=== PATIENT | female | born 1930 | race Caucasian/White ===

== ENCOUNTER 2016-08-29 12:16 | Inpatient (IN) | payer MEDICARE ==
[2016-08-29] MEDS ORDERED: SODIUM CHLORIDE 0.9% 1,000 ML IV STA ×2 (13:19)
--- NOTE | 2016-08-29 13:23 | ED ---
Nausea/Vomiting/Diarrhea HPI - General Chief complaint: Nausea/Vomiting/Diarrhea Stated complaint: Weakness Time Seen by Provider: 08/29/16 13:05 Source: patient, family, RN notes reviewed Mode of arrival: wheelchair Limitations: no limitations - History of Present Illness Initial comments: This is a 85-year-old female who is brought in for evaluation due to weakness and nausea vomiting which is going on for at least 3 days with associated diarrhea. She also is had supposedly a history of diarrhea. Past 3 weeks but it got worse over last several days. She's had decreased oral intake generalized weakness she reports no chest pain fevers chills nausea vomiting sweats she does state that her abdomen is getting distended. No prior history of abdominal surgeries reported. No reports of dysuria or hematuria. There is a prior history of constipation with fecal impaction. MD complaint: nausea, vomiting, other - Related Data Home Medications Medication Instructions Recorded Confirmed Aspirin EC [Ecotrin Low Dose] 81 mg PO DAILY 08/29/16 08/29/16 Carbidopa-Levodopa 25-100 mg 1 tab PO TID 08/29/16 08/29/16 [Sinemet 25-100] Fluocinonide 0.05% [Lidex 0.05% 1 applic TOPICAL BID 08/29/16 08/29/16 cream] Furosemide [Lasix] 40 mg PO BID 08/29/16 08/29/16 [place] Carbonate [[place] 300 mg PO DAILY 08/29/16 08/29/16 Carbonate ER] Multivitamins, Thera [Multivitamin] 1 tab PO DAILY 08/29/16 08/29/16 Potassium Chloride [Klor-Con 10] 10 meq PO DAILY 08/29/16 08/29/16 Sennosides [Ex-Lax] 15 mg PO BID PRN 08/29/16 08/29/16 Vit C/E/Zn/Coppr/Lutein/Zeaxan 1 cap PO DAILY 08/29/16 08/29/16 [Preservision Areds 2 Softgel] clonazePAM [KlonoPIN] 0.5 mg PO HS 08/29/16 08/29/16 rOPINIRole HCL [Requip] 1 mg PO TID 08/29/16 08/29/16 Allergies Allergy/AdvReac Type Severity Reaction Status Date / Time No Known Allergies Allergy Verified 08/29/16 13:51 Review of Systems ROS Statement: Those systems with pertinent positive or pertinent negative responses have been documented in the HPI. ROS Other: All systems not noted in ROS Statement are negative. Past Medical History Past Medical History: COPD Additional Past Medical History / Comment(s): lordosis kyphoisis parkensons enlarged heart History of Any Multi-Drug Resistant Organisms: None Reported Past Surgical History: Appendectomy Past Psychological History: Bipolar, Depression Smoking Status: Current every day smoker Past Alcohol Use History: None Reported Past Drug Use History: None Reported General Exam - General Exam Comments Initial Comments: This is a well-developed asthenic appearing female Limitations: no limitations General appearance: alert, lethargic Head exam: Present: atraumatic, normocephalic, normal inspection Eye exam: Present: normal appearance, PERRL, EOMI. Absent: scleral icterus, conjunctival injection, periorbital swelling ENT exam: Present: mucous membranes dry Neck exam: Present: normal inspection. Absent: tenderness, meningismus, lymphadenopathy Respiratory exam: Present: normal lung sounds bilaterally, other (Evidence of some kyphoscoliosis). Absent: respiratory distress, wheezes, rales, rhonchi, stridor Cardiovascular Exam: Present: regular rate, normal rhythm, normal heart sounds. Absent: systolic murmur, diastolic murmur, rubs, gallop, clicks GI/Abdominal exam: Present: soft, distended, other (Increased tympany no tenderness palpation). Absent: bruit, pulsatile mass, hernia Rectal exam: Present: normal rectal tone, other (Small amount of soft brown stool no gross blood) Extremities exam: Present: pedal edema (Pedal edema on the right some evidence of stasis changes) Back exam: Present: other (Kyphoscoliosis). Absent: tenderness, CVA tenderness (R), CVA tenderness (L), paraspinal tenderness, vertebral tenderness Neurological exam: Present: alert, oriented X3, CN II-XII intact Psychiatric exam: Present: normal affect, normal mood Skin exam: Present: warm, dry, intact, normal color. Absent: rash Course Vital Signs 08/29/16 08/29/16 08/29/16 12:55 13:14 14:15 Temperature 97.9 F Pulse Rate 68 63 62 Respiratory 18 18 18 Rate Blood Pressure 106/51 123/57 127/60 O2 Sat by Pulse 91 L 99 98 Oximetry 08/29/16 15:55 Temperature Pulse Rate 542 H Respiratory 18 Rate Blood Pressure 122/59 O2 Sat by Pulse 95 Oximetry Medical Decision Making - Medical Decision Making I did discuss the findings with patient family patient be admitted for IV hydration and further evaluation - Lab Data Result diagrams: 08/29/16 13:35 08/29/16 13:35 Lab Results 08/29/16 08/29/16 08/29/16 Range/Units 13:35 13:35 14:25 WBC 15.1 H (3.8-10.6) k/uL RBC 4.38 (3.80-5.40) m/uL Hgb 13.3 (11.4-16.0) gm/dL Hct 42.4 (34.0-46.0) % MCV 96.9 (80.0-100.0) fL MCH 30.4 (25.0-35.0) pg MCHC 31.3 (31.0-37.0) g/dL RDW 13.2 (11.5-15.5) % Plt Count 228 (150-450) k/uL Neutrophils % 85 % Lymphocytes % 8 % Monocytes % 5 % Eosinophils % 0 % Basophils % 0 % Neutrophils # 12.9 H (1.3-7.7) k/uL Lymphocytes # 1.2 (1.0-4.8) k/uL Monocytes # 0.8 (0-1.0) k/uL Eosinophils # 0.0 (0-0.7) k/uL Basophils # 0.0 (0-0.2) k/uL Sodium 143 (137-145) mmol/L Potassium 4.2 (3.5-5.1) mmol/L Chloride 103 (98-107) mmol/L Carbon Dioxide 25 (22-30) mmol/L Anion Gap 15 mmol/L BUN 42 H (7-17) mg/dL Creatinine 1.33 H (0.52-1.04) mg/dL Est GFR (MDRD) Af Amer 46 (>60 ml/min/1.73 sqM) Est GFR (MDRD) Non-Af 38 (>60 ml/min/1.73 sqM) Glucose 100 H (74-99) mg/dL Calcium 10.7 H (8.4-10.2) mg/dL Magnesium 2.4 H (1.6-2.3) mg/dL Total Bilirubin 1.2 (0.2-1.3) mg/dL AST 18 (14-36) U/L ALT 26 (9-52) U/L Alkaline Phosphatase 81 (38-126) U/L Total Protein 7.0 (6.3-8.2) g/dL Albumin 4.1 (3.5-5.0) g/dL Amylase 103 (30-110) U/L Lipase 43 (23-300) U/L Urine Color Urine Appearance (Clear) Urine pH (5.0-8.0) Ur Specific [place] (1.001-1.035) Urine Protein (Negative) Urine Glucose (UA) (Negative) Urine Ketones (Negative) Urine Blood (Negative) Urine Nitrate (Negative) Urine Bilirubin (Negative) Urine Urobilinogen (<2.0) mg/dL Ur Leukocyte Esterase (Negative) Stool Occult Blood Negative (Negative) [place] mmol/L 08/29/16 08/29/16 Range/Units 15:03 16:10 WBC (3.8-10.6) k/uL RBC (3.80-5.40) m/uL Hgb (11.4-16.0) gm/dL Hct (34.0-46.0) % MCV (80.0-100.0) fL MCH (25.0-35.0) pg MCHC (31.0-37.0) g/dL RDW (11.5-15.5) % Plt Count (150-450) k/uL Neutrophils % % Lymphocytes % % Monocytes % % Eosinophils % % Basophils % % Neutrophils # (1.3-7.7) k/uL Lymphocytes # (1.0-4.8) k/uL Monocytes # (0-1.0) k/uL Eosinophils # (0-0.7) k/uL Basophils # (0-0.2) k/uL Sodium (137-145) mmol/L Potassium (3.5-5.1) mmol/L Chloride (98-107) mmol/L Carbon Dioxide (22-30) mmol/L Anion Gap mmol/L BUN (7-17) mg/dL Creatinine (0.52-1.04) mg/dL Est GFR (MDRD) Af Amer (>60 ml/min/1.73 sqM) Est GFR (MDRD) Non-Af (>60 ml/min/1.73 sqM) Glucose (74-99) mg/dL Calcium (8.4-10.2) mg/dL Magnesium (1.6-2.3) mg/dL Total Bilirubin (0.2-1.3) mg/dL AST (14-36) U/L ALT (9-52) U/L Alkaline Phosphatase (38-126) U/L Total Protein (6.3-8.2) g/dL Albumin (3.5-5.0) g/dL Amylase (30-110) U/L Lipase (23-300) U/L Urine Color Yellow Urine Appearance Clear (Clear) Urine pH 6.0 (5.0-8.0) Ur Specific [place] 1.010 (1.001-1.035) Urine Protein Negative (Negative) Urine Glucose (UA) Negative (Negative) Urine Ketones Negative (Negative) Urine Blood Negative (Negative) Urine Nitrate Negative (Negative) Urine Bilirubin Negative (Negative) Urine Urobilinogen 2.0 (<2.0) mg/dL Ur Leukocyte Esterase Negative (Negative) Stool Occult Blood (Negative) [place] 0.8 mmol/L - Radiology Data Radiology results: report reviewed (X-rays were reviewed initial evidence of increased stool burn with dilatation of the colon), image reviewed Disposition Clinical Impression: Bowel obstruction, Obstipation, Dehydration Disposition: ADMITTED IP TO THIS [facility] Condition: Stable
[2016-08-29 14:02] LABS: Calcium 10.7 mg/dL (8.4-10.2); Magnesium 2.4 mg/dL (1.6-2.3); Potassium 4.2 mmol/L (3.5-5.1); Total Bilirubin 1.2 mg/dL (0.2-1.3)
[2016-08-29 14:03] LABS: Basophils % (A) 0 %; CH 30.3; CHCM 31.4; Eosinophils % (A) 0 %; HCT 42.4 % (34.0-46.0); HDW 2.09; HGB 13.3 gm/dL (11.4-16.0); Luc # (Auto) 0.18; Luc % (Auto) 1; Lymphocytes # (A) 1.2 k/uL (1.0-4.8); Lymphocytes % (A) 8 %; MCH 30.4 pg (25.0-35.0); MCHC 31.3 g/dL (31.0-37.0); MCV 96.9 fL (80.0-100.0); Mean Platelet Volume 7.3; Monocytes # (A) 0.8 k/uL (0-1.0); Monocytes % (A) 5 %; Neutrophils # (A) 12.9 k/uL (1.3-7.7); Neutrophils % (A) 85 %; RBC 4.38 m/uL (3.80-5.40); RDW 13.2 % (11.5-15.5); WBC 15.1 k/uL (3.8-10.6); WBC (Perox) 15.56
--- NOTE | 2016-08-29 14:07 | XR ---
EXAMINATION TYPE: XR chest 2V DATE OF EXAM: 08/29/2016 1:54 PM COMPARISON: None HISTORY: 85-year-old female with pain, weakness, diarrhea, and shortness of breath TECHNIQUE: AP and lateral views FINDINGS: Heart is upper limits of normal in size. Atherosclerotic arch calcifications. Relative upper lung robert encies and hyperinflation with increased AP chest dimension. There is diffuse interstitial opacities throughout. IMPRESSION: COPD. Additional diffuse interstitial lung disease. Correlate for CHF with pulmonary vascular congest ion versus other etiologies such as atypical pneumonias.
--- NOTE | 2016-08-29 14:12 | XR ---
EXAMINATION TYPE: XR KUB DATE OF EXAM: 08/29/2016 1:54 PM COMPARISON: NONE HISTORY: 85-year-old female weakness, diarrhea, shortness of breath, and pain FINDINGS: Supine imaging limited for assessment of free air. There is large stool burden with the cecum distend ed to 9 cm with stool. IMPRESSION: Severe stool burden with the cecum distended up to 9 cm with stool. Note that this degree of distenti on places the patient at risk for cecal perforation. Supine imaging limited for assessment of free ai r.
[2016-08-29 15:35] LABS: Appearance,Urine Clear (Clear); Bilirubin,Urine Negative (Negative); Glucose,Urine (UA) Negative (Negative); Ketones,Urine Negative (Negative); Leukocyte Esterase,Urine Negative (Negative); Nitrite,Urine Negative (Negative); Protein,Urine Negative (Negative); UA Billing (MACRO vs. MICRO) CHEM
[2016-08-29] MEDS ORDERED: NALOXONE 0.4 MG/ML 1 ML VIAL IV PRN (16:46)
--- NOTE | 2016-08-29 17:04 | CT ---
EXAMINATION TYPE: CT abdomen pelvis wo con DATE OF EXAM: 08/29/2016 4:24 PM COMPARISON: NONE HISTORY: 85-year-old female unable to give history. Pain. CT DLP: 357.4 mGycm. Automated exposure control for dose reduction was used. TECHNIQUE: Contiguous axial scanning of the abdomen and pelvis without IV contrast. Coronal and sagit kristel reconstructions performed. FINDINGS: Heart is borderline enlarged without pericardial effusion. There is focal opacity at the left lung ba se poorly characterized given the lack of IV contrast. This blends with the adjacent hemidiaphragm an d subjacent abdominal structures. Nonspecific 2.2 cm cyst right lower lobe and some strandy opacity probably scarring. Noncontrast appearance of the liver, adrenal glands, and spleen show no gross anomaly. Suggestion of subtle hypodense lesions measuring less than 1 cm in the kidneys inadequately characterized. The panc reas appears atrophic. Very limited evaluation of the intra-abdominal structures due to paucity of intra-abdominal fat and m ild diffuse anasarca type changes. The gallbladder is hydropic measuring 4.4 cm wide with layering sludge. Moderate atherosclerotic calcifications throughout the abdominal aorta and iliac arteries. Noncontrast exam and paucity of intra-abdominal fat limiting assessment for intra-abdominal lymphaden opathy. No free air seen. Dilated bowel loop which was thought to represent cecum on radiographs appears to correspond to the m id to distal sigmoid colon which is dilated up to 10 cm. There is large stool along this segment and moderate circumferential wall thickening involving the distal sigmoid and rectum with presacral edema . There is a 4 cm cystic structure within the left adnexa. Bones: Bilateral total hip replacements are present along with degenerative changes throughout the rojas mbar spine. 50% anterior vertebral torsion deformity of L1 is age indeterminate chronic and can be co rrelated clinically. There is mild retropulsion into the ventral spinal canal. IMPRESSION: 1. VERY LARGE AMOUNT OF STOOL WITHIN THE DISTAL SIGMOID AND RECTUM. SUSPECT DISTAL COLONIC OBSTRUCTIO N FROM FECAL IMPACTION. 2. MODERATE CIRCUMFERENTIAL WALL THICKENING OF THE DISTAL SIGMOID AND RECTUM WITH PRESACRAL EDEMA. SE CONDARY COLONIC INFLAMMATION INCLUDING EARLY ISCHEMIC STERCORAL COLITIS ARE NOT EXCLUDED. 3. MILD GALLBLADDER HYDROPS WITH SLUDGE. FINDINGS MAY RELATED TO FASTING STATE. IF RIGHT UPPER QUADRA NT PAIN OR CONCERN FOR EARLY ACUTE CHOLECYSTITIS, FOLLOW-UP ULTRASOUND OR HIDA SCAN. 4. FOCAL LEFT BASILAR OPACITY COULD REPRESENT ATELECTASIS OR PNEUMONIA. 5. ANASARCA TYPE CHANGES, LACK OF IV CONTRAST, AND PAUCITY OF INTRA-ABDOMINAL FAT DECREASES THE SENSI TIVITY OF THE EXAM. 6. A 4 CM CYSTIC STRUCTURE WITHIN THE LEFT ADNEXA LIKELY OF OVARIAN ETIOLOGY. THIS CAN BE FURTHER TAMIKA RACTERIZED ON OUTPATIENT PELVIC ULTRASOUND WHEN PATIENT ABLE. 7. A 50% ANTERIOR VERTEBRAL COMPRESSION DEFORMITY OF L1 IS AGE INDETERMINATE BUT SUSPECTED CHRONIC. CORRELATE FOR ANY PAIN AT THIS LEVEL.
[2016-08-29 17:46] VITALS: BMI 40.0
[2016-08-29 18:07] LABS: Glucose,Whole Blood 79 mg/dL (75-99)
[2016-08-29] MEDS: SODIUM CHLORIDE 0.9% 1,000 ML IV SCH (19:30)
[2016-08-29 20:06] LABS: Glucose,Whole Blood 84 mg/dL (75-99)
[2016-08-29] MEDS: PANTOPRAZOLE 40 MG/10 ML VIAL IV SCH (20:23)
[2016-08-29] MEDS: LEVOFLOXACIN 500MG-D5W PMX 500 MG in DEXTROSE/WATER 1 100ML.BAG IVPB SCH (21:57)
[2016-08-29] MEDS ORDERED: ALPRAZolam 0.25 MG TAB PO PRN (22:34)
[2016-08-29] MEDS ORDERED: HYDROcodone/APAP 5-325MG 1 EACH TAB PO PRN (22:34)
[2016-08-29] MEDS ORDERED: HYDROmorphone 1 MG/ML 1 ML SYRINGE IVP PRN (22:34)
[2016-08-29] MEDS: HEPARIN SODIUM,PORCINE 5,000 UNIT/ML 1 ML VIAL SQ SCH (23:17)
[2016-08-30 02:24] LABS: Glucose,Whole Blood 71 mg/dL (75-99)
[2016-08-30] MEDS: SODIUM CHLORIDE 0.9% 1,000 ML IV SCH (05:33)
[2016-08-30 06:56] LABS: Glucose,Whole Blood 67 mg/dL (75-99)
[2016-08-30] MEDS ORDERED: GLUCAGON 1 MG/ML VIAL ONE (06:59)
[2016-08-30] MEDS ORDERED: DEXTROSE 50%-WATER 50 ML SYRINGE IVP ONE (07:00)
[2016-08-30 07:24] LABS: Glucose,Whole Blood 144 mg/dL (75-99)
[2016-08-30] MEDS: LEVALBUTEROL NEB (CONC) 1.25 MG/0.5 ML AMP INHALATION SCH ×3 (07:33→20:52)
[2016-08-30] MEDS: IPRATROPIUM 0.5 MG/2.5 ML NEBU INHALATION SCH ×3 (07:33→20:52)
[2016-08-30 07:46] LABS: Basophils % (A) 0 %; CH 29.9; CHCM 30.5; Eosinophils # (A) 0.2 k/uL (0-0.7); Eosinophils % (A) 2 %; HCT 36.1 % (34.0-46.0); HDW 2.09; HGB 11.4 gm/dL (11.4-16.0); Hypochromasia Slight; Luc # (Auto) 0.13; Luc % (Auto) 1; Lymphocytes # (A) 1.1 k/uL (1.0-4.8); Lymphocytes % (A) 13 %; MCH 30.9 pg (25.0-35.0); MCHC 31.4 g/dL (31.0-37.0); MCV 98.5 fL (80.0-100.0); Mean Platelet Volume 7.2; Monocytes # (A) 0.4 k/uL (0-1.0); Monocytes % (A) 5 %; Neutrophils # (A) 7.1 k/uL (1.3-7.7); Neutrophils % (A) 79 %; RBC 3.67 m/uL (3.80-5.40); RDW 13.1 % (11.5-15.5); WBC 8.9 k/uL (3.8-10.6); WBC (Perox) 9.43
[2016-08-30 08:30] LABS: Glucose,Whole Blood 125 mg/dL (75-99)
[2016-08-30] MEDS ORDERED: DEXTROSE 5% IN WATER 1,000 ML IV ONE (08:30)
[2016-08-30] MEDS: HEPARIN SODIUM,PORCINE 5,000 UNIT/ML 1 ML VIAL SQ SCH ×2 (08:37→22:10)
[2016-08-30] MEDS: FUROSEMIDE 40 MG TAB PO SCH ×2 (08:37→23:57)
[2016-08-30] MEDS: CARBIDOPA-LEVODOPA 25-100 MG 1 EACH TAB PO SCH ×3 (08:37→22:04)
[2016-08-30] MEDS: LITHIUM CARBONATE 300 MG CAP PO SCH (08:37)
[2016-08-30] MEDS: PANTOPRAZOLE 40 MG/10 ML VIAL IV SCH ×2 (08:38→22:05)
--- NOTE | 2016-08-30 09:15 | P.GSCN ---
History of Present Illness Consult date: 08/30/16 Reason for Consult: Fecal impaction within abnormal CT Requesting physician: Awais Palm History of present illness: The patient is a 85-year-old female who presented to Hospital secondary to generalized weakness including poor oral intake. She has history of fecal impaction including abdominal distention. Most of her history is obtained via medical records as the patient is generally nonverbal. A CT of the abdomen and pelvis was obtained demonstrating large fecal content as well as questionable colonic thickening and gallbladder sludge. Secondary to these normal findings, Gen. surgery is consult today. Patient presented with elevated white count of over 15,000. Separately, she has baseline history of chronic constipation. Since admission, she is feeling better. No reports of abdominal pain. An enema had been administered. Review of Systems CONSTITUTIONAL: No fever or chills. HEENT: No trouble with vision or nosebleeds. LYMPHATIC: No lumps and bumps around the neck. ENDOCRINE: No thyroid disorders. Denies any blood sugar glucose intolerance. RESPIRATORY: Has chronic obstructive pulmonary disease. Personal history of tobacco use. CARDIOVASCULAR: No chest pain, palpitations, or recent heart attacks. GASTROINTESTINAL: No heart burn. Has chronic constipation. Has fecal impaction. GENITOURINARY: No blood in urine or increased urinary frequency. MUSCULOSKELETAL: Has back pain, stiffness, joint arthritis. NEUROLOGIC: No seizure disorders or headaches. PSYCHIATRIC: Has depression. No suidical ideation. History of bipolar disorder. Has depression. HEMATOLOGIC: No abnormal bleeding or bruising. Past Medical History Past Medical History: COPD, Osteoarthritis (OA) Additional Past Medical History / Comment(s): lordosis kyphoisis, parkinson's disease, enlarged heart, curvature of spine History of Any Multi-Drug Resistant Organisms: None Reported Past Surgical History: Appendectomy, Joint Replacement Additional Past Surgical History / Comment(s): bilateral hip sx, Past Psychological History: Bipolar, Depression Smoking Status: Current every day smoker Past Alcohol Use History: None Reported Past Drug Use History: None Reported - Past Family History Mother History Unknown: Yes Additional Family Medical History / Comment(s): brain aneurysm Father History Unknown: Yes Medications and Allergies Home Medications Medication Instructions Recorded Confirmed Type Aspirin EC [Ecotrin Low Dose] 81 mg PO DAILY 08/29/16 08/29/16 History Carbidopa-Levodopa 25-100 mg 1 tab PO TID 08/29/16 08/29/16 History [Sinemet 25-100 mg] Fluocinonide 0.05% [Lidex 0.05% 1 applic TOPICAL BID 08/29/16 08/29/16 History cream] Furosemide [Lasix] 40 mg PO BID 08/29/16 08/29/16 History [place] Carbonate [[place] 300 mg PO DAILY 08/29/16 08/29/16 History Carbonate ER] Multivitamins, Thera [Multivitamin] 1 tab PO DAILY 08/29/16 08/29/16 History Potassium Chloride [Klor-Con 10] 10 meq PO DAILY 08/29/16 08/29/16 History Sennosides [Ex-Lax] 15 mg PO BID PRN 08/29/16 08/29/16 History Vit C/E/Zn/Coppr/Lutein/Zeaxan 1 cap PO DAILY 08/29/16 08/29/16 History [Preservision Areds 2 Softgel] rOPINIRole HCL [Requip] 1 mg PO TID 08/29/16 08/29/16 History Allergies Allergy/AdvReac Type Severity Reaction Status Date / Time No Known Allergies Allergy Verified 08/29/16 17:48 Surgical - Exam Vital Signs Temp Pulse Resp BP Pulse Ox 97.9 F 68 18 106/51 91 L 08/29/16 12:55 08/29/16 12:55 08/29/16 12:55 08/29/16 12:55 08/29/16 12:55 GENERAL: Well developed and in no acute distress. HEENT: No sclera icterus. Extraocular movements grossly intact. Moist buccal mucosa. Head is atraumatic, normocephalic. NECK: Supple without lymphadenopathy. CHEST: Non-labored respirations and equal bilateral excursions. Prolonged expiration. CARDIOVASCULAR: Regular rate and rhythm. Palpable 2+ radial pulses. ABDOMEN: Soft, nontender. Decreased distention. No peritoneal signs. MUSCULOSKELETAL: No clubbing, cyanosis or edema. Has severe kyphosis of the spine. NEUROLOGIC: No focal or lateralizing signs. Cranial nerves II through XII grossly intact. PSYCH: Flat affect. Alert and oriented to person. Results - Labs 09/02/16 06:37 09/02/16 06:37 Abnormal Lab Results - Last 24 Hours (Table) 08/30/16 08/30/16 08/30/16 Range/Units 02:20 06:51 07:17 RBC 3.67 L (3.80-5.40) m/uL Glucose (74-99) mg/dL POC Glucose (mg/dL) 71 L 67 L (75-99) mg/dL 08/30/16 08/30/16 08/30/16 Range/Units 07:17 07:19 08:18 RBC (3.80-5.40) m/uL Glucose 147 H (74-99) mg/dL POC Glucose (mg/dL) 144 H 125 H (75-99) mg/dL Diabetes panel 08/30/16 Range/Units 07:17 Glucose 147 H (74-99) mg/dL Pituitary panel 08/30/16 Range/Units 07:17 Glucose 147 H (74-99) mg/dL Adrenal panel 08/30/16 Range/Units 07:17 Glucose 147 H (74-99) mg/dL - Imaging CT scan - abdomen: report reviewed, image reviewed CT scan - pelvis: report reviewed, image reviewed (Large fecal bolus found along the cecum sigmoid colon. No evidence of pneumoperitoneum) Assessment and Plan (1) Fecal impaction of colon Status: Acute (2) Chronic constipation Status: Chronic (3) Dementia Status: Chronic (4) Abnormal CT of the abdomen Status: Acute (5) Abdominal distention Status: Acute (6) Dehydration Status: Acute (7) Parkinson's disease Status: Acute (8) Chronic obstructive pulmonary disease Status: Acute (9) Fecal impaction Status: Acute (10) Kyphosis Status: Acute (11) Chronic depression Status: Acute (12) Elevated white blood cell count, unspecified Status: Acute (13) Chronic idiopathic constipation Status: Acute (14) Abnormal findings on diagnostic imaging of other parts of digestive tract Status: Acute (15) Abdominal distension (gaseous) Status: Acute Plan: 1. Recommend continuing IV fluid hydration. 2. On exam, no acute or surgical abdomen. 3. Recommend continued enemas. Patient will benefit from bowel regimen. 4. Recommend liquid diet and advanced as tolerated as fecal impaction resolves. 5. DVT prophylaxis. 6. Incentive spirometry. 7. Repeat chemistries. 8. Pulmonary toilet to prevent exacerbation of COPD. Thank you for this kind consultation.
--- NOTE | 2016-08-30 11:38 | HP ---
DATE OF ADMISSION: 08/29/2016 CHIEF COMPLAINT: Weakness and abdominal discomfort. HISTORY OF PRESENT ILLNESS: This 85-year-old woman with past medical history of multiple medical problems including COPD, history of DJD, history of lordosis/kyphosis, bipolar, depression, being followed by Dr. Toribio Post in the outpatient setting, was [facility] to [facility] with complaints of nausea, vomiting and some diarrhea. The patient had abdominal distention. The patient's symptoms have been present for the last 3 weeks. The patient is stuporous, unable to give a coherent history. Most of the history is taken by my discussion with staff as well as review of chart at this time. The CT scan of the abdomen was done in the ER which showed large amount of stool within the distal sigmoid colon and rectum, suspected of distal colonic obstruction and some secondary fecal impaction. There is questionable wall thickening of the distal sigmoid also noted, possibly early ischemic colitis or infectious colitis. Mild gallbladder hydronephrosis with focal left basilar opacity, possibly pneumonia. Anasarca also noted. compression deformity of L4 also noted. No history of obvious trauma. PAST MEDICAL HISTORY: History of COPD, DJD, history of lordosis/kyphosis, bipolar, depression. MEDICATIONS PRIOR TO ADMISSION: 1. Senna 15 mg daily p.r.n. 2. Preservision 1 capsule daily. 3. Aspirin 81 mg daily. 4. Klor-Con 20 mg p.o. daily. 5. Multivitamins. 7. Lasix 40 mg b.i.d. 8. Sinemet 20/100, p.o. t.i.d. 10. Klonopin 0.5 mg at bedtime. 11. Lidex topically b.i.d. ALLERGIES: None. FAMILY HISTORY: History of brain aneurysm in the family. SOCIAL HISTORY: Could not be taken because of change in mental status. History of smoking per chart. On physical exam, the patient is stuporous. Pulse is 58, blood pressure 130/58, respirations 17, temperature 97.8, pulse ox 94% on 2 liters. HEENT: Conjunctivae normal. Oral mucosa moist. NECK: No JVD. No carotid bruits or lymph node enlargement. CARDIOVASCULAR: S1 and S2 muffled. LUNGS: Breath sounds diminished in the bases. Few scattered rhonchi and crackles. ABDOMEN: Soft, distended. Mild diffuse discomfort on palpation. No guarding or rebound. Bowel sounds diminished. EXTREMITIES: No mass palpable. No edema. NERVOUS SYSTEM: Higher functions as mentioned. Full neurology exam cannot be done at this time. SKIN: No ulcer or rash. LABS: WBC 15.1, creatinine is 1.3. ASSESSMENT: 1. Abdominal distention, possibly a large bowel obstruction secondary to colonic obstruction secondary to fecal impaction. 2. Rule out diverticulitis or colitis. 3. Increased WBC. 4. Increased creatinine with , possible prerenal. 5. History of chronic obstructive pulmonary disease. 6. History of degenerative joint disease. 7. Nicotine dependence. 8. History of lordosis and kyphosis. 9. History of Parkinson's. 10. History of degenerative joint disease. 11. History of bipolar depression. 12. FULL CODE. RECOMMENDATIONS AND DISCUSSION: This 85-year-old woman presented with multiple complex medical issues, we will monitor the patient closely, continue the current medication. I recommend empiric antibiotics. Monitor fluids closely. Otherwise, we will continue to follow with surgery for further evaluation. Prognosis guarded because of multiple complex medical issues. See orders for further details. Further recommendations to follow. MTDD
[2016-08-30 11:44] LABS: Glucose,Whole Blood 184 mg/dL (75-99)
[2016-08-30] MEDS: BETAMETHASONE DIPROPIONATE 0.05% CREAM 15 GM TUBE TOPICAL SCH ×2 (11:49→22:05)
[2016-08-30 16:27] LABS: Glucose,Whole Blood 100 mg/dL (75-99)
--- NOTE | 2016-08-30 18:55 | PN ---
DATE OF SERVICE: 08/30/2016 This 85-year-old woman who was admitted with abdominal distention with large bowel obstruction secondary to colonic obstruction is being closely monitored at this time. Her sensorium is slightly improved. Dr. Arteaga has seen the patient from the surgical point of view. No chest pain. No palpitation. No fever. On exam, alert and oriented x3. Pulse is 49, blood pressure 99/40, respiration 17, temperature 97.3, pulse ox 93% on 3 L. HEENT: Conjunctivae normal. NECK: No jugular venous distention. RESPIRATORY SYSTEM: Breath sounds diminished at the bases. A few scattered rhonchi and crackles. ABDOMEN: Soft. Mild diffuse distention. LEGS: No edema. No swelling. NERVOUS SYSTEM: No focal deficit. LABS: Accu-Cheks are noted. Otherwise, CBC within normal limits. ASSESSMENT: 1. Abdominal distention with possible large bowel obstructive secondary to colonic obstruction secondary to fecal impaction. 2. Rule out colitis or diverticulitis or ischemic colitis. 3. Increased white count. 4. Increased creatinine with mild acute renal failure, possibly prerenal. 5. History of chronic obstructive pulmonary disease. 6. History of degenerative joint disease. 7. History of nicotine dependence. 8. Change in mental status, multifactorial. 9. History of lordosis and kyphosis. 10. History of Parkinson's. 11. History of degenerative joint disease. 12. Bipolar depression. 13. FULL CODE. RECOMMENDATIONS AND DISCUSSION: This 85-year-old woman who presented with multiple complex medical issues, we will monitor the patient closely, continue the current medications, continue with symptomatic treatment. Otherwise, I would recommend repeat labs and closely follow, with conservative line of management. The patient has received enemas. Clear liquid diet. Advance as tolerated per Surgery. Further recommendations to follow.
[2016-08-30] MEDS ORDERED: SODIUM CHLORIDE 0.9% 1,000 ML IV SCH (20:15)
[2016-08-30] MEDS ORDERED: SODIUM CHLORIDE 0.9% 1,000 ML IV ONE (20:15)
[2016-08-30 21:21] LABS: Glucose,Whole Blood 107 mg/dL (75-99)
[2016-08-30] MEDS: clonazePAM 0.5 MG TAB PO SCH (22:04)
[2016-08-30] MEDS: MELATONIN 3 MG TABLET PO SCH (22:04)
[2016-08-31] MEDS: LEVOFLOXACIN 500MG-D5W PMX 500 MG in DEXTROSE/WATER 1 100ML.BAG IVPB SCH
[2016-08-31] MEDS ORDERED: SODIUM CHLORIDE 0.9% 500 ML IV ONE (00:10)
[2016-08-31] MEDS ORDERED: SODIUM CHLORIDE 0.9% 1,000 ML IV ONE ×2 (00:27→00:33)
[2016-08-31 03:02] LABS: Glucose,Whole Blood 98 mg/dL (75-99)
[2016-08-31 06:58] LABS: Glucose,Whole Blood 101 mg/dL (75-99)
[2016-08-31] MEDS: FUROSEMIDE 40 MG TAB PO SCH ×2 (09:16→22:15)
[2016-08-31] MEDS: HEPARIN SODIUM,PORCINE 5,000 UNIT/ML 1 ML VIAL SQ SCH ×2 (09:16→22:15)
[2016-08-31] MEDS: CARBIDOPA-LEVODOPA 25-100 MG 1 EACH TAB PO SCH ×3 (09:16→22:15)
[2016-08-31] MEDS: SODIUM CHLORIDE 0.9% 1,000 ML IV SCH ×3 (09:17→22:22)
[2016-08-31] MEDS: PANTOPRAZOLE 40 MG/10 ML VIAL IV SCH ×2 (09:17→22:15)
[2016-08-31 11:02] LABS: Glucose,Whole Blood 86 mg/dL (75-99)
[2016-08-31] MEDS: IPRATROPIUM 0.5 MG/2.5 ML NEBU INHALATION SCH (11:58)
[2016-08-31] MEDS: LEVALBUTEROL NEB (CONC) 1.25 MG/0.5 ML AMP INHALATION SCH (11:58)
[2016-08-31] MEDS ORDERED: IPRATROPIUM-ALBUTEROL 3 ML NEB INHALATION SCH (12:00)
[2016-08-31] MEDS: LITHIUM CARBONATE 300 MG CAP PO SCH (12:50)
[2016-08-31] MEDS: BETAMETHASONE DIPROPIONATE 0.05% CREAM 15 GM TUBE TOPICAL SCH ×2 (12:50→22:15)
[2016-08-31 17:01] LABS: Glucose,Whole Blood 80 mg/dL (75-99)
[2016-08-31 20:41] LABS: Glucose,Whole Blood 140 mg/dL (75-99)
[2016-08-31] MEDS: MELATONIN 3 MG TABLET PO SCH (22:14)
[2016-08-31] MEDS: clonazePAM 0.5 MG TAB PO SCH (22:14)
[2016-08-31] MEDS: LEVOFLOXACIN 250MG-D5W PMX 250 MG in DEXTROSE/WATER 1 50ML.BAG IVPB SCH (22:23)
[2016-08-31] MEDS: ALBUTEROL NEBULIZED 2.5 MG/3 ML INHALATION PRN (23:45)
[2016-09-01 02:13] LABS: Glucose,Whole Blood 76 mg/dL (75-99)
[2016-09-01] MEDS: HEPARIN SODIUM,PORCINE 5,000 UNIT/ML 1 ML VIAL SQ SCH ×2 (07:22→21:35)
[2016-09-01] MEDS: CARBIDOPA-LEVODOPA 25-100 MG 1 EACH TAB PO SCH ×3 (07:22→21:35)
[2016-09-01] MEDS: FUROSEMIDE 40 MG TAB PO SCH ×2 (07:22→21:35)
[2016-09-01] MEDS: PANTOPRAZOLE 40 MG/10 ML VIAL IV SCH ×2 (07:23→21:35)
[2016-09-01] MEDS: BETAMETHASONE DIPROPIONATE 0.05% CREAM 15 GM TUBE TOPICAL SCH ×2 (07:23→21:35)
[2016-09-01] MEDS: LITHIUM CARBONATE 300 MG CAP PO SCH (07:23)
[2016-09-01 07:37] LABS: Glucose,Whole Blood 79 mg/dL (75-99)
--- NOTE | 2016-09-01 07:54 | PN ---
DATE OF SERVICE: 08/31/2016 This 85-year-old woman who was admitted with abdominal distention, possible large bowel obstruction secondary to colonic obstruction is improving significantly. No chest pain or palpitation. No fever. On exam, alert and oriented x3. Pulse is 42, blood pressure 120/45, respiration 15, temperature 97.2, pulse ox 96% on room air. HEENT: Conjunctivae normal. NECK: No jugular venous distention. CARDIOVASCULAR: S1 and S2, muffled. RESPIRATORY: Breath sounds diminished at the bases. A few scattered rhonchi and crackles. ABDOMEN: Soft. Minimal diffuse distention. No guarding. No mass palpable. LEGS: No edema, no swelling. NERVOUS SYSTEM: No focal deficits. Labs are CBC within normal limits. Other labs are noted. ASSESSMENT: 1. Abdominal distention with possible large bowel obstruction secondary to colonic obstruction and fecal impaction possibly. 2. Rule out colitis or diverticulitis or ischemic colitis. 3. Increased WBC. 4. Increased creatinine with mild acute renal failure, possible prerenal. 5. History of chronic obstructive pulmonary disease. 6. History of degenerative joint disease. 7. History of nicotine dependence. 8. Change in mental status multifactorial. 9. History of lordosis and kyphosis. 10. History of Parkinson's. 11. Bipolar depression. 12. FULL CODE. RECOMMENDATIONS AND DISCUSSION: Recommend to continue the current medications. Continue with monitoring and symptomatic treatment. Otherwise, at this time will monitor the patient closely. Continue the current medications. Continue with empiric antibiotics. Closely follow with Surgery. Guarded prognosis because of multiple complex medical issues. Further recommendations to follow. MATILDED
[2016-09-01 11:38] LABS: Glucose,Whole Blood 113 mg/dL (75-99)
[2016-09-01] MEDS: SODIUM CHLORIDE 0.9% 1,000 ML IV SCH (14:24)
[2016-09-01] MEDS: ALBUTEROL NEBULIZED 2.5 MG/3 ML INHALATION PRN ×2 (14:58→21:17)
--- NOTE | 2016-09-01 15:23 | PN ---
DATE OF SERVICE: 09/01/2016 This 85-year-old woman was admitted with acute abdominal distension and large bowel obstruction secondary to colonic obstruction, being closely monitored. Patient improved significantly. Sensorium has definitely improved. No fever. No cough. ECF rehab is recommended. On exam, pulse 52, blood pressure 132/52, respirations 15, temperature 98.4, pulse ox 98% on room air. HEENT: Conjunctivae normal. NECK: No jugular venous distention. CARDIOVASCULAR SYSTEM: S1, S2, muffled. RESPIRATORY: Breath sounds diminished at the bases, a few scattered rhonchi, no crackles. Abdomen is soft, mild diffuse distension especially in the lower part, no guarding, no tenderness. EXTREMITIES: Legs no edema, no swelling. NERVOUS SYSTEM: No focal deficits. LABS: Accu-Cheks noted. Creatinine is 1.37. ASSESSMENT: 1. Abdominal distention with possible large bowel obstruction secondary to colonic obstruction, fecal impaction, possibly colitis and ischemic colitis. 2. Increased WBC. 3. Increased creatinine with mild acute renal failure, possible prerenal. 4. Chronic obstructive pulmonary disease. 5. Degenerative joint disease. 6. History of nicotine dependence. 7. Change in mental status, multifactorial. 8. History of lordosis and kyphosis. 9. History of Parkinson's. 10. Bipolar depression, not otherwise specified. 11. FULL CODE. RECOMMENDATION: Recommend to continue with the current medication and symptomatic treatment. Otherwise advance diet per Surgery. Other than that, monitor PT, OT, repeat labs, possible ECF rehab. closely. Guarded prognosis. Further recommendations to follow.
[2016-09-01 16:01] LABS: Basophils % (A) 0 %; CH 30.1; CHCM 29.6; Eosinophils # (A) 0.2 k/uL (0-0.7); Eosinophils % (A) 3 %; HCT 47.1 % (34.0-46.0); HDW 2.34; HGB 13.6 gm/dL (11.4-16.0); Hypochromasia Marked; Luc # (Auto) 0.18; Luc % (Auto) 2; Lymphocytes # (A) 1.4 k/uL (1.0-4.8); Lymphocytes % (A) 18 %; MCH 29.6 pg (25.0-35.0); MCHC 28.9 g/dL (31.0-37.0); MCV 102.4 fL (80.0-100.0); Macrocytosis Slight; Mean Platelet Volume 7.7; Monocytes # (A) 0.5 k/uL (0-1.0); Monocytes % (A) 6 %; Neutrophils # (A) 5.6 k/uL (1.3-7.7); Neutrophils % (A) 71 %; RDW 13.4 % (11.5-15.5); WBC (Perox) 7.97
[2016-09-01 16:06] LABS: Anion Gap 11 mmol/L; Blood Urea Nitrogen 14 mg/dL (7-17); Calcium 10.1 mg/dL (8.4-10.2); Carbon Dioxide 28 mmol/L (22-30); Chloride 111 mmol/L (98-107); Glucose 117 mg/dL (74-99); Non-African American GFR(MDRD) >60 (>60 ml/min/1.73 sqM); Potassium 3.6 mmol/L (3.5-5.1); Sodium 150 mmol/L (137-145)
[2016-09-01 17:19] LABS: Glucose,Whole Blood 109 mg/dL (75-99)
[2016-09-01 20:47] LABS: Glucose,Whole Blood 132 mg/dL (75-99)
[2016-09-01] MEDS: clonazePAM 0.5 MG TAB PO SCH (21:35)
[2016-09-01] MEDS: LEVOFLOXACIN 250MG-D5W PMX 250 MG in DEXTROSE/WATER 1 50ML.BAG IVPB SCH (21:35)
[2016-09-01] MEDS: MELATONIN 3 MG TABLET PO SCH (21:35)
[2016-09-02] MEDS: SODIUM CHLORIDE 0.9% 1,000 ML IV SCH ×2 (01:53→15:01)
[2016-09-02 02:16] LABS: Glucose,Whole Blood 97 mg/dL (75-99)
[2016-09-02 07:24] LABS: Anion Gap 6 mmol/L; Blood Urea Nitrogen 15 mg/dL (7-17); Carbon Dioxide 33 mmol/L (22-30); Chloride 109 mmol/L (98-107); Glucose 90 mg/dL (74-99); Non-African American GFR(MDRD) >60 (>60 ml/min/1.73 sqM); Potassium 3.6 mmol/L (3.5-5.1); Sodium 148 mmol/L (137-145)
[2016-09-02 07:25] LABS: Basophils % (A) 0 %; CH 30.1; CHCM 30.7; Eosinophils # (A) 0.3 k/uL (0-0.7); Eosinophils % (A) 4 %; HCT 37.9 % (34.0-46.0); HDW 2.27; HGB 11.9 gm/dL (11.4-16.0); Hypochromasia Slight; Luc # (Auto) 0.12; Luc % (Auto) 2; Lymphocytes # (A) 1.6 k/uL (1.0-4.8); Lymphocytes % (A) 24 %; MCHC 31.4 g/dL (31.0-37.0); MCV 98.5 fL (80.0-100.0); Monocytes # (A) 0.4 k/uL (0-1.0); Monocytes % (A) 6 %; Neutrophils # (A) 4.3 k/uL (1.3-7.7); Neutrophils % (A) 65 %; RBC 3.85 m/uL (3.80-5.40); RDW 13.3 % (11.5-15.5); WBC 6.6 k/uL (3.8-10.6); WBC (Perox) 6.43
[2016-09-02 07:28] LABS: Glucose,Whole Blood 81 mg/dL (75-99)
[2016-09-02] MEDS: LITHIUM CARBONATE 300 MG CAP PO SCH (08:29)
[2016-09-02] MEDS: CARBIDOPA-LEVODOPA 25-100 MG 1 EACH TAB PO SCH (08:29)
[2016-09-02] MEDS: PANTOPRAZOLE 40 MG/10 ML VIAL IV SCH (08:29)
[2016-09-02] MEDS: FUROSEMIDE 40 MG TAB PO SCH (08:29)
[2016-09-02] MEDS: HEPARIN SODIUM,PORCINE 5,000 UNIT/ML 1 ML VIAL SQ SCH (08:30)
[2016-09-02] MEDS: BETAMETHASONE DIPROPIONATE 0.05% CREAM 15 GM TUBE TOPICAL SCH ×2 (08:30)
[2016-09-02] MEDS: ALBUTEROL NEBULIZED 2.5 MG/3 ML INHALATION PRN (08:38)
[2016-09-02 11:35] LABS: Glucose,Whole Blood 96 mg/dL (75-99)
[2016-09-02 13:31] VITALS: PULSE 48
[2016-09-02] MEDS ORDERED: POTASSIUM CHLORIDE ER 20 MEQ TAB.ER PO STA (14:07)
--- NOTE | 2016-09-02 15:31 | DS ---
DATE OF ADMISSION: 08/29/2016 DATE OF DISCHARGE: DATE OF SERVICE: 09/02/2016 FINAL DIAGNOSES: 1. Abdominal distention with possible large bowel obstruction secondary to colonic obstruction, fecal impaction, possibly colitis. 2. Colitis, improved. 3. Increased WBC. 4. Increased creatinine with mild acute renal failure, possibly prerenal. 5. History of chronic obstructive pulmonary disease. 6. Degenerative joint disease. 7. History of nicotine dependence. 8. Change in mental status multifactorial. 9. History of lordosis and kyphosis. 10. History of Parkinson's. 11. Bipolar and depression, not otherwise specified. 12. NO CODE, NO CPR, NO VENT. DISCHARGE DISPOSITION: The patient will be discharged in stable condition with guarded prognosis. Discharge cleared by multiple consultants. Total time taken 35 minutes. HISTORY OF PRESENT ILLNESS: This 85-year-old woman with a past medical history of multiple medical problems was admitted with features of abdominal pain, distention as well as colitis. Patient treated symptomatically. Fecal impaction was also suspected. The patient ( ) and other medications. Dr. Arteaga saw the patient. On exam, vitals are stable. CARDIOVASCULAR: S1, S2. ABDOMEN: Soft. Mildly tender. NERVOUS SYSTEM: No focal deficits. DISCHARGE ADVICE: 1. Diet is cardiac. 2. Activity limited until follow-up. 3. Follow with Dr. Hernandez in 2 to 3 days. 4[address] Follow with Dr. Toribio Post in one week after discharge from [facility]. MEDICATIONS: 1. Xanax 0.25 t.i.d. p.r.n. 2. Albuterol 2.5 q.i.d. and p.r.n. 3. Ecotrin 81 mg p.o. daily. 4. Carbidopa levodopa 25/100 one p.o. t.i.d. 5. Colace 100 mg p.o. b.i.d. Hold if the patient has diarrhea. 6. Lidex cream as before. 7. Lasix 40 mg p.o. b.i.d. 8. [place] 5 mg q.6 p.r.n. 9. Levaquin 250 mg p.o. daily for 5 days. 10. [place] carbonate 200 mg p.o. daily. 11. Multivitamin 1 p.o. daily. 12. Klor-Con 10 mEq p.o. daily. 13. CBC and BMP in 2 to 3 days in ECF. 14. Ex-Lax 59 b.i.d. p.r.n. for constipation. 15. Vitamin C and zinc 1 p.o. daily. 16. Klonopin 0.5 mg p.o. q.h.s. 17. Requip 1 mg p.o. t.i.d. The patient will be transferred to [facility].
[2016-09-02 15:45] VITALS: BP 123/57; RESP 18; TEMP 97.6
[2016-09-03] MEDS ORDERED: PANTOPRAZOLE 40 MG TABLET PO SCH (09:00)
[2016-09-03] MEDS ORDERED: LEVOFLOXACIN 250 MG TAB PO SCH (21:00)
== END 2016-09-02 17:46 | DRG 389 ==
LOC: EC 12:16 → 3SUR 16:47
PROVIDERS: ADMIT Hospitalist; ATTEND Hospitalist
DX: K56.60 Unspecified intestinal obstruction (principal); N17.9 Acute kidney failure, unspecified; G20 Parkinson's disease; J44.9 Chronic obstructive pulmonary disease, unspecified; E86.0 Dehydration; F17.200 Nicotine dependence, unspecified, uncomplicated; I51.7 Cardiomegaly; K52.9 Noninfective gastroenteritis and colitis, unspecified; K56.41 Fecal impaction; M19.90 Unspecified osteoarthritis, unspecified site; M40.209 Unspecified kyphosis, site unspecified; R41.82 Altered mental status, unspecified; M40.50 Lordosis, unspecified, site unspecified; F32.9 Major depressive disorder, single episode, unspecified; D72.829 Elevated white blood cell count, unspecified; Z79.82 Long term (current) use of aspirin; Z79.899 Other long term (current) drug therapy
CPT/HCPCS: 36415; 71020; 74000; 74176; 80048; 80053; 80178; 81003; 82150; 82272; 82947; 83605; 83690; 83735; 85025; 94640; 94760; 96360; 96361; 99285

== ENCOUNTER 2016-12-06 17:03 | Inpatient (IN) | payer MEDICARE ==
[2016-12-06] MEDS ORDERED: SODIUM CHLORIDE 0.9% 500 ML IV STA (17:50)
--- NOTE | 2016-12-06 18:12 | ED ---
General Adult HPI - General Source: family Mode of arrival: wheelchair Limitations: no limitations <Jalen Orozco - Last Filed: 12/06/16 21:07> <Kwame Carlisle - Last Filed: 12/06/16 21:12> - General Chief complaint: Abdominal Pain Stated complaint: dehydrated Time Seen by Provider: 12/06/16 17:35 - History of Present Illness Initial comments: 86-year-old female patient presents to emergency department today with complaints of generalized weakness and diarrhea. Patient's family is concerned for dehydration. Patient was taken to [facility] on Monday with complaints of abdominal pain, was found to be constipated given enemas, and discharged home. Patient has been generally weak since, not getting out of bed , and having frequent episodes of diarrhea. Patient has decreased appetite and decreased oral fluid intake. They deny any dark, bloody, or black stools. Patient denies any fever or chills. Patient denies any shortness of breath, chest pain, back pain, dizziness, urinary urgency, frequency, or dysuria. They state the patient does have cycles of constipation with subsequent diarrhea often. (Jalen Orozco) - Related Data Home Medications Medication Instructions Recorded Confirmed Aspirin EC [Ecotrin Low Dose] 81 mg PO DAILY 08/29/16 12/06/16 Carbidopa-Levodopa 25-100 mg 1 tab PO TID 08/29/16 12/06/16 [Sinemet 25-100 mg] Fluocinonide 0.05% [Lidex 0.05% 1 applic TOPICAL BID 08/29/16 12/06/16 cream] Furosemide [Lasix] 40 mg PO DAILY 08/29/16 12/06/16 [place] Carbonate [[place] 300 mg PO DAILY 08/29/16 12/06/16 Carbonate ER] Multivitamins, Thera [Multivitamin 1 tab PO DAILY 08/29/16 12/06/16 (formulary)] Potassium Chloride [Klor-Con 10] 10 meq PO DAILY 08/29/16 12/06/16 Sennosides [Ex-Lax] 15 mg PO BID PRN 08/29/16 12/06/16 Vit C/E/Zn/Coppr/Lutein/Zeaxan 1 cap PO DAILY 08/29/16 12/06/16 [Preservision Areds 2 Softgel] rOPINIRole HCL [Requip] 1 mg PO TID 08/29/16 12/06/16 Albuterol Nebulized [Ventolin 2.5 mg INHALATION RT-Q4H PRN 12/06/16 12/06/16 Nebulized] Albuterol Nebulized [Ventolin 2.5 mg INHALATION RT-QID 12/06/16 12/06/16 Nebulized] HYDROcodone/APAP 5-325MG [[place] 1 tab PO Q6HR PRN 12/06/16 12/06/16 5-325] L.acidoph,Paracasei, B.lactis 1 cap PO DAILY 12/06/16 12/06/16 [Probiotic] Simethicone [Gas-X] 125 mg PO DAILY PRN 12/06/16 12/06/16 Previous Rx's Medication Instructions Recorded Docusate [Colace] 100 mg PO BID #1 capsule 09/02/16 Allergies Allergy/AdvReac Type Severity Reaction Status Date / Time No Known Allergies Allergy Verified 12/06/16 17:43 Review of Systems ROS Other: All systems not noted in ROS Statement are negative. <Jalen Orozco - Last Filed: 12/06/16 21:07> ROS Other: All systems not noted in ROS Statement are negative. <Kwame Carlisle - Last Filed: 12/06/16 21:12> ROS Statement: Those systems with pertinent positive or pertinent negative responses have been documented in the HPI. Past Medical History Past Medical History: COPD, Osteoarthritis (OA) Additional Past Medical History / Comment(s): lordosis kyphoisis parkensons enlarged heart, curvature of spine History of Any Multi-Drug Resistant Organisms: None Reported Past Surgical History: Appendectomy, Joint Replacement Additional Past Surgical History / Comment(s): bilateral hip sx, Past Psychological History: Bipolar, Depression Smoking Status: Current every day smoker Past Alcohol Use History: None Reported Past Drug Use History: None Reported - Past Family History Mother History Unknown: Yes Additional Family Medical History / Comment(s): brain aneurysm Father History Unknown: Yes <Jalen Orozco - Last Filed: 12/06/16 21:07> General Exam Limitations: no limitations General appearance: in no apparent distress, other (Drowsy) Head exam: Present: atraumatic, normocephalic, normal inspection Eye exam: Present: normal appearance, PERRL, EOMI. Absent: scleral icterus, conjunctival injection, periorbital swelling ENT exam: Present: normal exam, normal oropharynx, mucous membranes moist Neck exam: Present: normal inspection. Absent: tenderness, meningismus, lymphadenopathy Respiratory exam: Present: normal lung sounds bilaterally, wheezes (Musical quality, inspiratory and expiratory). Absent: respiratory distress, rales, rhonchi, stridor Cardiovascular Exam: Present: regular rate, normal rhythm, normal heart sounds. Absent: systolic murmur, diastolic murmur, rubs, gallop, clicks GI/Abdominal exam: Present: soft, distended, tenderness, normal bowel sounds. Absent: guarding, rebound, rigid Extremities exam: Present: normal inspection, full ROM, normal capillary refill. Absent: tenderness, pedal edema, joint swelling, calf tenderness Neurological exam: Present: oriented X3, CN II-XII intact. Absent: alert ( Drowsy) Skin exam: Present: warm, dry, intact, normal color. Absent: rash <Jalen Orozco - Last Filed: 12/06/16 21:07> EKG Findings - EKG Comments: EKG Findings:: EKG obtained at 1816 reveals normal sinus rhythm with left anterior fascicular block, nonspecific T-wave abnormality, ventricular rate 61, TX interval 160, QRS duration 98, QT 434, QTC 436. No evidence of ST elevation or depression noted. <Jalen Orozco - Last Filed: 12/06/16 21:07> Procedures <Jalen Orozco - Last Filed: 12/06/16 21:07> <Kwame Carlisle - Last Filed: 12/06/16 21:12> - Procedures Initial comment: Performed digital fecal disimpaction. Moderate amount of soft stool removed from the vault. Patient tolerated procedure with some pain, but no complications. No blood noted. (Jalen Orozco) Medical Decision Making - Lab Data Result diagrams: 12/06/16 18:03 12/06/16 18:03 - Radiology Data Radiology results: report reviewed, image reviewed <Jalen Orozco - Last Filed: 12/06/16 21:07> - Lab Data Result diagrams: 12/06/16 18:03 12/06/16 18:03 <Kwame Carlisle - Last Filed: 12/06/16 21:12> - Medical Decision Making 86-year-old female patient presented to emergency department today for complaints of weakness and diarrhea. Patient was found to be dehydrated with a BUN of 45 and a creatinine of 1.00, lactic acid was 2.7. Patient will be admitted to the hospital for IV fluids and enemas. (Jalen Orozco) Lactic acid is likely due to dehydration as patient does not have a source of infection. Case discussed with Dr. Adams, who will admit for hospital call. Family was concerned been unable to care patient at home. Patient also has some dehydration. Unable to disimpact patient in the emergency department ( Kwame Carlisle) - Lab Data Lab Results 12/06/16 12/06/16 12/06/16 Range/Units 18:03 18:03 18:03 WBC 10.1 (3.8-10.6) k/uL RBC 4.51 (3.80-5.40) m/uL Hgb 13.7 (11.4-16.0) gm/dL Hct 43.8 (34.0-46.0) % MCV 97.2 (80.0-100.0) fL MCH 30.4 (25.0-35.0) pg MCHC 31.3 (31.0-37.0) g/dL RDW 13.7 (11.5-15.5) % Plt Count 268 (150-450) k/uL Neutrophils % (Manual) 62.0 % Band Neutrophils % 18.0 % Lymphocytes % (Manual) 8.0 % Monocytes % (Manual) 12.0 % Neutrophils # (Manual) 8.1 H (1.3-7.7) k/uL Lymphocytes # (Manual) 0.8 L (1.0-4.8) k/uL Monocytes # (Manual) 1.2 H (0-1.0) k/uL Nucleated RBCs 0 (0-0) /100 WBC Manual Slide Review Performed Hypochromasia Moderate Sodium 144 (137-145) mmol/L Potassium 4.7 (3.5-5.1) mmol/L Chloride 111 H (98-107) mmol/L Carbon Dioxide 21 L (22-30) mmol/L Anion Gap 12 mmol/L BUN 45 H (7-17) mg/dL Creatinine 1.00 (0.52-1.04) mg/dL Est GFR (MDRD) Af Amer >60 (>60 ml/min/1.73 sqM) Est GFR (MDRD) Non-Af 53 (>60 ml/min/1.73 sqM) Glucose 140 H (74-99) mg/dL Plasma Lactic Acid [place] 2.7 H* (0.7-2.0) mmol/L Calcium 9.5 (8.4-10.2) mg/dL Total Bilirubin 1.1 (0.2-1.3) mg/dL AST 17 (14-36) U/L ALT 17 (9-52) U/L Alkaline Phosphatase 86 (38-126) U/L Troponin I (0.000-0.034) ng/mL Total Protein 5.9 L (6.3-8.2) g/dL Albumin 3.0 L (3.5-5.0) g/dL Amylase 75 (30-110) U/L Lipase 166 (23-300) U/L Urine Color Urine Appearance (Clear) Urine pH (5.0-8.0) Ur Specific [place] (1.001-1.035) Urine Protein (Negative) Urine Glucose (UA) (Negative) Urine Ketones (Negative) Urine Blood (Negative) Urine Nitrite (Negative) Urine Bilirubin (Negative) Urine Urobilinogen (<2.0) mg/dL Ur Leukocyte Esterase (Negative) [place] 0.9 mmol/L 12/06/16 12/06/16 Range/Units 18:03 20:10 WBC (3.8-10.6) k/uL RBC (3.80-5.40) m/uL Hgb (11.4-16.0) gm/dL Hct (34.0-46.0) % MCV (80.0-100.0) fL MCH (25.0-35.0) pg MCHC (31.0-37.0) g/dL RDW (11.5-15.5) % Plt Count (150-450) k/uL Neutrophils % (Manual) % Band Neutrophils % % Lymphocytes % (Manual) % Monocytes % (Manual) % Neutrophils # (Manual) (1.3-7.7) k/uL Lymphocytes # (Manual) (1.0-4.8) k/uL Monocytes # (Manual) (0-1.0) k/uL Nucleated RBCs (0-0) /100 WBC Manual Slide Review Hypochromasia Sodium (137-145) mmol/L Potassium (3.5-5.1) mmol/L Chloride (98-107) mmol/L Carbon Dioxide (22-30) mmol/L Anion Gap mmol/L BUN (7-17) mg/dL Creatinine (0.52-1.04) mg/dL Est GFR (MDRD) Af Amer (>60 ml/min/1.73 sqM) Est GFR (MDRD) Non-Af (>60 ml/min/1.73 sqM) Glucose (74-99) mg/dL Plasma Lactic Acid [place] (0.7-2.0) mmol/L Calcium (8.4-10.2) mg/dL Total Bilirubin (0.2-1.3) mg/dL AST (14-36) U/L ALT (9-52) U/L Alkaline Phosphatase (38-126) U/L Troponin I <0.012 (0.000-0.034) ng/mL Total Protein (6.3-8.2) g/dL Albumin (3.5-5.0) g/dL Amylase (30-110) U/L Lipase (23-300) U/L Urine Color [place] Urine Appearance Clear (Clear) Urine pH 5.0 (5.0-8.0) Ur Specific [place] 1.016 (1.001-1.035) Urine Protein Trace H (Negative) Urine Glucose (UA) Negative (Negative) Urine Ketones Negative (Negative) Urine Blood Negative (Negative) Urine Nitrite Negative (Negative) Urine Bilirubin Negative (Negative) Urine Urobilinogen 2.0 (<2.0) mg/dL Ur Leukocyte Esterase Negative (Negative) [place] mmol/L - Radiology Data Chest x-ray showed no acute cardiopulmonary process. KUB x-ray was significant for fecal impaction. (Jalen Orozco) Disposition Decision to Admit Reason: Admit from EC Decision Date: 12/06/16 Decision Time: 21:01 <Jalen Orozco - Last Filed: 12/06/16 21:07> <Kwame Carlisle - Last Filed: 12/06/16 21:12> Clinical Impression: Dehydration, Fecal impaction, Diarrhea, Lactic acidosis Disposition: ADMITTED IP TO THIS [facility] Condition: Fair Referrals: Toribio Post MD [Primary Care Provider] - 1-2 days
[2016-12-06] MEDS ORDERED: IPRATROPIUM-ALBUTEROL 3 ML NEB INHALATION STA (18:34)
[2016-12-06 18:40] LABS: HCT 43.8 % (34.0-46.0); HDW 2.29; HGB 13.7 gm/dL (11.4-16.0); Hypochromasia Moderate; Immature Gran Flag Marked; MCH 30.4 pg (25.0-35.0); MCHC 31.3 g/dL (31.0-37.0); MCV 97.2 fL (80.0-100.0); Mean Platelet Volume 7.6; RBC 4.51 m/uL (3.80-5.40); RDW 13.7 % (11.5-15.5); WBC 10.1 k/uL (3.8-10.6); WBC (Perox) 10.22
[2016-12-06 18:45] LABS: ALT 17 U/L (9-52); AST 17 U/L (14-36); Alkaline Phosphatase 86 U/L (38-126); Amylase 75 U/L (30-110); Anion Gap 12 mmol/L; Blood Urea Nitrogen 45 mg/dL (7-17); Calcium 9.5 mg/dL (8.4-10.2); Carbon Dioxide 21 mmol/L (22-30); Chloride 111 mmol/L (98-107); Glucose 140 mg/dL (74-99); Lithium 0.9 mmol/L; Non-African American GFR(MDRD) 53 (>60 ml/min/1.73 sqM); Potassium 4.7 mmol/L (3.5-5.1); Sodium 144 mmol/L (137-145); Total Bilirubin 1.1 mg/dL (0.2-1.3); Total Protein 5.9 g/dL (6.3-8.2)
[2016-12-06] MEDS ORDERED: SODIUM CHLORIDE 0.9% 1,000 ML IV ONE (18:55)
[2016-12-06 19:00] LABS: Add Differential Manual Differential
[2016-12-06 19:02] LABS: Nucleated Red Blood Cells 0 /100 WBC (0-0); Total Cells Counted 100
[2016-12-06 19:03] LABS: Manual Review Performed
--- NOTE | 2016-12-06 19:57 | XR ---
EXAMINATION TYPE: XR chest 2V DATE OF EXAM: 12/06/2016 7:11 PM COMPARISON: August 29, 2016 HISTORY: Weakness TECHNIQUE: Frontal and lateral views of the chest are obtained. FINDINGS: The coarse reticular pattern seen symmetrically throughout the lungs on the prior study is redemonstrated, likely chronic interstitial change. No definite pulmonary edema. No focal lung consolidation. The pleural spaces are negative. The mild moderately enlarged critics silhouette is unchanged. Bones and soft tissues are unremarkable . IMPRESSION: NO ACUTE PROCESS.
--- NOTE | 2016-12-06 19:59 | XR ---
EXAMINATION TYPE: XR KUB DATE OF EXAM: 12/06/2016 7:11 PM COMPARISON: NONE HISTORY: Pain TECHNIQUE: 2 supine views FINDINGS: There is massive rectal stool impaction with prominent gas and stool seen throughout the re mainder of the colon. Bones and soft tissues are unremarkable otherwise. IMPRESSION: RECTAL IMPACTION.
[2016-12-06 20:36] LABS: Appearance,Urine Clear (Clear); Bilirubin,Urine Negative (Negative); Glucose,Urine (UA) Negative (Negative); Ketones,Urine Negative (Negative); Leukocyte Esterase,Urine Negative (Negative); Nitrite,Urine Negative (Negative); Protein,Urine Trace (Negative); Specific Gravity,Urine 1.016 (1.001-1.035); UA Billing (MACRO vs. MICRO) CHEM
[2016-12-06] MEDS ORDERED: ACETAMINOPHEN TAB 325 MG TAB PO PRN (21:07)
[2016-12-06] MEDS ORDERED: NALOXONE 0.4 MG/ML 1 ML VIAL IV PRN (21:07)
[2016-12-06] MEDS ORDERED: NA PHOS,M-B/NA PHOS,DI-BA 133 ML ENEMA RECTAL STA (21:12)
[2016-12-06] MEDS: SODIUM CHLORIDE 0.9% 1,000 ML IV SCH (23:12)
[2016-12-07] MEDS: SODIUM CHLORIDE 0.9% 1,000 ML IV SCH (07:32)
[2016-12-07] MEDS: NA PHOS,M-B/NA PHOS,DI-BA 133 ML ENEMA RECTAL SCH ×3 (10:13→23:54)
[2016-12-07] MEDS ORDERED: ALBUTEROL NEBULIZED 2.5 MG/3 ML INHALATION PRN (11:14)
[2016-12-07] MEDS ORDERED: SIMETHICONE 80 MG CHEWABLE PO PRN (11:14)
[2016-12-07] MEDS: LACTATED RINGERS 1,000 ML IV SCH ×2 (12:11→23:24)
[2016-12-07] MEDS ORDERED: IV VANCOMYCIN PER PHARMACY 1 EACH MISC MISCELLANE PRN (14:39)
[2016-12-07] MEDS: ALBUTEROL NEBULIZED 2.5 MG/3 ML INHALATION SCH ×3 (15:25→19:47)
--- NOTE | 2016-12-07 15:36 | P.GSCN ---
History of Present Illness Consult date: 12/07/16 Reason for Consult: Generalized weakness constipation History of present illness: 86-year-old female is being seen for a surgical eval at the request of the attending for generalized weakness loose stools likely due to constipation patient is a poor historian difficult to adequately get information from the patient. Patient's KUB done on December 06 showed massive rectal stool impaction with prominent gas and stool seen throughout the remainder of the colon no health history could be obtained from the patient. Health history is been obtained from reviewing prior medical computerized record and the computerized record from the emergency room. There is no family at bedside. Reviewing emergency room record on December 06 the patient presented with generalized weakness concerns for dehydration Apparently the patient was at [facility] on Monday with complaints of abdominal pain was found to be constipated was given enemas and discharged home according to the family the patient continued to be weak was not getting out of bed poor oral intake and was having frequent loose stools. According to the family there had been no blood noted in the stool the stools were not black. Emergency room was unable to remove the impacted stool subsequently the patient was admitted for dehydration and fecal impaction with a surgical consultation requested It's noted from reviewing computerized record 09/02/2016 patient at that time was admitted for abdominal distention with fecal impaction does have a history of chronic constipation Review of Systems Unable to provide patient is nonverbal has no recall Past Medical History Past Medical History: COPD, Osteoarthritis (OA) Additional Past Medical History / Comment(s): lordosis kyphoisis parkensons enlarged heart, curvature of spine History of Any Multi-Drug Resistant Organisms: None Reported Past Surgical History: Appendectomy, Joint Replacement Additional Past Surgical History / Comment(s): bilateral hip sx, Past Psychological History: Bipolar, Depression Smoking Status: Current every day smoker Past Alcohol Use History: None Reported Past Drug Use History: None Reported - Past Family History Mother History Unknown: Yes Additional Family Medical History / Comment(s): brain aneurysm Father History Unknown: Yes Medications and Allergies Home Medications Medication Instructions Recorded Confirmed Type Aspirin EC [Ecotrin Low Dose] 81 mg PO DAILY 08/29/16 12/06/16 History Carbidopa-Levodopa 25-100 mg 1 tab PO TID 08/29/16 12/06/16 History [Sinemet 25-100 mg] Fluocinonide 0.05% [Lidex 0.05% 1 applic TOPICAL BID 08/29/16 12/06/16 History cream] Furosemide [Lasix] 40 mg PO DAILY 08/29/16 12/06/16 History [place] Carbonate [[place] 300 mg PO DAILY 08/29/16 12/06/16 History Carbonate ER] Multivitamins, Thera [Multivitamin 1 tab PO DAILY 08/29/16 12/06/16 History (formulary)] Potassium Chloride [Klor-Con 10] 10 meq PO DAILY 08/29/16 12/06/16 History Sennosides [Ex-Lax] 15 mg PO BID PRN 08/29/16 12/06/16 History Vit C/E/Zn/Coppr/Lutein/Zeaxan 1 cap PO DAILY 08/29/16 12/06/16 History [Preservision Areds 2 Softgel] rOPINIRole HCL [Requip] 1 mg PO TID 08/29/16 12/06/16 History Albuterol Nebulized [Ventolin 2.5 mg INHALATION RT-Q4H PRN 12/06/16 12/06/16 History Nebulized] Albuterol Nebulized [Ventolin 2.5 mg INHALATION RT-QID 12/06/16 12/06/16 History Nebulized] HYDROcodone/APAP 5-325MG [[place] 1 tab PO Q6HR PRN 12/06/16 12/06/16 History 5-325] L.acidoph,Paracasei, B.lactis 1 cap PO DAILY 12/06/16 12/06/16 History [Probiotic] Simethicone [Gas-X] 125 mg PO DAILY PRN 12/06/16 12/06/16 History Allergies Allergy/AdvReac Type Severity Reaction Status Date / Time No Known Allergies Allergy Verified 12/06/16 17:43 Surgical - Exam Vital Signs Temp Pulse Resp BP Pulse Ox 99.4 F 100 18 114/57 93 L 12/06/16 17:30 12/06/16 17:30 12/06/16 17:30 12/06/16 17:30 12/06/16 17:30 GENERAL APPEARANCE: Thin cachectic female nonverbal resting in bed awake does not consistently follow simple commands in no acute distress. VITAL SIGNS: Reviewed HEENT: Head is normocephalic and atraumatic. Pupils are equal and reactive. The nares are patent. Oropharynx is clear without lesions. NECK: Supple without lymphadenopathy. Traches midline. HEART: S1, S2. Regular rate and rhythm. No murmur noted LUNGS: No crackles or wheezes are heard. Diminished at the bases otherwise adequate air movement no ABDOMEN: Soft, nontender, slightly distended with good bowel sounds. No peritoneal signs. No palpable organomegaly or masses. No stool incontinent of urine EXTREMITIES: Normal skin color and turgor. No cyanosis, rash, ulceration, clubbing or edema. Radial pedal pulses are 2/4 bilaterally. Results - Labs 12/06/16 18:03 12/06/16 18:03 Assessment and Plan Plan: Impression Present on admission generalized weakness poor oral intake abdominal distention suspect due to fecal impaction Chronic debility limited mobility History of chronic constipation Current every day smoker History of bipolar depressive disorder Parkinson's disease lordosis kyphoisis Present on admission KUB shows some rectal stool impaction seen throughout the remainder of the colon Present on admission lactic acid elevated suspect due to dehydration no evidence of infection Present on admission clinical dehydration elevated BUN and creatinine COPD stable Plan Continue with IV fluid hydration On exam no acute or surgical abdomen Continue with the enemas as ordered milk of mg with molasses Bowel machine needs to be initiated Repeat labs in the morning Further recommendations pending PT OT eval Further recommendations pending will follow closely Thank you for this kind referral and the opportunity to participate in the surgical care of your patient depending on progress further recommendations will be made The above dictated assessment and findings were discussed with dr harmon Impression and the plan of care have been dictated as directed. Mirna Douglas nurse practitioner acting as a scribe for dr harmon
[2016-12-07] MEDS ORDERED: LACTULOSE 20 GM/30 ML CUP PO ONE (15:39)
[2016-12-07] MEDS: VANCOMYCIN 1,000 MG in SODIUM CHLORIDE 0.9% 250 ML IVPB SCH (16:07)
[2016-12-07] MEDS: CARBIDOPA-LEVODOPA 25-100 MG 1 EACH TAB PO SCH ×2 (16:07→21:15)
--- NOTE | 2016-12-07 16:36 | HP ---
DATE OF ADMISSION: 12/06/2016 Patient is an 86-year-old who came in the emergency department with generalized weakness and diarrhea and concerned about the family is concerned about dehydration. Patient was recently treated for constipation. The patient was given enemas and patient was subsequently discharged from and [facility] although patient's diarrhea is probably related to the enema she was receiving. It is not actually diarrhea, it is leaking of the enema fluid, if so appears likely enema fluid. Patient is again likely to have impacted fluid in the abdominal x-ray and surgery is recommending molasses enema. The other issues being patient ( ) wheezing and does have history of COPD and patient is quite weak, will need physical therapy evaluation and the patient later found to be bacteremia mostly contamination although patient will be started on vancomycin and we will start her on ( ) until a contamination is proven and repeat blood cultures today and tomorrow will be obtained. REVIEW OF SYSTEMS: All other systems were reviewed and all of them negative except those mentioned in the HPI. Home medications: 1. Aspirin. 2. Carbidopa. 3. Levodopa. 4. Lidex. 5. Lasix. 6. [place] carbonate. 7. Multivitamin. 8. Potassium chloride. 9. Senna. 10. Ropinirole. 11. Albuterol. 12. Hydrocodone. 13. Acetaminophen. 14. Simethicone. 15. Docusate. ALLERGIES: No known drug allergies. PAST MEDICAL HISTORY: COPD, osteoarthritis, appendectomy, joint replacement surgery, bipolar depression. Patient continues to smoke. Denied any alcohol abuse or any drug abuse. FAMILY HISTORY: Mother had ( ). Father history is unknown. PHYSICAL EXAMINATION: Temperature 99.1, pulse of 65, respiratory rate of 18, blood pressure is 110/52, saturating at 92% on 2 liters O2 by cannula. Patient does wear 2 liters of oxygen at home. GENERAL: Thin, built, alert and oriented x3. HEENT: Pupils are round and equally reacting to light. EOMI. No scleral icterus. No conjunctival pallor. Normocephalic, atraumatic. No pharyngeal erythema. No thyromegaly. CARDIOVASCULAR: S1 and S2 present. No murmurs, rubs, or gallops. PULMONARY: Rhonchus breath sounds bilaterally along with expiratory wheezing. ABDOMEN: Abdomen is minimally distended and tympanic secondary to constipation. MUSCULOSKELETAL: No joint swelling or deformity. EXTREMITIES: No cyanosis, clubbing, or pedal edema. NEUROLOGICAL: Gross neurological examination did not reveal any focal deficits. SKIN: No rashes. LABORATORY DATA: CBC, CMP are abnormal for elevated chloride of 111 because of which her IV fluids are being changed to lactated Ringer's and plasma lactic acid when she came in was 2.7 secondary to dehydration, which improved, ( ) lactated is okay at this point of time. [place] is 0.9. C. dif was negative. ASSESSMENT AND PLAN: 1. Fecal impaction and diarrhea as mentioned above is probably related to the previous enema she received and patient will resume molasses enema here. Appreciate surgery recommendations. 2. Chronic obstructive pulmonary disease with minimal exacerbation. I do not believe patient will need systemic steroids at this point of time. Patient is not able to cough up anything, although she did complain of cough and continue with inhalation steroids and breathing treatments. Breathing treatments were added. 3. Lactic acidosis secondary to dehydration. Patient will be continued on IV fluids as mentioned above and acute renal failure secondary to dehydration from poor oral intake and Lasix will be held. 4. History of Parkinson's for which patient on Ropinirole and Sinemet which will be continued. 5. Continued nicotine use, counseling was provided. 6. Generalized deconditioning and osteoarthritis for which patient will need placement in subacute rehab. 7. Bipolar disorder for which patient is on [place] which will be continued. Patient's lithium levels are essentially within normal limits.
[2016-12-07] MEDS: SYMBICORT 160-4.5 MCG INHALER INHALATION SCH (19:47)
[2016-12-07] MEDS: POLYETHYLENE GLYCOL 3350 17 GM POWD.PACK PO SCH (21:15)
[2016-12-07] MEDS: SENNOSIDES-DOCUSATE SODIUM 1 EACH TAB PO SCH (21:19)
[2016-12-08] MEDS: SYMBICORT 160-4.5 MCG INHALER INHALATION SCH ×2 (07:09→19:59)
[2016-12-08] MEDS: IPRATROPIUM-ALBUTEROL 3 ML NEB INHALATION PRN ×2 (07:09→15:59)
[2016-12-08] MEDS: ALBUTEROL NEBULIZED 2.5 MG/3 ML INHALATION SCH ×4 (07:12→19:59)
[2016-12-08] MEDS: NA PHOS,M-B/NA PHOS,DI-BA 133 ML ENEMA RECTAL SCH ×3 (08:52→22:01)
[2016-12-08 08:55] LABS: CH 29.4; CHCM 29.5; HDW 2.42; HGB 11.4 gm/dL (11.4-16.0); Hypochromasia Marked; MCH 29.3 pg (25.0-35.0); MCHC 29.3 g/dL (31.0-37.0); MCV 100.3 fL (80.0-100.0); Macrocytosis Slight; Mean Platelet Volume 7.5; RBC 3.89 m/uL (3.80-5.40); WBC 9.2 k/uL (3.8-10.6)
[2016-12-08 09:09] LABS: Anion Gap 6 mmol/L; Blood Urea Nitrogen 25 mg/dL (7-17); Carbon Dioxide 24 mmol/L (22-30); Chloride 116 mmol/L (98-107); Glucose 90 mg/dL (74-99); Non-African American GFR(MDRD) >60 (>60 ml/min/1.73 sqM); Potassium 3.4 mmol/L (3.5-5.1); Sodium 146 mmol/L (137-145)
[2016-12-08] MEDS: VANCOMYCIN 1,000 MG in SODIUM CHLORIDE 0.9% 250 ML IVPB SCH (09:42)
[2016-12-08] MEDS: LACTATED RINGERS 1,000 ML IV SCH ×2 (09:42→21:06)
[2016-12-08] MEDS: LITHIUM CARBONATE 300 MG CAP PO SCH (09:43)
[2016-12-08] MEDS: ASPIRIN 81 MG CHEW PO SCH (09:43)
[2016-12-08] MEDS: SENNOSIDES-DOCUSATE SODIUM 1 EACH TAB PO SCH ×2 (09:43→20:51)
[2016-12-08] MEDS: MULTIVITAMINS, THERA 1 EACH TAB PO SCH (09:44)
[2016-12-08] MEDS: LACTOBACILLUS ACIDOPH & BULGAR 1 EACH PACKET PO SCH (09:44)
[2016-12-08] MEDS: CARBIDOPA-LEVODOPA 25-100 MG 1 EACH TAB PO SCH ×3 (09:44→21:03)
--- NOTE | 2016-12-08 11:21 | P.PN ---
Subjective 86-year-old female being seen this morning and a follow-up surgical visit a surgical eval was requested by the attending for abdominal pain with constipation. Nursing reports patient's been having multiple loose stools moderate semi-formed. Patient has received several enemas a bowel program has been initiated patient is a poor historian. When questioning patient states she 's not having abdominal pain patient has been incontinent of stool and urine abdomen slightly distended with palpitation patient denies pain Objective - Vital Signs Vital signs: Vital Signs Temp 98.1 F 12/08/16 07:00 Pulse 52 L 12/08/16 07:25 Resp 17 12/08/16 07:00 BP 117/56 12/08/16 07:00 Pulse Ox 97 12/08/16 07:09 Intake & Output 12/07/16 12/08/16 12/08/16 18:59 06:59 18:59 Intake Total 950 Balance 950 Intake: Oral 950 Other: Voiding Method Incontinent Incontinent # Voids 1 1 # Bowel Movements 2 1 - Exam Physical exam 86-year-old female looking older than stated age cachectic in appearance oriented to self pleasant cooperative Lungs diminished at the bases otherwise adequate air movement nasal cannula at 2 L sats are 97% Heart S1-S2 audible and regular denying chest pain Abdomen slightly distended a few hypoactive bowel tones incontinent of urine no reports of nausea vomiting patient reports patient has had several formed brown stools incontinent able to palpate any organomegaly nontender Extremities muscle wasting to the upper and lower extremities poor muscle tone - Labs CBC & Chem 7: 12/08/16 08:27 12/08/16 08:27 Labs: Abnormal Lab Results - Last 24 Hours (Table) 12/08/16 12/08/16 12/08/16 Range/Units 08:27 08:27 08:27 MCV 100.3 H (80.0-100.0) fL MCHC 29.3 L (31.0-37.0) g/dL Sodium 146 H (137-145) mmol/L Potassium 3.4 L (3.5-5.1) mmol/L Chloride 116 H (98-107) mmol/L BUN 25 H (7-17) mg/dL Magnesium 2.5 H (1.6-2.3) mg/dL Assessment and Plan Plan: Impression Present on admission generalized weakness poor oral intake abdominal distention suspect due to fecal impaction Chronic debility limited mobility History of chronic constipation Current every day smoker History of bipolar depressive disorder Parkinson's disease lordosis kyphoisis Present on admission KUB shows some rectal stool impaction seen throughout the remainder of the colon Present on admission lactic acid elevated suspect due to dehydration no evidence of infection Present on admission clinical dehydration elevated BUN and creatinine COPD stable Plan Continue with IV fluid hydration On exam no acute or surgical abdomen Bowel stimulant to be initiated Repeat labs in the morning Further recommendations pending PT OT eval Further recommendations pending will follow closely The above dictated assessment and findings were discussed with dr harmon Impression and the plan of care have been dictated as directed. Mirna Douglas nurse practitioner acting as a scribe for dr harmon
[2016-12-08] MEDS ORDERED: Potassium Replacement Protocol 1 EACH MISC MISCELLANE PRN (11:28)
--- NOTE | 2016-12-08 12:16 | XR ---
EXAMINATION TYPE: XR KUB DATE OF EXAM: 12/08/2016 12:12 PM COMPARISON: NONE INDICATION: Constipation TECHNIQUE: Single view abdomen supine FINDINGS: Nonspecific bowel gas is present. There is increased opacity over the pelvis. Fecal debris is in the descending colon region. Psoas margins are not well visualized. No organomegaly is present. IMPRESSION: 1. Moderate fecal retention. 2. Increased opacity over the pelvis can be related to the urinary bladder. The previous rectal fecal bolus appears resolved.
[2016-12-08] MEDS: POTASSIUM CHLORIDE ER 20 MEQ TAB.ER PO SCH ×2 (12:19→13:47)
[2016-12-08] MEDS: POLYETHYLENE GLYCOL 3350 17 GM POWD.PACK PO SCH (20:50)
[2016-12-09] MEDS: LACTATED RINGERS 1,000 ML IV SCH ×2 (05:42→09:16)
[2016-12-09] MEDS: NA PHOS,M-B/NA PHOS,DI-BA 133 ML ENEMA RECTAL SCH ×2 (09:15→16:15)
[2016-12-09] MEDS: LACTOBACILLUS ACIDOPH & BULGAR 1 EACH PACKET PO SCH (09:16)
[2016-12-09] MEDS: VANCOMYCIN 1,000 MG in SODIUM CHLORIDE 0.9% 250 ML IVPB SCH (09:16)
[2016-12-09] MEDS: ASPIRIN 81 MG CHEW PO SCH (09:16)
[2016-12-09] MEDS: LITHIUM CARBONATE 300 MG CAP PO SCH (09:16)
[2016-12-09] MEDS: MULTIVITAMINS, THERA 1 EACH TAB PO SCH (09:17)
[2016-12-09] MEDS: CARBIDOPA-LEVODOPA 25-100 MG 1 EACH TAB PO SCH ×3 (09:17→21:56)
[2016-12-09] MEDS: ALBUTEROL NEBULIZED 2.5 MG/3 ML INHALATION SCH ×4 (10:23→20:43)
[2016-12-09] MEDS: SYMBICORT 160-4.5 MCG INHALER INHALATION SCH ×2 (10:23→20:42)
[2016-12-09] MEDS ORDERED: predniSONE 20 MG TAB PO STA (11:08)
[2016-12-09] MEDS: SENNOSIDES-DOCUSATE SODIUM 1 EACH TAB PO SCH ×2 (11:12→22:03)
[2016-12-09] MEDS: IPRATROPIUM-ALBUTEROL 3 ML NEB INHALATION PRN (11:19)
--- NOTE | 2016-12-09 11:40 | P.PN ---
Subjective Date of service 12/08/2016. Progress note being dictated for . Interval history: This is an 86-year-old female admitted with fecal impaction, diarrhea, dehydration, lactic acidosis in a patient with significant generalized deconditioning, COPD ,Parkinson's disease and multiple other medical issues. Maintained on IV fluid hydration. KUB reporting moderate fecal retention, previous rectal fecal bolus resolved, increased opacity over pelvis related to urinary bladder. Patient having multiple soft stools after receiving several enemas, milk of molasses, bowel regime. Denies abdominal pain. Nonsurgical abdomen as per surgery. IV fluids changed yesterday to LR with current Sodium 146, potassium 3.4, chloride 116. Hemoglobin 11.4. Objective - Vital Signs Vital signs: Vital Signs Temp 97.7 F 12/08/16 16:44 Pulse 52 L 12/08/16 16:44 Resp 17 12/08/16 16:44 BP 97/55 12/08/16 16:44 Pulse Ox 99 12/08/16 16:44 Intake & Output 12/08/16 12/08/16 12/09/16 06:59 18:59 06:59 Intake Total 950 250 Balance 950 250 Weight 52.844 kg Intake: Intake, IV Titration 250 Amount Vancomycin 1,000 mg In 250 Sodium Chloride 0.9% 250 ml @ 125 mls/hr IVPB Q24HR [facility] Rx#:[id number] Oral 950 Other: Voiding Method Incontinent Incontinent # Voids 1 1 # Bowel Movements 1 1 - Exam PHYSICAL EXAM: VITAL SIGNS: As above GENERAL: [Sitting up in bed, cachectic, pleasantly confused, no acute distress] HEENT: [Pupils equal conjunctiva normal.] NECK: [Supple, no JVD] RESPIRATORY EFFORT:[Normal] LUNGS: [Bilateral bases diminished, occasional fine expiratory wheezes, no rhonchi or crackles] CARDIOVASCULAR[regular S1 and S2, no murmurs rubs or gallops] GI: [Abdomen soft, mildly distended, nontender, hypoactive bowel sounds. No guarding, no rigidity] PSYCH: [Alert and oriented -2, pleasantly confused, cooperative, following commands, answering simple questions NEURO: No focal deficits - Labs CBC & Chem 7: 12/08/16 08:27 12/08/16 16:07 Labs: Abnormal Lab Results - Last 24 Hours (Table) 12/08/16 12/08/16 12/08/16 Range/Units 08:27 08:27 08:27 MCV 100.3 H (80.0-100.0) fL MCHC 29.3 L (31.0-37.0) g/dL Sodium 146 H (137-145) mmol/L Potassium 3.4 L (3.5-5.1) mmol/L Chloride 116 H (98-107) mmol/L BUN 25 H (7-17) mg/dL Magnesium 2.5 H (1.6-2.3) mg/dL Assessment and Plan Plan: 1. [Fecal impaction ]. 2. [Minimal exacerbation of COPD]. 3. [Lactic acidosis secondary to dehydration, ]. 4. [Parkinson's disease]. 5. [Ongoing nicotine abuse]. 6. [Generalized deconditioning with osteoarthritis, ]. 7. [Bipolar disorder, lithium levels within normal limits]. 8. Hyperchloremia 9. Mild hypernatremia Plan: Continue on current medication regime, bowel regimen, lithium, Sinemet, Ropinrole, nebulized bronchodilators, monitoring and symptomatic treatment. Maintain IV fluid hydration. Continue holding Lasix. Electrolyte replacement protocols ordered, and discussed with RN. Close monitoring of lytes, chloride repeat labs ordered for tomorrow. PT/OT. Discharge planning in progress pending confirmation of subacute rehab. Smoking cessation readdressed. The impression and plan of care has been dictated as directed. : I performed a H&P examination of this patient and discussed the same with the dictator. I agree with the dictator's note. Any additional findings/opinions/ etc. will be noted.
--- NOTE | 2016-12-09 12:29 | DS ---
DATE OF ADMISSION: 12/06/2016 DATE OF DISCHARGE: Patient is an 86-year-old admitted with fecal impaction, dehydration, lactic acidosis all of which improved at this point of time. Patient will need to go to rehab. Patient does have COPD exacerbation at this point of time. Will need systemic steroids. Patient will be discharged on oral systemic steroids. Patient is wheezing. On exam, patient uses 2 L of oxygen. Patient is clinically doing well on that. I am getting an EKG to make sure patient does not have any high degree block, although patient is bradycardic, mostly this happens when she is asleep. It is probably sinus bradycardia. Patient is saturating 99% on 2 L of oxygen. Patient is although wheezing on exam. We will get a breathing treatment. We will start her on prednisone and patient will be discharged on prednisone. Patient will be discharged on a p.r.n. MiraLAX and docusate. Patient's narcotic medications that are contributing to her constipation will be discontinued, which is [place] will be discontinued. Patient will be discharged to subacute rehabilitation. Patient REVIEW OF SYSTEMS: CARDIOVASCULAR: No chest pain, no orthopnea, no PND, no palpitations. PULMONARY: Denied any shortness of breath. No cough or hemoptysis. GASTROINTESTINAL: No diarrhea, nausea or vomiting. No abdominal pain. Normoactive bowel sounds. NEUROLOGIC: No headaches, no weakness, no numbness. Medications were reviewed. PHYSICAL EXAMINATION: VITAL SIGNS: Temperature 97.8, pulse of 58, respiratory rate of 14, blood pressure is 144/63, saturating at 99% on 2 L O2 nasal cannula. GENERAL: The patient is thin built, alert and oriented x3 and not confused at this point of time. The patient is alert and oriented x3, not in any acute distress. Well developed, well nourished. HEENT: Pupils are round and equally reacting to light. EOMI. No scleral icterus. No conjunctival pallor. Normocephalic, atraumatic. No pharyngeal erythema. No thyromegaly. CARDIOVASCULAR: S1 and S2 present. No murmurs, rubs, or gallops. PULMONARY: Patient does have expiratory wheezing. No crackles were appreciated. ABDOMEN: Soft, nontender, nondistended, normoactive bowel sounds. No palpable organomegaly. MUSCULOSKELETAL: No joint swelling or deformity. EXTREMITIES: No cyanosis, clubbing, or pedal edema. NEUROLOGICAL: Gross neurological examination did not reveal any focal deficits. SKIN: No rashes. FINAL DIAGNOSES: 1. Fecal impaction and constipation, which resolved at this point of time. 2. Exacerbation of chronic obstructive pulmonary disease. 3. Lactic acidosis due to dehydration, which resolved. 4. Patient will not need any Lasix. Lasix will be discontinued, which is contributing to her dehydration. 5. Parkinson's. Continue her home medications. 6. Deconditioning. 7. Osteoarthritis. 8. Mild protein calorie malnutrition. 9. Bipolar disorder for which patient is on lithium. Levels are within normal limits. [place] may be contributing to her constipation too. Please refer to my depart summary for details of discharge medication. Patient has urinary retention for which patient will need to follow with Urology as an outpatient. Patient will follow with Dr. Toribio Post once she is discharged from subacute rehab and patient will follow with the physician in the rehab. Activity as tolerated. Nicotine cessation counseling was provided. Regular diet. Spent greater than 35 minutes in total discharge process.
[2016-12-09 12:31] LABS: Anion Gap 4 mmol/L; Blood Urea Nitrogen 16 mg/dL (7-17); Calcium 9.3 mg/dL (8.4-10.2); Carbon Dioxide 27 mmol/L (22-30); Chloride 116 mmol/L (98-107); Glucose 102 mg/dL (74-99); Non-African American GFR(MDRD) >60 (>60 ml/min/1.73 sqM); Potassium 4.1 mmol/L (3.5-5.1); Sodium 147 mmol/L (137-145)
[2016-12-09 12:49] LABS: CH 29.4; CHCM 30.3; HDW 2.52; HGB 12.7 gm/dL (11.4-16.0); Hypochromasia Moderate; MCH 30.2 pg (25.0-35.0); MCHC 30.9 g/dL (31.0-37.0); MCV 97.7 fL (80.0-100.0); Mean Platelet Volume 6.9; RDW 13.8 % (11.5-15.5); WBC 8.8 k/uL (3.8-10.6); WBC (Perox) 9.59
[2016-12-09 14:23] LABS: Add Differential Manual Differential
[2016-12-09 14:26] LABS: Nucleated Red Blood Cells 0 /100 WBC (0-0); Total Cells Counted 100
[2016-12-09] MEDS: POLYETHYLENE GLYCOL 3350 17 GM POWD.PACK PO SCH (21:56)
[2016-12-10] MEDS: NA PHOS,M-B/NA PHOS,DI-BA 133 ML ENEMA RECTAL SCH ×3 (00:09→16:31)
[2016-12-10] MEDS: LACTATED RINGERS 1,000 ML IV SCH ×2 (00:10→10:28)
[2016-12-10] MEDS ORDERED: VANCOMYCIN TROUGH DUE 1 EACH MISC MISCELLANE ONE (08:00)
[2016-12-10] MEDS: CARBIDOPA-LEVODOPA 25-100 MG 1 EACH TAB PO SCH ×3 (08:11→22:19)
[2016-12-10] MEDS: LITHIUM CARBONATE 300 MG CAP PO SCH (08:11)
[2016-12-10] MEDS: LACTOBACILLUS ACIDOPH & BULGAR 1 EACH PACKET PO SCH (08:11)
[2016-12-10] MEDS: ASPIRIN 81 MG CHEW PO SCH (08:11)
[2016-12-10] MEDS: SENNOSIDES-DOCUSATE SODIUM 1 EACH TAB PO SCH ×2 (08:13→22:20)
[2016-12-10] MEDS: SYMBICORT 160-4.5 MCG INHALER INHALATION SCH ×2 (08:13→19:31)
[2016-12-10] MEDS: ALBUTEROL NEBULIZED 2.5 MG/3 ML INHALATION SCH ×4 (08:15→19:31)
[2016-12-10 08:25] LABS: Anion Gap 7 mmol/L; Blood Urea Nitrogen 17 mg/dL (7-17); Calcium 9.5 mg/dL (8.4-10.2); Carbon Dioxide 26 mmol/L (22-30); Chloride 114 mmol/L (98-107); Glucose 86 mg/dL (74-99); Non-African American GFR(MDRD) >60 (>60 ml/min/1.73 sqM); Potassium 4.2 mmol/L (3.5-5.1); Sodium 147 mmol/L (137-145)
[2016-12-10] MEDS: MULTIVITAMINS, THERA 1 EACH TAB PO SCH (13:15)
--- NOTE | 2016-12-10 14:37 | PN ---
The patient is an 86-year-old admitted with fecal impaction and patient still has a little bit of distended belly. Unfortunately patient was not discharged yesterday because of the social issues. Although patient is still wheezing, but significantly improved compared to yesterday. Patient still has a little bit of distention significantly improved since her admission. REVIEW OF SYSTEMS: CARDIOVASCULAR: No chest pain, no orthopnea, no PND, no palpitations. PULMONARY: Denied any shortness of breath. No cough or hemoptysis. GASTROINTESTINAL: No diarrhea, nausea or vomiting. No abdominal pain. Normoactive bowel sounds. NEUROLOGIC: No headaches, no weakness, no numbness. Medications were reviewed. PHYSICAL EXAMINATION: Temperature 97.3, pulse of 60, respiratory rate 20, blood pressure 139/104, saturating at 100% on 2 L of O2 nasal cannula. GENERAL: The patient is alert and oriented x3, not in any acute distress. Well developed, well nourished. HEENT: Pupils are round and equally reacting to light. EOMI. No scleral icterus. No conjunctival pallor. Normocephalic, atraumatic. No pharyngeal erythema. No thyromegaly. CARDIOVASCULAR: S1 and S2 present. No murmurs, rubs, or gallops. LUNG EXAMINATION: Minimal expiratory wheezing was appreciated. ABDOMEN: Abdomen is distended, tympanic. Bowel sounds are present. MUSCULOSKELETAL: No joint swelling or deformity. EXTREMITIES: No cyanosis, clubbing, or pedal edema. NEUROLOGICAL: Gross neurological examination did not reveal any focal deficits. SKIN: No rashes. LABORATORY DATA: Basic metabolic profile is essentially within normal limits except for mild hyperchloremia and hypernatremia. IV fluids will be discontinued. ASSESSMENT AND PLAN: 1. Fecal impaction secondary to constipation, which resolved. 2. Exacerbation of chronic obstructive pulmonary disease, which is improving at this point of time. 3. Lactic acidosis due to dehydration, which resolved at this point of time and patient's IV fluids will be discontinued. 4. Parkinson's. Continue with home medications. 5. Deconditioning. 6. Osteoarthritis. 7. Mild to moderate protein calorie malnutrition. 8. Bipolar disorder, continue with lithium with normal levels. No further intervention at this point of time. Patient has urinary retention, will need to follow up with urology as an outpatient. Once we are able to address the social issues like placement, patient will be discharged. As of now, patient is just staying because we are unable to place her subacute rehabilitation which is an appropriate placement for her.
[2016-12-10] MEDS: POLYETHYLENE GLYCOL 3350 17 GM POWD.PACK PO SCH (22:20)
[2016-12-11] MEDS: NA PHOS,M-B/NA PHOS,DI-BA 133 ML ENEMA RECTAL SCH ×4 (00:32→21:20)
[2016-12-11] MEDS: ALBUTEROL NEBULIZED 2.5 MG/3 ML INHALATION SCH ×4 (07:08→19:24)
[2016-12-11] MEDS: SYMBICORT 160-4.5 MCG INHALER INHALATION SCH ×2 (07:08→19:24)
[2016-12-11] MEDS: ASPIRIN 81 MG CHEW PO SCH (08:06)
[2016-12-11] MEDS: LITHIUM CARBONATE 300 MG CAP PO SCH (08:06)
[2016-12-11] MEDS: LACTOBACILLUS ACIDOPH & BULGAR 1 EACH PACKET PO SCH (08:06)
[2016-12-11] MEDS: SENNOSIDES-DOCUSATE SODIUM 1 EACH TAB PO SCH ×2 (09:39→21:20)
[2016-12-11] MEDS: CARBIDOPA-LEVODOPA 25-100 MG 1 EACH TAB PO SCH ×3 (09:39→21:17)
[2016-12-11] MEDS: MULTIVITAMINS, THERA 1 EACH TAB PO SCH (12:41)
--- NOTE | 2016-12-11 13:30 | PN ---
86-year-old admitted to the hospital with fecal impaction, dehydration and also COPD exacerbation. All of which improved and patient still has a bit of abdominal distention and patient is otherwise clinically doing well. REVIEW OF SYSTEMS: CARDIOVASCULAR: No chest pain, no orthopnea, no PND, no palpitations. PULMONARY: Denied any shortness of breath. No cough or hemoptysis. GASTROINTESTINAL: No diarrhea, nausea or vomiting. No abdominal pain. Normoactive bowel sounds. NEUROLOGIC: No headaches, no weakness, no numbness. Medications were reviewed. PHYSICAL EXAMINATION: VITAL SIGNS: Temperature is 97.9, pulse of 60, respiratory rate of 16, blood pressure is 137/72. Saturating at 95% on 2 L O2 by nasal cannula. GENERAL: Patient is alert and oriented x3. Thin built. Cachectic. Generalized weakness. No focal weakness. HEENT: Pupils are round and equally reacting to light. EOMI. No scleral icterus. No conjunctival pallor. Normocephalic, atraumatic. No pharyngeal erythema. No thyromegaly. CARDIOVASCULAR: S1 and S2 present. No murmurs, rubs, or gallops. PULMONARY: Chest is clear to auscultation, no wheezing or crackles. ABDOMEN: Soft, nontender, nondistended, normoactive bowel sounds. No palpable organomegaly. MUSCULOSKELETAL: No joint swelling or deformity. EXTREMITIES: No cyanosis, clubbing, or pedal edema. NEUROLOGICAL: Gross neurological examination did not reveal any focal deficits. SKIN: No rashes. LABORATORY DATA: Basic metabolic profile is essentially within normal limits. ASSESSMENT AND PLAN: 1. Fecal impaction secondary to constipation which resolved. 2. Exacerbation of chronic obstructive pulmonary disease, which is improving at this point of time. 3. Lactic acidosis due to dehydration, which resolved. 4. Parkinson's. 5. Deconditioning. 6. Osteoarthritis. 7. Mild to moderate protein calorie malnutrition. 8. Bipolar disorder. For above-mentioned chronic medical problems, we will continue with home medications for that. Regarding deconditioning, the patient will be discharged to subacute rehabilitation tomorrow. Patient has urinary retention for which patient will follow with Dr. Liu Mitchell as an outpatient. Before she goes we will try one more time and see if she can get rid of [place] catheter and see if she can urinate. If not, patient will be discharged with a [place] catheter and follow with Dr. Liu Mitchell as an outpatient to get urodynamic studies.
[2016-12-11] MEDS: POLYETHYLENE GLYCOL 3350 17 GM POWD.PACK PO SCH (21:17)
[2016-12-12] MEDS: ALBUTEROL NEBULIZED 2.5 MG/3 ML INHALATION SCH ×4 (07:20→20:00)
[2016-12-12] MEDS: SYMBICORT 160-4.5 MCG INHALER INHALATION SCH ×2 (07:21→19:59)
[2016-12-12] MEDS: NA PHOS,M-B/NA PHOS,DI-BA 133 ML ENEMA RECTAL SCH ×3 (08:06→22:55)
[2016-12-12] MEDS: CARBIDOPA-LEVODOPA 25-100 MG 1 EACH TAB PO SCH ×3 (08:07→22:55)
[2016-12-12] MEDS: LACTOBACILLUS ACIDOPH & BULGAR 1 EACH PACKET PO SCH (08:07)
[2016-12-12] MEDS: LITHIUM CARBONATE 300 MG CAP PO SCH (08:07)
[2016-12-12] MEDS: ASPIRIN 81 MG CHEW PO SCH (08:07)
[2016-12-12] MEDS: SENNOSIDES-DOCUSATE SODIUM 1 EACH TAB PO SCH ×2 (08:09→20:41)
[2016-12-12] MEDS: MULTIVITAMINS, THERA 1 EACH TAB PO SCH (11:47)
--- NOTE | 2016-12-12 16:41 | P.PN ---
Subjective Date of service 12/09/2016. Progress note being dictated for . Interval history: This is an 86-year-old female admitted with fecal impaction, diarrhea, dehydration, lactic acidosis in a patient with significant generalized deconditioning, COPD ,Parkinson's disease and multiple other medical issues. Maintained on IV fluid hydration with significant clinical improvement. Sitting up in chair. Good diet intake. Positive bowel movement this morning. Authorization pending for [facility]. Objective - Vital Signs Vital signs: Vital Signs Temp 97.3 F L 12/12/16 15:00 Pulse 60 12/12/16 16:18 Resp 16 12/12/16 15:00 BP 118/53 12/12/16 15:00 Pulse Ox 95 12/12/16 15:00 Intake & Output 12/11/16 12/12/16 12/12/16 18:59 06:59 18:59 Intake Total 440 1250 Output Total 750 1 Balance -310 1250 -1 Intake: Oral 440 1250 Output: Urine 750 Stool 1 Other: Voiding Method Indwelling Catheter Bedside Commode # Voids 3 3 # Bowel Movements 1 1 1 - Exam PHYSICAL EXAM: VITAL SIGNS: As above GENERAL: [Sitting up in chair, cachectic, no acute distress] HEENT: [Pupils equal conjunctiva normal.] NECK: [Supple, no JVD] RESPIRATORY EFFORT:[Normal] LUNGS: [Bilateral bases diminished, occasional fine expiratory wheezes, no rhonchi or crackles] CARDIOVASCULAR[regular S1 and S2, no murmurs rubs or gallops] GI: [Abdomen soft, mildly distended, nontender, positive bowel sounds. No guarding, no rigidity] PSYCH: [Alert and oriented -3, mood and affect normal NEURO: No focal deficits Microbiology 12/08/16 08:27 Blood Blood Culture - Preliminary No Growth after 96 hours 12/06/16 18:03 Blood Blood Culture - Final 12/06/16 18:03 Blood Blood Culture Gram Stain - Final 12/06/16 18:03 Blood Blood Culture - Final Staphylococcus epidermidis 12/06/16 20:10 Urine,Catheterized Urine Culture - Final - Labs CBC & Chem 7: 12/09/16 12:07 12/10/16 07:42 Labs: Microbiology - Last 24 Hours (Table) 12/08/16 08:27 Blood Culture - Preliminary Blood No Growth after 96 hours Assessment and Plan Plan: 1. [Fecal impaction secondary to constipation, resolved]. 2. [Exacerbation of COPD, improving]. 3. [Lactic acidosis secondary to dehydration, resolved]. 4. [Parkinson's disease]. 5. [Ongoing nicotine abuse]. 6. [Generalized deconditioning with osteoarthritis, ]. 7. [Bipolar disorder, lithium levels within normal limits]. 8. Hyperchloremia 9. Mild hypernatremia 10. Mild to moderate protein calorie malnutrition 11. Urinary retention Plan: Continue on current medication regime, bowel regimen, lithium, Sinemet, Ropinrole, nebulized bronchodilators, monitoring and symptomatic treatment. Close monitoring of lytes, chloride repeat labs ordered for tomorrow. Discharge planning in progress pending confirmation of subacute rehab. Smoking cessation readdressed. The impression and plan of care has been dictated as directed. : I performed a H&P examination of this patient and discussed the same with the dictator. I agree with the dictator's note. Any additional findings/opinions/ etc. will be noted.
[2016-12-12] MEDS: POLYETHYLENE GLYCOL 3350 17 GM POWD.PACK PO SCH (20:41)
[2016-12-13] MEDS: NA PHOS,M-B/NA PHOS,DI-BA 133 ML ENEMA RECTAL SCH ×2 (07:35→16:23)
[2016-12-13] MEDS: SENNOSIDES-DOCUSATE SODIUM 1 EACH TAB PO SCH ×2 (07:35→22:16)
[2016-12-13] MEDS: LACTOBACILLUS ACIDOPH & BULGAR 1 EACH PACKET PO SCH (08:17)
[2016-12-13] MEDS: CARBIDOPA-LEVODOPA 25-100 MG 1 EACH TAB PO SCH ×3 (08:18→22:12)
[2016-12-13] MEDS: ASPIRIN 81 MG CHEW PO SCH (08:18)
[2016-12-13] MEDS: LITHIUM CARBONATE 300 MG CAP PO SCH (08:18)
[2016-12-13] MEDS: SYMBICORT 160-4.5 MCG INHALER INHALATION SCH ×2 (08:19→18:53)
[2016-12-13] MEDS: ALBUTEROL NEBULIZED 2.5 MG/3 ML INHALATION SCH ×4 (08:19→18:53)
[2016-12-13 10:36] VITALS: BMI 22.7
[2016-12-13] MEDS: MULTIVITAMINS, THERA 1 EACH TAB PO SCH (12:31)
[2016-12-13 12:41] LABS: Basophils % (A) 0 %; CH 29.1; CHCM 29.3; Eosinophils # (A) 0.4 k/uL (0-0.7); Eosinophils % (A) 3 %; HCT 38.5 % (34.0-46.0); HDW 2.21; HGB 11.1 gm/dL (11.4-16.0); Hypochromasia Marked; Luc # (Auto) 0.18; Luc % (Auto) 2; Lymphocytes # (A) 1.5 k/uL (1.0-4.8); Lymphocytes % (A) 13 %; MCH 28.9 pg (25.0-35.0); MCHC 28.9 g/dL (31.0-37.0); Mean Platelet Volume 7.2; Monocytes # (A) 0.4 k/uL (0-1.0); Monocytes % (A) 3 %; Neutrophils # (A) 9.4 k/uL (1.3-7.7); Neutrophils % (A) 79 %; RBC 3.85 m/uL (3.80-5.40); RDW 13.9 % (11.5-15.5); WBC 11.9 k/uL (3.8-10.6); WBC (Perox) 12.51
[2016-12-13 12:51] LABS: Anion Gap 6 mmol/L; Blood Urea Nitrogen 10 mg/dL (7-17); Calcium 9.3 mg/dL (8.4-10.2); Carbon Dioxide 24 mmol/L (22-30); Chloride 113 mmol/L (98-107); Glucose 103 mg/dL (74-99); Non-African American GFR(MDRD) >60 (>60 ml/min/1.73 sqM); Potassium 3.9 mmol/L (3.5-5.1); Sodium 143 mmol/L (137-145)
[2016-12-13] MEDS ORDERED: POTASSIUM CHLORIDE ER 20 MEQ TAB.ER PO STA (16:30)
--- NOTE | 2016-12-13 16:36 | P.PN ---
Subjective Date of service 12/13/2016. Progress note being dictated for . Interval history: This is an 86-year-old female admitted with fecal impaction, diarrhea, dehydration, lactic acidosis in a patient with significant generalized deconditioning, COPD ,Parkinson's disease and multiple other medical issues. Positive diet intake. No nausea, vomiting.Reports bowel movement this morning. Afebrile, WBC 11.9 .potassium 3.9. Authorization pending for [facility]. Objective - Vital Signs Vital signs: Vital Signs Temp 97.0 F L 12/13/16 07:00 Pulse 60 12/13/16 08:32 Resp 20 12/13/16 07:00 BP 139/65 12/13/16 07:00 Pulse Ox 98 12/13/16 07:00 Intake & Output 12/12/16 12/13/16 12/13/16 18:59 06:59 18:59 Intake Total 1040 Output Total 1 Balance -1 1040 Weight 52.844 kg Intake: Oral 1040 Output: Stool 1 Other: Voiding Method Bedside Commode Bedside Commode Bedpan # Voids 3 1 # Bowel Movements 1 - Exam PHYSICAL EXAM: VITAL SIGNS: As above GENERAL: [Sitting up in chair, cachectic, no acute distress] HEENT: [Pupils equal conjunctiva normal.] NECK: [Supple, no JVD] RESPIRATORY EFFORT:[Normal] LUNGS: [Bilateral bases diminished, no rhonchi or crackles, occasional fine expiratory wheezes CARDIOVASCULAR[regular S1 and S2, no murmurs rubs or gallops, no edema] GI: [Abdomen soft, mildly distended, nontender, positive bowel sounds. No guarding, no rigidity] PSYCH: [Alert and oriented -3, mood and affect normal NEURO: No focal deficits Microbiology 12/08/16 08:27 Blood Blood Culture - Preliminary No Growth after 96 hours 12/06/16 18:03 Blood Blood Culture - Final 12/06/16 18:03 Blood Blood Culture Gram Stain - Final 12/06/16 18:03 Blood Blood Culture - Final Staphylococcus epidermidis 12/06/16 20:10 Urine,Catheterized Urine Culture - Final - Labs CBC & Chem 7: 12/13/16 12:11 12/13/16 12:11 Labs: Microbiology - Last 24 Hours (Table) 04/13/17 08:27 Blood Culture - Preliminary Blood No Growth after 120 hours Assessment and Plan Plan: 1. [Fecal impaction secondary to constipation, resolved]. 2. [Exacerbation of COPD, improving]. 3. [Lactic acidosis secondary to dehydration, resolved]. 4. [Parkinson's disease]. 5. [Ongoing nicotine abuse]. 6. [Generalized deconditioning with osteoarthritis, ]. 7. [Bipolar disorder, lithium levels within normal limits]. 8. Hyperchloremia 9. Mild hypernatremia , resolved 10. Mild to moderate protein calorie malnutrition 11. Urinary retention Plan: Continue on current medication regime, bowel regimen, lithium, Sinemet, Ropinrole, nebulized bronchodilators, monitoring and symptomatic treatment. Close monitoring of lytes with repeat labs ordered for a.m. Discharge planning in progress for [facility] pending preauthorization. Smoking cessation readdressed. The impression and plan of care has been dictated as directed. : I performed a H&P examination of this patient and discussed the same with the dictator. I agree with the dictator's note. Any additional findings/opinions/ etc. will be noted.
--- NOTE | 2016-12-13 20:52 | PN ---
DATE OF SERVICE: 12/13/2016 This 86-year-old woman who was admitted with fecal impaction and constipation, dehydration, and multiple complex medical issues, is being closely monitored. Seen and evaluated the patient along with the nurse practitioner. Please refer to the nurse practitioner's notes and impressions documented as a scribe for further information. Possible ECF rehab.
[2016-12-13] MEDS: POLYETHYLENE GLYCOL 3350 17 GM POWD.PACK PO SCH (22:11)
[2016-12-14 07:44] VITALS: BP 138/65; RESP 20; TEMP 96.8
[2016-12-14] MEDS: ALBUTEROL NEBULIZED 2.5 MG/3 ML INHALATION SCH ×2 (08:39→12:11)
[2016-12-14] MEDS: SYMBICORT 160-4.5 MCG INHALER INHALATION SCH (08:40)
[2016-12-14] MEDS: CARBIDOPA-LEVODOPA 25-100 MG 1 EACH TAB PO SCH (09:05)
[2016-12-14] MEDS: LACTOBACILLUS ACIDOPH & BULGAR 1 EACH PACKET PO SCH (09:05)
[2016-12-14] MEDS: ASPIRIN 81 MG CHEW PO SCH (09:05)
[2016-12-14] MEDS: LITHIUM CARBONATE 300 MG CAP PO SCH (09:06)
[2016-12-14] MEDS: SENNOSIDES-DOCUSATE SODIUM 1 EACH TAB PO SCH (09:10)
[2016-12-14 09:21] LABS: Basophils # (A) 0.1 k/uL (0-0.2); Basophils % (A) 0 %; CH 29.5; CHCM 30.3; Eosinophils # (A) 0.4 k/uL (0-0.7); Eosinophils % (A) 3 %; HGB 12.6 gm/dL (11.4-16.0); Hypochromasia Moderate; Luc # (Auto) 0.17; Luc % (Auto) 1; Lymphocytes # (A) 1.6 k/uL (1.0-4.8); Lymphocytes % (A) 13 %; MCH 30.1 pg (25.0-35.0); MCHC 30.8 g/dL (31.0-37.0); MCV 97.8 fL (80.0-100.0); Mean Platelet Volume 8.3; Monocytes # (A) 0.7 k/uL (0-1.0); Monocytes % (A) 6 %; Neutrophils % (A) 76 %; RBC 4.19 m/uL (3.80-5.40); RDW 13.8 % (11.5-15.5); WBC 11.9 k/uL (3.8-10.6); WBC (Perox) 11.15
[2016-12-14 10:01] LABS: Anion Gap 4 mmol/L; Blood Urea Nitrogen 11 mg/dL (7-17); Calcium 9.6 mg/dL (8.4-10.2); Carbon Dioxide 28 mmol/L (22-30); Chloride 113 mmol/L (98-107); Glucose 78 mg/dL (74-99); Magnesium 2.2 mg/dL (1.6-2.3); Non-African American GFR(MDRD) >60 (>60 ml/min/1.73 sqM); Potassium 4.5 mmol/L (3.5-5.1); Sodium 145 mmol/L (137-145)
[2016-12-14 10:41] LABS: Manual Review Performed
--- NOTE | 2016-12-14 10:58 | P.PN ---
Progress Note - Text Addendum to discharge summary. Date of discharge 12/14/2016. Addendum being dictated for Dr. Palm. Patient remains stable for discharge to [facility].
--- NOTE | 2016-12-14 11:25 | DS ---
DATE OF ADMISSION: 12/06/2016 DATE OF DISCHARGE: FINAL DIAGNOSES: 1. Chronic obstructive pulmonary disease acute exacerbation, improved. 2. Fecal impaction secondary to constipation, improved. 3. Severe dehydration, present on admission and lactic acidosis secondary to dehydration. 4. Parkinson's disease. 5. Ongoing nicotine abuse. 6. Generalized deconditioning with osteoarthritis. 7. Bipolar disorder, lithium levels within normal limits. 8. Hyperchloremia. 9. Mild hypernatremia secondary to dehydration, resolved. 10. Mild to moderate protein calorie malnutrition. 11. Urinary retention. 12. FULL CODE. DISCHARGE DISPOSITION: The patient will be discharged in a stable condition with guarded prognosis. Total time taken 35 minutes. The patient will be transferred to [facility] for further evaluation and treatment. HISTORY OF PRESENT ILLNESS: This 86-year-old woman with a past medical history of multiple medical problems as mentioned earlier, being followed by Dr. Toribio Post in the outpatient setting admitted with dehydration, constipation, multiple other medical issues and COPD acute exacerbation. Treated symptomatically, improved significantly. Sodium improved to 145. The patient also was evaluated by PT, OT and inpatient rehab was recommended at [facility]. On exam, vitals are stable. CARDIOVASCULAR: S1, S1. ABDOMEN: Soft. NERVOUS SYSTEM: Mild diffuse weakness. LABS: Reviewed. Discharge advice: 1. Diet is cardiac. 2. Activity limited until followup. 3. Follow up with Dr. Post after discharge. 4. Follow up the urologist as recommended. Medications will be as follows: 1. Albuterol updrafts q.i.d. and p.r.n. 2. Ecotrin 81 mg p.o. daily. 3. Symbicort 160/4.5 two puffs b.i.d. 4. Carbidopa levodopa Sinemet 25/100 one p.o. t.i.d. 5. Colace 100 mg p.o. b.i.d., hold if the patient has diarrhea. 6. Doxycycline 100 mg p.o. b.i.d. for 5 more days. 7. Fluocinonide that is Lidex cream local application. 8. Probiotic 1 daily. 9. [place] carbonate 10 mg p.o. daily. 10. Multivitamin 1 p.o. daily. 11. MiraLax 17 gm p.o. daily. 12. Ex-lax 15 mg b.i.d. 13. Gas-X 125 mg p.o. daily. 14. Spiriva 1 puff daily. 15. Vitamin C, E, zinc copper, Lutein 1 daily. 16. Prednisone that is taper 40 mg daily for 3 days, 30 for 3 days 3 days, 20 for 3 days, 10 for 3 days and then stop. 17. Requip 1 mg p.o. t.i.d. CBC, BMP in 2 to 3 days in ECF and continued followup. Once again, the patient will be discharged in a stable condition with guarded prognosis.
[2016-12-14] MEDS: MULTIVITAMINS, THERA 1 EACH TAB PO SCH (12:12)
[2016-12-14 12:22] VITALS: PULSE 56
== END 2016-12-14 14:08 | DRG 389 ==
LOC: EC 17:03 → 4MS4W 21:05
PROVIDERS: ADMIT Internal Medicine; ATTEND Internal Medicine
PROC: 0DCP7ZZ Extirpation of Matter from Rectum, Via Natural or Artificial Opening (ICD-10-PCS; principal; 2016-12-06)
DX: K56.41 Fecal impaction (principal); N17.9 Acute kidney failure, unspecified; E87.0 Hyperosmolality and hypernatremia; E44.0 Moderate protein-calorie malnutrition; J44.1 Chronic obstructive pulmonary disease with (acute) exacerbation; E87.2 Acidosis; E86.0 Dehydration; G20 Parkinson's disease; E87.8 Other disorders of electrolyte and fluid balance, not elsewhere classified; R33.9 Retention of urine, unspecified; R00.1 Bradycardia, unspecified; T40.2X5A Adverse effect of other opioids, initial encounter; T50.1X5A Adverse effect of loop [high-ceiling] diuretics, initial encounter; T43.595A Adverse effect of other antipsychotics and neuroleptics, initial encounter; R15.9 Full incontinence of feces; R32 Unspecified urinary incontinence; M62.59 Muscle wasting and atrophy, not elsewhere classified, multiple sites; I44.4 Left anterior fascicular block; F31.9 Bipolar disorder, unspecified; R14.0 Abdominal distension (gaseous); I51.7 Cardiomegaly; R19.7 Diarrhea, unspecified; R53.1 Weakness; R06.2 Wheezing; M40.50 Lordosis, unspecified, site unspecified; M40.209 Unspecified kyphosis, site unspecified; F17.200 Nicotine dependence, unspecified, uncomplicated; M19.90 Unspecified osteoarthritis, unspecified site; Z79.82 Long term (current) use of aspirin; Z90.49 Acquired absence of other specified parts of digestive tract; Z96.60 Presence of unspecified orthopedic joint implant; Z68.22 Body mass index [BMI] 22.0-22.9, adult; Z71.3 Dietary counseling and surveillance; Z82.49 Family history of ischemic heart disease and other diseases of the circulatory system; Z71.6 Tobacco abuse counseling; Z79.891 Long term (current) use of opiate analgesic; Z79.899 Other long term (current) drug therapy
CPT/HCPCS: 36415; 71020; 74000; 80048; 80053; 80178; 80202; 81003; 82150; 83605; 83690; 83735; 84132; 84484; 85025; 85027; 87040; 87077; 87086; 87186; 87324; 93005; 94640; 94760; 96360; 96361; 99285

== ENCOUNTER 2017-02-01 22:01 | Inpatient (IN) | payer MEDICARE ==
[2017-02-01] MEDS ORDERED: SODIUM CHLORIDE 0.9% 1,000 ML IV STA (23:48)
[2017-02-01] MEDS ORDERED: SODIUM CHLORIDE 0.9% 500 ML IV STA (23:48)
[2017-02-01] MEDS ORDERED: RX INFO: IV CONTRAST WAS GIVEN 1 EACH MISC MISCELLANE PRN (23:48)
[2017-02-01] MEDS ORDERED: MINERAL OIL 133 ML ENEMA RECTAL STA (23:48)
[2017-02-01] MEDS ORDERED: IOHEXOL 350 MG/ML 25 ML BOTTLE (ORAL USE) PO PRN (23:48)
[2017-02-01] MEDS ORDERED: ONDANSETRON 4 MG/2 ML VIAL IVP STA (23:48)
[2017-02-02] MEDS: MORPHINE SULFATE 2 MG/ML SYRINGE IVP STA ×2 (00:27→05:11)
[2017-02-02 01:14] LABS: Basophils % (A) 0 %; CH 29.7; CHCM 31.2; Eosinophils % (A) 0 %; HCT 43.6 % (34.0-46.0); HDW 2.23; HGB 13.4 gm/dL (11.4-16.0); Luc # (Auto) 0.19; Luc % (Auto) 1; Lymphocytes # (A) 0.8 k/uL (1.0-4.8); Lymphocytes % (A) 6 %; MCH 29.3 pg (25.0-35.0); MCHC 30.6 g/dL (31.0-37.0); MCV 95.6 fL (80.0-100.0); Mean Platelet Volume 7.1; Monocytes # (A) 0.7 k/uL (0-1.0); Monocytes % (A) 5 %; Neutrophils # (A) 11.7 k/uL (1.3-7.7); Neutrophils % (A) 87 %; RBC 4.56 m/uL (3.80-5.40); RDW 14.3 % (11.5-15.5); WBC 13.5 k/uL (3.8-10.6); WBC (Perox) 13.69
[2017-02-02 01:18] LABS: ALT 22 U/L (9-52); AST 15 U/L (14-36); Alkaline Phosphatase 79 U/L (38-126); Amylase 85 U/L (30-110); Anion Gap 10 mmol/L; Blood Urea Nitrogen 29 mg/dL (7-17); Calcium 10.2 mg/dL (8.4-10.2); Carbon Dioxide 22 mmol/L (22-30); Chloride 105 mmol/L (98-107); Glucose 100 mg/dL (74-99); Non-African American GFR(MDRD) 53 (>60 ml/min/1.73 sqM); Potassium 4.6 mmol/L (3.5-5.1); Sodium 137 mmol/L (137-145); Total Bilirubin 1.3 mg/dL (0.2-1.3); Total Protein 5.9 g/dL (6.3-8.2)
--- NOTE | 2017-02-02 04:24 | XR ---
PROCEDURE: FILM CXR 2 VIEWS HISTORY: 86-year-old female with abdominal pain. COMPARISON: Chest radiograph 12/06/2016 TECHNIQUE: Frontal and lateral views of the chest were obtained. FINDINGS: Limited by positioning and technique. Cardiomediastinal silhouette is stable. Mild peribronchial cuffing, may be due to bronchitis. No evidence of focal consolidation. Age indeterminate mid thoracic compression deformities. IMPRESSION: Mild peribronchial cuffing, may be due to bronchitis. No evidence of focal consolidation. Age indeterminate mid thoracic compression deformities.
[2017-02-02 05:17] LABS: Appearance,Urine Clear (Clear); Bilirubin,Urine Negative (Negative); Glucose,Urine (UA) Negative (Negative); Ketones,Urine Trace (Negative); Leukocyte Esterase,Urine Negative (Negative); Nitrite,Urine Negative (Negative); PH, Urine 5.5 (5.0-8.0); Protein,Urine Trace (Negative); Specific Gravity,Urine 1.029 (1.001-1.035); UA Billing (MACRO vs. MICRO) CHEM
--- NOTE | 2017-02-02 05:17 | CT ---
PROCEDURE: CT ABDOMEN + PELVIS With Contrast HISTORY: 86-year-old female with abdominal pain. COMPARISON: CT abdomen and pelvis 08/29/2016 TECHNIQUE: After administration of 80 mL of Visipaque 320 contrast material intravenously, CT imaging was obtained through the abdomen and pelvis. Coronal and sagittal reformations were performed. DOSE: Total Exam volume computed tomography dose index (CTDIvol) = 15.2 mGy and Dose Length Product (DLP) = 533 mGY-cm. This CT exam was performed using one or more of the following dose reduction techniques: automated exposure control, adjustment of the mA and/or kV according to patient size, and/or use of iterative reconstruction technique. FINDINGS: Evaluation is limited by motion degradation. Lung bases: Bilateral atelectasis. Right lower lobe air cyst. Calcifications of the thoracic aorta and coronary arteries. Borderline enlargement of the left atrium. Abdomen: Layering hyperdense material within the gallbladder may be due to stones or sludge. There is moderate intra-and extrahepatic biliary ductal dilation to prior. Liver is otherwise unremarkable. Questionable 1 centimeter pancreatic low-density lesion, series 3 image 26 versus artifact. The spleen and bilateral adrenal glands are unremarkable. Evaluation of the kidneys is limited by bolus timing. There are multiple bilateral renal low density lesions, similar to prior. Evaluation of the GI tract is limited by lack of distention and retained stool. There is marked dilation of the rectosigmoid with a large amount of retained stool and likely fecal impaction. The rectum is dilated to approximately 11 centimeters. Marked rectosigmoid wall thickening may be due to stercoral colitis. The remainder of the colon is distended with a large amount of retained stool and air. The appendix is not reliably identified. Trace free fluid. No free air. No significant abdominal adenopathy. The abdominal vasculature demonstrates atherosclerotic calcifications. Pelvis: The urinary bladder is unremarkable for degree of distension. The uterus is identified. There is a 3.8 centimeter left adnexal low-density lesion, similar to prior. The right ovary is not well visualized. The uterus and urinary bladder are displaced anteriorly by the markedly distended rectum. Trace free fluid. No free air or significant pelvic adenopathy. The pelvic vasculature demonstrates atherosclerotic calcifications. Bones: Chronic compression deformities at T12, L1, and L5. Multilevel degenerative changes of the spine. Bilateral total hip arthroplasties. IMPRESSION: 1. Marked dilation of the rectosigmoid with a large amount of retained stool and likely fecal impaction. The rectum is dilated to approximately 11 centimeters. Marked rectosigmoid wall thickening may be due to stercoral colitis. The remainder of the colon is distended with a large amount of retained stool and air. 2. Layering hyperdense material within the gallbladder may be due to stones or sludge. There is moderate intra-and extrahepatic biliary ductal dilation to prior. 3. Questionable 1 centimeter pancreatic low-density lesion, series 3 image 26 versus artifact. 4. 3.8 centimeter left adnexal low-density lesion, similar to prior. 5. Other findings as detailed above. [employer] 02/02/17 05:40 Verify Receipt Verified receipt with RASHARD Zimmerman. Report given to Dr. Murphy on 02/02 05:39 (-04:00)
[2017-02-02] MEDS ORDERED: cefTRIAXone 2,000 MG in SODIUM CHLORIDE 0.9% 100 ML IVPB STA (05:26)
[2017-02-02] MEDS ORDERED: metroNIDAZOLE-NS PMX 500 MG in SALINE 1 100ML.BAG IVPB STA (05:26)
[2017-02-02] MEDS ORDERED: NA PHOS,M-B/NA PHOS,DI-BA 133 ML ENEMA RECTAL PRN (05:48)
[2017-02-02] MEDS ORDERED: LACTULOSE 20 GM/30 ML CUP PO PRN (05:48)
[2017-02-02] MEDS ORDERED: ONDANSETRON 4 MG/2 ML VIAL IVP PRN (05:48)
[2017-02-02] MEDS ORDERED: NALOXONE 0.4 MG/ML 1 ML VIAL IV PRN (05:48)
[2017-02-02] MEDS ORDERED: HYDROmorphone 1 MG/ML 1 ML SYRINGE IV PRN (05:48)
--- NOTE | 2017-02-02 05:48 | ED ---
Abdominal Pain HPI - General Chief Complaint: Abdominal Pain Stated Complaint: Weakness Time Seen by Provider: 02/01/17 23:33 Source: patient Mode of arrival: wheelchair Limitations: no limitations - History of Present Illness Initial Comments: 86 years old him in with abdominal pain and now constipation, she has no appetite she also has a loose stools she moved her bowels 4 times today complaining about pain in the suprapubic area she is not quite sure if she had any appendectomy and gallbladder surgeries. Denies any headaches no neck stiffness no fever no chills no chest pain or shortness of breath - Related Data Home Medications Medication Instructions Recorded Confirmed Aspirin EC [Ecotrin Low Dose] 81 mg PO DAILY 08/29/16 12/06/16 Carbidopa-Levodopa 25-100 mg 1 tab PO TID 08/29/16 12/06/16 [Sinemet 25-100 mg] Fluocinonide 0.05% [Lidex 0.05% 1 applic TOPICAL BID 08/29/16 12/06/16 cream] Celeste Carbonate [Celeste 300 mg PO DAILY 08/29/16 12/06/16 Carbonate ER] Multivitamins, Thera [Multivitamin 1 tab PO DAILY 08/29/16 12/06/16 (formulary)] Sennosides [Ex-Lax] 15 mg PO BID PRN 08/29/16 12/06/16 Vit C/E/Zn/Coppr/Lutein/Zeaxan 1 cap PO DAILY 08/29/16 12/06/16 [Preservision Areds 2 Softgel] rOPINIRole HCL [Requip] 1 mg PO TID 08/29/16 12/06/16 Albuterol Nebulized [Ventolin 2.5 mg INHALATION RT-Q4H PRN 12/06/16 12/06/16 Nebulized] Albuterol Nebulized [Ventolin 2.5 mg INHALATION RT-QID 12/06/16 12/06/16 Nebulized] L.acidoph,Paracasei, B.lactis 1 cap PO DAILY 12/06/16 12/06/16 [Probiotic] Simethicone [Gas-X] 125 mg PO DAILY PRN 12/06/16 12/06/16 Previous Rx's Medication Instructions Recorded Docusate [Colace] 100 mg PO BID #1 capsule 09/02/16 Budesonide-Formot 160-4.5 Mcg 2 puff INHALATION BID #1 inhaler 12/09/16 [Symbicort 160-4.5 Mcg Inhaler] Doxycycline Hyclate 100 mg PO BID #10 tab 12/09/16 Polyethylene Glycol 3350 [Miralax] 17 gm PO DAILY PRN #15 packet 12/09/16 Tiotropium [place] [Spiriva] 1 cap INHALATION DAILY #1 device 12/09/16 predniSONE 10 mg PO DAILY #30 tab 12/09/16 Allergies Allergy/AdvReac Type Severity Reaction Status Date / Time No Known Allergies Allergy Verified 12/06/16 17:43 Review of Systems ROS Statement: Those systems with pertinent positive or pertinent negative responses have been documented in the HPI. ROS Other: All systems not noted in ROS Statement are negative. Past Medical History Past Medical History: COPD, Osteoarthritis (OA) Additional Past Medical History / Comment(s): lordosis kyphoisis parkensons enlarged heart, curvature of spine History of Any Multi-Drug Resistant Organisms: None Reported Past Surgical History: Appendectomy, Joint Replacement Additional Past Surgical History / Comment(s): bilateral hip sx, Past Psychological History: Bipolar, Depression Smoking Status: Current every day smoker Past Alcohol Use History: None Reported Past Drug Use History: None Reported - Past Family History Mother History Unknown: Yes Additional Family Medical History / Comment(s): brain aneurysm Father History Unknown: Yes General Exam - General Exam Comments Initial Comments: General: The patient is awake and alert, in mild distress, looks dehydrated. Skin: Skin is warm and dry and no rashes or lesions are noted. Eye: Pupils are equal, round and reactive to light, extra-ocular movements are intact; there is normal conjunctiva bilaterally. Ears, nose, mouth and throat: There are moist mucous membranes and no oral lesions. Neck: The neck is supple, there is no tenderness or JVD. Cardiovascular: There is a regular rate and rhythm. No murmur, rub or gallop is appreciated. Respiratory: To auscultation bilateral, crease breath sounds bilaterally exam consistent with a severe COPD Gastrointestinal: Tender in left lower quadrant area and suprapubic area Back: There is no tenderness to palpation in the midline. There is no obvious deformity. Musculoskeletal: Normal ROM, no tenderness, There is no pedal edema. There is no calf tenderness or swelling. No cords were appreciated. Neurological: CN II-XII intact, Cranial nerves III through XII are intact. There are no obvious motor or sensory deficits. Coordination appears grossly intact. Speech is normal. Psychiatric: Cooperative, appropriate mood & affect, normal judgment. Limitations: no limitations Course Vital Signs 02/01/17 02/02/17 02/02/17 22:03 00:25 02:36 Temperature 100.2 F H 99.3 F Pulse Rate 79 68 68 Respiratory 18 18 18 Rate Blood Pressure 108/55 135/63 117/56 O2 Sat by Pulse 91 L 95 90 L Oximetry 02/02/17 02/02/17 02/02/17 02:37 04:12 04:51 Temperature 98.9 F Pulse Rate 64 65 Respiratory 18 20 Rate Blood Pressure 109/52 107/52 O2 Sat by Pulse 94 L 95 97 Oximetry 02/02/17 05:43 Temperature Pulse Rate 58 L Respiratory 18 Rate Blood Pressure 109/53 O2 Sat by Pulse 93 L Oximetry Medical Decision Making - Lab Data Result diagrams: 02/02/17 00:40 02/02/17 00:40 Lab Results 02/02/17 02/02/17 02/02/17 Range/Units 00:40 00:40 00:40 WBC 13.5 H (3.8-10.6) k/uL RBC 4.56 (3.80-5.40) m/uL Hgb 13.4 (11.4-16.0) gm/dL Hct 43.6 (34.0-46.0) % MCV 95.6 (80.0-100.0) fL MCH 29.3 (25.0-35.0) pg MCHC 30.6 L (31.0-37.0) g/dL RDW 14.3 (11.5-15.5) % Plt Count 188 (150-450) k/uL Neutrophils % 87 % Lymphocytes % 6 % Monocytes % 5 % Eosinophils % 0 % Basophils % 0 % Neutrophils # 11.7 H (1.3-7.7) k/uL Lymphocytes # 0.8 L (1.0-4.8) k/uL Monocytes # 0.7 (0-1.0) k/uL Eosinophils # 0.0 (0-0.7) k/uL Basophils # 0.0 (0-0.2) k/uL Sodium 137 (137-145) mmol/L Potassium 4.6 (3.5-5.1) mmol/L Chloride 105 (98-107) mmol/L Carbon Dioxide 22 (22-30) mmol/L Anion Gap 10 mmol/L BUN 29 H (7-17) mg/dL Creatinine 1.00 (0.52-1.04) mg/dL Est GFR (MDRD) Af Amer >60 (>60 ml/min/1.73 sqM) Est GFR (MDRD) Non-Af 53 (>60 ml/min/1.73 sqM) Glucose 100 H (74-99) mg/dL Plasma Lactic Acid Christopher (0.7-2.0) mmol/L Calcium 10.2 (8.4-10.2) mg/dL Total Bilirubin 1.3 (0.2-1.3) mg/dL AST 15 (14-36) U/L ALT 22 (9-52) U/L Alkaline Phosphatase 79 (38-126) U/L Troponin I <0.012 (0.000-0.034) ng/mL Total Protein 5.9 L (6.3-8.2) g/dL Albumin 3.3 L (3.5-5.0) g/dL Amylase 85 (30-110) U/L Lipase 22 L (23-300) U/L Urine Color Urine Appearance (Clear) Urine pH (5.0-8.0) Ur Specific [place] (1.001-1.035) Urine Protein (Negative) Urine Glucose (UA) (Negative) Urine Ketones (Negative) Urine Blood (Negative) Urine Nitrite (Negative) Urine Bilirubin (Negative) Urine Urobilinogen (<2.0) mg/dL Ur Leukocyte Esterase (Negative) 02/02/17 02/02/17 Range/Units 00:40 04:23 WBC (3.8-10.6) k/uL RBC (3.80-5.40) m/uL Hgb (11.4-16.0) gm/dL Hct (34.0-46.0) % MCV (80.0-100.0) fL MCH (25.0-35.0) pg MCHC (31.0-37.0) g/dL RDW (11.5-15.5) % Plt Count (150-450) k/uL Neutrophils % % Lymphocytes % % Monocytes % % Eosinophils % % Basophils % % Neutrophils # (1.3-7.7) k/uL Lymphocytes # (1.0-4.8) k/uL Monocytes # (0-1.0) k/uL Eosinophils # (0-0.7) k/uL Basophils # (0-0.2) k/uL Sodium (137-145) mmol/L Potassium (3.5-5.1) mmol/L Chloride (98-107) mmol/L Carbon Dioxide (22-30) mmol/L Anion Gap mmol/L BUN (7-17) mg/dL Creatinine (0.52-1.04) mg/dL Est GFR (MDRD) Af Amer (>60 ml/min/1.73 sqM) Est GFR (MDRD) Non-Af (>60 ml/min/1.73 sqM) Glucose (74-99) mg/dL Plasma Lactic Acid Christopher 1.0 (0.7-2.0) mmol/L Calcium (8.4-10.2) mg/dL Total Bilirubin (0.2-1.3) mg/dL AST (14-36) U/L ALT (9-52) U/L Alkaline Phosphatase (38-126) U/L Troponin I (0.000-0.034) ng/mL Total Protein (6.3-8.2) g/dL Albumin (3.5-5.0) g/dL Amylase (30-110) U/L Lipase (23-300) U/L Urine Color Yellow Urine Appearance Clear (Clear) Urine pH 5.5 (5.0-8.0) Ur Specific [place] 1.029 (1.001-1.035) Urine Protein Trace H (Negative) Urine Glucose (UA) Negative (Negative) Urine Ketones Trace H (Negative) Urine Blood Negative (Negative) Urine Nitrite Negative (Negative) Urine Bilirubin Negative (Negative) Urine Urobilinogen 3.0 (<2.0) mg/dL Ur Leukocyte Esterase Negative (Negative) Disposition Clinical Impression: Abdominal pain, Colitis, Impacted stool in intestine, Pancreatic lesion Disposition: ADMITTED IP TO THIS [facility] Condition: Good Referrals: Toribio Post MD [Primary Care Provider] - 1-2 days
[2017-02-02] MEDS ORDERED: SENNOSIDES 8.6 MG TAB PO PRN (05:52)
[2017-02-02] MEDS ORDERED: ALBUTEROL NEBULIZED 2.5 MG/3 ML INHALATION PRN (05:52)
[2017-02-02] MEDS ORDERED: SIMETHICONE 80 MG CHEWABLE PO PRN (05:52)
[2017-02-02] MEDS ORDERED: POLYETHYLENE GLYCOL 3350 17 GM POWD.PACK PO PRN (05:52)
[2017-02-02] MEDS ORDERED: TIOTROPIUM 18 MCG/PUFF INHALER INHALATION SCH (08:00)
[2017-02-02 08:17] VITALS: BMI 19.5
[2017-02-02] MEDS: ALBUTEROL NEBULIZED 2.5 MG/3 ML INHALATION SCH ×3 (08:37→15:23)
[2017-02-02] MEDS: SYMBICORT 160-4.5 MCG INHALER INHALATION SCH ×2 (08:38→19:25)
[2017-02-02] MEDS ORDERED: BETAMETHASONE DIPROPIONATE 0.05% CREAM 15 GM TUBE TOPICAL SCH (09:00)
[2017-02-02] MEDS ORDERED: DOCUSATE 100 MG CAP PO SCH (09:00)
[2017-02-02] MEDS: LACTOBACILLUS ACIDOPH & BULGAR 1 EACH PACKET PO SCH (11:11)
--- NOTE | 2017-02-02 11:56 | P.GSCN ---
History of Present Illness Consult date: 02/02/17 Reason for Consult: Abdominal pain History of present illness: 86-year-old female being seen for a surgical evaluation at the request of the attending for abnormal CAT scan of the abdomen pelvis. Patient is a poor historian can give no adequate past medical history or surgical history. Reviewing computerized record indicates the patient was admitted in 12/06/2016 at that time the patient was treated for chronic obstructive pulmonary disease exacerbation with a fecal impaction secondary to constipation with severe dehydration. That admission patient was seen by surgical service at that admission recommendations were conservative treatment no evidence of any acute surgical intervention warranted. Recommended initiating a bowel regime that admission the patient was noted to have elevated lithium levels which can contribute is constipation. Patient does have a history of a bipolar disorder This admission the patient did present on February 01 to the emergency room. Apparently the family brought patient into the emergency room where the patient was reportedly experiencing frequent loose stools incontinent with abdominal pain. When questioning patient patient cannot tell if she's had an appendectomy or gallbladder. There is an abdominal surgical scar noted. Patient is currently incontinent both urine and stool. In the emergency room patient was afebrile heart rate in the 60s blood pressure 109/54 with a white count of 13.5. The abdomen is firm and distended plus tenderness across the abdominal wall In the emergency room patient did undergo a CT of the abdomen and pelvis with contrast. Reviewing the report shows questionable 1 cm pancreatic low-density lesion, layering hyperdense material within the gallbladder may be due to sludge or stones the remaining of the colon is distended with a large amount retained stool and air. The rectum is dilated to approximately 11 cm there is marked rectosigmoid wall thickening may be due to colitis. Reviewing medical records indicate the patient has a past medical history of bipolar disorder, depression, osteoarthritis, COPD, patient does indicate she is an active smoker 1 pack daily greater than a 40 year history Review of Systems Not able to adequately obtain patient can give no adequate recall Past Medical History Past Medical History: COPD, Osteoarthritis (OA) Additional Past Medical History / Comment(s): lordosis kyphoisis parkensons enlarged heart, curvature of spine History of Any Multi-Drug Resistant Organisms: None Reported Past Surgical History: Appendectomy, Joint Replacement Additional Past Surgical History / Comment(s): bilateral hip sx, Past Psychological History: Bipolar, Depression Smoking Status: Current every day smoker Past Alcohol Use History: None Reported Past Drug Use History: None Reported - Past Family History Mother History Unknown: Yes Additional Family Medical History / Comment(s): brain aneurysm Father History Unknown: Yes Family Medical History: No Reported History Medications and Allergies Home Medications Medication Instructions Recorded Confirmed Type Aspirin EC [Ecotrin Low Dose] 81 mg PO DAILY 08/29/16 02/02/17 History Carbidopa-Levodopa 25-100 mg 1 tab PO TID 08/29/16 02/02/17 History [Sinemet 25-100 mg] Fluocinonide 0.05% [Lidex 0.05% 1 applic TOPICAL BID 08/29/16 02/02/17 History cream] [place] Carbonate [[place] 300 mg PO DAILY 08/29/16 02/02/17 History Carbonate ER] Multivitamins, Thera [Multivitamin 1 tab PO DAILY 08/29/16 02/02/17 History (formulary)] Sennosides [Ex-Lax] 15 mg PO BID PRN 08/29/16 02/02/17 History Vit C/E/Zn/Coppr/Lutein/Zeaxan 1 cap PO DAILY 08/29/16 02/02/17 History [Preservision Areds 2 Softgel] Albuterol Nebulized [Ventolin 2.5 mg INHALATION RT-Q4H PRN 12/06/16 02/02/17 History Nebulized] L.acidoph,Paracasei, B.lactis 1 cap PO DAILY 12/06/16 02/02/17 History [Probiotic] Simethicone [Gas-X] 125 mg PO DAILY PRN 12/06/16 02/02/17 History Furosemide [Lasix] 40 mg PO DAILY 02/02/17 02/02/17 History HYDROcodone/APAP 5-325MG [[place] 1 tab PO Q4HR PRN 02/02/17 02/02/17 History 5-325] Potassium Chloride ER [K-Dur 10] 10 meq PO DAILY 02/02/17 02/02/17 History Allergies Allergy/AdvReac Type Severity Reaction Status Date / Time No Known Allergies Allergy Verified 02/02/17 07:56 Surgical - Exam Vital Signs Temp Pulse Resp BP Pulse Ox 100.2 F H 79 18 108/55 91 L 02/01/17 22:03 02/01/17 22:03 02/01/17 22:03 02/01/17 22:03 02/01/17 22:03 GENERAL APPEARANCE: 86-year-old female looking older than stated age thin unkempt slightly jaundiced in appearance VITAL SIGNS: Reviewed HEENT: Head is normocephalic and atraumatic. Pupils are equal and reactive. The nares are patent. Oropharynx is clear without lesions. NECK: Supple without lymphadenopathy. Traches midline. HEART: S1, S2. Regular rate and rhythm. No murmur noted LUNGS: No crackles or wheezes are heard. Posterior diminished at the bases ABDOMEN: Firm distended diffuse tenderness across the abdominal wall few hypoactive bowel tones incontinent a moderate amount of liquid brown stool No peritoneal signs. No palpable organomegaly or masses. EXTREMITIES: Normal skin color and turgor. No cyanosis, rash, ulceration, clubbing or edema. Radial pedal pulses are 2/4 bilaterally. Muscle wasting to the upper and lower extremities Results - Labs 02/02/17 00:40 02/02/17 00:40 Abnormal Lab Results - Last 24 Hours (Table) 02/02/17 02/02/17 02/02/17 Range/Units 00:40 00:40 04:23 WBC 13.5 H (3.8-10.6) k/uL MCHC 30.6 L (31.0-37.0) g/dL Neutrophils # 11.7 H (1.3-7.7) k/uL Lymphocytes # 0.8 L (1.0-4.8) k/uL BUN 29 H (7-17) mg/dL Glucose 100 H (74-99) mg/dL Total Protein 5.9 L (6.3-8.2) g/dL Albumin 3.3 L (3.5-5.0) g/dL Lipase 22 L (23-300) U/L Urine Protein Trace H (Negative) Urine Ketones Trace H (Negative) Diabetes panel 02/02/17 Range/Units 00:40 Sodium 137 (137-145) mmol/L Potassium 4.6 (3.5-5.1) mmol/L Chloride 105 (98-107) mmol/L Carbon Dioxide 22 (22-30) mmol/L BUN 29 H (7-17) mg/dL Creatinine 1.00 (0.52-1.04) mg/dL Glucose 100 H (74-99) mg/dL Calcium 10.2 (8.4-10.2) mg/dL AST 15 (14-36) U/L ALT 22 (9-52) U/L Alkaline Phosphatase 79 (38-126) U/L Total Protein 5.9 L (6.3-8.2) g/dL Albumin 3.3 L (3.5-5.0) g/dL Calcium panel 02/02/17 Range/Units 00:40 Calcium 10.2 (8.4-10.2) mg/dL Albumin 3.3 L (3.5-5.0) g/dL Pituitary panel 02/02/17 Range/Units 00:40 Sodium 137 (137-145) mmol/L Potassium 4.6 (3.5-5.1) mmol/L Chloride 105 (98-107) mmol/L Carbon Dioxide 22 (22-30) mmol/L BUN 29 H (7-17) mg/dL Creatinine 1.00 (0.52-1.04) mg/dL Glucose 100 H (74-99) mg/dL Calcium 10.2 (8.4-10.2) mg/dL Adrenal panel 02/02/17 Range/Units 00:40 Sodium 137 (137-145) mmol/L Potassium 4.6 (3.5-5.1) mmol/L Chloride 105 (98-107) mmol/L Carbon Dioxide 22 (22-30) mmol/L BUN 29 H (7-17) mg/dL Creatinine 1.00 (0.52-1.04) mg/dL Glucose 100 H (74-99) mg/dL Calcium 10.2 (8.4-10.2) mg/dL Total Bilirubin 1.3 (0.2-1.3) mg/dL AST 15 (14-36) U/L ALT 22 (9-52) U/L Alkaline Phosphatase 79 (38-126) U/L Total Protein 5.9 L (6.3-8.2) g/dL Albumin 3.3 L (3.5-5.0) g/dL Assessment and Plan Plan: Impression Admission abdominal pain computed tomography scan of the abdomen pelvis shows large amount retained stool likely fecal impaction CAT scan abdomen and pelvis done on admission shows layering hyperdense material within the gallbladder may be due to stones or sludge moderate intra- and extrahepatic biliary ductal dilatation Active nicotine dependency greater than a 40 year history COPD stable no evidence of an exacerbation History of chronic constipation Chronic debility limited mobility suspect due to comorbidities Present on admission generalized weakness poor oral intake clinical dehydration suspect due to fecal impaction History of Parkinson's disease Bipolar depressive disorder nonspecified Present on admission elevated BUN suspect due to clinical dehydration poor oral intake Present on admission leukocytosis Plan Order a ultrasound of the abdomen Initiate a bowel regime IV fluid for hydration Resume home meds as appropriate Repeat labs in the morning Further recommendations pending will follow The above dictated assessment and findings were discussed with dr joaquin . Impression and the plan of care have been dictated as directed. Mirna Douglas nurse practitioner acting as a scribe for dr joaquin.
[2017-02-02] MEDS: DOXYCYCLINE 50 MG CAP PO SCH ×2 (11:59→23:31)
[2017-02-02] MEDS ORDERED: POLYETHYLENE GLYCOL 3350 17 GM POWD.PACK PO SCH ×2 (12:00→21:00)
[2017-02-02] MEDS: ENOXAPARIN 40 MG/0.4 ML SYRINGE SQ SCH (12:00)
[2017-02-02] MEDS: LITHIUM CARBONATE 300 MG CAP PO SCH (12:00)
[2017-02-02] MEDS: SODIUM CHLORIDE 0.9% 1,000 ML IV SCH ×2 (12:01→15:59)
[2017-02-02] MEDS: ASPIRIN 81 MG CHEW PO SCH (12:11)
[2017-02-02] MEDS: CARBIDOPA-LEVODOPA 25-100 MG 1 EACH TAB PO SCH ×3 (12:11→23:31)
[2017-02-02] MEDS: MULTIVITAMINS, THERA 1 EACH TAB PO SCH (13:10)
[2017-02-02] MEDS: VIT A,C & E-LUTEIN-MINERALS 1 EACH TAB PO SCH (13:10)
[2017-02-02] MEDS: predniSONE 10 MG TAB PO SCH (13:10)
[2017-02-02] MEDS: NICOTINE 21MG/24HR PATCH TRANSDERM SCH (13:42)
[2017-02-02] MEDS ORDERED: NA PHOS,M-B/NA PHOS,DI-BA 133 ML ENEMA RECTAL ONE (13:59)
[2017-02-02] MEDS: ceFAZolin 1,000 MG in DEXTROSE/WATER 1 50ML.BAG IVPB SCH (15:51)
--- NOTE | 2017-02-02 16:21 | US ---
EXAMINATION TYPE: US abdomen comp/pelvis limited DATE OF EXAM: 02/02/2017 COMPARISON: Correlation CT same day CLINICAL HISTORY: 86 year-old female abdominal pain. Patient disoriented, unable to obtain history. TECHNIQUE: Multiple sonographic images of the abdomen and pelvis were obtained. FINDINGS: Liver Length: 14.3 cm Gallbladder Wall: 0.3 cm CBD: 1.2 cm Spleen: 8.6 cm Right Kidney: 9.4 x 4.2 x 5.1 cm Left Kidney: 9.7 x 4.8 x 4.7 cm Pancreas: obscured by overlying midline bowel gas Liver: Limited intercostal views. Intrahepatic biliary ductal dilatation. Gallbladder: Hydropic with sludge and gravel. Wall measures at the upper limits of normal in thickne ss at 3 mm. CBD: dilated 1.2cm Spleen: multiple echogenic foci throughout with largest measuring 0.3cm likely calcified granulomas. Right Kidney: multiple cystic areas with largest measuring 1.3cm, 1.4cm cystic area at renal pelvis, possible parapelvic cyst, visualization limited by rib shadowing and overlying bowel gas. No hydrone phrosis. Left Kidney: multiple cystic areas with largest measuring 1.7cm, visualization limited by rib shadow ing and overlying bowel gas , no hydronephrosis. Upper IVC: wnl Abd Aorta: obscured by overlying midline bowel gas Bladder: Trabeculated bladder wall. Bilateral Jets Seen yes IMPRESSION: 1. Intrahepatic and extrahepatic biliary ductal dilatation. The bile duct measures up to 1.2 cm. The gallbladder is also hydropic. Correlate with alkaline phosphatase and bilirubin for possible biliary obstruction. ERCP or MRCP as clinically indicated. 2. Trabeculated appearing bladder. The marked rectosigmoid fecal distention and severe wall thickenin g is not demonstrated by ultrasound.
[2017-02-02] MEDS: IPRATROPIUM-ALBUTEROL 3 ML NEB INHALATION SCH ×2 (16:55→19:25)
[2017-02-02] MEDS: metroNIDAZOLE-NS PMX 500 MG in SALINE 1 100ML.BAG IVPB SCH (17:20)
[2017-02-02] MEDS: BUDESONIDE 1 MG/2 ML NEBU INHALATION SCH (19:25)
--- NOTE | 2017-02-02 19:52 | HP ---
DATE OF ADMISSION: 02/02/2017 PRESENTING COMPLAINT: Weak, tired, constipation. HISTORY OF PRESENTING COMPLAINT: This is an 86-year-old patient who follows with Dr. Toribio Post. Patient's chronic stable medical conditions include COPD, osteoarthritis, Parkinson's disease, bipolar disorder, gait dysfunction uses a walker. Patient presented to the ER. Patient had severe constipation and as per the ER notes, patient had no appetite and has a greatly distended abdomen. The patient herself did not give me much of the history. I talked to the patient's son over the phone who visits at least once a week. Patient does apparently live with her other son and daughter. The patient did get a fleet's enema and did have a large bowel movement but still ( ). Patient herself is not actually furnishing any history. As per the son, patient gradually seems to be declining. Becoming more and more weak. Review of systems cannot be done as patient is not answering any questions. PAST MEDICAL HISTORY: History of chronic obstructive pulmonary disease, Parkinson's disease, Osteoarthritis, bipolar disorder, medical debility. PAST SURGICAL HISTORY: Appendectomy, joint replacement, bilateral hip. SOCIAL HISTORY: Lives with son and daughter. Smoker. No alcohol. FAMILY HISTORY: History of brain aneurysm. HOME MEDICATIONS: 1. Gas-X 125 mg p.o. daily p.r.n. 2. Ex-lax 50 mg p.o. b.i.d. p.r.n. 3. MiraLax 17 grams p.o. daily. 4. [place] 1 tablet p.o. q.4 p.r.n. 5. Symbicort 160/4.5, 2 puffs b.i.d. 6. Ventolin 2.5 q.4 p.r.n. 7. Preservision two soft gel 1 capsule daily. 8. Spiriva 1 capsule inhalation daily. 9. Potassium 10 mEq every p.o. daily. 10. Multivitamin 1 tablet p.o. daily. 11. [place] 300 mg p.o. daily. 12. Probiotic 1 capsule p.o. daily. 13. Lasix 40 mg p.o. daily. 14. Lidex 0.05% one topical b.i.d. 15. Colace 100 mg b.i.d. 16. Sinemet 25/100, 1 tablet p.o. t.i.d. 17. Aspirin 81 p.o. daily. ALLERGIES: None. PHYSICAL EXAMINATION: Vital signs presentation: Temperature of 99. On examination, temperature 99.3, pulse 60, respiration 18, blood pressure 117/56, pulse ox 98% on room air. GENERAL APPEARANCE: Very thin built, emaciate, lying in bed. Very tired -appearing. Not really keen to answer any questions. EYES: Pupils equal. Conjunctivae pale. HEENT: External appearance of nose and ears normal. Oral cavity dry mucous membrane. NECK: JVD unable to assess. Mass not palpable. RESPIRATORY: Effort increased. LUNGS: Diminished breath sounds. CARDIOVASCULAR: First and second sounds normal. No edema. ABDOMEN: Distended. Very distended. Bowels ( ) actually be seen. Some tenderness. Liver and spleen not palpable. LYMPHATIC: No lymph nodes palpable in neck or axillae. PSYCHIATRY: Patient not really answering any questions. NEUROLOGICAL: Pupils equal. Cranial nerves grossly intact. Moving all 4 limbs. MUSCULOSKELETAL: Diffuse wasting of the muscles. Primary arthritis especially of the hands and knees. INVESTIGATIONS: White count 13.5, hemoglobin 17.4. Potassium 4.6, BUN 29, creatinine 1.0. CT scan of the abdomen and pelvis shows ( ) rectosigmoid and a large amount of retained stool, rectum dilated about 11 cm. There is some densities in the gallbladder, moderate internal and external ( ) biliary duct dilatation. ASSESSMENT: 1. Severe constipation leading to rectum dilatation about 11 cm, acute on chronic with some response to laxatives. 2. Acute metabolic encephalopathy multifactorial. 3. Moderate to severe protein calorie malnutrition. Patient has extensive loss of superior fat, loss of muscle, lot of muscle. 4. Chronic obstructive pulmonary disease in a smoker. 5. ( ) Parkinson's disorder. 6. Primary osteoarthritis multiple joints. 7. Medical debility advanced, multifactorial. 8. Bipolar disorder. 9. CODE STATUS is DO NOT RESUSCITATE as per patient's son Chi whom I spoke to telephone number . PLAN: Patient's prognosis is rather guarded. Surgery was consulted. Patient getting laxatives and we will encourage oral intake ( ) nebulized bronchodilator, I do not think patient using any inhalers at all. We will also try to contact patient's daughter, with home the patient lives. Overall prognosis is not good.
[2017-02-02] MEDS: ACETAMINOPHEN TAB 325 MG TAB PO PRN (23:32)
[2017-02-03] MEDS: metroNIDAZOLE-NS PMX 500 MG in SALINE 1 100ML.BAG IVPB SCH ×2 (00:26→08:55)
[2017-02-03] MEDS: ceFAZolin 1,000 MG in DEXTROSE/WATER 1 50ML.BAG IVPB SCH ×2 (00:26→06:38)
[2017-02-03] MEDS: ACETAMINOPHEN TAB 325 MG TAB PO PRN (04:29)
[2017-02-03] MEDS: SODIUM CHLORIDE 0.9% 1,000 ML IV SCH ×2 (05:46→17:09)
[2017-02-03 07:00] VITALS: RESP 16
[2017-02-03] MEDS: IPRATROPIUM-ALBUTEROL 3 ML NEB INHALATION SCH ×4 (09:30→19:51)
[2017-02-03] MEDS: SYMBICORT 160-4.5 MCG INHALER INHALATION SCH ×2 (09:30→19:50)
[2017-02-03] MEDS: BUDESONIDE 1 MG/2 ML NEBU INHALATION SCH ×2 (09:30→19:50)
[2017-02-03] MEDS: NICOTINE 21MG/24HR PATCH TRANSDERM SCH (10:37)
[2017-02-03] MEDS: CARBIDOPA-LEVODOPA 25-100 MG 1 EACH TAB PO SCH (10:38)
[2017-02-03] MEDS: DOXYCYCLINE 50 MG CAP PO SCH (10:38)
[2017-02-03] MEDS: ASPIRIN 81 MG CHEW PO SCH (10:38)
[2017-02-03] MEDS: MULTIVITAMINS, THERA 1 EACH TAB PO SCH (10:38)
[2017-02-03] MEDS: LITHIUM CARBONATE 300 MG CAP PO SCH (10:38)
[2017-02-03] MEDS: predniSONE 10 MG TAB PO SCH (10:38)
[2017-02-03] MEDS: LACTOBACILLUS ACIDOPH & BULGAR 1 EACH PACKET PO SCH (10:38)
[2017-02-03] MEDS: VIT A,C & E-LUTEIN-MINERALS 1 EACH TAB PO SCH (10:39)
[2017-02-03 11:28] LABS: Basophils % (A) 0 %; CH 29.8; CHCM 30.8; Eosinophils # (A) 0.2 k/uL (0-0.7); Eosinophils % (A) 3 %; HCT 38.9 % (34.0-46.0); HDW 2.28; HGB 12.1 gm/dL (11.4-16.0); Hypochromasia Slight; Luc % (Auto) 3; Lymphocytes # (A) 1.3 k/uL (1.0-4.8); Lymphocytes % (A) 20 %; MCH 30.2 pg (25.0-35.0); MCHC 31.1 g/dL (31.0-37.0); MCV 97.1 fL (80.0-100.0); Mean Platelet Volume 8.3; Monocytes # (A) 0.6 k/uL (0-1.0); Monocytes % (A) 9 %; Neutrophils # (A) 4.3 k/uL (1.3-7.7); Neutrophils % (A) 66 %; RBC 4.01 m/uL (3.80-5.40); RDW 14.5 % (11.5-15.5); WBC 6.5 k/uL (3.8-10.6); WBC (Perox) 6.42
--- NOTE | 2017-02-03 12:03 | P.PN ---
<Mirna Douglas - Last Filed: 02/03/17 11:56> Subjective 86-year-old female seen and examined early sitting up in a chair is more awake and alert denying any abdominal pain when questioning incontinent of stool events noted during the night patient was transferred to the cardiac unit yesterday after patient was having episodes of sinus bradycardic heart rate in the 30s. Patient has been seen at the request of the attending for a surgical eval and an 86-year-old female who reportedly was experiencing abdominal pain. Nursing reports this morning the patient's having frequent incontinent stool. Ultrasound of the of the abdomen and pelvis results reviewed gallbladder hydropic with sludge. Wall measures upper limits of normal recommending correlate with alkaline phosphate and bilirubin for possible biliary obstruction the sigmoid fecal distention and severe wall thickening is not demonstrated by ultrasound placenta was negative for C. diff the white count is down to 6.5 with a hemoglobin of 12.1 Objective - Vital Signs Vital signs: Vital Signs Temp 97.7 F 02/03/17 09:01 Pulse 42 L 02/03/17 09:01 Resp 16 02/03/17 09:01 BP 97/48 02/03/17 09:01 Pulse Ox 97 02/03/17 09:01 Intake & Output 02/02/17 02/03/17 02/03/17 18:59 06:59 18:59 Intake Total 800 1160 90 Balance 800 1160 90 Intake: IV 10 Sodium Chloride 0.9% 1, 10 000 ml @ 100 mls/hr IV . Q10H MARY LOU Rx#:[id number] Intake, IV Titration 800 950 Amount Sodium Chloride 0.9% 1, 700 800 000 ml @ 100 mls/hr IV . Q10H MARY LOU Rx#:[id number] ceFAZolin 1,000 mg In 50 Dextrose/Water 1 50ml.bag @ 100 mls/hr IVPB Q8H MARY LOU Rx#:[id number] metroNIDAZOLE-NS PMX 500 100 100 mg In Saline 1 100ml.bag @ 100 mls/hr IVPB Q8HR MARY LOU Rx#:[id number] Oral 200 90 Other: Voiding Method Diaper Diaper Diaper Incontinent Incontinent Incontinent # Voids 2 2 # Bowel Movements 2 1 - Exam Physical exam 86-year-old female sitting up in a chair is more awake and alert denying any chest pain or shortness of breath when questioning Lungs essentially clear on room air sats are greater than 92% sats on 2 L are documented 98% no cough noted Heart S1-S2 audible current heart rate in the 30s Abdomen remains slightly distended no facial grimacing with palpitation to the abdominal wall bowel tones noted incontinent a urine stool documented Extremities no edema noted - Labs CBC & Chem 7: 02/03/17 11:07 02/02/17 00:40 Labs: Microbiology - Last 24 Hours (Table) 02/02/17 00:40 Blood Culture - Preliminary Blood No Growth after 24 hours 02/02/17 04:23 Urine Culture - Preliminary Urine,Catheterized Assessment and Plan Plan: Impression Admission abdominal pain computed tomography scan of the abdomen pelvis shows large amount retained stool likely fecal impaction CAT scan abdomen and pelvis done on admission shows layering hyperdense material within the gallbladder may be due to stones or sludge moderate intra- and extrahepatic biliary ductal dilatation Active nicotine dependency greater than a 40 year history COPD stable no evidence of an exacerbation History of chronic constipation Chronic debility limited mobility suspect due to comorbidities Present on admission generalized weakness poor oral intake clinical dehydration suspect due to fecal impaction History of Parkinson's disease Bipolar depressive disorder nonspecified Present on admission elevated BUN suspect due to clinical dehydration poor oral intake Present on admission leukocytosis Plan No evidence of an acute abdomen with no surgical intervention indicated Initiate a bowel regime IV fluid for hydration Resume home meds as appropriate Repeat labs in the morning Further recommendations pending will follow The above dictated assessment and findings were discussed with dr joaquin . Impression and the plan of care have been dictated as directed. Mirna Douglas nurse practitioner acting as a scribe for dr joaquin. <Gustavo Joaquin W - Last Filed: 02/03/17 16:59> Objective - Vital Signs Vital signs: Vital Signs Temp 97.8 F 02/03/17 12:19 Pulse 44 L 02/03/17 12:19 Resp 16 02/03/17 12:19 BP 93/48 02/03/17 12:19 Pulse Ox 92 L 02/03/17 12:19 Intake & Output 02/02/17 02/03/17 02/03/17 18:59 06:59 18:59 Intake Total 800 1160 270 Balance 800 1160 270 Intake: IV 10 Sodium Chloride 0.9% 1, 10 000 ml @ 100 mls/hr IV . Q10H MARY LOU Rx#:[id number] Intake, IV Titration 800 950 Amount Sodium Chloride 0.9% 1, 700 800 000 ml @ 100 mls/hr IV . Q10H MARY LOU Rx#:[id number] ceFAZolin 1,000 mg In 50 Dextrose/Water 1 50ml.bag @ 100 mls/hr IVPB Q8H MARY LOU Rx#:[id number] metroNIDAZOLE-NS PMX 500 100 100 mg In Saline 1 100ml.bag @ 100 mls/hr IVPB Q8HR MARY LOU Rx#:[id number] Oral 200 270 Other: Voiding Method Diaper Diaper Diaper Incontinent Incontinent Incontinent # Voids 2 2 1 # Bowel Movements 2 1 1 - Labs CBC & Chem 7: 02/03/17 11:07 02/03/17 11:07 Labs: Abnormal Lab Results - Last 24 Hours (Table) 02/03/17 Range/Units 11:07 Chloride 112 H (98-107) mmol/L BUN 27 H (7-17) mg/dL Glucose 102 H (74-99) mg/dL Microbiology - Last 24 Hours (Table) 02/02/17 04:23 Urine Culture - Final Urine,Catheterized 02/02/17 00:40 Blood Culture - Preliminary Blood No Growth after 24 hours Assessment and Plan Plan: Patient is having bowel movements and abdomen is soft and flat. Ok to discharge from surgical standpoint. Will sign off LEIGH ANN
[2017-02-03 12:26] VITALS: PULSE 44
[2017-02-03 12:40] LABS: Anion Gap 7 mmol/L; Blood Urea Nitrogen 27 mg/dL (7-17); Calcium 9.1 mg/dL (8.4-10.2); Carbon Dioxide 22 mmol/L (22-30); Chloride 112 mmol/L (98-107); Glucose 102 mg/dL (74-99); Non-African American GFR(MDRD) >60 (>60 ml/min/1.73 sqM); Sodium 141 mmol/L (137-145)
[2017-02-03 12:49] LABS: Potassium 4.2 mmol/L (3.5-5.1)
[2017-02-03] MEDS: ENOXAPARIN 40 MG/0.4 ML SYRINGE SQ SCH (14:20)
--- NOTE | 2017-02-03 16:52 | CONS ---
DATE OF CONSULTATION: REASON FOR CONSULTATION: [place] toxicity. I did interview the medical record and I did interview the patient. In addition I called her daughter Ele to get collateral information. HISTORY OF PRESENT ILLNESS: Patient is an 86 -year-old female with history of bipolar disorder since age 18. Patient has been stable on lithium for more than 25 years. Patient is very poor historian; however, she is able to tell me that she lost her of 60 years in September 2016, but she said, "I did not have a tear. I think I was in shock". Patient stated that since her her oldest son moved in with her and he has been taking care of her. Patient denied any depressive symptoms. She is complaining of poor appetite because "I don't like everything, I am so picky." She denied any psychotic features. She denied any manic or hypomanic features. She describes that she has been having some hand tremors and that is why sometimes it is not easy to eat or feed herself on her own. According to the daughter, every time the primary care physician tried to take her off lithium, patient started having manic episodes wandering in the street, very agitated, not sleeping and pacing back and forth, and that is why she has been on low dose of lithium for the last 25 years. PAST PSYCHIATRIC HISTORY: She has more than 10 psychiatric hospitalizations. First psychiatric hospitalization was at age 18. The last one was 25 or 30 years ago. As I mentioned before, she has been on lithium for more than 25 years and currently her primary care physician is the one who prescribing her psychotropic medication. PAST MEDICAL HISTORY: COPD, Osteoarthritis. Parkinsonian. SUBSTANCE ABUSE HISTORY: She has been a very active smoker at least 1 pack a day. She started at early 20s. ALLERGIES: There no known allergy. Her home medications includin. [place] extended-release 300 mg daily. 2. Baby aspirin. 3. Cinnamon 2500 mg 3 times a day. 4. Vitamin C. 5. Ventolin inhaler. 6. Lasix 40 mg daily. 7. Potassium 10 mg. 8. [place] as needed every 4 hours. 9. I am not sure if the patient has been taking Requip or not. According to other records she is taking Requip up to 3 times a day. Family history of psychiatric illness: Patient's mother had bipolar disorder but was undiagnosed. Legal history: There is no legal history. SOCIAL HISTORY: Patient was for more than 60 years. Her in September 2016. She has 5 grownup children. Currently she is living in her own home and her son moved in with her. She does not drive. She has electrodynamicist 2 or 3 times a week. Regarding mental status examination today patient presented as an elderly female. She was sitting on her chair. Very poor historian. She denied any depressive symptoms. She denied any suicidal or homicide ideation. She denied any psychotic features. There is definite some hand tremors bilateral. Her affect is dysphoric. There is mixture of anxiety and some irritability. She was alert, oriented to person only. She could not remember what is the name of the hospital and what is today's date. Her insight and judgment are limited. IMPRESSION: 1. History of bipolar disorder in remission with lithium for more than 25 years. 2. Delayed grief reaction. 3. Psychosocial dysfunction due to chronic mental illness, grief and the loss of her and multiple medical issues. RECOMMENDATION: 1. I will recommend to continue the patient on just lithium 300 mg, lithium level 8.7. This is not toxic; however, I do recommend to switch her blood pressure medication Lasix or Furosemide to a different medication as this will affect the lithium level as this diuretic can trigger lithium toxicity even with the small dose of lithium so to prevent any further toxicity, we can switch the Lasix. 2. Despite that it seems that she is going through grief losing her , I do not recommend any antidepressant medication as it can trigger manic episode. 3. Try to avoid any pain medication that can affect her cognitive function and it seems that she has been on [place] every 4 hours p.r.n. and this can give her severe constipation. Patient does not meet criteria for inpatient or outpatient treatment. Patient can be referred back to her primary care physician who has prescribing her psychotropic medication for more than 25 years. Thank you for this consult.
[2017-02-03 17:56] VITALS: BP 106/56; TEMP 97.5
--- NOTE | 2017-02-04 12:22 | DS ---
DATE OF ADMISSION: 02/02/2017 DATE OF DISCHARGE: 02/03/2017 FINAL DIAGNOSIS(ES): 1. Severe constipation leading to rectum dilatation, acute on chronic with response to laxatives. 2. Acute metabolic encephalopathy, multifactorial. 3. Moderate to severe protein calorie malnutrition from decreased oral intake. 4. Acute chronic obstructive pulmonary disease exacerbation in a smoker. 5. Idiopathic Parkinson disorder. 6. Primary osteoarthritis of multiple joints, bilateral. 7. Medical debility advanced, multifactorial. 8. Bipolar disorder. 9. CODE STATUS: DO NOT RESUSCITATE. HOSPITAL COURSE: This patient who presented with severe constipation was found to have a rather dilated rectum. Received enema and had ( ) bowel movement response. nose and ears normal. The patient has pretty advanced lung disease too. The patient continues to smoke. When the patient first presented, I spoke to patient's son Chi. Today, I spoke to patient's another daughter with whom patient lives, and explained the overall guarded prognosis. Questions were answered. Patient's prognosis is not good. CONSULTATIONS: Dr. Monreal from general surgery. On examination, LUNGS: Decreased breath sounds. Some crackles. ABDOMEN: Soft, nontender. DISCHARGE MEDICATIONS: 1. Aspirin 81 mg a day. 2. Sinemet 20/100, 1 tablet p.o. t.i.d. 3. ( ). 4. ( ) one application topical b.i.d. 5. [place] carbonate 300 mg p.o. daily. 6. Multivitamin 1 tablet p.o. daily. 7. Ex-lax 50 mg p.o. b.i.d. p.r.n. 8. PreserVision 1 capsule p.o. daily. 9. Ventolin 2.5 nebulizer q.4 p.r.n. 10. Gas-X 125 mg p.o. daily p.r.n. 11. MiraLax 17 grams p.o. daily p.r.n. 12. [place] 5 1 tablets q.4 p.r.n. 13. Pulmicort 1 mg nebulizer b.i.d. 14. DuoNeb nebulizer q.i.d. 15. Nicotine patch as directed. 16. Requip 1 mg p.o. t.i.d. 17. CODE STATUS: DNR. Follow with Dr. Post in 3 days. Prognosis guarded. Discharge planning including discussion more than 35 minutes.
== END 2017-02-03 21:29 | disposition home or self-care (01) | DRG 391 ==
LOC: EC 22:01 → 5MS5E 02-02 05:48 → 6SEL 02-03 05:12
PROVIDERS: ADMIT Hospitalist; ATTEND Hospitalist
DX: K59.03 Drug induced constipation (principal); E43 Unspecified severe protein-calorie malnutrition; G93.41 Metabolic encephalopathy; G20 Parkinson's disease; R00.1 Bradycardia, unspecified; J44.1 Chronic obstructive pulmonary disease with (acute) exacerbation; E86.0 Dehydration; Z68.1 Body mass index [BMI] 19.9 or less, adult; K59.00 Constipation, unspecified; R15.9 Full incontinence of feces; Z66 Do not resuscitate; F41.9 Anxiety disorder, unspecified; R32 Unspecified urinary incontinence; R53.1 Weakness; T43.595A Adverse effect of other antipsychotics and neuroleptics, initial encounter; F31.70 Bipolar disorder, currently in remission, most recent episode unspecified; M19.042 Primary osteoarthritis, left hand; M19.041 Primary osteoarthritis, right hand; M17.0 Bilateral primary osteoarthritis of knee; D72.829 Elevated white blood cell count, unspecified; K59.09 Other constipation; M62.562 Muscle wasting and atrophy, not elsewhere classified, left lower leg; M62.561 Muscle wasting and atrophy, not elsewhere classified, right lower leg; M62.522 Muscle wasting and atrophy, not elsewhere classified, left upper arm; R26.9 Unspecified abnormalities of gait and mobility; M62.521 Muscle wasting and atrophy, not elsewhere classified, right upper arm; I51.7 Cardiomegaly; R93.2 Abnormal findings on diagnostic imaging of liver and biliary tract; F43.29 Adjustment disorder with other symptoms; M40.40 Postural lordosis, site unspecified; M40.209 Unspecified kyphosis, site unspecified; F17.200 Nicotine dependence, unspecified, uncomplicated; Z90.49 Acquired absence of other specified parts of digestive tract; Z79.51 Long term (current) use of inhaled steroids; Z79.899 Other long term (current) drug therapy; Z81.8 Family history of other mental and behavioral disorders; Z82.0 Family history of epilepsy and other diseases of the nervous system; Z96.643 Presence of artificial hip joint, bilateral; Z79.82 Long term (current) use of aspirin; Z79.891 Long term (current) use of opiate analgesic
CPT/HCPCS: 36415; 71020; 74177; 76700; 76857; 80048; 80053; 80178; 81003; 82150; 83605; 83690; 84484; 85025; 87040; 87086; 87324; 93005; 94640; 96361; 96365; 96375; 96376; 99285

== ENCOUNTER 2018-03-02 19:07 | Inpatient (IN) | payer MEDICARE ==
[2018-03-02] MEDS ORDERED: SODIUM CHLORIDE 0.9% 1,000 ML IV ONE (19:40)
[2018-03-02 20:42] LABS: Appearance,Urine Clear (Clear); Bilirubin,Urine Negative (Negative); Blood,Urine Negative (Negative); Color,Urine Light Red; Glucose,Urine (UA) Negative (Negative); Ketones,Urine Negative (Negative); Leukocyte Esterase,Urine Negative (Negative); Nitrite,Urine Negative (Negative); PH, Urine 5.5 (5.0-8.0); Protein,Urine Negative (Negative); Specific Gravity,Urine 1.012 (1.001-1.035)
[2018-03-02 20:44] LABS: Albumin 3.3 g/dL (3.5-5.0); Calcium 10.8 mg/dL (8.4-10.2); Creatine Kinase 31 U/L (30-135); Potassium 4.7 mmol/L (3.5-5.1); Total Bilirubin 0.6 mg/dL (0.2-1.3); Total Protein 5.8 g/dL (6.3-8.2)
[2018-03-02 20:45] LABS: Basophils % (A) 1 %; Eosinophils # (A) 0.1 k/uL (0-0.7); Eosinophils % (A) 1 %; HCT 46.4 % (34.0-46.0); HGB 14.4 gm/dL (11.4-16.0); Hypochromasia Slight; Lymphocytes # (A) 1.2 k/uL (1.0-4.8); Lymphocytes % (A) 15 %; MCH 29.3 pg (25.0-35.0); MCV 94.3 fL (80.0-100.0); Mean Platelet Volume 6.9; Monocytes # (A) 0.6 k/uL (0-1.0); Monocytes % (A) 7 %; Neutrophils % (A) 73 %; Platelet Count 347 k/uL (150-450); RBC 4.92 m/uL (3.80-5.40); RDW 14.4 % (11.5-15.5); WBC 8.2 k/uL (3.8-10.6)
[2018-03-02 20:53] LABS: Amphetamine Screen,Urine Not Detected (NotDetected); Barbiturate Screen,Urine Not Detected (NotDetected); Benzodiazepines Screen,Urine Not Detected (NotDetected); Cocaine Screen,Urine Not Detected (NotDetected); Methadone Screen, Urine Not Detected (NotDetected); Opiate Screen,Urine Detected (NotDetected); Oxycodone Screen, Urine Not Detected (NotDetected); Phencyclidine Screen,Urine Not Detected (NotDetected); Tricyclic Antidepressant,Urine Not Detected (NotDetected); Urn Cannabinoid Scrn Not Detected (NotDetected)
[2018-03-02 20:55] LABS: INR 1.1 (<1.2)
[2018-03-02 20:56] LABS: Creatine Kinase MB 1.6 ng/mL (0.0-2.4); Partial Thromboplastin Time 21.1 sec (22.0-30.0); Prothrombin Time 10.7 sec (9.0-12.0); Troponin I <0.012 ng/mL (0.000-0.034)
--- NOTE | 2018-03-02 21:39 | CT ---
EXAMINATION TYPE: CT brain wo con DATE OF EXAM: 03/02/2018 COMPARISON: None HISTORY: Confusion CT DLP: 1132 mGycm Automated exposure control for dose reduction was used. FINDINGS: Multiple axial sections were obtained of the brain with no contrast. There is mild cerebral cortical atrophy. There is no mass effect norm and line shift. There is no sig n of intracranial hemorrhage. The calvarium is intact. IMPRESSION: NEGATIVE CT SCAN OF THE BRAIN.
--- NOTE | 2018-03-02 21:46 | CT ---
EXAMINATION TYPE: CT abdomen pelvis wo con DATE OF EXAM: 03/02/2018 COMPARISON: 02/02/2017 HISTORY: Abdominal pain CT DLP: 734 mGycm Automated exposure control for dose reduction was used. TECHNIQUE: Helical acquisition of images was performed from the lung bases through the pelvis. No co ntrast FINDINGS: There is some scarring and atelectasis at the lung bases. Heart appears enlarged. There are dilated bile ducts. There is small calcified splenic granuloma. I see no pancreatic mass. G allbladder appears dilated with calcified gallstones. Gallbladder measures 6.3 cm in diameter. Common bile duct is dilated and measures 1.4 cm. There is no evidence of free air. There is retained fecal material throughout the colon. There is dil ated rectum with gas and fecal material. This measures 11 cm. There is no ascites. There is mild righ t-sided hydronephrosis. The urinary bladder is dilated and measures 15 x 14 cm. There are bilateral h ip prostheses with metal artifact. IMPRESSION: THERE IS CHRONIC DILATED BILIARY TREE THAT IS THE SAME OR WORSE THAN LAST EXAM. THERE IS CHRONIC DILA JULIO C GALLBLADDER WITH GALLSTONES OR GALLBLADDER IS INCREASED SLIGHTLY COMPARED TO OLD EXAM WELL. I DO NOT SEE AN OBSTRUCTING MASS OF THE BILIARY TREE. CONSTIPATION. LARGE BOWEL ILEUS. DILATED URINARY BLADDER IS WORSE THAN LAST EXAM AND CONSISTENT WITH CHRONIC BLADDER OUTLET OBSTRUCTION. THERE IS RIGHT-SIDED HYDRONEPHROSIS THAT IS WORSE THAN OLD EXAM. NO RENAL ATROPHY. THIS IS CONSISTENT WITH A MORE ACUTE OBSTRUCTION. THERE ARE L1 AND T12 COMPRESSION FRACTURES THAT APPEAR NOT SIGNIFICANTLY DIFFERENT.
--- NOTE | 2018-03-02 21:51 | XR ---
EXAMINATION TYPE: XR chest 2V DATE OF EXAM: 03/02/2018 COMPARISON: 02/02/2017 HISTORY: Altered mental status TECHNIQUE: Frontal and lateral views of the chest are obtained. FINDINGS: There is coarse interstitial pulmonary infiltrates. There is some coalescent density in th e anterior right upper lobe. There is no heart failure. There is no pleural effusion. There is osteop enia and anterior wedging of mid thoracic vertebra. IMPRESSION: Pulmonary interstitial fibrosis. Old thoracic compression fracture. There is new right u pper lobe pneumonia compared to last exam. No heart failure.
[2018-03-02] MEDS ORDERED: metroNIDAZOLE-NS PMX 500 MG in SALINE 1 100ML.BAG IVPB STA (21:57)
[2018-03-02] MEDS ORDERED: NALOXONE 0.4 MG/ML 1 ML VIAL IV PRN (22:00)
--- NOTE | 2018-03-02 22:14 | ED ---
General Adult HPI - General Chief complaint: Altered Mental Status Stated complaint: Confusion Source: patient Mode of arrival: ambulatory Limitations: no limitations - History of Present Illness Initial comments: Dictation was produced using [employer] dictation software. please excuse any grammatical, word or spelling errors. Chief Complaint: 87-year-old female past medical history of COPD, chronic constipation and arthritis presents for altered mental status. History of Present Illness: Accompanied with family. Over the past 3 days patient has been showing signs of altered mental status. He states she's been severely lethargic recently. At baseline family reports that she is able to carry out meaningful conversations. Patient has began progressively worse. Patient unable to provide HPI at this time given mental status. - Related Data Home Medications Medication Instructions Recorded Confirmed Aspirin EC [Ecotrin Low Dose] 81 mg PO DAILY 08/29/16 03/02/18 Carbidopa-Levodopa 25-100 mg 1 tab PO TID 08/29/16 03/02/18 [Sinemet 25-100 mg] Multivitamins, Thera [Multivitamin 1 tab PO DAILY 08/29/16 03/02/18 (formulary)] Vit C/E/Zn/Coppr/Lutein/Zeaxan 1 cap PO DAILY 08/29/16 03/02/18 [Preservision Areds 2 Softgel] HYDROcodone/APAP 5-325MG [[place] 1 tab PO Q6H PRN 02/02/17 03/02/18 5-325] Furosemide [Lasix] 40 mg PO BID 03/02/18 03/02/18 [place] Carbonate 300 mg PO DAILY 03/02/18 03/02/18 Potassium Chloride ER [K-Dur 10] 10 meq PO BID 03/02/18 03/02/18 Previous Rx's Medication Instructions Recorded rOPINIRole HCL [Requip] 1 mg PO TID tab 02/03/17 Allergies Allergy/AdvReac Type Severity Reaction Status Date / Time No Known Allergies Allergy Verified 03/02/18 20:58 Review of Systems ROS Statement: Those systems with pertinent positive or pertinent negative responses have been documented in the HPI. ROS Other: All systems not noted in ROS Statement are negative. Past Medical History Past Medical History: COPD, Osteoarthritis (OA) Additional Past Medical History / Comment(s): lordosis kyphoisis parkensons enlarged heart, curvature of spine History of Any Multi-Drug Resistant Organisms: None Reported Past Surgical History: Appendectomy, Joint Replacement Additional Past Surgical History / Comment(s): bilateral hip sx, Past Psychological History: Bipolar, Depression Smoking Status: Current every day smoker Past Alcohol Use History: None Reported Past Drug Use History: None Reported - Past Family History Mother History Unknown: Yes Additional Family Medical History / Comment(s): brain aneurysm Father History Unknown: Yes Family Medical History: No Reported History General Exam - General Exam Comments Initial Comments: PHYSICAL EXAM: General Impression: Lethargic, alert and oriented 3, HEENT: Normocephalic atraumatic, extra-ocular movements intact, pupils equal and reactive to light bilaterally, dry mucous membranes Cardiovascular: Heart regular rate and rhythm, S1&S2 audible, no murmurs, rubs or gallops Chest: Lungs clear to auscultation bilaterally, no rhonchi, no wheeze, no rales Abdomen: Tympanitic abdomen, patient does not grimace with palpation to the abdomen Musculoskeletal: Pulses present and equal in all extremities, no peripheral edema Motor: Moves ultrasound is grossly Neurological: no focal motor or sensory deficits noted Skin: Intact with no visualized rashes Psych: Normal affect and mood Limitations: no limitations Course Vital Signs 03/02/18 03/02/18 03/02/18 19:12 20:08 20:40 Temperature 98.8 F Pulse Rate 54 L 52 L Respiratory 18 Rate Blood Pressure 130/70 125/61 O2 Sat by Pulse 93 L 99 Oximetry Medical Decision Making - Medical Decision Making ED course: 87-year-old female with extensive abdominal history presents with altered mental status. Patient is accompanied by family. They states that she had similar symptoms approximately 1 year ago. Chart review was performed. Patient was admitted around this time last year for protein calorie malnutrition, severe constipation, metabolic encephalopathy. Vital signs upon arrival are within acceptable limits. Laboratory evaluation was obtained. CBC unremarkable. Coag panel unremarkable. Cumbersome metabolic panel shows mild elevation in renal markers. Urinalysis is negative. There are opiates en route here drug screen. Computed tomography scan was obtained showing no acute processes. Abdominal pelvis CT was obtained demonstrating a dilated biliary tree, dilated gallbladder with gallstones. Constipation with large bowel ileus felt to be worse than previous examination. An worsened right -sided hydronephrosis. Patient's symptoms likely secondary to metabolic encephalopathy. There is some concern that patient's encephalopathy could be secondary to infection. She is covered with ceftriaxone and Flagyl. Discussed patient case with the montessori paraprofessional was willing to accept admission. Surgery consult for abdominal CT findings. - Lab Data Result diagrams: 03/02/18 20:15 03/02/18 20:15 Lab Results 03/02/18 03/02/18 03/02/18 Range/Units 20:15 20:15 20:15 WBC 8.2 (3.8-10.6) k/uL RBC 4.92 (3.80-5.40) m/uL Hgb 14.4 (11.4-16.0) gm/dL Hct 46.4 H (34.0-46.0) % MCV 94.3 (80.0-100.0) fL MCH 29.3 (25.0-35.0) pg MCHC 31.0 (31.0-37.0) g/dL RDW 14.4 (11.5-15.5) % Plt Count 347 (150-450) k/uL Neutrophils % 73 % Lymphocytes % 15 % Monocytes % 7 % Eosinophils % 1 % Basophils % 1 % Neutrophils # 6.0 (1.3-7.7) k/uL Lymphocytes # 1.2 (1.0-4.8) k/uL Monocytes # 0.6 (0-1.0) k/uL Eosinophils # 0.1 (0-0.7) k/uL Basophils # 0.0 (0-0.2) k/uL Hypochromasia Slight PT (9.0-12.0) sec INR (<1.2) APTT (22.0-30.0) sec Sodium 145 (137-145) mmol/L Potassium 4.7 (3.5-5.1) mmol/L Chloride 110 H (98-107) mmol/L Carbon Dioxide 24 (22-30) mmol/L Anion Gap 11 mmol/L BUN 45 H (7-17) mg/dL Creatinine 1.16 H (0.52-1.04) mg/dL Est GFR (CKD-EPI)AfAm 50 (>60 ml/min/1.73 sqM) Est GFR (CKD-EPI)NonAf 43 (>60 ml/min/1.73 sqM) Glucose 78 (74-99) mg/dL Calcium 10.8 H (8.4-10.2) mg/dL Total Bilirubin 0.6 (0.2-1.3) mg/dL AST 16 (14-36) U/L ALT 21 (9-52) U/L Alkaline Phosphatase 75 (38-126) U/L Ammonia (<30) umol/L Total Creatine Kinase 31 (30-135) U/L CK-MB (CK-2) 1.6 (0.0-2.4) ng/mL CK-MB (CK-2) Rel Index 5.2 Troponin I <0.012 (0.000-0.034) ng/mL Total Protein 5.8 L (6.3-8.2) g/dL Albumin 3.3 L (3.5-5.0) g/dL Urine Color Urine Appearance (Clear) Urine pH (5.0-8.0) Ur Specific [place] (1.001-1.035) Urine Protein (Negative) Urine Glucose (UA) (Negative) Urine Ketones (Negative) Urine Blood (Negative) Urine Nitrite (Negative) Urine Bilirubin (Negative) Urine Urobilinogen (<2.0) mg/dL Ur Leukocyte Esterase (Negative) Urine Opiates Screen (NotDetected) Ur Oxycodone Screen (NotDetected) Urine Methadone Screen (NotDetected) Ur Propoxyphene Screen (NotDetected) Ur Barbiturates Screen (NotDetected) U Tricyclic Antidepress (NotDetected) Ur Phencyclidine Scrn (NotDetected) Ur Amphetamines Screen (NotDetected) U Methamphetamines Scrn (NotDetected) U Benzodiazepines Scrn (NotDetected) Urine Cocaine Screen (NotDetected) U Marijuana (THC) Screen (NotDetected) 03/02/18 03/02/18 03/02/18 Range/Units 20:15 20:15 20:30 WBC (3.8-10.6) k/uL RBC (3.80-5.40) m/uL Hgb (11.4-16.0) gm/dL Hct (34.0-46.0) % MCV (80.0-100.0) fL MCH (25.0-35.0) pg MCHC (31.0-37.0) g/dL RDW (11.5-15.5) % Plt Count (150-450) k/uL Neutrophils % % Lymphocytes % % Monocytes % % Eosinophils % % Basophils % % Neutrophils # (1.3-7.7) k/uL Lymphocytes # (1.0-4.8) k/uL Monocytes # (0-1.0) k/uL Eosinophils # (0-0.7) k/uL Basophils # (0-0.2) k/uL Hypochromasia PT 10.7 (9.0-12.0) sec INR 1.1 (<1.2) APTT 21.1 L (22.0-30.0) sec Sodium (137-145) mmol/L Potassium (3.5-5.1) mmol/L Chloride (98-107) mmol/L Carbon Dioxide (22-30) mmol/L Anion Gap mmol/L BUN (7-17) mg/dL Creatinine (0.52-1.04) mg/dL Est GFR (CKD-EPI)AfAm (>60 ml/min/1.73 sqM) Est GFR (CKD-EPI)NonAf (>60 ml/min/1.73 sqM) Glucose (74-99) mg/dL Calcium (8.4-10.2) mg/dL Total Bilirubin (0.2-1.3) mg/dL AST (14-36) U/L ALT (9-52) U/L Alkaline Phosphatase (38-126) U/L Ammonia <9 (<30) umol/L Total Creatine Kinase (30-135) U/L CK-MB (CK-2) (0.0-2.4) ng/mL CK-MB (CK-2) Rel Index Troponin I (0.000-0.034) ng/mL Total Protein (6.3-8.2) g/dL Albumin (3.5-5.0) g/dL Urine Color Light Red Urine Appearance Clear (Clear) Urine pH 5.5 (5.0-8.0) Ur Specific [place] 1.012 (1.001-1.035) Urine Protein Negative (Negative) Urine Glucose (UA) Negative (Negative) Urine Ketones Negative (Negative) Urine Blood Negative (Negative) Urine Nitrite Negative (Negative) Urine Bilirubin Negative (Negative) Urine Urobilinogen 2.0 (<2.0) mg/dL Ur Leukocyte Esterase Negative (Negative) Urine Opiates Screen Detected H (NotDetected) Ur Oxycodone Screen Not Detected (NotDetected) Urine Methadone Screen Not Detected (NotDetected) Ur Propoxyphene Screen Not Detected (NotDetected) Ur Barbiturates Screen Not Detected (NotDetected) U Tricyclic Antidepress Not Detected (NotDetected) Ur Phencyclidine Scrn Not Detected (NotDetected) Ur Amphetamines Screen Not Detected (NotDetected) U Methamphetamines Scrn Not Detected (NotDetected) U Benzodiazepines Scrn Not Detected (NotDetected) Urine Cocaine Screen Not Detected (NotDetected) U Marijuana (THC) Screen Not Detected (NotDetected) Disposition Clinical Impression: Metabolic encephalopathy Disposition: ADMITTED IP TO THIS [facility] Referrals: None,Stated [Primary Care Provider] - 1-2 days
[2018-03-02] MEDS ORDERED: cefTRIAXone IN SWFI 2,000 MG/20 ML SYRINGE IVP ONE (22:15)
[2018-03-03] MEDS: HEPARIN SODIUM,PORCINE 5,000 UNIT/ML 1 ML VIAL SQ SCH ×4 (00:13→23:30)
[2018-03-03 02:10] VITALS: BMI 28.3
[2018-03-03] MEDS ORDERED: HYDROcodone/APAP 5-325MG 1 EACH TAB PO PRN (02:16)
[2018-03-03] MEDS ORDERED: ONDANSETRON 4 MG/2 ML VIAL IVP PRN (02:18)
[2018-03-03] MEDS: SODIUM CHLORIDE 0.9% 1,000 ML IV SCH ×3 (02:26→18:28)
[2018-03-03] MEDS: metroNIDAZOLE-NS PMX 500 MG in SALINE 1 100ML.BAG IVPB SCH ×3 (05:09→21:38)
[2018-03-03] MEDS: CARBIDOPA-LEVODOPA 25-100 MG 1 EACH TAB PO SCH ×3 (08:33→21:37)
[2018-03-03] MEDS: ASPIRIN 81 MG PO SCH (08:33)
--- NOTE | 2018-03-03 11:08 | P.GSCN ---
History of Present Illness Consult date: 03/03/18 Reason for Consult: Chronic cholecystitis History of present illness: This 87-year-old female. She is unable to give any significant medical history. Patient CAT scan is found have a dilated gallbladder in the biliary system. Apparently the dilation is worsened since the last CAT scan. She denies any significant pain. Past Medical History Past Medical History: COPD, Osteoarthritis (OA) Additional Past Medical History / Comment(s): lordosis kyphoisis parkensons enlarged heart, curvature of spine History of Any Multi-Drug Resistant Organisms: None Reported Past Surgical History: Appendectomy, Joint Replacement Additional Past Surgical History / Comment(s): bilateral hip sx, Past Anesthesia/Blood Transfusion Reactions: No Reported Reaction Past Psychological History: Bipolar, Depression Smoking Status: Current every day smoker Past Alcohol Use History: None Reported Past Drug Use History: None Reported - Past Family History Mother History Unknown: Yes Additional Family Medical History / Comment(s): brain aneurysm Father History Unknown: Yes Family Medical History: No Reported History Medications and Allergies Home Medications Medication Instructions Recorded Confirmed Type Aspirin EC [Ecotrin Low Dose] 81 mg PO DAILY 08/29/16 03/02/18 History Carbidopa-Levodopa 25-100 mg 1 tab PO TID 08/29/16 03/02/18 History [Sinemet 25-100 mg] Multivitamins, Thera [Multivitamin 1 tab PO DAILY 08/29/16 03/02/18 History (formulary)] Vit C/E/Zn/Coppr/Lutein/Zeaxan 1 cap PO DAILY 08/29/16 03/02/18 History [Preservision Areds 2 Softgel] HYDROcodone/APAP 5-325MG [[place] 1 tab PO Q6H PRN 02/02/17 03/02/18 History 5-325] rOPINIRole HCL [Requip] 1 mg PO TID tab 02/03/17 03/02/18 Rx Furosemide [Lasix] 40 mg PO BID 03/02/18 03/02/18 History [place] Carbonate 300 mg PO DAILY 03/02/18 03/02/18 History Potassium Chloride ER [K-Dur 10] 10 meq PO BID 03/02/18 03/02/18 History Allergies Allergy/AdvReac Type Severity Reaction Status Date / Time No Known Allergies Allergy Verified 03/02/18 20:58 Surgical - Exam Vital Signs Temp Pulse Resp BP Pulse Ox 98.8 F 54 L 18 130/70 93 L 03/02/18 19:12 03/02/18 19:12 03/02/18 19:12 03/02/18 19:12 03/02/18 19:12 - General no distress, chronically ill - Eyes PERRL - ENT normal pinna - Neck no masses - Respiratory normal expansion - Cardiovascular Rhythm: regular - Abdomen Abdomen: soft, non tender Results - Labs 03/02/18 20:15 03/02/18 20:15 Abnormal Lab Results - Last 24 Hours (Table) 03/02/18 03/02/18 03/02/18 Range/Units 20:15 20:15 20:15 Hct 46.4 H (34.0-46.0) % APTT 21.1 L (22.0-30.0) sec Chloride 110 H (98-107) mmol/L BUN 45 H (7-17) mg/dL Creatinine 1.16 H (0.52-1.04) mg/dL Calcium 10.8 H (8.4-10.2) mg/dL Total Protein 5.8 L (6.3-8.2) g/dL Albumin 3.3 L (3.5-5.0) g/dL Urine Opiates Screen (NotDetected) 03/02/18 Range/Units 20:30 Hct (34.0-46.0) % APTT (22.0-30.0) sec Chloride (98-107) mmol/L BUN (7-17) mg/dL Creatinine (0.52-1.04) mg/dL Calcium (8.4-10.2) mg/dL Total Protein (6.3-8.2) g/dL Albumin (3.5-5.0) g/dL Urine Opiates Screen Detected H (NotDetected) Microbiology - Last 24 Hours (Table) 03/02/18 20:30 Urine Culture - Preliminary Urine,Catheterized Diabetes panel 03/02/18 Range/Units 20:15 Sodium 145 (137-145) mmol/L Potassium 4.7 (3.5-5.1) mmol/L Chloride 110 H (98-107) mmol/L Carbon Dioxide 24 (22-30) mmol/L BUN 45 H (7-17) mg/dL Creatinine 1.16 H (0.52-1.04) mg/dL Glucose 78 (74-99) mg/dL Calcium 10.8 H (8.4-10.2) mg/dL AST 16 (14-36) U/L ALT 21 (9-52) U/L Alkaline Phosphatase 75 (38-126) U/L Total Protein 5.8 L (6.3-8.2) g/dL Albumin 3.3 L (3.5-5.0) g/dL Calcium panel 03/02/18 Range/Units 20:15 Calcium 10.8 H (8.4-10.2) mg/dL Albumin 3.3 L (3.5-5.0) g/dL Pituitary panel 03/02/18 Range/Units 20:15 Sodium 145 (137-145) mmol/L Potassium 4.7 (3.5-5.1) mmol/L Chloride 110 H (98-107) mmol/L Carbon Dioxide 24 (22-30) mmol/L BUN 45 H (7-17) mg/dL Creatinine 1.16 H (0.52-1.04) mg/dL Glucose 78 (74-99) mg/dL Calcium 10.8 H (8.4-10.2) mg/dL Adrenal panel 03/02/18 Range/Units 20:15 Sodium 145 (137-145) mmol/L Potassium 4.7 (3.5-5.1) mmol/L Chloride 110 H (98-107) mmol/L Carbon Dioxide 24 (22-30) mmol/L BUN 45 H (7-17) mg/dL Creatinine 1.16 H (0.52-1.04) mg/dL Glucose 78 (74-99) mg/dL Calcium 10.8 H (8.4-10.2) mg/dL Total Bilirubin 0.6 (0.2-1.3) mg/dL AST 16 (14-36) U/L ALT 21 (9-52) U/L Alkaline Phosphatase 75 (38-126) U/L Total Protein 5.8 L (6.3-8.2) g/dL Albumin 3.3 L (3.5-5.0) g/dL Assessment and Plan Assessment: Gallbladder and biliary tree dilatation. Patient is currently asymptomatic. Patient should have GI consultation for possible ERCP or MRCP. We will follow with you.
[2018-03-03] MEDS: AZITHROMYCIN 500 MG in DEXTROSE 5% IN WATER 250 ML IVPB SCH ×2 (12:34)
[2018-03-03] MEDS: cefTRIAXone IN SWFI 1,000 MG/10 ML SYRINGE IVP SCH (23:30)
[2018-03-04] MEDS: metroNIDAZOLE-NS PMX 500 MG in SALINE 1 100ML.BAG IVPB SCH ×3 (05:47→21:28)
[2018-03-04 07:59] LABS: Calcium 9.6 mg/dL (8.4-10.2); Potassium 4.5 mmol/L (3.5-5.1)
[2018-03-04 08:02] LABS: Basophils # (A) 0.1 k/uL (0-0.2); Basophils % (A) 1 %; Eosinophils # (A) 0.2 k/uL (0-0.7); Eosinophils % (A) 2 %; HCT 43.4 % (34.0-46.0); Hypochromasia Marked; Lymphocytes # (A) 1.6 k/uL (1.0-4.8); Lymphocytes % (A) 18 %; MCH 29.1 pg (25.0-35.0); MCHC 29.9 g/dL (31.0-37.0); MCV 97.5 fL (80.0-100.0); Mean Platelet Volume 7.1; Monocytes # (A) 0.6 k/uL (0-1.0); Monocytes % (A) 7 %; Neutrophils # (A) 6.3 k/uL (1.3-7.7); Neutrophils % (A) 70 %; Platelet Count 239 k/uL (150-450); RBC 4.45 m/uL (3.80-5.40); RDW 14.6 % (11.5-15.5)
[2018-03-04] MEDS: AZITHROMYCIN 500 MG in DEXTROSE 5% IN WATER 250 ML IVPB SCH ×2 (08:40)
[2018-03-04] MEDS: CARBIDOPA-LEVODOPA 25-100 MG 1 EACH TAB PO SCH ×3 (08:41→21:29)
[2018-03-04] MEDS: HEPARIN SODIUM,PORCINE 5,000 UNIT/ML 1 ML VIAL SQ SCH ×2 (08:41→18:05)
[2018-03-04] MEDS: ASPIRIN 81 MG PO SCH (08:41)
--- NOTE | 2018-03-04 09:19 | P.PN ---
Subjective Progress Note Date: 03/04/18 Principal diagnosis: Chronic cholecystitis The patient is resting comfortably in her chair. Her abdomen seems quite distended. Objective - Vital Signs Vital signs: Vital Signs Temp 96.8 F L 03/04/18 05:00 Pulse 42 L 03/04/18 05:00 Resp 16 03/04/18 05:00 BP 101/48 03/04/18 05:00 Pulse Ox 93 L 03/04/18 05:00 Intake & Output 03/03/18 03/04/18 03/04/18 18:59 06:59 18:59 Intake Total 820 590 Balance 820 590 Weight 65.771 kg Intake: Intake, IV Titration 700 Amount Sodium Chloride 0.9% 1, 600 000 ml @ 75 mls/hr IV . [id number] MARY LOU Rx#:[id number]-NS PMX 500 100 mg In Saline 1 100ml.bag @ 100 mls/hr IVPB Q8H MARY LOU Rx#:[id number] Oral 120 590 Other: Voiding Method Diaper Diaper Incontinent Incontinent # Voids 1 # Bowel Movements 1 1 - Gastrointestinal Gastrointestinal Comment(s): Abdomen is distended. Abdomen soft. There is some minimal tenderness in the epigastric area. There is no rebound or guarding. - Labs CBC & Chem 7: 03/04/18 07:18 03/04/18 07:18 Labs: Abnormal Lab Results - Last 24 Hours (Table) 03/04/18 03/04/18 Range/Units 07:18 07:18 MCHC 29.9 L (31.0-37.0) g/dL Chloride 116 H (98-107) mmol/L BUN 27 H (7-17) mg/dL Microbiology - Last 24 Hours (Table) 03/02/18 20:30 Urine Culture - Final Urine,Catheterized 03/02/18 20:15 Blood Culture - Preliminary Blood No Growth after 24 hours Assessment and Plan Assessment: Chronically dilated gallbladder, chronic cholecystitis Abdominal distention. Patient will undergo computed tomography scan to evaluate for for possible bowel obstruction.
--- NOTE | 2018-03-04 11:54 | P.HPIM ---
History of Present Illness H&P Date: 03/03/18 Chief Complaint: Altered mental status Mrs. Rodrigues is an 87-year-old female with a past medical history of COPD, osteoarthritis, bipolar disorder, kyphoscoliosis admitted to the hospital by her family members for altered mental status changes. Currently the patient is lying in bed, appears to be very confused. She knows she is in the hospital but she is not sure why she was brought to the hospital. As per the nursing staff report patient has been very sleepy but was able to wake up and answer minimal questions this morning. She also had her breakfast this morning. Patient could answer simple questions. She denies having any chest pain, difficulty in breathing. She is on 2 L of oxygen at home. She denies having any abdominal pain. Nausea vomiting or diarrhea. On reviewing the ED notes the patient was brought in by her family members for altered mental status changes. But no significant chief complaints were reported. On reviewing her reports patient has fever of 100.3. She had a chest x-ray showing pulmonary interstitial fibrosis and a new right upper lobe pneumonia. She also had a CAT scan of the abdomen- chronic dilated biliary tree and chronic dilated gallbladder with gallstones . Also showing constipation and large bowel ileus , there are L1 and T12 compression fractures. Surgical consult was obtained- no acute surgical intervention recommended, advised to GI consult which will be placed. Patient has been empirically started on ceftriaxone and Flagyl. We will add azithromycin as the patient has right upper lobe pneumonia on the chest x-ray. Patient also had a CAT scan of the brain no acute intracranial process reported. EKG and troponins within normal limits. Review of Systems REVIEW OF SYSTEMS: PSYCH: Difficult to assess NEURO: Generalized weakness VASCULAR: No swelling of lower extremities HEMATOLOGIC: No history of easy bleeding and bruising . No recent infections . RESPIRATORY: Patient denies having any cough difficulty in breathing or chest pain INTEGUMENT: Skin is fragile and pain OPHTHALMOLOGIC: Denies having any visual abnormalities : Does not have complaints of hematuria or dysuria CARDIAC: No chest pain , shortness of breath MUSCULOSKELETAL : Patient has compression fractures GI: No abdominal pain nausea or vomiting Past Medical History Past Medical History: COPD, Osteoarthritis (OA) Additional Past Medical History / Comment(s): lordosis kyphoisis parkensons enlarged heart, curvature of spine History of Any Multi-Drug Resistant Organisms: None Reported Past Surgical History: Appendectomy, Joint Replacement Additional Past Surgical History / Comment(s): bilateral hip sx, Past Anesthesia/Blood Transfusion Reactions: No Reported Reaction Past Psychological History: Bipolar, Depression Smoking Status: Current every day smoker Past Alcohol Use History: None Reported Past Drug Use History: None Reported - Past Family History Mother History Unknown: Yes Additional Family Medical History / Comment(s): brain aneurysm Father History Unknown: Yes Family Medical History: No Reported History Medications and Allergies Home Medications Medication Instructions Recorded Confirmed Type Aspirin EC [Ecotrin Low Dose] 81 mg PO DAILY 08/29/16 03/02/18 History Carbidopa-Levodopa 25-100 mg 1 tab PO TID 08/29/16 03/02/18 History [Sinemet 25-100 mg] Multivitamins, Thera [Multivitamin 1 tab PO DAILY 08/29/16 03/02/18 History (formulary)] Vit C/E/Zn/Coppr/Lutein/Zeaxan 1 cap PO DAILY 08/29/16 03/02/18 History [Preservision Areds 2 Softgel] HYDROcodone/APAP 5-325MG [[place] 1 tab PO Q6H PRN 02/02/17 03/02/18 History 5-325] rOPINIRole HCL [Requip] 1 mg PO TID tab 02/03/17 03/02/18 Rx Furosemide [Lasix] 40 mg PO BID 03/02/18 03/02/18 History Panora Carbonate 300 mg PO DAILY 03/02/18 03/02/18 History Potassium Chloride ER [K-Dur 10] 10 meq PO BID 03/02/18 03/02/18 History Allergies Allergy/AdvReac Type Severity Reaction Status Date / Time No Known Allergies Allergy Verified 03/02/18 20:58 Physical Exam Vitals: Vital Signs Temp Pulse Pulse Resp BP BP Pulse Ox 03/03/18 05:34 98.3 F 65 16 131/66 95 03/02/18 23:30 16 03/02/18 23:18 100.3 F H 57 L 16 135/69 94 L 03/02/18 22:42 20 03/02/18 22:00 53 L 18 134/63 98 03/02/18 20:40 52 L 99 03/02/18 20:08 125/61 03/02/18 19:12 98.8 F 54 L 18 130/70 93 L Intake and Output 03/02/18 03/03/18 03/03/18 22:59 06:59 14:59 Intake Total 1900 120 Balance 1900 120 Intake: Amount of Fluid Infused ( 1200 ml) Intake, IV Titration 700 Amount Sodium Chloride 0.9% 1, 600 000 ml @ 75 mls/hr IV . [id number] MARY LOU Rx#:[id number] metroNIDAZOLE-NS PMX 500 100 mg In Saline 1 100ml.bag @ 100 mls/hr IVPB ONCE STA Rx#:[id number] Oral 120 Other: Voiding Method Diaper Incontinent # Voids 1 # Bowel Movements 1 Weight 65.771 kg 65.771 kg GENERAL EXAM GEN. APPEARANCE: Patient is thin and cachectic HEAD EXAM: atraumatic, normocephalic EYE EXAM: Pupils equal and reactive to light., No pallor ENT EXAM: normal exam, mucous membranes moist NECK EXAM: normal inspection. Absent: tenderness, meningismus, full ROM, lymphadenopathy RESPIRATORY EXAM: Decreased breath sounds in all lung sanchez. No crackles or wheezes. CARDIOVASCULAR EXAM: S1-S2 heard no additional sounds appreciated GI/ABDOMINAL EXAM: Abdomen is distended, nontender , no guarding or rigidity, distended veins seen over the belly , EXTREMITIES EXAM: extremities are thin .no edema .skin is pain and fragile .mild petechia seen over both upper and lower extremities NEUROLOGICAL EXAM: alert, oriented X1 , FOCAL NEUROLOGICAL DEFICITS Results CBC & Chem 7: 03/04/18 07:18 03/04/18 07:18 Labs: Abnormal Lab Results - Last 24 Hours (Table) 03/02/18 03/02/18 03/02/18 Range/Units 20:15 20:15 20:15 Hct 46.4 H (34.0-46.0) % APTT 21.1 L (22.0-30.0) sec Chloride 110 H (98-107) mmol/L BUN 45 H (7-17) mg/dL Creatinine 1.16 H (0.52-1.04) mg/dL Calcium 10.8 H (8.4-10.2) mg/dL Total Protein 5.8 L (6.3-8.2) g/dL Albumin 3.3 L (3.5-5.0) g/dL Urine Opiates Screen (NotDetected) 03/02/18 Range/Units 20:30 Hct (34.0-46.0) % APTT (22.0-30.0) sec Chloride (98-107) mmol/L BUN (7-17) mg/dL Creatinine (0.52-1.04) mg/dL Calcium (8.4-10.2) mg/dL Total Protein (6.3-8.2) g/dL Albumin (3.5-5.0) g/dL Urine Opiates Screen Detected H (NotDetected) Microbiology - Last 24 Hours (Table) 03/02/18 20:30 Urine Culture - Preliminary Urine,Catheterized Comments: Chest x-ray showing right upper lobe pneumonia CAT scan of the abdomen showing dilated biliary tract with dilated gallbladder and gallstones. Constipation distended ileus. Thrombosis Risk Factor Assmnt - Choose All That Apply Any of the Below Risk Factors Present?: Yes Each Factor Represents 1 point: Abnormal pulmonary function (COPD) Each Risk Factor Represents 3 Points: Age 75 years or older Thrombosis Risk Factor Assessment Total Risk Factor Score: 4 Thrombosis Risk Factor Assessment Level: Moderate Risk Assessment and Plan Assessment: ASSESSMENT Encephalopathy - most likely metabolic Right upper lobe pneumonia - community acquired Acute kidney injury -prerenal- dehydration Dilated biliary ducts with dilated gallbladder and gallstones Constipation with distended ileus Mild protein calorie malnutrition COPD not in acute exacerbation Osteoarthritis Compression fracture of L1 and T12 spines Kyphoscoliosis History of bipolar disorder History of depression unspecified Plan: Patient has been started on IV fluids at 75 mL/h which will be continued. She has been empirically started on ceftriaxone and Flagyl will be continued. Will add azithromycin for community-acquired pneumonia as a chest x-ray was showing right upper lobe pneumonia. Surgical consult has been obtained and no acute surgical intervention recommended. We will have GI evaluate for the dilated bile duct that was seen on the CAT scan. We'll try to contact family for more details and also to discuss the CODE STATUS.
--- NOTE | 2018-03-04 12:01 | P.PN ---
Subjective Progress Note Date: 03/04/18 Principal diagnosis: Encephalopathy Mrs. Rodrigues is an 87-year-old female with a past medical history of COPD, osteoarthritis, bipolar disorder, kyphoscoliosis admitted to the hospital by her family members for altered mental status changes. On reviewing the ED notes the patient was brought in by her family members for altered mental status changes. But no significant chief complaints were reported. On reviewing her reports patient has fever of 100.3. She had a chest x-ray showing pulmonary interstitial fibrosis and a new right upper lobe pneumonia. She also had a CAT scan of the abdomen- chronic dilated biliary tree and chronic dilated gallbladder with gallstones . Also showing constipation and large bowel ileus , there are L1 and T12 compression fractures. On - Today the patient is awake and sitting up in a chair by the bedside. As per the nursing staff patient is much more communicative and in less pain today. Patient states that she lost her 1 year back and now she is currently living with her son who takes care of her. Review of systems : Patient does not have any active complaints. On review of systems she denies having any chest pain, difficulty in breathing or cough. She denies having any abdominal pain nausea or vomiting and her last bowel movement is from this morning. She denies dysuria or hematuria. Objective - Vital Signs Vital signs: Vital Signs Temp 96.8 F L 03/04/18 05:00 Pulse 42 L 03/04/18 05:00 Resp 16 03/04/18 05:00 BP 101/48 03/04/18 05:00 Pulse Ox 93 L 03/04/18 05:00 Intake & Output 03/03/18 03/04/18 03/04/18 18:59 06:59 18:59 Intake Total 820 590 Balance 820 590 Weight 65.771 kg Intake: Intake, IV Titration 700 Amount Sodium Chloride 0.9% 1, 600 000 ml @ 75 mls/hr IV . [id number] MARY LOU Rx#:[id number] metroNIDAZOLE-NS PMX 500 100 mg In Saline 1 100ml.bag @ 100 mls/hr IVPB Q8H MARY LOU Rx#:[id number] Oral 120 590 Other: Voiding Method Diaper Diaper Incontinent Incontinent # Voids 1 # Bowel Movements 1 1 - Exam GEN. APPEARANCE: Patient is thin and cachectic HEAD EXAM: atraumatic, normocephalic EYE EXAM: Pupils equal and reactive to light., No pallor ENT EXAM: normal exam, mucous membranes moist NECK EXAM: normal inspection. Absent: tenderness, meningismus, full ROM, lymphadenopathy RESPIRATORY EXAM: Decreased breath sounds in all lung sanchez. No crackles or wheezes. CARDIOVASCULAR EXAM: S1-S2 heard no additional sounds appreciated GI/ABDOMINAL EXAM: Abdomen is distended, nontender , no guarding or rigidity, distended veins seen over the belly , small umbilical hernia EXTREMITIES EXAM: extremities are thin .no edema .skin is pain and fragile .mild petechia seen over both upper and lower extremities NEUROLOGICAL EXAM: alert, oriented X2 , no focal neurological deficits - Labs CBC & Chem 7: 03/04/18 07:18 03/04/18 07:18 Labs: Abnormal Lab Results - Last 24 Hours (Table) 03/04/18 03/04/18 Range/Units 07:18 07:18 MCHC 29.9 L (31.0-37.0) g/dL Chloride 116 H (98-107) mmol/L BUN 27 H (7-17) mg/dL Microbiology - Last 24 Hours (Table) 03/02/18 20:30 Urine Culture - Final Urine,Catheterized 03/02/18 20:15 Blood Culture - Preliminary Blood No Growth after 24 hours Assessment and Plan Assessment: ASSESSMENT Encephalopathy - most likely metabolic Right upper lobe pneumonia - community acquired Acute kidney injury -prerenal- dehydration - creatinine is trending down Dilated biliary ducts with dilated gallbladder and gallstones Constipation with distended ileus Mild protein calorie malnutrition COPD not in acute exacerbation Osteoarthritis Compression fracture of L1 and T12 spines Kyphoscoliosis History of bipolar disorder History of depression unspecified Plan: Patient's mentation has improved compared to yesterday. Today she could have a conversation with me. Will continue with IV fluids at 75 mL/h . She has been empirically started on ceftriaxone and Flagyl will be continued. Azithromycin for community-acquired pneumonia as a chest x-ray was showing right upper lobe pneumonia. Surgical consult has been obtained and no acute surgical intervention recommended. We will have GI evaluate for the dilated bile duct that was seen on the CAT scan. As the patient's abdomen is distended today she is getting a repeat CAT scan of the abdomen. As per the discussion with family the patient is a full code.
[2018-03-04] MEDS: IOPAMIDOL-300 CONTRAST 30 ML VIAL (ORAL USE) PO PRN ×2 (12:29→13:09)
[2018-03-04] MEDS: SODIUM CHLORIDE 0.9% 1,000 ML IV SCH (13:18)
--- NOTE | 2018-03-04 17:27 | CT ---
EXAMINATION TYPE: CT abdomen pelvis wo con DATE OF EXAM: 03/04/2018 COMPARISON: 03/02/2018 HISTORY: 87-year-old female Generalized pain with nausea and diarrhea. Rule out obstruction. CT DLP: 540.9 mGycm. Automated exposure control for dose reduction was used. TECHNIQUE: Contiguous axial scanning of the abdomen and pelvis without IV contrast. Coronal and sagit kristel reconstructions performed. FINDINGS: Heart mildly enlarged without pericardial effusion. Partially visualized large caliber to the right a nd left main pulmonary arteries 3.0 cm age compatible with pulmonary artery hypertension. Ectatic ascending aorta 3.6 cm. Some scattered emphysematous changes in the visualized mid to lower l ungs. There are trace effusions with patchy bibasilar opacities, probably atelectasis and scarring. There is a residual contrast within the thoracic esophagus probably due to esophageal dysmotility. Continued biliary ductal dilatation measuring up to 1.7 cm extending into the intrahepatic system not significantly changed from recent prior. The gallbladder remains hydropic measuring 5.6 cm wide with some layering gravel or sludge. There is now mild perihepatic ascites along the inferior tip of the right liver lobe. No definite abnormality seen of the adrenal glands, kidneys, or pancreas by noncontrast CT. Mild right-sided hydronephrosis is unchanged. A couple hypodense lesions in the upper pole left kidne y are too small for accurate CT characterization, probable cysts. No dilated small bowel loops. There is relatively severe stool burden. The sigmoid colon is mildly tortuous and there is severe sto ol distention of the mid to distal sigmoid and rectum. The rectum is distended up to 11.2 cm wide and the distal sigmoid is distended up to 11.7 cm wide. There is associated moderate circumferential wal l thickening. Diffuse anasarca-type change and anterior abdominal fat edema. These changes limit assessment for underlying lymphadenopathy. No free air is seen. Severe distention of the urinary bladder is redemonstrated measuring up to 15.8 cm. 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 Suspect the presence of the uterus leaning towards the left and probable 1.9 cm cystic hewitt e in the left ovary, axial image 60. Bones: Bilateral total hip arthroplasties, degenerative changes SI joints, degenerative changes throu ghout the visualized spine. L1 vertebral compression deformity and mild superior endplate deformity o f T12 are unchanged. Multilevel degenerative changes in the spine. IMPRESSION: 1. Redemonstrated intrahepatic and extrahepatic biliary ductal dilatation along with hydropic gallbl adder. This may be chronic for this patient and the gallbladder distention may be due to fasting stat e. Correlate with alkaline phosphatase and bilirubin levels to exclude biliary obstruction. 2. Continued moderate to severe distention of the urinary bladder. Neurogenic bladder versus bladder outlet obstruction. Lobato catheter placement may be warranted. 3. Severe stool burden. There is fecal impaction within the mid to distal sigmoid and rectum with as sociated moderate wall thickening. The rectum is dilated up to 11.2 cm. Wall thickening could be due to colitis, venous congestion from the severe distention, or could reflect stercoral colitis. This is a significant finding and should be addressed. 4. Anasarca-type change and new trace perihepatic ascites. 5. No dilated small bowel to suggest small bowel obstruction. 6. Similar mild right-sided hydronephrosis.
[2018-03-05] MEDS: HEPARIN SODIUM,PORCINE 5,000 UNIT/ML 1 ML VIAL SQ SCH ×4 (00:26→23:29)
[2018-03-05] MEDS: cefTRIAXone IN SWFI 1,000 MG/10 ML SYRINGE IVP SCH ×2 (00:26→23:29)
[2018-03-05] MEDS: metroNIDAZOLE-NS PMX 500 MG in SALINE 1 100ML.BAG IVPB SCH ×2 (05:27→14:45)
[2018-03-05] MEDS: SODIUM CHLORIDE 0.9% 1,000 ML IV SCH ×2 (05:28→18:03)
[2018-03-05] MEDS: AZITHROMYCIN 500 MG in DEXTROSE 5% IN WATER 250 ML IVPB SCH ×2 (08:02)
[2018-03-05] MEDS: ASPIRIN 81 MG PO SCH (08:02)
[2018-03-05] MEDS: CARBIDOPA-LEVODOPA 25-100 MG 1 EACH TAB PO SCH ×3 (08:03→21:19)
[2018-03-05 08:33] LABS: Basophils % (A) 0 %; Eosinophils # (A) 0.2 k/uL (0-0.7); Eosinophils % (A) 2 %; HCT 42.4 % (34.0-46.0); HGB 13.4 gm/dL (11.4-16.0); Hypochromasia Marked; Lymphocytes # (A) 1.4 k/uL (1.0-4.8); Lymphocytes % (A) 16 %; MCH 30.1 pg (25.0-35.0); MCHC 31.7 g/dL (31.0-37.0); MCV 94.9 fL (80.0-100.0); Mean Platelet Volume 6.9; Monocytes # (A) 0.5 k/uL (0-1.0); Monocytes % (A) 6 %; Neutrophils # (A) 6.5 k/uL (1.3-7.7); Neutrophils % (A) 74 %; Platelet Count 239 k/uL (150-450); RBC 4.46 m/uL (3.80-5.40); RDW 14.5 % (11.5-15.5); WBC 8.7 k/uL (3.8-10.6)
[2018-03-05 08:41] LABS: Calcium 9.4 mg/dL (8.4-10.2); Potassium 4.2 mmol/L (3.5-5.1)
[2018-03-05] MEDS ORDERED: BISACODYL 5 MG TABLET.DR PO STA (10:17)
--- NOTE | 2018-03-05 10:24 | P.PN ---
Subjective Progress Note Date: 03/05/18 87-year-old female seen and evaluated at bedside. Nursing inserted a [place] catheter for urinary retention greater than 1000 out. Abdomen is less distended. CAT scan pelvis and abdomen without contrast done yesterday reviewed report indicates no dilated small bowel to suggest small bowel obstruction. Mild right-sided hydronephrosis. Severe stool burden. Fecal impaction within the mid to distal sigmoid and rectum with associated moderate wall thickening. Wall thickening could be due to colitis versus severe distention. demonstrated intrahepatic and extrahepatic biliary duct dilatation along with hydropic gallbladder. Could be chronic for this patient and the gallbladder distention could be due to the fasting state. Total bili on March 02 0.6 alkaline phosphatase 75 Objective - Vital Signs Vital signs: Vital Signs Temp 97.6 F 03/05/18 05:00 Pulse 47 L 03/05/18 05:00 Resp 16 03/05/18 05:00 BP 123/58 03/05/18 05:00 Pulse Ox 98 03/05/18 05:00 Intake & Output 03/04/18 03/05/18 03/05/18 18:59 06:59 18:59 Intake Total 700 1180 Output Total 1250 Balance 700 -70 Intake: Intake, IV Titration 700 Amount Sodium Chloride 0.9% 1, 600 000 ml @ 75 mls/hr IV . [id number] MARY LOU Rx#:[id number] metroNIDAZOLE-NS PMX 500 100 mg In Saline 1 100ml.bag @ 100 mls/hr IVPB Q8H MARY LOU Rx#:[id number] Oral 1180 Output: Urine 1250 Uretheral ([place]) 1250 Other: Voiding Method Indwelling Catheter Indwelling Catheter # Voids 1 # Bowel Movements 2 - Exam Physical exam 87-year-old female sitting up in bed in no acute distress Lungs adequate air movement bilaterally no shortness of breath Heart S1-S2 audible regular Abdomen soft nontender active bowel tones mildly distended indwelling Lob[place] catheter in place no document stool this morning to yesterday no nausea no vomiting Extremities no edema - Labs CBC & Chem 7: 03/05/18 07:57 03/05/18 07:57 Labs: Abnormal Lab Results - Last 24 Hours (Table) 03/05/18 Range/Units 07:57 Sodium 146 H (137-145) mmol/L Chloride 117 H (98-107) mmol/L BUN 20 H (7-17) mg/dL Glucose 73 L (74-99) mg/dL Microbiology - Last 24 Hours (Table) 03/02/18 20:15 Blood Culture - Preliminary Blood No Growth after 48 hours Assessment and Plan Assessment: Impression Chronic 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 Abdominal distention likely due to fecal impaction as suggested on computed tomography scan abdomen pelvis with no evidence of a small bowel obstruction Computed tomography scan abdomen and pelvis mild right sided hydronephrosis Computed tomography scan abdomen pelvis moderate to severe distress fecal impaction mid to distal sigmoid and rectum Community-acquired right upper lobe pneumonia Acute kidney injury prerenal dehydration creatinine improving Encephalopathy suspect metabolic Plan No evidence of an acute surgical abdomen at this time Bowel stimulant to be initiated Fleets enema 1 known Will follow with you with further surgical recommendations Consider a GI eval possible ERCP or MRCP The above impression and plan of care have been discussed and directed by signing physician. Mirna Douglas nurse practitioner acting as scribe for signing physician.
[2018-03-05] MEDS: SENNOSIDES-DOCUSATE SODIUM 1 EACH TAB PO SCH ×2 (12:14→21:21)
[2018-03-05] MEDS: POLYETHYLENE GLYCOL 3350 17 GM POWD.PACK PO SCH (12:14)
--- NOTE | 2018-03-05 12:49 | P.PN ---
Subjective Progress Note Date: 03/05/18 Principal diagnosis: Encephalopathy Mrs. Rodrigues is an 87-year-old female with a past medical history of COPD, osteoarthritis, bipolar disorder, kyphoscoliosis admitted to the hospital by her family members for altered mental status changes. On reviewing the ED notes the patient was brought in by her family members for altered mental status changes. But no significant chief complaints were reported. On reviewing her reports patient has fever of 100.3. She had a chest x-ray showing pulmonary interstitial fibrosis and a new right upper lobe pneumonia. She also had a CAT scan of the abdomen- chronic dilated biliary tree and chronic dilated gallbladder with gallstones . Also showing constipation and large bowel ileus , there are L1 and T12 compression fractures. On - Today the patient is awake and sitting up in a chair by the bedside. As per the nursing staff patient is much more communicative and in less pain today. Patient states that she lost her 1 year back and now she is currently living with her son who takes care of her. On 03/05/2018- patient is sitting up in a chair by the bedside and having her lunch. She looks much better compared to couple of days back. Review of systems : Patient does not have any active complaints. On review of systems she denies having any chest pain, difficulty in breathing or cough. She denies having any abdominal pain nausea or vomiting and her last bowel movement is from this morning. She denies dysuria or hematuria. Patient had a CAT scan of the abdomen done yesterday showing fecal stasis. Objective - Vital Signs Vital signs: Vital Signs Temp 97.6 F 03/05/18 05:00 Pulse 47 L 03/05/18 05:00 Resp 16 03/05/18 05:00 BP 123/58 03/05/18 05:00 Pulse Ox 98 03/05/18 05:00 Intake & Output 03/04/18 03/05/18 03/05/18 18:59 06:59 18:59 Intake Total 700 1180 Output Total 1250 1000 Balance Intake: Intake, IV Titration 700 Amount Sodium Chloride 0.9% 1, 600 000 ml @ 75 mls/hr IV . [id number] MARY LOU Rx#:[id number] metroNIDAZOLE-NS PMX 500 100 mg In Saline 1 100ml.bag @ 100 mls/hr IVPB Q8H MARY LOU Rx#:[id number] Oral 1180 Output: Urine 1250 1000 Uretheral ([place]obato) 1250 1000 Other: Voiding Method Indwelling Catheter Indwelling Catheter # Voids 1 # Bowel Movements 2 - Exam GEN. APPEARANCE: Patient is thin and cachectic HEAD EXAM: atraumatic, normocephalic EYE EXAM: Pupils equal and reactive to light., No pallor ENT EXAM: normal exam, mucous membranes moist NECK EXAM: normal inspection. Absent: tenderness, meningismus, full ROM, lymphadenopathy RESPIRATORY EXAM: Decreased breath sounds in all lung sanchez. No crackles or wheezes. CARDIOVASCULAR EXAM: S1-S2 heard no additional sounds appreciated GI/ABDOMINAL EXAM: Abdomen is distended, nontender , no guarding or rigidity, distended veins seen over the belly , small umbilical hernia EXTREMITIES EXAM: extremities are thin .no edema .skin is pain and fragile .mild petechia seen over both upper and lower extremities NEUROLOGICAL EXAM: alert, oriented X2 , no focal neurological deficits - Labs CBC & Chem 7: 03/05/18 07:57 03/05/18 07:57 Labs: Abnormal Lab Results - Last 24 Hours (Table) 03/05/18 Range/Units 07:57 Sodium 146 H (137-145) mmol/L Chloride 117 H (98-107) mmol/L BUN 20 H (7-17) mg/dL Glucose 73 L (74-99) mg/dL Microbiology - Last 24 Hours (Table) 03/02/18 20:15 Blood Culture - Preliminary Blood No Growth after 48 hours Assessment and Plan Assessment: ASSESSMENT Encephalopathy - most likely metabolic - resolving Right upper lobe pneumonia - community acquired Acute kidney injury -prerenal- dehydration - creatinine is trending down Dilated biliary ducts with dilated gallbladder and gallstones Constipation with distended ileus Mild protein calorie malnutrition COPD not in acute exacerbation Osteoarthritis Compression fracture of L1 and T12 spines Kyphoscoliosis History of bipolar disorder History of depression unspecified Plan: Patient's mentation has improved compared to yesterday. Today she could have a conversation with me. Will continue with IV fluids at 75 mL/h . She has been empirically started on ceftriaxone and Flagyl will be continued. Azithromycin for community-acquired pneumonia as a chest x-ray was showing right upper lobe pneumonia. Surgery services on board and following the patient . GI consult still pending - for the dilated bile duct that was seen on the CAT scan. Repeat CAT scan of the abdomen showing fecal stasis with impaction. She is getting a trial of an edema and laxatives. Overall prognosis guarded.
[2018-03-05] MEDS: metroNIDAZOLE 500 MG TAB PO SCH (21:19)
[2018-03-06] MEDS: metroNIDAZOLE 500 MG TAB PO SCH ×2 (05:28→15:16)
[2018-03-06] MEDS: POLYETHYLENE GLYCOL 3350 17 GM POWD.PACK PO SCH (08:42)
[2018-03-06] MEDS: CARBIDOPA-LEVODOPA 25-100 MG 1 EACH TAB PO SCH ×3 (08:43→22:18)
[2018-03-06] MEDS: ASPIRIN 81 MG PO SCH (08:44)
[2018-03-06] MEDS: AZITHROMYCIN 500 MG TAB PO SCH (08:44)
[2018-03-06] MEDS: HEPARIN SODIUM,PORCINE 5,000 UNIT/ML 1 ML VIAL SQ SCH ×3 (08:44→22:18)
[2018-03-06] MEDS: SENNOSIDES-DOCUSATE SODIUM 1 EACH TAB PO SCH ×2 (08:48→22:18)
--- NOTE | 2018-03-06 09:25 | P.CONS ---
History of Present Illness - Reason for Consult Consult date: 03/06/18 Ileus dilated CBD Requesting physician: Devin Klein - History of Present Illness 87-year-old female admitted with mental status changes. CT abdomen and pelvis reported heavy stool burden, chronic dilated biliary tree CBD 1.4 cm with normal liver enzymes and cholelithiasis. No evidence of obstructing mass with biliary tree gallbladder. Dilated measuring 6.3 cm in diameter. Patient has been evaluated by general surgery for suspected ileus. Presently resting comfortably denies abdominal pain. Passing nonbloody bowel movements. White count 8.5. Hemoglobin 12.7. LFTs within normal limits. Review of Systems Constitutional: Denies fever, chills, sweats, weight gain, or loss. With mental status changes. HEENT: Negative for migraines, blurred vision or loss, earaches, drainage, tinnitus, oral mucosal lesions, dysphagia, or odynophagia. CARDIAC: Negative for chest pain, arrhythmias, or palpitation. RESPIRATORY: Negative for shortness of breath, hemoptysis, cough, or sputum production. GI: See HPI for pertinent findings. : Negative for hematuria, urgency, frequency, polyuria, or dysuria. GYNc: Negative vaginal discharge. MUSCULOSKELETAL: Negative for muscle aches, swelling, arthritis, and arthralgias. NEUROLOGIC: Negative for stroke or TIA. ENDOCRINE: Negative for thyroid problems. SKIN: Negative for rash or itching. PSYCHIATRIC: Negative history for depression and anxiety Past Medical History Past Medical History: COPD, Osteoarthritis (OA) Additional Past Medical History / Comment(s): lordosis kyphoisis parkensons enlarged heart, curvature of spine History of Any Multi-Drug Resistant Organisms: None Reported Past Surgical History: Appendectomy, Joint Replacement Additional Past Surgical History / Comment(s): bilateral hip sx, Past Anesthesia/Blood Transfusion Reactions: No Reported Reaction Past Psychological History: Bipolar, Depression Smoking Status: Current every day smoker Past Alcohol Use History: None Reported Past Drug Use History: None Reported - Past Family History Mother History Unknown: Yes Additional Family Medical History / Comment(s): brain aneurysm Father History Unknown: Yes Family Medical History: No Reported History Medications and Allergies Home Medications Medication Instructions Recorded Confirmed Type Aspirin EC [Ecotrin Low Dose] 81 mg PO DAILY 08/29/16 03/02/18 History Carbidopa-Levodopa 25-100 mg 1 tab PO TID 08/29/16 03/02/18 History [Sinemet 25-100 mg] Multivitamins, Thera [Multivitamin 1 tab PO DAILY 08/29/16 03/02/18 History (formulary)] Vit C/E/Zn/Coppr/Lutein/Zeaxan 1 cap PO DAILY 08/29/16 03/02/18 History [Preservision Areds 2 Softgel] HYDROcodone/APAP 5-325MG [[place] 1 tab PO Q6H PRN 02/02/17 03/02/18 History 5-325] rOPINIRole HCL [Requip] 1 mg PO TID tab 02/03/17 03/02/18 Rx Furosemide [Lasix] 40 mg PO BID 03/02/18 03/02/18 History [place] Carbonate 300 mg PO DAILY 03/02/18 03/02/18 History Potassium Chloride ER [K-Dur 10] 10 meq PO BID 03/02/18 03/02/18 History Albuterol Nebulized [Ventolin 1 ampul PO RT-TID PRN 03/04/18 03/04/18 History Nebulized] Budesonide/Formoterol Fumarate 1 puff INHALATION RT-TID PRN 03/04/18 03/04/18 History [Symbicort 80-4.5 Mcg Inhaler] Allergies Allergy/AdvReac Type Severity Reaction Status Date / Time No Known Allergies Allergy Verified 03/02/18 20:58 Physical Exam Vitals: Vital Signs Temp Pulse Resp BP Pulse Ox 03/06/18 08:11 97.8 F 43 L 16 98/55 95 03/05/18 21:05 98.4 F 45 L 16 105/51 98 03/05/18 15:09 97.7 F 53 L 18 104/52 93 L Intake and Output 03/05/18 03/06/18 03/06/18 22:59 06:59 14:59 Intake Total 850 600 Output Total 1100 700 Balance -250 -100 Intake: Intake, IV Titration 600 600 Amount Sodium Chloride 0.9% 1, 600 600 000 ml @ 75 mls/hr IV . [id number] [facility] Rx#:[id number] Oral 250 Output: Urine 1100 700 Uretheral ([place]) 700 700 Other: Voiding Method Indwelling Catheter Indwelling Catheter General appearance: The patient is alert, oriented, in no acute distress. HET: Head is normocephalic and atraumatic. Pupils are equal and reactive. Oropharynx is clear without lesions. Neck: Supple without lymphadenopathy. Trachea midline. Heart: S1 S2. Regular rate and rhythm. Lungs: No crackles or wheezes are heard. Abdomen: Soft, nontender, nondistended with bowel sounds. No peritoneal signs. No palpable organomegaly or masses. Extremities: Normal skin color and turgor. No cyanosis, rash, ulceration, clubbing, or edema. Radial and pedal pulses are 2/4 bilaterally. Neurological: No focal deficits. Strength and sensation are grossly intact. Results CBC & Chem 7: 03/06/18 08:54 03/06/18 08:54 Labs: Microbiology - Last 24 Hours (Table) 03/02/18 20:15 Blood Culture - Preliminary Blood No Growth after [address] scan - abdomen: report reviewed (Dr. Costa) Assessment and Plan (1) Cholelithiasis Narrative/Plan: 87-year-old female admitted with mental status changes ileus possibly secondary to heavy stool burden CT imaging suggestive of hydropic gallbladder cholelithiasis with dilated intra-and extra hepatic biliary dilatation 1.7 cm relatively unchanged from previous exam with normal liver enzymes presently without abdominal pain passing nonbloody bowel movements. Current Visit: Yes Status: Acute Code(s): K80.20 - CALCULUS OF GALLBLADDER W /O CHOLECYSTITIS W/O OBSTRUCTION SNOMED Code(s): 804531773 (2) Change in mental status Current Visit: Yes Status: Acute Code(s): R41.82 - ALTERED MENTAL STATUS, UNSPECIFIED SNOMED Code(s): 617415588 Plan: 1. ERCP is not indicated secondary to normal liver enzymes. We'll defer to general surgery for further evaluation of gallbladder findings per CT. If patient's liver enzymes worsen would advise MRCP. 2. Daily stool softeners avoid constipation. Thank you for this kind referral and the opportunity to participate in the care of your patient. This consultation was discussed with Dr. Costa. The impression and plan of care have been directed as dictated.
[2018-03-06 09:26] LABS: Basophils % (A) 0 %; Eosinophils # (A) 0.2 k/uL (0-0.7); Eosinophils % (A) 2 %; HCT 42.9 % (34.0-46.0); HGB 12.7 gm/dL (11.4-16.0); Hypochromasia Marked; Lymphocytes # (A) 1.8 k/uL (1.0-4.8); Lymphocytes % (A) 21 %; MCH 27.9 pg (25.0-35.0); MCHC 29.5 g/dL (31.0-37.0); MCV 94.7 fL (80.0-100.0); Monocytes # (A) 0.4 k/uL (0-1.0); Monocytes % (A) 5 %; Neutrophils % (A) 70 %; Platelet Count 233 k/uL (150-450); RBC 4.53 m/uL (3.80-5.40); RDW 14.5 % (11.5-15.5); WBC 8.5 k/uL (3.8-10.6)
[2018-03-06 09:51] LABS: ALT 22 U/L (9-52); AST 15 U/L (14-36); Albumin 2.3 g/dL (3.5-5.0); Alkaline Phosphatase 51 U/L (38-126); Anion Gap 5 mmol/L; Blood Urea Nitrogen 13 mg/dL (7-17); Calcium 9.4 mg/dL (8.4-10.2); Carbon Dioxide 23 mmol/L (22-30); Chloride 117 mmol/L (98-107); Glucose 93 mg/dL (74-99); Potassium 4.7 mmol/L (3.5-5.1); Sodium 145 mmol/L (137-145); Total Bilirubin 0.3 mg/dL (0.2-1.3); Total Protein 4.5 g/dL (6.3-8.2)
[2018-03-06] MEDS: SODIUM CHLORIDE 0.9% 1,000 ML IV SCH (12:22)
--- NOTE | 2018-03-06 12:58 | P.PN ---
Subjective Progress Note Date: 03/06/18 Patient seen at bedside. tray delivery aide at the bedside takes 2 to ambulate patient from the bed to the chair with the use of a walker. No bowel movements today. No abdominal pain. Indwelling [place] catheter in place. Reports no nausea vomiting. Did review GIs recommendations. Noted and appreciated. Patient had a CAT scan of the abdomen and pelvis that showed heavy stool burden. Chronically dilated biliary tree. Normal liver enzymes. Patient has been seen by surgical service for chronic cholecystitis Objective - Vital Signs Vital signs: Vital Signs Temp 97.8 F 03/06/18 08:11 Pulse 57 L 03/06/18 10:10 Resp 16 03/06/18 08:11 BP 98/52 03/06/18 10:10 Pulse Ox 95 03/06/18 10:10 Intake & Output 03/05/18 03/06/18 03/06/18 18:59 06:59 18:59 Intake Total 850 1450 Output Total 1700 1100 Balance -850 350 Intake: Intake, IV Titration 850 1200 Amount Azithromycin 500 mg In 250 Dextrose 5% in Water 250 ml @ 125 mls/hr IVPB DAILY [facility] Rx#:[id number] Sodium Chloride 0.9% 1, 600 1200 000 ml @ 75 mls/hr IV . [id number] [facility] Rx#:[id number] Oral 250 Output: Urine 1700 1100 Uretheral ([place]) 1700 700 Other: Voiding Method Indwelling Catheter Indwelling Catheter Indwelling Catheter # Bowel Movements 1 - Exam Physical exam 87-year-old female sitting up in bed in no acute distress Lungs adequate air movement bilaterally no shortness of breath Heart S1-S2 audible regular Abdomen soft nontender active bowel tones mildly distended indwelling [place] catheter in place no bowel movement this morning nondistended no nausea vomiting Extremities no edema - Labs CBC & Chem 7: 03/06/18 08:54 03/06/18 08:54 Labs: Abnormal Lab Results - Last 24 Hours (Table) 03/06/18 03/06/18 Range/Units 08:54 08:54 MCHC 29.5 L (31.0-37.0) g/dL Chloride 117 H (98-107) mmol/L Total Protein 4.5 L (6.3-8.2) g/dL Albumin 2.3 L (3.5-5.0) g/dL Microbiology - Last 24 Hours (Table) 03/02/18 20:15 Blood Culture - Preliminary Blood No Growth after 72 hours Assessment and Plan Assessment: Impression Chronic 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 Abdominal distention likely due to fecal impaction as suggested on computed tomography scan abdomen pelvis with no evidence of a small bowel obstruction Computed tomography scan abdomen and pelvis mild right sided hydronephrosis Computed tomography scan abdomen pelvis moderate to severe distress fecal impaction mid to distal sigmoid and rectum Community-acquired right upper lobe pneumonia Acute kidney injury prerenal dehydration creatinine improving Encephalopathy suspect metabolic Plan No evidence of an acute surgical abdomen at this time Bowel stimulant to be initiated Will follow with you with further surgical recommendations GI recommendations if liver enzymes worsen would advise MRCP The above impression and plan of care have been discussed and directed by signing physician. Mirna Douglas nurse practitioner acting as scribe for signing physician.
[2018-03-06] MEDS ORDERED: LACTULOSE 20 GM/30 ML CUP PO ONE (14:30)
[2018-03-06] MEDS ORDERED: DOCUSATE 100 MG CAP PO PRN (14:34)
[2018-03-06] MEDS ORDERED: ACETAMINOPHEN TAB 325 MG TAB PO PRN (14:38)
--- NOTE | 2018-03-06 14:46 | P.PN ---
Subjective Mrs. Rodrigues is an 87-year-old female with a past medical history of COPD, osteoarthritis, bipolar disorder, kyphoscoliosis admitted to the hospital by her family members for altered mental status changes. On reviewing the ED notes the patient was brought in by her family members for altered mental status changes. But no significant chief complaints were reported. On reviewing her reports patient has fever of 100.3. She had a chest x-ray showing pulmonary interstitial fibrosis and a new right upper lobe pneumonia. She also had a CAT scan of the abdomen- chronic dilated biliary tree and chronic dilated gallbladder with gallstones . Also showing constipation and large bowel ileus , there are L1 and T12 compression fractures. On - Today the patient is awake and sitting up in a chair by the bedside. As per the nursing staff patient is much more communicative and in less pain today. Patient states that she lost her 1 year back and now she is currently living with her son who takes care of her. On 03/05/2018- patient is sitting up in a chair by the bedside and having her lunch. She looks much better compared to couple of days back. Review of systems : Patient does not have any active complaints. On review of systems she denies having any chest pain, difficulty in breathing or cough. She denies having any abdominal pain nausea or vomiting and her last bowel movement is from this morning. She denies dysuria or hematuria. Patient had a CAT scan of the abdomen done yesterday showing fecal stasis. 03/06/2018 No more fever since 100.3 on 03/02/2018, patient currently on ceftriaxone and Zithromax for pneumonia. He is saturating well on 2-3 L oxygen via [place]. Her creatinine came back to normal level at 0.69 today. Leukocytosis: Improved. Blood culture and urine culture are negative so far GI consult is appreciated and they recommended no ERCP for LFTs within normal. No recommend to monitor LFTs. Also this CAT scan showing moderate to severe urinary bladder distention with mild right hydronephrosis. However creatinine is coming back to normal Objective - Vital Signs Vital signs: Vital Signs Temp 97.8 F 03/06/18 08:11 Pulse 57 L 03/06/18 10:10 Resp 16 03/06/18 08:11 BP 98/52 03/06/18 10:10 Pulse Ox 95 03/06/18 10:10 Intake & Output 03/05/18 03/06/18 03/06/18 18:59 06:59 18:59 Intake Total 850 1450 400 Output Total 1700 1100 500 Balance -850 350 -100 Intake: Intake, IV Titration 850 1200 Amount Azithromycin 500 mg In 250 Dextrose 5% in Water 250 ml @ 125 mls/hr IVPB DAILY [facility] Rx#:[id number] Sodium Chloride 0.9% 1, 600 1200 000 ml @ 75 mls/hr IV . [id number] [facility] Rx#:[id number] Oral 250 400 Output: Urine 1700 1100 500 Uretheral ([place]) 1700 700 Other: Voiding Method Indwelling Catheter Indwelling Catheter Indwelling Catheter # Bowel Movements 1 - Exam GENERAL: The patient is alert and oriented x3, not in any acute distress. Well developed, well nourished. HEENT: Pupils are round and equally reacting to light. EOMI. No scleral icterus. No conjunctival pallor. Normocephalic, atraumatic. No pharyngeal erythema. No thyromegaly. CARDIOVASCULAR: S1 and S2 present. No murmurs, rubs, or gallops. PULMONARY: Chest is clear to auscultation, no wheezing or crackles. ABDOMEN: Soft, nontender, nondistended, normoactive bowel sounds. No palpable organomegaly. MUSCULOSKELETAL: No joint swelling or deformity. EXTREMITIES: No cyanosis, clubbing, or pedal edema. NEUROLOGICAL: Gross neurological examination did not reveal any focal deficits. SKIN: No rashes. - Labs CBC & Chem 7: 03/06/18 08:54 03/06/18 08:54 Labs: Abnormal Lab Results - Last 24 Hours (Table) 03/06/18 03/06/18 Range/Units 08:54 08:54 MCHC 29.5 L (31.0-37.0) g/dL Chloride 117 H (98-107) mmol/L Total Protein 4.5 L (6.3-8.2) g/dL Albumin 2.3 L (3.5-5.0) g/dL Microbiology - Last 24 Hours (Table) 03/02/18 20:15 Blood Culture - Preliminary Blood No Growth after 72 hours Assessment and Plan Plan: Encephalopathy - most likely metabolic - resolving Right upper lobe pneumonia - community acquired Acute kidney injury -prerenal- dehydration - creatinine is trending down Dilated biliary ducts with dilated gallbladder and gallstones Constipation with distended ileus Mild protein calorie malnutrition COPD not in acute exacerbation Osteoarthritis Compression fracture of L1 and T12 spines Kyphoscoliosis History of bipolar disorder, not active tissue History of depression unspecified Plan: Patient's mentation has improved compared to yesterday. pt could have a conversation with me. Patient is still dyspneic. We will lower IV fluids from 75 mL/h 30 mL per hour . She has been empirically started on ceftriaxone and Azithromycin for community-acquired pneumonia as a chest x-ray was showing right upper lobe pneumonia. TEREZA [facility] Surgery services on board and following the patient . GI consult for dilated bile duct that was seen on the CAT scanv is appreciated-no recommendation for ERCP currently. fecal stasis with impaction. She is getting laxatives with Colace senna and lactulose. TEREZA [place] as last dose was on 03/03/2018 and it might contribute to her metabolic encephalopathy. Overall prognosis guarded. DVT prophylaxis on heparin GI prophylaxis Pepcid PT/OT final recommendation: Pending, possible will need MAYELA. We called psychiatric social worker supervisor consult
[2018-03-06] MEDS: FAMOTIDINE 20 MG/2 ML VIAL IV SCH (22:18)
[2018-03-06] MEDS: cefTRIAXone IN SWFI 1,000 MG/10 ML SYRINGE IVP SCH (22:18)
[2018-03-07] MEDS: SODIUM CHLORIDE 0.9% 1,000 ML IV SCH ×2 (05:55→12:35)
--- NOTE | 2018-03-07 08:22 | XR ---
EXAMINATION TYPE: XR chest 2V DATE OF EXAM: 03/07/2018 COMPARISON: Chest x-ray from 5 days ago. HISTORY: Follow up for abnormal chest x-ray. TECHNIQUE: Frontal and lateral views of the chest are obtained. FINDINGS: The osseous structures remain demineralized. Exaggerated thoracic kyphosis is seen with mu ltilevel mild to moderate compression type fracture deformities in the upper to midthoracic spine. Th ere is chronic emphysematous change with new small right pleural effusion. There is new mild intersti tial edema with Zachary B lines in the periphery. There is persistent right basilar linear scarring an d/or atelectasis. There is cardiomegaly with atherosclerotic thoracic aorta. No suspicious new focal airspace opacity is present. IMPRESSION: Chronic changes and cardiomegaly with right basilar linear scarring and/or atelectasis a ll redemonstrated. New small right pleural effusion and mild bilateral interstitial edema is felt pre sent.
--- NOTE | 2018-03-07 08:25 | XR ---
EXAMINATION TYPE: XR abdomen 2V DATE OF EXAM: 03/07/2018 CLINICAL HISTORY: Possible fecal impaction. TECHNIQUE: Supine and upright views of the abdomen are obtained. COMPARISON: CT abdomen and pelvis from 3 days ago. FINDINGS: Scattered gas is seen in non-distended small bowel loops. Gas is seen in slightly prominen t transverse colon with air-fluid level. There is persistent fecal filled dilated sigmoid colon and rectum with more proximal dilatation and fecal retention now identified extending into the left mid t o lower abdomen. Metallic hardware from bilateral hip arthroplasties remains present. Osseous structures are demineral ized. 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 Vascular calcification of overlying aorta is aga in seen. No pneumoperitoneum is present. IMPRESSION: Worsening severe distal colonic fecal stasis or impaction.
[2018-03-07] MEDS: AZITHROMYCIN 500 MG TAB PO SCH (09:06)
[2018-03-07] MEDS: ASPIRIN 81 MG PO SCH (09:06)
[2018-03-07] MEDS: FAMOTIDINE 20 MG/2 ML VIAL IV SCH (09:06)
[2018-03-07] MEDS: POLYETHYLENE GLYCOL 3350 17 GM POWD.PACK PO SCH (09:06)
[2018-03-07] MEDS: HEPARIN SODIUM,PORCINE 5,000 UNIT/ML 1 ML VIAL SQ SCH ×3 (09:06→22:55)
[2018-03-07] MEDS: CARBIDOPA-LEVODOPA 25-100 MG 1 EACH TAB PO SCH ×3 (09:06→22:55)
[2018-03-07] MEDS: SENNOSIDES-DOCUSATE SODIUM 1 EACH TAB PO SCH ×2 (09:20→22:59)
--- NOTE | 2018-03-07 11:18 | P.PN ---
Subjective Progress Note Date: 03/07/18 87-year-old female seen at bedside. Nursing reports patient had 1 large bowel movement this morning and 2 last night. Abdomen less distended. The white count was 8.5 Reports no nausea vomiting patient is being followed by surgical service for chronic cholecystitis. No surgical intervention indicated at this time. CAT scan of the abdomen pelvis on admission did show a heavy stool burden this has been addressed improved stooling after starting the Bowel regime all Objective - Vital Signs Vital signs: Vital Signs Temp 98.2 F 03/07/18 06:09 Pulse 45 L 03/07/18 06:09 Resp 24 03/07/18 06:09 BP 123/60 03/07/18 06:09 Pulse Ox 97 03/07/18 06:09 Intake & Output 03/06/18 03/07/18 03/07/18 18:59 06:59 18:59 Intake Total 400 240 Output Total 500 902 Balance -100 -662 Intake: Intake, IV Titration 240 Amount Sodium Chloride 0.9% 1, 240 000 ml @ 30 mls/hr IV . Q24H [facility] Rx#:[id number] Oral 400 Output: Urine 500 900 Uretheral ([place]) 900 Stool 2 Other: Voiding Method Indwelling Catheter Indwelling Catheter Indwelling Catheter # Voids 1 - Exam Physical exam 87-year-old resting in bed does not appear in acute distress Lungs adequate air movement on room air heart S1-S2 audible regular abdomen slightly distended soft no facial grimacing bowel tones present stool once this morning no nausea no vomiting Extremities no edema - Labs CBC & Chem 7: 03/06/18 08:54 03/06/18 08:54 Labs: Microbiology - Last 24 Hours (Table) 03/02/18 20:15 Blood Culture - Preliminary Blood No Growth after 96 hours Assessment and Plan Assessment: Impression Chronic 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 Abdominal distention likely due to fecal impaction as suggested on computed tomography scan abdomen pelvis with no evidence of a small bowel obstruction Computed tomography scan abdomen and pelvis mild right sided hydronephrosis Computed tomography scan abdomen pelvis moderate to severe distress fecal impaction mid to distal sigmoid and rectum Community-acquired right upper lobe pneumonia Acute kidney injury prerenal dehydration creatinine improving Encephalopathy suspect metabolic Plan No evidence of an acute surgical abdomen at this time Bowel stimulant to be initiated Will follow with you with further surgical recommendations GI recommendations if liver enzymes worsen would advise MRCP From a surgical perspective is okay to transfer to ECF defer to the timing to the attending The above impression and plan of care have been discussed and directed by signing physician. Mirna Doulgas nurse practitioner acting as scribe for signing physician.
[2018-03-07] MEDS: LACTULOSE 20 GM/30 ML CUP PO SCH ×5 (13:01→22:55)
[2018-03-07] MEDS ORDERED: FUROSEMIDE 10 MG/ML 4 ML VIAL IV STA (15:14)
[2018-03-07] MEDS ORDERED: IPRATROPIUM-ALBUTEROL 3 ML NEB INHALATION PRN ×2 (15:25)
--- NOTE | 2018-03-07 15:43 | P.PN ---
<Kelly Orosco - Last Filed: 03/07/18 15:18> Subjective Progress Note Date: 03/07/18 Progress note being dictated for Dr. Nieves Interval history:Mrs. Rodrigues is an 87-year-old female with a past medical history of COPD, osteoarthritis, bipolar disorder, kyphoscoliosis admitted to the hospital by her family members for altered mental status changes. On reviewing the ED notes the patient was brought in by her family members for altered mental status changes. But no significant chief complaints were reported. On reviewing her reports patient has fever of 100.3. She had a chest x-ray showing pulmonary interstitial fibrosis and a new right upper lobe pneumonia. She also had a CAT scan of the abdomen- chronic dilated biliary tree and chronic dilated gallbladder with gallstones . Also showing constipation and large bowel ileus , there are L1 and T12 compression fractures. On - Today the patient is awake and sitting up in a chair by the bedside. As per the nursing staff patient is much more communicative and in less pain today. Patient states that she lost her 1 year back and now she is currently living with her son who takes care of her. On 03/05/2018- patient is sitting up in a chair by the bedside and having her lunch. She looks much better compared to couple of days back. Review of systems : Patient does not have any active complaints. On review of systems she denies having any chest pain, difficulty in breathing or cough. She denies having any abdominal pain nausea or vomiting and her last bowel movement is from this morning. She denies dysuria or hematuria. Patient had a CAT scan of the abdomen done yesterday showing fecal stasis. 03/06/2018 No more fever since 100.3 on 03/02/2018, patient currently on ceftriaxone and Zithromax for pneumonia. He is saturating well on 2-3 L oxygen via NC. Her creatinine came back to normal level at 0.69 today. Leukocytosis: Improved. Blood culture and urine culture are negative so far GI consult is appreciated and they recommended no ERCP for LFTs within normal. No recommend to monitor LFTs. Also this CAT scan showing moderate to severe urinary bladder distention with mild right hydronephrosis. However creatinine is coming back to normal 03/07/2018 maintained on Zithromax and Rocephin. chest x-ray reporting cardiomegaly, right basilar linear scarring and/or atelectasis, new small right pleural effusion, mild bilateral interstitial edema .IV fluids had been decreased yesterday , today presenting with shortness of breath on 2 L nasal cannula. maintaining O2 sats of 97%. Renal function improving.Abdominal x-ray reporting worsening severe distal colonic fecal stasis or impaction .continues on lactulose, 2 bowel movements last night and another this morning. Denies abdominal pain.Tolerating diet with no nausea or vomiting. Afebrile, normal WBC. Chloride 117. Bradycardic. Denies chest pain, palpitations. Objective - Vital Signs Vital signs: Vital Signs Temp 98.2 F 03/07/18 06:09 Pulse 45 L 03/07/18 06:09 Resp 24 03/07/18 06:09 BP 123/60 03/07/18 06:09 Pulse Ox 97 03/07/18 06:09 Intake & Output 03/06/18 03/07/18 03/07/18 18:59 06:59 18:59 Intake Total 400 240 240 Output Total 500 902 Balance -100 -662 240 Intake: Intake, IV Titration 240 240 Amount Sodium Chloride 0.9% 1, 240 240 000 ml @ 30 mls/hr IV . Q24H [facility] Rx#:[id number] Oral 400 Output: Urine 500 900 Uretheral ([place]) 900 Stool 2 Other: Voiding Method Indwelling Catheter Indwelling Catheter Indwelling Catheter # Voids 1 - Exam GENERAL: The patient is alert and oriented x3, not in any acute distress. Well developed, well nourished. HEENT: Pupils are round and equally reacting to light. EOMI. No scleral icterus. No conjunctival pallor. Normocephalic, atraumatic. No pharyngeal erythema. No thyromegaly. CARDIOVASCULAR: S1 and S2 present. Bradycardic. No murmurs, rubs, or gallops. PULMONARY: Bilateral bases diminished, no wheezing or crackles. ABDOMEN: Soft, nontender, less distended, normoactive bowel sounds. No palpable organomegaly. MUSCULOSKELETAL: No joint swelling or deformity. EXTREMITIES: No cyanosis, clubbing, or pedal edema. NEUROLOGICAL: Gross neurological examination did not reveal any focal deficits. SKIN: No rashes. Microbiology 03/02/18 20:15 Blood Blood Culture - Preliminary No Growth after 96 hours 03/02/18 20:30 Urine,Catheterized Urine Culture - Final - Labs CBC & Chem 7: 03/06/18 08:54 03/06/18 08:54 Labs: Microbiology - Last 24 Hours (Table) 03/02/18 20:15 Blood Culture - Preliminary Blood No Growth after 96 hours Assessment and Plan Assessment: Encephalopathy - most likely metabolic - resolving Right upper lobe pneumonia - community acquired Acute kidney injury -prerenal- dehydration - creatinine is trending down Dilated biliary ducts with dilated gallbladder and gallstones Constipation, fecal impaction with ileus, improving. Mild protein calorie malnutrition COPD not in acute exacerbation Osteoarthritis Compression fracture of L1 and T12 spines Kyphoscoliosis History of bipolar disorder, not active tissue History of depression unspecified Bradycardia Pulmonary edema, fluid overload. Plan: Continue on current medication regime, antibiotics of Rocephin and Zithromax, nebulized bronchodilators ,monitoring and symptomatic treatment. IV fluids discontinued, Lasix 40 IV push 1 given patient's shortness of breath. Continues on lactulose as per surgery. Bradycardic, EKG ordered. Discharge planning in progress tentatively for tomorrow to subacute rehab- pre-CERT pending. The impression and plan of care has been dictated as directed. : I performed a history and examination of this patient, discussed the same with the dictator. I agree with the dictator's note ,documented as a scribe. Any additional findings or plans will be noted. <Sheet,Pop E - Last Filed: 03/08/18 00:28> Objective - Vital Signs Vital signs: Vital Signs Temp 97.7 F 03/07/18 23:00 Pulse 55 L 03/07/18 23:00 Resp 16 03/07/18 23:00 BP 116/58 03/07/18 23:00 Pulse Ox 99 03/07/18 23:00 Intake & Output 03/07/18 03/07/18 03/08/18 06:59 18:59 06:59 Intake Total 240 1040 400 Output Total 902 Balance -662 1040 400 Intake: Intake, IV Titration 240 240 Amount Sodium Chloride 0.9% 1, 240 240 000 ml @ 30 mls/hr IV . Q24H [facility] Rx#:[id number] Oral 800 400 Output: Urine 900 Uretheral ([place]) 900 Stool 2 Other: Voiding Method Indwelling Catheter Indwelling Catheter # Voids 1 - Labs CBC & Chem 7: 03/06/18 08:54 03/06/18 08:54 Labs: Microbiology - Last 24 Hours (Table) 03/02/18 20:15 Blood Culture - Preliminary Blood No Growth after 120 hours Assessment and Plan Assessment: I have reviewed the note of SURAJ Orosco and I agree with it except what is mentioned below Pt is seen and examined by me at bed side
[2018-03-07] MEDS: IPRATROPIUM-ALBUTEROL 3 ML NEB INHALATION SCH ×2 (16:55→20:29)
[2018-03-07] MEDS: cefTRIAXone IN SWFI 1,000 MG/10 ML SYRINGE IVP SCH (22:59)
[2018-03-08] MEDS: AZITHROMYCIN 500 MG TAB PO SCH (08:27)
[2018-03-08] MEDS: ASPIRIN 81 MG PO SCH (08:27)
[2018-03-08] MEDS: HEPARIN SODIUM,PORCINE 5,000 UNIT/ML 1 ML VIAL SQ SCH ×3 (08:27→23:56)
[2018-03-08] MEDS: FAMOTIDINE 20 MG TAB PO SCH (08:27)
[2018-03-08] MEDS: CARBIDOPA-LEVODOPA 25-100 MG 1 EACH TAB PO SCH ×3 (08:27→22:02)
[2018-03-08] MEDS: IPRATROPIUM-ALBUTEROL 3 ML NEB INHALATION SCH ×4 (08:40→20:01)
[2018-03-08] MEDS: SENNOSIDES-DOCUSATE SODIUM 1 EACH TAB PO SCH ×2 (11:51→22:02)
[2018-03-08] MEDS: POLYETHYLENE GLYCOL 3350 17 GM POWD.PACK PO SCH (11:51)
--- NOTE | 2018-03-08 13:03 | P.PN ---
Progress Note - Text Progress Note Date: 03/08/18 The patient is stable. She'll be discharged to ECF today. On exam her vital signs are stable her abdomen soft. Patient is doing. Patient will be discharged home today. She'll follow-up in one week for possible gallbladder evaluation in her constipation to be evaluated.
--- NOTE | 2018-03-08 14:14 | XR ---
EXAMINATION TYPE: XR abdomen 2V DATE OF EXAM: 03/08/2018 12:57 PM CLINICAL HISTORY: Abdominal distention. TECHNIQUE: Single supine KUB image of the abdomen is obtained. COMPARISON: 03/04/[address] abdomen pelvis and abdominal radiograph dated 03/07/2018. FINDINGS: There is progressive worsening of the degree of large bowel dilatation with the cecum measu ring up to 12.2 cm, no air-filled. Stool burden has improved from the prior. No gross evidence of pne umoperitoneum. Colonic air-fluid levels are identified on the upright image. 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 Surgical clips are seen over the right lateral abdomen. Lung bases are well aerated. IMPRESSION: Progressive large bowel dilatation with cecum measuring over 12 cm, which increases risk of rupture. The prior CT of 03/04/2018 indicated multifocal fecal impaction. Degree of stool burden jerrod ears to have improved in the prior. No gross evidence of pneumoperitoneum.
--- NOTE | 2018-03-08 16:16 | P.PN ---
<Kelly Orosco - Last Filed: 03/08/18 15:55> Subjective Progress Note Date: 03/08/18 Progress note being dictated for Dr. Nieves Interval history:Mrs. Rdorigues is an 87-year-old female with a past medical history of COPD, osteoarthritis, bipolar disorder, kyphoscoliosis admitted to the hospital by her family members for altered mental status changes. On reviewing the ED notes the patient was brought in by her family members for altered mental status changes. But no significant chief complaints were reported. On reviewing her reports patient has fever of 100.3. She had a chest x-ray showing pulmonary interstitial fibrosis and a new right upper lobe pneumonia. She also had a CAT scan of the abdomen- chronic dilated biliary tree and chronic dilated gallbladder with gallstones . Also showing constipation and large bowel ileus , there are L1 and T12 compression fractures. On - Today the patient is awake and sitting up in a chair by the bedside. As per the nursing staff patient is much more communicative and in less pain today. Patient states that she lost her 1 year back and now she is currently living with her son who takes care of her. On 03/05/2018- patient is sitting up in a chair by the bedside and having her lunch. She looks much better compared to couple of days back. Review of systems : Patient does not have any active complaints. On review of systems she denies having any chest pain, difficulty in breathing or cough. She denies having any abdominal pain nausea or vomiting and her last bowel movement is from this morning. She denies dysuria or hematuria. Patient had a CAT scan of the abdomen done yesterday showing fecal stasis. 03/06/2018 No more fever since 100.3 on 03/02/2018, patient currently on ceftriaxone and Zithromax for pneumonia. He is saturating well on 2-3 L oxygen via NC. Her creatinine came back to normal level at 0.69 today. Leukocytosis: Improved. Blood culture and urine culture are negative so far GI consult is appreciated and they recommended no ERCP for LFTs within normal. No recommend to monitor LFTs. Also this CAT scan showing moderate to severe urinary bladder distention with mild right hydronephrosis. However creatinine is coming back to normal 03/07/2018 maintained on Zithromax and Rocephin. chest x-ray reporting cardiomegaly, right basilar linear scarring and/or atelectasis, new small right pleural effusion, mild bilateral interstitial edema .IV fluids had been decreased yesterday , today presenting with shortness of breath on 2 L nasal cannula. maintaining O2 sats of 97%. Renal function improving.Abdominal x-ray reporting worsening severe distal colonic fecal stasis or impaction .continues on lactulose, 2 bowel movements last night and another this morning. Denies abdominal pain.Tolerating diet with no nausea or vomiting. Afebrile, normal WBC. Chloride 117. Bradycardic. Denies chest pain, palpitations. 03/08/2018 abdomen distended,explosive diarrhea, multiple episodes. Patient upset at being incontinent at times with diarrhea. KUB reporting improvement in fecal impaction ,progressive large doubt dilatation with cecum measuring over 12 cm. Surgery notified , CT ordered .Maintained on IV antibiotics. Recheck for C. difficile colitis. Denies abdominal pain. Afebrile. Denies chest pain, palpitations or increased shortness of breath. Objective - Vital Signs Vital signs: Vital Signs Temp 98.4 F 03/08/18 14:15 Pulse 78 03/08/18 15:52 Resp 18 03/08/18 14:15 BP 105/54 03/08/18 14:15 Pulse Ox 99 03/08/18 14:15 Intake & Output 03/07/18 03/08/18 03/08/18 18:59 06:59 18:59 Intake Total 1040 1010 Output Total 850 Balance 1040 160 Intake: Intake, IV Titration 240 360 Amount Sodium Chloride 0.9% 1, 240 360 000 ml @ 30 mls/hr IV . Q24H [facility] Rx#:[id number] Oral 800 650 Output: Urine 850 Other: Voiding Method Indwelling Catheter Bedside Commode Bedside Commode Incontinent # Voids 1 2 # Bowel Movements 4 4 - Exam GENERAL: The patient is alert and oriented x3, not in any acute distress. Well developed, well nourished. HEENT: Pupils are round and equally reacting to light. EOMI. No scleral icterus. No conjunctival pallor. Normocephalic, atraumatic. No pharyngeal erythema. No thyromegaly. CARDIOVASCULAR: S1 and S2 present. No murmurs, rubs, or gallops. PULMONARY: Bilateral bases diminished, no wheezing or crackles. ABDOMEN: Soft, nontender, distended, normoactive bowel sounds. No palpable organomegaly. MUSCULOSKELETAL: No joint swelling or deformity. EXTREMITIES: No cyanosis, clubbing, or pedal edema. NEUROLOGICAL: Gross neurological examination did not reveal any focal deficits. SKIN: No rashes. - Labs CBC & Chem 7: 03/06/18 08:54 03/06/18 08:54 Labs: Microbiology - Last 24 Hours (Table) 03/02/18 20:15 Blood Culture - Preliminary Blood No Growth after 120 hours Assessment and Plan Assessment: Encephalopathy - most likely metabolic - resolving Right upper lobe pneumonia - community acquired Acute kidney injury -prerenal- dehydration - creatinine is trending down Dilated biliary ducts with dilated gallbladder and gallstones Constipation, fecal impaction with ileus, improving. Progressive large bowel dilatation with cecum measuring over 12 cm per KUB, follow-up CT ordered. Mild protein calorie malnutrition COPD not in acute exacerbation Osteoarthritis Compression fracture of L1 and T12 spines Kyphoscoliosis History of bipolar disorder, not active tissue History of depression unspecified Bradycardia, resolved Pulmonary edema, fluid overload. Plan: Continue on current medication regime, antibiotics of Rocephin and Zithromax, nebulized bronchodilators ,monitoring and symptomatic treatment. KUB as mentioned above with follow-up CT ordered. Further recommendations per surgery pending. Ruling out C. difficile. Prognosis guarded given multiple complex medical issues. The impression and plan of care has been dictated as directed. : I performed a history and examination of this patient, discussed the same with the dictator. I agree with the dictator's note ,documented as a scribe. Any additional findings or plans will be noted. <Lizbeth,oPp E - Last Filed: 03/09/18 09:38> Objective - Vital Signs Vital signs: Vital Signs Temp 96.4 F L 03/09/18 08:36 Pulse 45 L 03/09/18 08:36 Resp 16 03/09/18 08:36 BP 108/54 03/09/18 08:36 Pulse Ox 99 03/09/18 08:36 Intake & Output 03/08/18 03/09/18 03/09/18 18:59 06:59 18:59 Intake Total 120 Balance 120 Intake: Oral 120 Other: Voiding Method Bedside Commode Bedside Commode Incontinent Incontinent # Voids 2 1 # Bowel Movements 4 1 - Labs CBC & Chem 7: 03/06/18 08:54 03/06/18 08:54 Labs: Microbiology - Last 24 Hours (Table) 03/02/18 20:15 Blood Culture - Final Blood No Growth after 144 hours Assessment and Plan Plan: I have reviewed the note of PA as above and I agree with it except what is mentioned below Pt is seen and examined by me at bed side pt is for CAP, on Abx, her breathing is significantly better today. recheck CXR for f/u of the pna pt has loose bowel movement on laxatives, no abd pain but abd is distended so ordered abd x-ray, and surgery are following the case . PT/OT recommended MAYELA on discharge
[2018-03-08] MEDS: IOPAMIDOL-300 CONTRAST 30 ML VIAL (ORAL USE) PO PRN ×2 (16:24→17:22)
[2018-03-08] MEDS: cefTRIAXone IN SWFI 1,000 MG/10 ML SYRINGE IVP SCH (22:01)
--- NOTE | 2018-03-08 22:20 | CT ---
EXAMINATION TYPE: CT abdomen pelvis wo con DATE OF EXAM: 03/08/2018 COMPARISON: CT 03/04/2018 HISTORY: Abdominal distention; follow-up study CT DLP: 347.1 mGycm. Automated exposure control for dose reduction was used. TECHNIQUE: Helical acquisition of images was performed from the lung bases through the pelvis. FINDINGS: LUNG BASES: Bilateral small pleural effusions. Coronary calcifications detected. LIVER/GB: Gallbladder distention redemonstrated, moderate plus in degree. PANCREAS: No significant abnormality is seen. SPLEEN: No significant abnormality is seen. ADRENALS: No significant abnormality is seen. KIDNEYS: No significant abnormality is seen. RETROPERITONEAL ADENOPATHY: None visualized REPRODUCTIVE ORGANS: No significant abnormality is seen URINARY BLADDER: Moderate urinary bladder distention redemonstrated. PELVIC ADENOPATHY: None visualized. OSSEOUS STRUCTURES: No significant abnormality is seen. PERITONEAL CAVITY: There is no pneumoperitoneum. Diffusely seen small volume of peritoneal fluid dependently within the right paracolic gutter is similar in appearance. BOWEL: 1. The gas dilated loops of bowel are quite similar between the two studies. 2. However, on the prior study the distal most sigmoid and upper, mid, and lower rectum was prominent ly stool-filled - whereas on the present study only the mid and lower rectum is stool-filled. IMPRESSION: OVERALL SIMILAR CT FINDINGS; IF ANYTHING THERE IS EVIDENCE OF SLIGHT INTERVAL BOWEL IMPROVEMENT.
--- NOTE | 2018-03-09 08:07 | P.PN ---
Progress Note - Text Progress Note Date: 03/09/18 The patient's recent CAT scan performed yesterday evening showed decrease stool following in the colon. Prior to the CAT scan there was evidence of stool into the sigmoid colon. On the CAT scan performed last that there is only stool within the rectum. There is no evidence of obstruction. On exam her vital signs are stable. Her abdomen soft. Patiently discharged to ECF today.
[2018-03-09] MEDS: IPRATROPIUM-ALBUTEROL 3 ML NEB INHALATION SCH ×4 (08:21→21:04)
[2018-03-09 10:08] LABS: Anion Gap 4 mmol/L; Blood Urea Nitrogen 7 mg/dL (7-17); Calcium 9.8 mg/dL (8.4-10.2); Carbon Dioxide 25 mmol/L (22-30); Chloride 112 mmol/L (98-107); Glucose 109 mg/dL (74-99); Potassium 4.7 mmol/L (3.5-5.1); Sodium 141 mmol/L (137-145)
--- NOTE | 2018-03-09 10:08 | XR ---
EXAMINATION TYPE: XR chest 2V DATE OF EXAM: 03/09/2018 COMPARISON: 03/07/2018 HISTORY: Shortness of breath TECHNIQUE: Frontal and lateral views of the chest are obtained. FINDINGS: Scattered senescent parenchymal changes noted. Hyperinflation compatible with COPD. Persistent increased density right medial lung base. Pulmonary venous congestion with mild interstiti al edema. Tiny effusions noted. Heart size is stable. Mediastinal structures are stable and grossly unremarkable. No evidence for hilar prominence. Degenerative changes dorsal spine. IMPRESSION: 1. Persistent increased density right medial lung base. Pulmonary venous congestion with mild interst itial edema. Tiny effusions noted.
[2018-03-09 10:32] LABS: Basophils % (A) 0 %; Eosinophils # (A) 0.2 k/uL (0-0.7); Eosinophils % (A) 2 %; HCT 42.3 % (34.0-46.0); HGB 12.9 gm/dL (11.4-16.0); Hypochromasia Marked; Lymphocytes % (A) 21 %; MCHC 30.4 g/dL (31.0-37.0); MCV 95.4 fL (80.0-100.0); Mean Platelet Volume 7.4; Monocytes # (A) 0.4 k/uL (0-1.0); Monocytes % (A) 5 %; Neutrophils # (A) 6.7 k/uL (1.3-7.7); Neutrophils % (A) 70 %; Platelet Count 229 k/uL (150-450); RBC 4.43 m/uL (3.80-5.40); RDW 15.1 % (11.5-15.5); WBC 9.5 k/uL (3.8-10.6)
[2018-03-09] MEDS: HEPARIN SODIUM,PORCINE 5,000 UNIT/ML 1 ML VIAL SQ SCH ×3 (10:38→22:57)
[2018-03-09] MEDS: AZITHROMYCIN 500 MG TAB PO SCH (10:39)
[2018-03-09] MEDS: POLYETHYLENE GLYCOL 3350 17 GM POWD.PACK PO SCH (10:39)
[2018-03-09] MEDS: SENNOSIDES-DOCUSATE SODIUM 1 EACH TAB PO SCH ×2 (10:39→20:29)
[2018-03-09] MEDS: CARBIDOPA-LEVODOPA 25-100 MG 1 EACH TAB PO SCH ×3 (10:39→20:27)
[2018-03-09] MEDS: ASPIRIN 81 MG PO SCH (10:39)
[2018-03-09] MEDS: FAMOTIDINE 20 MG TAB PO SCH (10:39)
[2018-03-09 12:11] LABS: Anisocytosis (M) Present; Poikilocytosis (M) Present
[2018-03-09] MEDS: NICOTINE 21MG/24HR PATCH TRANSDERM SCH (13:06)
--- NOTE | 2018-03-09 14:57 | P.PN ---
Subjective Progress Note Date: 03/09/18 Progress note being dictated for Dr. Nieves Interval history:Mrs. Rodrigues is an 87-year-old female with a past medical history of COPD, osteoarthritis, bipolar disorder, kyphoscoliosis admitted to the hospital by her family members for altered mental status changes. On reviewing the ED notes the patient was brought in by her family members for altered mental status changes. But no significant chief complaints were reported. On reviewing her reports patient has fever of 100.3. She had a chest x-ray showing pulmonary interstitial fibrosis and a new right upper lobe pneumonia. She also had a CAT scan of the abdomen- chronic dilated biliary tree and chronic dilated gallbladder with gallstones . Also showing constipation and large bowel ileus , there are L1 and T12 compression fractures. On - Today the patient is awake and sitting up in a chair by the bedside. As per the nursing staff patient is much more communicative and in less pain today. Patient states that she lost her 1 year back and now she is currently living with her son who takes care of her. On 03/05/2018- patient is sitting up in a chair by the bedside and having her lunch. She looks much better compared to couple of days back. Review of systems : Patient does not have any active complaints. On review of systems she denies having any chest pain, difficulty in breathing or cough. She denies having any abdominal pain nausea or vomiting and her last bowel movement is from this morning. She denies dysuria or hematuria. Patient had a CAT scan of the abdomen done yesterday showing fecal stasis. 03/06/2018 No more fever since 100.3 on 03/02/2018, patient currently on ceftriaxone and Zithromax for pneumonia. He is saturating well on 2-3 L oxygen via NC. Her creatinine came back to normal level at 0.69 today. Leukocytosis: Improved. Blood culture and urine culture are negative so far GI consult is appreciated and they recommended no ERCP for LFTs within normal. No recommend to monitor LFTs. Also this CAT scan showing moderate to severe urinary bladder distention with mild right hydronephrosis. However creatinine is coming back to normal 03/07/2018 maintained on Zithromax and Rocephin. chest x-ray reporting cardiomegaly, right basilar linear scarring and/or atelectasis, new small right pleural effusion, mild bilateral interstitial edema .IV fluids had been decreased yesterday , today presenting with shortness of breath on 2 L nasal cannula. maintaining O2 sats of 97%. Renal function improving.Abdominal x-ray reporting worsening severe distal colonic fecal stasis or impaction .continues on lactulose, 2 bowel movements last night and another this morning. Denies abdominal pain.Tolerating diet with no nausea or vomiting. Afebrile, normal WBC. Chloride 117. Bradycardic. Denies chest pain, palpitations. 03/08/2018 abdomen distended,explosive diarrhea, multiple episodes. Patient upset at being incontinent at times with diarrhea. KUB reporting improvement in fecal impaction ,progressive large doubt dilatation with cecum measuring over 12 cm. Surgery notified , CT ordered .Maintained on IV antibiotics. Recheck for C. difficile colitis. Denies abdominal pain. Afebrile. Denies chest pain, palpitations or increased shortness of breath. 03/09/[address] reporting similar findings with slight bowel improvement. Chest x-ray reporting persistent increased at the right medial lung base, pulmonary venous congestion/mild interstitial edema, and tiny effusions. No diarrhea today. Negative for C. difficile colitis. Objective - Vital Signs Vital signs: Vital Signs Temp 96.4 F L 03/09/18 08:36 Pulse 56 L 03/09/18 11:47 Resp 16 03/09/18 08:36 BP 108/54 03/09/18 08:36 Pulse Ox 99 03/09/18 08:36 Intake & Output 03/08/18 03/09/18 03/09/18 18:59 06:59 18:59 Intake Total 120 Balance 120 Intake: Oral 120 Other: Voiding Method Bedside Commode Bedside Commode Bedside Commode Incontinent Incontinent Incontinent # Voids 2 1 2 # Bowel Movements 4 1 - Exam GENERAL: The patient is alert and oriented x3, not in any acute distress. Well developed, well nourished. HEENT: Pupils are round and equally reacting to light. EOMI. No scleral icterus. No conjunctival pallor. Normocephalic, atraumatic. No pharyngeal erythema. CARDIOVASCULAR: S1 and S2 present. No murmurs, rubs, or gallops. PULMONARY: Bilateral bases diminished, no wheezing , fine rate basilar crackles. ABDOMEN: Soft, nontender, distended, normoactive bowel sounds. No palpable organomegaly. MUSCULOSKELETAL: No joint swelling or deformity. EXTREMITIES: No cyanosis, clubbing, or pedal edema. NEUROLOGICAL: Gross neurological examination did not reveal any focal deficits. - Labs CBC & Chem 7: 03/09/18 09:45 03/09/18 09:45 Labs: Abnormal Lab Results - Last 24 Hours (Table) 03/09/18 03/09/18 Range/Units 09:45 09:45 MCHC 30.4 L (31.0-37.0) g/dL Chloride 112 H (98-107) mmol/L Glucose 109 H (74-99) mg/dL Microbiology - Last 24 Hours (Table) 03/02/18 20:15 Blood Culture - Final Blood No Growth after 144 hours Assessment and Plan Assessment: Encephalopathy - most likely metabolic - resolving Right upper lobe pneumonia - community acquired Acute kidney injury -prerenal- dehydration - creatinine is trending down Dilated biliary ducts with dilated gallbladder and gallstones Constipation, fecal impaction with ileus, improving. Progressive large bowel dilatation with cecum measuring over 12 cm per KUB, follow-up CT ordered. Mild protein calorie malnutrition COPD not in acute exacerbation Osteoarthritis Compression fracture of L1 and T12 spines Kyphoscoliosis History of bipolar disorder, not active tissue History of depression unspecified Bradycardia, resolved Pulmonary edema, fluid overload. Plan: Continue on current medication regime, antibiotics of Rocephin and Zithromax, nebulized bronchodilators ,monitoring and symptomatic treatment. Initially had planned for discharge to subacute rehab, but Chest x-ray reporting persistent increased density right medial lung base, pulmonary consult initiated. Aggressive pulmonary toileting with incentive spirometer reinforced. Up in chair for all Meals. The impression and plan of care has been dictated as directed. : I performed a history and examination of this patient, discussed the same with the dictator. I agree with the dictator's note ,documented as a scribe. Any additional findings or plans will be noted.
[2018-03-09] MEDS: CALCIUM CARB-VIT D 250MG-125UN 1 EACH TAB PO SCH (17:53)
[2018-03-09] MEDS: FUROSEMIDE 40 MG TAB PO SCH (20:30)
[2018-03-09] MEDS ORDERED: POTASSIUM CHLORIDE ER 10 MEQ TAB.ER.PRT PO SCH (21:00)
[2018-03-09] MEDS: cefTRIAXone IN SWFI 1,000 MG/10 ML SYRINGE IVP SCH (22:54)
[2018-03-10] MEDS: IPRATROPIUM-ALBUTEROL 3 ML NEB INHALATION SCH ×4 (07:43→21:32)
[2018-03-10] MEDS: SENNOSIDES-DOCUSATE SODIUM 1 EACH TAB PO SCH ×2 (07:44→20:12)
[2018-03-10] MEDS: POLYETHYLENE GLYCOL 3350 17 GM POWD.PACK PO SCH (07:44)
[2018-03-10] MEDS: CARBIDOPA-LEVODOPA 25-100 MG 1 EACH TAB PO SCH ×3 (07:54→20:13)
[2018-03-10] MEDS: FAMOTIDINE 20 MG TAB PO SCH (07:55)
[2018-03-10] MEDS: AZITHROMYCIN 500 MG TAB PO SCH (07:55)
[2018-03-10] MEDS: VIT A,C & E-LUTEIN-MINERALS 1 EACH TAB PO SCH (07:55)
[2018-03-10] MEDS: ASPIRIN 81 MG PO SCH (07:55)
[2018-03-10] MEDS: NICOTINE 21MG/24HR PATCH TRANSDERM SCH (07:55)
[2018-03-10] MEDS: FUROSEMIDE 40 MG TAB PO SCH ×2 (07:55→20:12)
[2018-03-10] MEDS: HEPARIN SODIUM,PORCINE 5,000 UNIT/ML 1 ML VIAL SQ SCH ×2 (07:56→16:30)
[2018-03-10] MEDS: MULTIVITAMINS, THERA 1 EACH TAB PO SCH (11:25)
[2018-03-10] MEDS: CALCIUM CARB-VIT D 250MG-125UN 1 EACH TAB PO SCH ×2 (11:26→17:33)
--- NOTE | 2018-03-10 11:42 | P.PN ---
Subjective Progress Note Date: 03/10/18 The patient is a 87-year-old female with history of fecal impaction including biliary dilation. Patient resting comfortably. She denies any abdominal pain. She has been here for fecal impaction and constipation. Objective - Vital Signs Vital signs: Vital Signs Temp 98.8 F 03/10/18 08:15 Pulse 51 L 03/10/18 08:15 Resp 18 03/10/18 08:15 BP 149/84 03/10/18 08:15 Pulse Ox 95 03/10/18 08:15 Intake & Output 03/09/18 03/10/18 03/10/18 18:59 06:59 18:59 Intake Total 240 Balance 240 Weight 65.771 kg Intake: IV 240 ns@20 240 Other: Voiding Method Bedside Commode Bedside Commode Bedside Commode Incontinent Incontinent Incontinent # Voids 2 1 - Exam ABDOMEN: Soft, nontender. Nondistended. GENERAL: Well developed and in no acute distress. Pleasant. HEENT: No sclera icterus. Extraocular movements grossly intact. Moist buccal mucosa. Head is atraumatic, normocephalic. Hears conversational speech. No nasal drainage. Has dentures. NECK: Supple without lymphadenopathy. CHEST: Non-labored respirations and equal bilateral excursions. CARDIOVASCULAR: Regular rate and rhythm. Palpable 2+ radial pulses. MUSCULOSKELETAL: No clubbing, cyanosis or edema. NEUROLOGIC: No focal or lateralizing signs. PSYCH: Alert and oriented to person. SKIN: Good skin turgor. Well perfused. - Labs CBC & Chem 7: 03/09/18 09:45 03/09/18 09:45 Labs: Abnormal Lab Results - Last 24 Hours (Table) 03/09/18 Range/Units 09:45 MCHC 30.4 L (31.0-37.0) g/dL Assessment and Plan (1) Fecal impaction Current Visit: No Status: Acute Code(s): K56.41 - FECAL IMPACTION SNOMED Code(s): 34342682 (2) Fecal impaction of colon Current Visit: No Status: Acute Code(s): K56.41 - FECAL IMPACTION SNOMED Code(s): 83624889 (3) Impacted stool in intestine Current Visit: No Status: Acute Code(s): K56.41 - FECAL IMPACTION SNOMED Code(s): 82319608 (4) Obstipation Current Visit: No Status: Acute Code(s): K59.00 - CONSTIPATION, UNSPECIFIED SNOMED Code(s): 134509906 Plan: 1. Patient is clinically stable from a surgical standpoint. 2. No surgical intervention. 3. Patient is stable from a surgical standpoint for discharge when medically stable.
--- NOTE | 2018-03-10 15:18 | P.CNPUL ---
History of Present Illness Consult date: 03/10/18 Reason for consult: COPD History of present illness: I was asked to evaluate this 87-year-old female patient's ulnar status prior to her going to [facility] [place] [facility]. The patient is known to have COPD. She apparently uses oxygen 2 L/m nasal cannula on outpatient basis. She also has a nebulizer. She was hospitalized for altered mentation, right upper lobe infiltrates/pneumonia and fever and there was also concern of large bowel ileus as the patient is known to have chronic constipation. Further workup with a CAT scan of the abdomen showed dilated gallbladder with stones in addition to heavy stool burden within the large bowel. The, bile duct was estimated to be around 1.4 cm in size. Liver function test was within normal. The patient has cholelithiasis. There was no evidence of any obstructive mass within the biliary tree. The LFTs were normal. The patient was seen by general surgery and endocrinology. ERCP was not indicated and the gallbladder itself was felt to be unchanged compared to the previous evaluations. The patient was given so stopped that and ultimately she improved. She was treated for pneumonia and at time of my evaluation the patient was resting comfortably and she was able to sit up on a chair without any cough sputum production chest answer wheezing. I reviewed the CAT scan of the abdomen in the lung bases showed some small atelectatic changes small pleural effusions. The most recent chest x-ray from yesterday shows no airspace disease or pneumonia. No pleurisy. No hemoptysis. No aspiration. White cell count is at 9.5. Last the blood work and electrodes are all within normal limits with a normal renal function. Review of Systems 12 point review of system was done and the positive findings are almost above in history of present illness. No chills. No fever. Mental status normalized and the patient is able to communicate and answer questions appropriately. No migraines. No difficulty with swallowing. No postnasal drainage. No angina. No shortness of breath. No nausea vomiting or diarrhea. No focal neurological deficits. No skin rashes. No wounds or ulcerations. Past Medical History Past Medical History: COPD, Osteoarthritis (OA) Additional Past Medical History / Comment(s): lordosis kyphoisis parkensons enlarged heart, curvature of spine History of Any Multi-Drug Resistant Organisms: None Reported Past Surgical History: Appendectomy, Joint Replacement Additional Past Surgical History / Comment(s): bilateral hip sx, Past Anesthesia/Blood Transfusion Reactions: No Reported Reaction Past Psychological History: Bipolar, Depression Smoking Status: Current every day smoker Past Alcohol Use History: None Reported Past Drug Use History: None Reported - Past Family History Mother History Unknown: Yes Additional Family Medical History / Comment(s): brain aneurysm Father History Unknown: Yes Family Medical History: No Reported History Medications and Allergies Home Medications Medication Instructions Recorded Confirmed Type Aspirin EC [Ecotrin Low Dose] 81 mg PO DAILY 08/29/16 03/02/18 History Carbidopa-Levodopa 25-100 mg 1 tab PO TID 08/29/16 03/02/18 History [Sinemet 25-100 mg] Multivitamins, Thera [Multivitamin 1 tab PO DAILY 08/29/16 03/02/18 History (formulary)] Vit C/E/Zn/Coppr/Lutein/Zeaxan 1 cap PO DAILY 08/29/16 03/02/18 History [Preservision Areds 2 Softgel] rOPINIRole HCL [Requip] 1 mg PO TID tab 02/03/17 03/02/18 Rx Furosemide [Lasix] 40 mg PO BID 03/02/18 03/02/18 History Potassium Chloride ER [K-Dur 10] 10 meq PO BID 03/02/18 03/02/18 History Budesonide/Formoterol Fumarate 1 puff INHALATION RT-TID PRN 03/04/18 03/04/18 History [Symbicort 80-4.5 Mcg Inhaler] Acetaminophen Tab [Tylenol] 325 mg PO Q6HR PRN tab 03/09/18 Rx Azithromycin [Zithromax] 500 mg PO DAILY #5 tab 03/09/18 Rx Calcium Carb-Vit D 250Mg-125Un 2 each PO BID-W/MEALS tab 03/09/18 Rx [Oscal 250+D] Cefuroxime Axetil [Ceftin] 500 mg PO BID #10 tab 03/09/18 Rx Famotidine [Pepcid] 20 mg PO DAILY tab 03/09/18 Rx Ipratropium-Albuterol Nebulize 3 ml INHALATION Q4H PRN ampul.neb 03/09/18 Rx [Duoneb 0.5 mg-3 mg/3 ml Soln] Ipratropium-Albuterol Nebulize 3 ml INHALATION RT-QID ampul.neb 03/09/18 Rx [Duoneb 0.5 mg-3 mg/3 ml Soln] [place] Carbonate 300 mg PO DAILY #1 capsule 03/09/18 Rx Nicotine 21Mg/24Hr Patch [Habitrol] 1 patch TRANSDERM DAILY patch 03/09/18 Rx Polyethylene Glycol 3350 [Miralax] 17 gm PO DAILY powd.pack 03/09/18 Rx Sennosides-Docusate Sodium 2 each PO BID tab 03/09/18 Rx [Senokot-S] Allergies Allergy/AdvReac Type Severity Reaction Status Date / Time No Known Allergies Allergy Verified 03/02/18 20:58 Physical Exam Vitals: Vital Signs Temp Pulse Pulse Resp BP Pulse Ox 03/10/18 08:15 98.8 F 51 L 18 149/84 95 03/10/18 08:06 56 L 03/10/18 07:43 60 03/09/18 23:00 97.6 F 53 L 16 94/45 98 03/09/18 21:20 52 L 03/09/18 21:04 50 L 03/09/18 15:25 60 03/09/18 15:18 56 L Intake and Output 03/10/18 03/10/18 03/10/18 06:59 14:59 22:59 Intake Total 160 160 Balance 160 160 Intake: IV 160 160 ns@20 160 160 Other: Voiding Method Bedside Commode Bedside Commode Incontinent Incontinent # Voids 6 General appearance: The patient is alert, oriented, in no acute distress. The patient is not having any respiratory distress and she is resting comfortably on a chair. HET: Head is normocephalic and atraumatic. Pupils are equal and reactive. Oropharynx is clear without lesions. Neck: Supple without lymphadenopathy. Trachea midline. Heart: S1 S2. Regular rate and rhythm. Lungs: No crackles or wheezes are heard. There is thoracic kyphosis and a breast on her diminished in lung bases otherwise clear. Abdomen: Soft, nontender, nondistended with bowel sounds. No peritoneal signs. No palpable organomegaly or masses. Extremities: Normal skin color and turgor. No cyanosis, rash, ulceration, clubbing, or edema. Radial and pedal pulses are 2/4 bilaterally. Neurological: No focal deficits. Strength and sensation are grossly intact. Results - Laboratory Findings CBC and BMP: 03/09/18 09:45 03/09/18 09:45 PT/INR, D-dimer PT 10.7 sec (9.0-12.0) 03/02/18 20:15 INR 1.1 (<1.2) 03/02/18 20:15 Abnormal lab findings: Abnormal Labs 03/02/18 03/02/18 03/02/18 20:15 20:15 20:15 Hct 46.4 H MCHC APTT 21.1 L Sodium Chloride 110 H BUN 45 H Creatinine 1.16 H Glucose Calcium 10.8 H Total Protein 5.8 L Albumin 3.3 L Urine Opiates Screen 03/02/18 03/04/18 03/04/18 20:30 07:18 07:18 Hct MCHC 29.9 L APTT Sodium Chloride 116 H BUN 27 H Creatinine Glucose Calcium Total Protein Albumin Urine Opiates Screen Detected H 03/05/18 03/06/18 03/06/18 07:57 08:54 08:54 Hct MCHC 29.5 L APTT Sodium 146 H Chloride 117 H 117 H BUN 20 H Creatinine Glucose 73 L Calcium Total Protein 4.5 L Albumin 2.3 L Urine Opiates Screen 03/09/18 03/09/18 09:45 09:45 Hct MCHC 30.4 L APTT Sodium Chloride 112 H BUN Creatinine Glucose 109 H Calcium Total Protein Albumin Urine Opiates Screen Assessment and Plan Plan: Assessment 1 COPD currently inactive in stable 2 right upper lobe pneumonia recovered on subsequent chest x-rays 3 chronic hypoxic respiratory failure maintained on oxygen 2 L/m nasal cannula 4 altered mental status improved 5 cholelithiasis 6 abdominal distention likely due to fecal impaction, responsive laxatives. The patient had fecal impaction involving the mid and the distal sigmoid and rectum. 7 chronic dilated gallbladder with possible chronic cholecystitis. The patient was seen by gastroenterology and general surgery. No surgical intervention at this point. Plan May discontinue the antibiotics. Continue oxygen therapy. DuoNeb nebulized seems [id number] 3-4 times a day as needed. Symbicort as maintenance for COPD. Agree on discharging this patient to [facility] [place]. We'll sign off.
--- NOTE | 2018-03-10 15:21 | P.PN ---
Subjective Progress Note Date: 03/10/18 Principal diagnosis: Altered mental status; right upper lobe pneumonia; acute renal injury Mrs. Rodrigues is an 87-year-old female with a past medical history of COPD, osteoarthritis, bipolar disorder, kyphoscoliosis admitted to the hospital by her family members for altered mental status changes. On reviewing the ED notes the patient was brought in by her family members for altered mental status changes. But no significant chief complaints were reported. On reviewing her reports patient has fever of 100.3. She had a chest x-ray showing pulmonary interstitial fibrosis and a new right upper lobe pneumonia. She also had a CAT scan of the abdomen- chronic dilated biliary tree and chronic dilated gallbladder with gallstones . Also showing constipation and large bowel ileus , there are L1 and T12 compression fractures. 03/10/[address] reporting similar findings with slight bowel improvement. Chest x- ray reporting persistent increased at the right medial lung base, pulmonary venous congestion/mild interstitial edema, and tiny effusions. No diarrhea today. Negative for C. difficile colitis. Patient is currently continued on same antibiotics; await pulmonary to see the patient for further recommendations Objective - Vital Signs Vital signs: Vital Signs Temp 98.8 F 03/10/18 08:15 Pulse 51 L 03/10/18 08:15 Resp 18 03/10/18 08:15 BP 149/84 03/10/18 08:15 Pulse Ox 95 03/10/18 08:15 Intake & Output 03/09/18 03/10/18 03/10/18 18:59 06:59 18:59 Intake Total 240 Balance 240 Weight 65.771 kg Intake: IV 240 ns@20 240 Other: Voiding Method Bedside Commode Bedside Commode Bedside Commode Incontinent Incontinent Incontinent # Voids 2 1 - Exam GENERAL: The patient is alert and oriented x3, not in any acute distress. Well developed, well nourished. HEENT: Pupils are round and equally reacting to light. EOMI. No scleral icterus. No conjunctival pallor. Normocephalic, atraumatic. No pharyngeal erythema. CARDIOVASCULAR: S1 and S2 present. No murmurs, rubs, or gallops. PULMONARY: Bilateral bases diminished, no wheezing , fine rate basilar crackles. ABDOMEN: Soft, nontender, distended, normoactive bowel sounds. No palpable organomegaly. MUSCULOSKELETAL: No joint swelling or deformity. EXTREMITIES: No cyanosis, clubbing, or pedal edema. NEUROLOGICAL: Gross neurological examination did not reveal any focal deficits. - Labs CBC & Chem 7: 03/09/18 09:45 03/09/18 09:45 Assessment and Plan Assessment: 1. Encephalopathy - most likely metabolic - resolving 2. Right upper lobe pneumonia - community acquired; chest x-ray showing worsening right medial lung base density; pulmonary is consulted and recommendations are pending 3. Acute kidney injury -prerenal- dehydration - creatinine is trending down 4. Dilated biliary ducts with dilated gallbladder and gallstones - Constipation, fecal impaction with ileus, improving. - Progressive large bowel dilatation with cecum measuring over 12 cm per KUB, follow-up CT ordered. 5. Mild protein calorie malnutrition 6. COPD not in acute exacerbation 7. Osteoarthritis 8. Compression fracture of L1 and T12 spines 9. Kyphoscoliosis 10. Pulmonary edema, fluid overload; clinically resolved Time with Patient: Greater than 30
[2018-03-11] MEDS: HEPARIN SODIUM,PORCINE 5,000 UNIT/ML 1 ML VIAL SQ SCH ×4 (00:18→22:36)
[2018-03-11] MEDS: cefTRIAXone IN SWFI 1,000 MG/10 ML SYRINGE IVP SCH ×2 (00:18→22:36)
[2018-03-11] MEDS: IPRATROPIUM-ALBUTEROL 3 ML NEB INHALATION SCH ×4 (08:40→20:46)
[2018-03-11] MEDS: POLYETHYLENE GLYCOL 3350 17 GM POWD.PACK PO SCH (10:16)
[2018-03-11] MEDS: CARBIDOPA-LEVODOPA 25-100 MG 1 EACH TAB PO SCH ×3 (10:17→21:48)
[2018-03-11] MEDS: ASPIRIN 81 MG PO SCH (10:18)
[2018-03-11] MEDS: FUROSEMIDE 40 MG TAB PO SCH ×2 (10:18→21:48)
[2018-03-11] MEDS: AZITHROMYCIN 500 MG TAB PO SCH (10:19)
[2018-03-11] MEDS: MULTIVITAMINS, THERA 1 EACH TAB PO SCH (10:19)
[2018-03-11] MEDS: CALCIUM CARB-VIT D 250MG-125UN 1 EACH TAB PO SCH ×2 (10:19→18:27)
[2018-03-11] MEDS: FAMOTIDINE 20 MG TAB PO SCH (10:19)
[2018-03-11] MEDS: NICOTINE 21MG/24HR PATCH TRANSDERM SCH (10:20)
[2018-03-11] MEDS: VIT A,C & E-LUTEIN-MINERALS 1 EACH TAB PO SCH (10:20)
[2018-03-11] MEDS: SENNOSIDES-DOCUSATE SODIUM 1 EACH TAB PO SCH ×2 (10:21→21:48)
--- NOTE | 2018-03-11 16:51 | P.PN ---
Subjective Progress Note Date: 03/11/18 Principal diagnosis: Altered mental status; right upper lobe pneumonia; acute renal injury Mrs. Rodrigues is an 87-year-old female with a past medical history of COPD, osteoarthritis, bipolar disorder, kyphoscoliosis admitted to the hospital by her family members for altered mental status changes. On reviewing the ED notes the patient was brought in by her family members for altered mental status changes. But no significant chief complaints were reported. On reviewing her reports patient has fever of 100.3. She had a chest x-ray showing pulmonary interstitial fibrosis and a new right upper lobe pneumonia. She also had a CAT scan of the abdomen- chronic dilated biliary tree and chronic dilated gallbladder with gallstones . Also showing constipation and large bowel ileus , there are L1 and T12 compression fractures. 03/10/[address] reporting similar findings with slight bowel improvement. Chest x- ray reporting persistent increased at the right medial lung base, pulmonary venous congestion/mild interstitial edema, and tiny effusions. No diarrhea today. Negative for C. difficile colitis. Patient is currently continued on same antibiotics; await pulmonary to see the patient for further recommendations 03/11/2018 Patient is seen and evaluated in the room at bedside; vital signs remained stable and she is in no acute distress; pulmonary service has seen the patient and is recommending to discontinue antibiotics and change DuoNeb nebulizer treatments every 3-4 times a day along with supplemental oxygen therapy; Symbicort needs to be continued; patient is cleared for discharge to [facility] ; possible discharge tomorrow after arrangements are made by case management Objective - Vital Signs Vital signs: Vital Signs Temp 98.1 F 03/11/18 07:00 Pulse 64 03/11/18 08:51 Resp 18 03/11/18 07:00 BP 114/62 03/11/18 07:00 Pulse Ox 99 03/11/18 07:00 Intake & Output 03/10/18 03/11/18 03/11/18 18:59 06:59 18:59 Intake Total 160 590 Output Total 2 Balance 160 590 -2 Intake: IV 160 ns@20 160 Oral 590 Output: Stool 2 Other: Voiding Method Bedside Commode Bedside Commode Bedside Commode Incontinent Incontinent Incontinent # Voids 6 3 - Exam GENERAL: The patient is alert and oriented x3, not in any acute distress. Well developed, well nourished. HEENT: Pupils are round and equally reacting to light. EOMI. No scleral icterus. No conjunctival pallor. Normocephalic, atraumatic. No pharyngeal erythema. CARDIOVASCULAR: S1 and S2 present. No murmurs, rubs, or gallops. PULMONARY: Bilateral bases diminished, no wheezing , fine rate basilar crackles. ABDOMEN: Soft, nontender, distended, normoactive bowel sounds. No palpable organomegaly. MUSCULOSKELETAL: No joint swelling or deformity. EXTREMITIES: No cyanosis, clubbing, or pedal edema. NEUROLOGICAL: Gross neurological examination did not reveal any focal deficits. - Labs CBC & Chem 7: 03/09/18 09:45 03/09/18 09:45 Assessment and Plan Assessment: 1. Encephalopathy - most likely metabolic - resolving 2. Right upper lobe pneumonia - community acquired; chest x-ray showing worsening right medial lung base density; pulmonary is consulted and recommendations are pending 3. Acute kidney injury -prerenal- dehydration - creatinine is trending down 4. Dilated biliary ducts with dilated gallbladder and gallstones - Constipation, fecal impaction with ileus, improving. - Progressive large bowel dilatation with cecum measuring over 12 cm per KUB, follow-up CT ordered. 5. Mild protein calorie malnutrition 6. COPD not in acute exacerbation 7. Osteoarthritis 8. Compression fracture of L1 and T12 spines 9. Kyphoscoliosis 10. Pulmonary edema, fluid overload; clinically resolved Time with Patient: Less than 30
[2018-03-12] MEDS: IPRATROPIUM-ALBUTEROL 3 ML NEB INHALATION SCH ×4 (07:10→20:34)
[2018-03-12] MEDS: SYMBICORT 80-4.5 MCG INHALER INHALATION PRN (07:10)
[2018-03-12] MEDS: ASPIRIN 81 MG PO SCH (08:52)
[2018-03-12] MEDS: NICOTINE 21MG/24HR PATCH TRANSDERM SCH (08:53)
[2018-03-12] MEDS: FAMOTIDINE 20 MG TAB PO SCH (08:53)
[2018-03-12] MEDS: POLYETHYLENE GLYCOL 3350 17 GM POWD.PACK PO SCH (08:53)
[2018-03-12] MEDS: FUROSEMIDE 40 MG TAB PO SCH ×2 (08:53→22:45)
[2018-03-12] MEDS: AZITHROMYCIN 500 MG TAB PO SCH (08:53)
[2018-03-12] MEDS: CARBIDOPA-LEVODOPA 25-100 MG 1 EACH TAB PO SCH ×3 (08:53→22:45)
[2018-03-12] MEDS: HEPARIN SODIUM,PORCINE 5,000 UNIT/ML 1 ML VIAL SQ SCH ×3 (08:53→22:46)
[2018-03-12] MEDS: VIT A,C & E-LUTEIN-MINERALS 1 EACH TAB PO SCH (08:53)
[2018-03-12] MEDS: SENNOSIDES-DOCUSATE SODIUM 1 EACH TAB PO SCH ×2 (08:53→23:00)
--- NOTE | 2018-03-12 11:34 | P.DS ---
Providers Date of admission: 03/02/18 22:00 Expected date of discharge: 03/12/18 Attending physician: Azra Corral Consults: 03/02/18 22:05 Consult Physician Routine Consulting Provider: Devin Klein Consult Reason/Comments: abdominal CT Do you want consulting provider notified?: Yes, Notify in am Primary care physician: Stated None Hospital Course: Final Diagnoses: Encephalopathy - most likely metabolic - resolving Right upper lobe pneumonia - community acquired, completed antibx. regime Acute kidney injury -prerenal- dehydration - creatinine is trending down Dilated biliary ducts with dilated gallbladder and gallstones Constipation, fecal impaction with ileus, improving. Progressive large bowel dilatation with cecum measuring over 12 cm per KUB, follow-up CT ordered. Mild protein calorie malnutrition COPD not in acute exacerbation Osteoarthritis Compression fracture of L1 and T12 spines Kyphoscoliosis History of bipolar disorder, not active tissue History of depression unspecified Bradycardia, resolved Pulmonary edema, fluid overload, clinically resolved. Hospital course:Mrs. Rodrigues is an 87-year-old female with a past medical history of COPD, osteoarthritis, bipolar disorder, kyphoscoliosis admitted to the hospital by her family members for altered mental status changes. On reviewing the ED notes the patient was brought in by her family members for altered mental status changes. But no significant chief complaints were reported. On reviewing her reports patient has fever of 100.3. She had a chest x-ray showing pulmonary interstitial fibrosis and a new right upper lobe pneumonia. She also had a CAT scan of the abdomen- chronic dilated biliary tree and chronic dilated gallbladder with gallstones . Also showing constipation and large bowel ileus , there are L1 and T12 compression fractures. On - Today the patient is awake and sitting up in a chair by the bedside. As per the nursing staff patient is much more communicative and in less pain today. Patient states that she lost her 1 year back and now she is currently living with her son who takes care of her. On 03/05/2018- patient is sitting up in a chair by the bedside and having her lunch. She looks much better compared to couple of days back. Review of systems : Patient does not have any active complaints. On review of systems she denies having any chest pain, difficulty in breathing or cough. She denies having any abdominal pain nausea or vomiting and her last bowel movement is from this morning. She denies dysuria or hematuria. Patient had a CAT scan of the abdomen done yesterday showing fecal stasis. 03/06/2018 No more fever since 100.3 on 03/02/2018, patient currently on ceftriaxone and Zithromax for pneumonia. He is saturating well on 2-3 L oxygen via NC. Her creatinine came back to normal level at 0.69 today. Leukocytosis: Improved. Blood culture and urine culture are negative so far GI consult is appreciated and they recommended no ERCP for LFTs within normal. No recommend to monitor LFTs. Also this CAT scan showing moderate to severe urinary bladder distention with mild right hydronephrosis. However creatinine is coming back to normal 03/07/2018 maintained on Zithromax and Rocephin. chest x-ray reporting cardiomegaly, right basilar linear scarring and/or atelectasis, new small right pleural effusion, mild bilateral interstitial edema .IV fluids had been decreased yesterday , today presenting with shortness of breath on 2 L nasal cannula. maintaining O2 sats of 97%. Renal function improving.Abdominal x-ray reporting worsening severe distal colonic fecal stasis or impaction .continues on lactulose, 2 bowel movements last night and another this morning. Denies abdominal pain.Tolerating diet with no nausea or vomiting. Afebrile, normal WBC. Chloride 117. Bradycardic. Denies chest pain, palpitations. 03/08/2018 abdomen distended,explosive diarrhea, multiple episodes. Patient upset at being incontinent at times with diarrhea. KUB reporting improvement in fecal impaction ,progressive large doubt dilatation with cecum measuring over 12 cm. Surgery notified , CT ordered .Maintained on IV antibiotics. Recheck for C. difficile colitis. Denies abdominal pain. Afebrile. Denies chest pain, palpitations or increased shortness of breath. 03/09/[address] reporting similar findings with slight bowel improvement. Cleared by surgery for discharge. 03/10/[address] reporting similar findings with slight bowel improvement. Chest x- ray reporting persistent increased at the right medial lung base, pulmonary venous congestion/mild interstitial edema, and tiny effusions. No diarrhea today. Negative for C. difficile colitis. Patient is currently continued on same antibiotics; await pulmonary to see the patient for further recommendations 03/11/2018 Patient is seen and evaluated in the room at bedside; vital signs remained stable and she is in no acute distress; pulmonary service has seen the patient and is recommending to discontinue antibiotics and change DuoNeb nebulizer treatments every 3-4 times a day along with supplemental oxygen therapy; Symbicort needs to be continued; patient is cleared for discharge to [facility] ; possible discharge tomorrow after arrangements are made by case management Evaluated by pulmonary, right upper lobe pneumonia recovered, Antibx. discontinued CLeared by Surgery, Pulmonary for DC. Patient being discharged to [facility]. in a stable condition with guarded prognosis. Exam GENERAL: The patient is alert and oriented x3, not in any acute distress. CARDIOVASCULAR: S1 and S2 present. No murmurs, rubs, or gallops. PULMONARY: Bilateral bases diminished, no wheezing , fine rate basilar crackles. ABDOMEN: Soft, nontender, distended, normoactive bowel sounds. No palpable organomegaly. NEUROLOGICAL: Gross neurological examination did not reveal any focal deficits. The impression and plan of care has been dictated as directed. : I performed a history and examination of this patient, discussed the same with the dictator. I agree with the dictator's note ,documented as a scribe. Any additional findings or plans will be noted. Time taken:35 min. Patient Condition at Discharge: Stable Plan - Discharge Summary New Discharge Prescriptions: New Acetaminophen Tab [Tylenol] 325 mg PO Q6HR PRN tab PRN Reason: Fever And/ Or Pain Calcium Carb-Vit D 250Mg-125Un [Oscal 250+D] 2 each PO BID-W/MEALS tab Famotidine [Pepcid] 20 mg PO DAILY tab Ipratropium-Albuterol Nebulize [Duoneb 0.5 mg-3 mg/3 ml Soln] 3 ml INHALATION RT-QID ampul.neb Ipratropium-Albuterol Nebulize [Duoneb 0.5 mg-3 mg/3 ml Soln] 3 ml INHALATION Q4H PRN ampul.neb PRN Reason: Shortness Of Breath Or Wheezing Nicotine 21Mg/24Hr Patch [Habitrol] 1 patch TRANSDERM DAILY patch Polyethylene Glycol 3350 [Miralax] 17 gm PO DAILY powd.pack Sennosides-Docusate Sodium [Senokot-S] 2 each PO BID tab [place]us Carbonate 150 mg PO DAILY #1 capsule Continue Vit C/E/Zn/Coppr/Lutein/Zeaxan [Preservision Areds 2 Softgel] 1 cap PO DAILY Aspirin EC [Ecotrin Low Dose] 81 mg PO DAILY Multivitamins, Thera [Multivitamin (formulary)] 1 tab PO DAILY Carbidopa-Levodopa 25-100 mg [Sinemet 25-100 mg] 1 tab PO TID rOPINIRole HCL [Requip] 1 mg PO TID tab Furosemide [Lasix] 40 mg PO BID Potassium Chloride ER [K-Dur 10] 10 meq PO BID Budesonide/Formoterol Fumarate [Symbicort 80-4.5 Mcg Inhaler] 1 puff INHALATION RT-TID PRN PRN Reason: Shortness Of Breath Discontinued HYDROcodone/APAP 5-325MG [[place]land 5-325] 1 tab PO Q6H PRN PRN Reason: Pain Ojus Carbonate 300 mg PO DAILY Albuterol Nebulized [Ventolin Nebulized] 1 ampul PO RT-TID PRN PRN Reason: Shortness Of Breath Discharge Medication List Aspirin EC [Ecotrin Low Dose] 81 mg PO DAILY 08/29/16 [History] Carbidopa-Levodopa 25-100 mg [Sinemet 25-100 mg] 1 tab PO TID 08/29/16 [History] Multivitamins, Thera [Multivitamin (formulary)] 1 tab PO DAILY 08/29/16 [History ] Vit C/E/Zn/Coppr/Lutein/Zeaxan [Preservision Areds 2 Softgel] 1 cap PO DAILY 10/14 [History] rOPINIRole HCL [Requip] 1 mg PO TID tab 02/03/17 [Rx] Furosemide [Lasix] 40 mg PO BID 03/02/18 [History] Potassium Chloride ER [K-Dur 10] 10 meq PO BID 03/02/18 [History] Budesonide/Formoterol Fumarate [Symbicort 80-4.5 Mcg Inhaler] 1 puff INHALATION RT-TID PRN 03/04/18 [History] Acetaminophen Tab [Tylenol] 325 mg PO Q6HR PRN tab 03/09/18 [Rx] Calcium Carb-Vit D 250Mg-125Un [Oscal 250+D] 2 each PO BID-W/MEALS tab [Rx] Famotidine [Pepcid] 20 mg PO DAILY tab 03/09/18 [Rx] Ipratropium-Albuterol Nebulize [Duoneb 0.5 mg-3 mg/3 ml Soln] 3 ml INHALATION Q4H PRN ampul.neb 03/09/18 [Rx] Ipratropium-Albuterol Nebulize [Duoneb 0.5 mg-3 mg/3 ml Soln] 3 ml INHALATION RT -QID ampul.neb 03/09/18 [Rx] Nicotine 21Mg/24Hr Patch [Habitrol] 1 patch TRANSDERM DAILY patch 03/09/18 [Rx] Polyethylene Glycol 3350 [Miralax] 17 gm PO DAILY powd.pack 03/09/18 [Rx] Sennosides-Docusate Sodium [Senokot-S] 2 each PO BID tab 03/09/18 [Rx] Ojus Carbonate 150 mg PO DAILY #1 capsule 03/12/18 [Rx] Follow up Appointment(s)/Referral(s): Devin Klein MD [STAFF PHYSICIAN] - 1 Week William Hernandez MD [STAFF PHYSICIAN] - 1 Week (after dc from [facility]) Dr. Tl NOGUERA [Other] - 3 Days Activity/Diet/Wound Care/Special Instructions: [place] BMP pending DIet: cardiac Activity: as tolerated CBC,BMP, Magnesium in 3 days Discharge Disposition: TRANSFER TO SNF/ECF
[2018-03-12] MEDS: MULTIVITAMINS, THERA 1 EACH TAB PO SCH (11:56)
[2018-03-12] MEDS: CALCIUM CARB-VIT D 500MG-200UN 1 EACH TAB PO SCH ×2 (11:59→17:52)
[2018-03-12 12:56] LABS: Calcium 10.5 mg/dL (8.4-10.2); Potassium 4.8 mmol/L (3.5-5.1)
[2018-03-12 21:55] VITALS: RESP 16
[2018-03-12] MEDS: cefTRIAXone IN SWFI 1,000 MG/10 ML SYRINGE IVP SCH (22:46)
[2018-03-13] MEDS: SYMBICORT 80-4.5 MCG INHALER INHALATION PRN (08:51)
[2018-03-13] MEDS: IPRATROPIUM-ALBUTEROL 3 ML NEB INHALATION SCH ×2 (08:51→11:52)
[2018-03-13 09:02] VITALS: BP 101/51; TEMP 98.1
[2018-03-13 09:10] VITALS: PULSE 62
[2018-03-13] MEDS: NICOTINE 21MG/24HR PATCH TRANSDERM SCH (11:20)
[2018-03-13] MEDS: HEPARIN SODIUM,PORCINE 5,000 UNIT/ML 1 ML VIAL SQ SCH (11:20)
[2018-03-13] MEDS: CALCIUM CARB-VIT D 500MG-200UN 1 EACH TAB PO SCH (11:20)
[2018-03-13] MEDS: AZITHROMYCIN 500 MG TAB PO SCH (11:21)
[2018-03-13] MEDS: CARBIDOPA-LEVODOPA 25-100 MG 1 EACH TAB PO SCH (11:21)
[2018-03-13] MEDS: ASPIRIN 81 MG PO SCH (11:21)
[2018-03-13] MEDS: FUROSEMIDE 40 MG TAB PO SCH (11:22)
[2018-03-13] MEDS: FAMOTIDINE 20 MG TAB PO SCH (11:22)
[2018-03-13] MEDS: POLYETHYLENE GLYCOL 3350 17 GM POWD.PACK PO SCH (11:22)
[2018-03-13] MEDS: MULTIVITAMINS, THERA 1 EACH TAB PO SCH (11:23)
[2018-03-13] MEDS: VIT A,C & E-LUTEIN-MINERALS 1 EACH TAB PO SCH (11:23)
[2018-03-13] MEDS: SENNOSIDES-DOCUSATE SODIUM 1 EACH TAB PO SCH (11:35)
--- NOTE | 2018-03-13 18:13 | P.PN ---
Subjective Progress Note Date: 03/12/18 Progress note being dictated for Dr. Vallejo Interval history:Mrs. Rodrigues is an 87-year-old female with a past medical history of COPD, osteoarthritis, bipolar disorder, kyphoscoliosis admitted to the hospital by her family members for altered mental status changes. On reviewing the ED notes the patient was brought in by her family members for altered mental status changes. But no significant chief complaints were reported. On reviewing her reports patient has fever of 100.3. She had a chest x-ray showing pulmonary interstitial fibrosis and a new right upper lobe pneumonia. She also had a CAT scan of the abdomen- chronic dilated biliary tree and chronic dilated gallbladder with gallstones . Also showing constipation and large bowel ileus , there are L1 and T12 compression fractures. On - Today the patient is awake and sitting up in a chair by the bedside. As per the nursing staff patient is much more communicative and in less pain today. Patient states that she lost her 1 year back and now she is currently living with her son who takes care of her. On 03/05/2018- patient is sitting up in a chair by the bedside and having her lunch. She looks much better compared to couple of days back. Review of systems : Patient does not have any active complaints. On review of systems she denies having any chest pain, difficulty in breathing or cough. She denies having any abdominal pain nausea or vomiting and her last bowel movement is from this morning. She denies dysuria or hematuria. Patient had a CAT scan of the abdomen done yesterday showing fecal stasis. 03/06/2018 No more fever since 100.3 on 03/02/2018, patient currently on ceftriaxone and Zithromax for pneumonia. He is saturating well on 2-3 L oxygen via NC. Her creatinine came back to normal level at 0.69 today. Leukocytosis: Improved. Blood culture and urine culture are negative so far GI consult is appreciated and they recommended no ERCP for LFTs within normal. No recommend to monitor LFTs. Also this CAT scan showing moderate to severe urinary bladder distention with mild right hydronephrosis. However creatinine is coming back to normal 03/07/2018 maintained on Zithromax and Rocephin. chest x-ray reporting cardiomegaly, right basilar linear scarring and/or atelectasis, new small right pleural effusion, mild bilateral interstitial edema .IV fluids had been decreased yesterday , today presenting with shortness of breath on 2 L nasal cannula. maintaining O2 sats of 97%. Renal function improving.Abdominal x-ray reporting worsening severe distal colonic fecal stasis or impaction .continues on lactulose, 2 bowel movements last night and another this morning. Denies abdominal pain.Tolerating diet with no nausea or vomiting. Afebrile, normal WBC. Chloride 117. Bradycardic. Denies chest pain, palpitations. 03/08/2018 abdomen distended,explosive diarrhea, multiple episodes. Patient upset at being incontinent at times with diarrhea. KUB reporting improvement in fecal impaction ,progressive large doubt dilatation with cecum measuring over 12 cm. Surgery notified , CT ordered .Maintained on IV antibiotics. Recheck for C. difficile colitis. Denies abdominal pain. Afebrile. Denies chest pain, palpitations or increased shortness of breath. 03/09/[address] reporting similar findings with slight bowel improvement. Chest x-ray reporting persistent increased at the right medial lung base, pulmonary venous congestion/mild interstitial edema, and tiny effusions. No diarrhea today. Negative for C. difficile colitis. 03/10/[address] reporting similar findings with slight bowel improvement. Chest x- ray reporting persistent increased at the right medial lung base, pulmonary venous congestion/mild interstitial edema, and tiny effusions. No diarrhea today. Negative for C. difficile colitis. Patient is currently continued on same antibiotics; await pulmonary to see the patient for further recommendations 03/11/2018 Patient is seen and evaluated in the room at bedside; vital signs remained stable and she is in no acute distress; pulmonary service has seen the patient and is recommending to discontinue antibiotics and change DuoNeb nebulizer treatments every 3-4 times a day along with supplemental oxygen therapy; Symbicort needs to be continued; patient is cleared for discharge to [facility] ; possible discharge tomorrow after arrangements are made by case management 03/12/18 no overnight events. Pre-CERT for subacute rehab pending. Afebrile, maintaining O2 sats in the high 90s on 2 L nasal cannula. Objective - Vital Signs Vital signs: Vital Signs Temp 98.1 F 03/13/18 08:00 Pulse 62 03/13/18 12:01 Resp 16 03/13/18 08:00 BP 101/51 03/13/18 08:00 Pulse Ox 97 03/13/18 08:54 Intake & Output 03/12/18 03/13/18 03/13/18 18:59 06:59 18:59 Intake Total 140 480 Balance 140 480 Intake: IV 140 240 ns@20 140 240 Oral 240 Other: Voiding Method Bedside Commode Bedside Commode Bedside Commode Incontinent # Voids 2 1 - Exam GENERAL: The patient is alert and oriented x3, not in any acute distress. Well developed, well nourished. HEENT: Pupils are round and equally reacting to light. EOMI. No scleral icterus. No conjunctival pallor. Normocephalic, atraumatic. No pharyngeal erythema. CARDIOVASCULAR: S1 and S2 present. No murmurs, rubs, or gallops. PULMONARY: Bilateral bases diminished, no wheezing , fine rate basilar crackles. ABDOMEN: Soft, nontender, normoactive bowel sounds. No palpable organomegaly. MUSCULOSKELETAL: No joint swelling or deformity. EXTREMITIES: No cyanosis, clubbing, or pedal edema. NEUROLOGICAL: Gross neurological examination did not reveal any focal deficits. - Labs CBC & Chem 7: 03/09/18 09:45 03/12/18 12:20 Assessment and Plan Assessment: Encephalopathy - most likely metabolic - resolving Right upper lobe pneumonia - community acquired Acute kidney injury -prerenal- dehydration - creatinine is trending down Dilated biliary ducts with dilated gallbladder and gallstones Constipation, fecal impaction with ileus, improving. Progressive large bowel dilatation with cecum measuring over 12 cm per KUB, follow-up CT ordered. Mild protein calorie malnutrition COPD not in acute exacerbation Osteoarthritis Compression fracture of L1 and T12 spines Kyphoscoliosis History of bipolar disorder, not active tissue History of depression unspecified Bradycardia, resolved Pulmonary edema, fluid overload. Plan: Continue on current medication regime, nebulized bronchodilators , monitoring and symptomatic treatment. Pre-CERT for subacute rehab pending. Increase activity as tolerated. Aggressive pulmonary toileting. The impression and plan of care has been dictated as directed. : I performed a history and examination of this patient, discussed the same with the dictator. I agree with the dictator's note ,documented as a scribe. Any additional findings or plans will be noted.
== END 2018-03-13 14:45 | DRG 193 ==
LOC: EC 19:07 → 5MS5E 22:00
PROVIDERS: ADMIT Internal Medicine; ATTEND Internal Medicine
DX: J18.9 Pneumonia, unspecified organism (principal); G93.41 Metabolic encephalopathy; R64 Cachexia; N17.9 Acute kidney failure, unspecified; E44.1 Mild protein-calorie malnutrition; K80.10 Calculus of gallbladder with chronic cholecystitis without obstruction; J96.11 Chronic respiratory failure with hypoxia; M48.54XA Collapsed vertebra, not elsewhere classified, thoracic region, initial encounter for fracture; M48.56XA Collapsed vertebra, not elsewhere classified, lumbar region, initial encounter for fracture; N13.30 Unspecified hydronephrosis; J44.9 Chronic obstructive pulmonary disease, unspecified; G20 Parkinson's disease; J84.10 Pulmonary fibrosis, unspecified; E86.0 Dehydration; E87.70 Fluid overload, unspecified; M41.9 Scoliosis, unspecified; K56.41 Fecal impaction; M19.91 Primary osteoarthritis, unspecified site; K59.09 Other constipation; F31.9 Bipolar disorder, unspecified; R32 Unspecified urinary incontinence; F17.200 Nicotine dependence, unspecified, uncomplicated; Z99.81 Dependence on supplemental oxygen; Z79.82 Long term (current) use of aspirin; Z68.28 Body mass index [BMI] 28.0-28.9, adult; Z79.51 Long term (current) use of inhaled steroids; Z79.899 Other long term (current) drug therapy; Z90.49 Acquired absence of other specified parts of digestive tract; Z82.49 Family history of ischemic heart disease and other diseases of the circulatory system
CPT/HCPCS: 36415; 70450; 71046; 74019; 74176; 80048; 80053; 80178; 80306; 81003; 82140; 82550; 82553; 84484; 85025; 85610; 85730; 87040; 87086; 87324; 93005; 94640; 94760; 96361; 96365; 96375; 99285

== ENCOUNTER 2018-08-08 11:45 | Inpatient (IN) | payer MEDICARE ==
[2018-08-08] MEDS ORDERED: ASPIRIN 81 MG PO STA (12:37)
[2018-08-08] MEDS ORDERED: SODIUM CHLORIDE 0.9% 1,000 ML IV STA ×2 (12:37→15:54)
--- NOTE | 2018-08-08 13:49 | ED ---
General Adult HPI - General Chief complaint: Recheck/Abnormal Lab/Rx Stated complaint: CONSTIPATION, POSS BLOCKAGE Source: patient, RN notes reviewed, old records reviewed Mode of arrival: wheelchair Limitations: no limitations - History of Present Illness Initial comments: 87-year-old female patient with past history of COPD, dementia presents in ED with constipation, altered mental status. History primarily obtained by patient 's daughter. Per patient daughter patient has a history of constipation, which also resulted from hospital admission. Daughter states that patient has not had a bowel movement in 1 week. Patient states that she has abdominal cramping. Patient denies chest pain, shortness of breath. Patient is able to respond to basic questions. Patient is able to recall current location, city she is in, not able to recall year or president. History taking further limited secondary to patient mental status. - Related Data Home Medications Medication Instructions Recorded Confirmed Aspirin EC [Ecotrin Low Dose] 81 mg PO DAILY 08/29/16 08/08/18 Carbidopa-Levodopa 25-100 mg 1 tab PO TID 08/29/16 08/08/18 [Sinemet 25-100 mg] Multivitamins, Thera [Multivitamin 1 tab PO DAILY 08/29/16 08/08/18 (formulary)] Vit C/E/Zn/Coppr/Lutein/Zeaxan 1 cap PO DAILY 08/29/16 08/08/18 [Preservision Areds 2 Softgel] Furosemide [Lasix] 40 mg PO BID 03/02/18 08/08/18 Potassium Chloride ER [K-Dur 10] 10 meq PO DAILY 03/02/18 08/08/18 Docusate Sodium [Dok] 100 mg PO BID 08/08/18 08/08/18 Fluocinonide 0.05% [Lidex 0.05% 1 applic TOPICAL DAILY 08/08/18 08/08/18 cream] HYDROcodone/APAP 5-325MG [[place] 1 tab PO Q6H PRN 08/08/18 08/08/18 5-325] Ipratropium-Albuterol Nebulize 3 ml INHALATION RT-Q4H PRN 08/08/18 08/08/18 [Duoneb 0.5 mg-3 mg/3 ml Soln] Lactobacillus Acidophilus 1 tab PO DAILY 08/08/18 08/08/18 [Acidophilus] [place] Carbonate [[place] 300 mg PO DAILY 08/08/18 08/08/18 Carbonate ER] Sennosides-Docusate Sodium 1 tab PO BID PRN 08/08/18 08/08/18 [Senokot-S] Simethicone [Gas-X] 125 mg PO TID 08/08/18 08/08/18 Previous Rx's Medication Instructions Recorded rOPINIRole HCL [Requip] 1 mg PO TID tab 02/03/17 Allergies Allergy/AdvReac Type Severity Reaction Status Date / Time No Known Allergies Allergy Verified 08/08/18 12:54 Review of Systems ROS Statement: Those systems with pertinent positive or pertinent negative responses have been documented in the HPI. ROS Other: All systems not noted in ROS Statement are negative. Past Medical History Past Medical History: COPD, Osteoarthritis (OA) Additional Past Medical History / Comment(s): lordosis kyphoisis parkensons enlarged heart, curvature of spine History of Any Multi-Drug Resistant Organisms: None Reported Past Surgical History: Appendectomy, Joint Replacement Additional Past Surgical History / Comment(s): bilateral hip sx, Past Anesthesia/Blood Transfusion Reactions: No Reported Reaction Past Psychological History: Bipolar, Depression Smoking Status: Current every day smoker Past Alcohol Use History: None Reported Past Drug Use History: None Reported - Past Family History Mother History Unknown: Yes Additional Family Medical History / Comment(s): brain aneurysm Father History Unknown: Yes Family Medical History: No Reported History General Exam - General Exam Comments Initial Comments: Constitutional: NAD, Pt has pleasant affect. HEENT: NC/AT, trachea midline, neck supple, no lymphadenopathy. Posterior pharynx non erythematous, without exudates. External ears appear normal, without discharge. Mucous membranes moist. Eyes PERRLA, EOM intact. There is no scleral icterus. No pallor noted. Cardiopulmonary: RRR, no murmurs, rubs or gallops, no JVD noted. Lungs CTAB in anterior and posterior sanchez. No peripheral edema. Abdominal exam: Abdomen mildly distended, daughter states that this is baseline secondary to patient kyphosis. Abdomen non-tender to palpation. Bowel sounds active in LLQ. No ecchymosis. No mass. Neuro: CN II-XII grossly intact. No nuchal rigidity. MSK: Posterior tibialis pulse +1 bilaterally. Radial pulse +2 bilaterally. No posterior calf tenderness bilaterally, homans sign negative bilaterally. Sensation intact in upper and lower extremities. Full active ROM in upper and lower extremities. Limitations: no limitations Course Vital Signs 08/08/18 08/08/18 08/08/18 11:51 14:00 14:30 Temperature 98.2 F Pulse Rate 59 L 70 69 Respiratory 20 20 20 Rate Blood Pressure 109/52 127/62 101/87 O2 Sat by Pulse 96 97 98 Oximetry 08/08/18 08/08/18 08/08/18 15:00 15:55 17:00 Temperature 100.3 F H Pulse Rate 58 L 52 L 55 L Respiratory 22 20 20 Rate Blood Pressure 135/89 105/45 112/61 O2 Sat by Pulse 95 96 Oximetry 08/08/18 08/08/18 08/08/18 17:33 18:00 19:26 Temperature 99.9 F H Pulse Rate 62 63 55 L Respiratory 22 22 20 Rate Blood Pressure 106/82 116/56 O2 Sat by Pulse 95 95 98 Oximetry Medical Decision Making - Medical Decision Making 87-year-old female patient presents ED with altered mental status, abdominal distention, abdominal pain. Patient denied chest pain, shortness of breath. Physical exam revealed a distended abdomen, generalized mildly tender to palpation, no masses noted. Laboratory investigations revealed a leukocytosis of 18.4, slight hyperkalemia 5.6, creatinine increase 1.22, 2.1 lactic acidosis , 10.9 Ca2 plus, 3. MG 2+, 1 right ear amylase. Troponin negative. CT chest abdomen pelvis revealed a sizable fecal impaction. KUB revealed a sizable fecal impaction. Chest x-ray revealed a platelike atelectasis. Patient to be admitted. Patient given 1 g ceftriaxone, fluids in ED. - Lab Data Result diagrams: 08/08/18 13:54 08/08/18 13:54 Lab Results 08/08/18 08/08/18 08/08/18 Range/Units 13:54 13:54 13:54 WBC 18.4 H (3.8-10.6) k/uL RBC 4.97 (3.80-5.40) m/uL Hgb 14.6 (11.4-16.0) gm/dL Hct 46.3 H (34.0-46.0) % MCV 93.0 (80.0-100.0) fL MCH 29.3 (25.0-35.0) pg MCHC 31.5 (31.0-37.0) g/dL RDW 14.1 (11.5-15.5) % Plt Count 252 (150-450) k/uL Neutrophils % 87 % Lymphocytes % 4 % Monocytes % 6 % Eosinophils % 1 % Basophils % 0 % Neutrophils # 16.1 H (1.3-7.7) k/uL Lymphocytes # 0.8 L (1.0-4.8) k/uL Monocytes # 1.1 H (0-1.0) k/uL Eosinophils # 0.1 (0-0.7) k/uL Basophils # 0.0 (0-0.2) k/uL PT 9.9 (9.0-12.0) sec INR 0.9 (<1.2) APTT 20.8 L (22.0-30.0) sec D-Dimer 0.96 H (<0.60) mg/L FEU Sodium 138 (137-145) mmol/L Potassium 5.6 H (3.5-5.1) mmol/L Chloride 104 (98-107) mmol/L Carbon Dioxide 26 (22-30) mmol/L Anion Gap 8 mmol/L BUN 37 H (7-17) mg/dL Creatinine 1.22 H (0.52-1.04) mg/dL Est GFR (CKD-EPI)AfAm 47 (>60 ml/min/1.73 sqM) Est GFR (CKD-EPI)NonAf 41 (>60 ml/min/1.73 sqM) Glucose 130 H (74-99) mg/dL Lactic Ac Sepsis Rflx Plasma Lactic Acid Christopher (0.7-2.0) mmol/L Calcium 10.9 H (8.4-10.2) mg/dL Phosphorus 3.8 (2.5-4.5) mg/dL Magnesium 3.0 H (1.6-2.3) mg/dL Total Bilirubin 1.6 H (0.2-1.3) mg/dL AST 20 (14-36) U/L ALT 14 (9-52) U/L Alkaline Phosphatase 85 (38-126) U/L Creatine Kinase (30-135) U/L Troponin I (0.000-0.034) ng/mL NT-Pro-B Natriuret Pep pg/mL Total Protein 7.2 (6.3-8.2) g/dL Albumin 4.2 (3.5-5.0) g/dL Amylase 180 H (30-110) U/L Lipase 25 (23-300) U/L Urine Color Urine Appearance (Clear) Urine pH (5.0-8.0) Ur Specific [place] (1.001-1.035) Urine Protein (Negative) Urine Glucose (UA) (Negative) Urine Ketones (Negative) Urine Blood (Negative) Urine Nitrite (Negative) Urine Bilirubin (Negative) Urine Urobilinogen (<2.0) mg/dL Ur Leukocyte Esterase (Negative) 08/08/18 08/08/18 08/08/18 Range/Units 13:54 13:54 13:54 WBC (3.8-10.6) k/uL RBC (3.80-5.40) m/uL Hgb (11.4-16.0) gm/dL Hct (34.0-46.0) % MCV (80.0-100.0) fL MCH (25.0-35.0) pg MCHC (31.0-37.0) g/dL RDW (11.5-15.5) % Plt Count (150-450) k/uL Neutrophils % % Lymphocytes % % Monocytes % % Eosinophils % % Basophils % % Neutrophils # (1.3-7.7) k/uL Lymphocytes # (1.0-4.8) k/uL Monocytes # (0-1.0) k/uL Eosinophils # (0-0.7) k/uL Basophils # (0-0.2) k/uL PT (9.0-12.0) sec INR (<1.2) APTT (22.0-30.0) sec D-Dimer (<0.60) mg/L FEU Sodium (137-145) mmol/L Potassium (3.5-5.1) mmol/L Chloride (98-107) mmol/L Carbon Dioxide (22-30) mmol/L Anion Gap mmol/L BUN (7-17) mg/dL Creatinine (0.52-1.04) mg/dL Est GFR (CKD-EPI)AfAm (>60 ml/min/1.73 sqM) Est GFR (CKD-EPI)NonAf (>60 ml/min/1.73 sqM) Glucose (74-99) mg/dL Lactic Ac Sepsis Rflx Plasma Lactic Acid Christopher 2.1 H* (0.7-2.0) mmol/L Calcium (8.4-10.2) mg/dL Phosphorus (2.5-4.5) mg/dL Magnesium (1.6-2.3) mg/dL Total Bilirubin (0.2-1.3) mg/dL AST (14-36) U/L ALT (9-52) U/L Alkaline Phosphatase (38-126) U/L Creatine Kinase (30-135) U/L Troponin I <0.012 (0.000-0.034) ng/mL NT-Pro-B Natriuret Pep 511 pg/mL Total Protein (6.3-8.2) g/dL Albumin (3.5-5.0) g/dL Amylase (30-110) U/L Lipase (23-300) U/L Urine Color Urine Appearance (Clear) Urine pH (5.0-8.0) Ur Specific [place] (1.001-1.035) Urine Protein (Negative) Urine Glucose (UA) (Negative) Urine Ketones (Negative) Urine Blood (Negative) Urine Nitrite (Negative) Urine Bilirubin (Negative) Urine Urobilinogen (<2.0) mg/dL Ur Leukocyte Esterase (Negative) 08/08/18 08/08/18 08/08/18 Range/Units 13:54 14:45 15:50 WBC (3.8-10.6) k/uL RBC (3.80-5.40) m/uL Hgb (11.4-16.0) gm/dL Hct (34.0-46.0) % MCV (80.0-100.0) fL MCH (25.0-35.0) pg MCHC (31.0-37.0) g/dL RDW (11.5-15.5) % Plt Count (150-450) k/uL Neutrophils % % Lymphocytes % % Monocytes % % Eosinophils % % Basophils % % Neutrophils # (1.3-7.7) k/uL Lymphocytes # (1.0-4.8) k/uL Monocytes # (0-1.0) k/uL Eosinophils # (0-0.7) k/uL Basophils # (0-0.2) k/uL PT (9.0-12.0) sec INR (<1.2) APTT (22.0-30.0) sec D-Dimer (<0.60) mg/L FEU Sodium (137-145) mmol/L Potassium (3.5-5.1) mmol/L Chloride (98-107) mmol/L Carbon Dioxide (22-30) mmol/L Anion Gap mmol/L BUN (7-17) mg/dL Creatinine (0.52-1.04) mg/dL Est GFR (CKD-EPI)AfAm (>60 ml/min/1.73 sqM) Est GFR (CKD-EPI)NonAf (>60 ml/min/1.73 sqM) Glucose (74-99) mg/dL Lactic Ac Sepsis Rflx Y Plasma Lactic Acid Christopher (0.7-2.0) mmol/L Calcium (8.4-10.2) mg/dL Phosphorus (2.5-4.5) mg/dL Magnesium (1.6-2.3) mg/dL Total Bilirubin (0.2-1.3) mg/dL AST (14-36) U/L ALT (9-52) U/L Alkaline Phosphatase (38-126) U/L Creatine Kinase 78 (30-135) U/L Troponin I (0.000-0.034) ng/mL NT-Pro-B Natriuret Pep pg/mL Total Protein (6.3-8.2) g/dL Albumin (3.5-5.0) g/dL Amylase (30-110) U/L Lipase (23-300) U/L Urine Color Dark Brown Urine Appearance Clear (Clear) Urine pH 7.5 (5.0-8.0) Ur Specific [place] 1.012 (1.001-1.035) Urine Protein Negative (Negative) Urine Glucose (UA) Negative (Negative) Urine Ketones Negative (Negative) Urine Blood Negative (Negative) Urine Nitrite Negative (Negative) Urine Bilirubin Negative (Negative) Urine Urobilinogen 3.0 (<2.0) mg/dL Ur Leukocyte Esterase Negative (Negative) Disposition Clinical Impression: Abdominal pain Disposition: ADMITTED IP TO THIS HOSP Is patient prescribed a controlled substance at d/c from ED?: No
[2018-08-08 14:18] LABS: Basophils % (A) 0 %; Eosinophils # (A) 0.1 k/uL (0-0.7); Eosinophils % (A) 1 %; HCT 46.3 % (34.0-46.0); HGB 14.6 gm/dL (11.4-16.0); Lymphocytes # (A) 0.8 k/uL (1.0-4.8); Lymphocytes % (A) 4 %; MCH 29.3 pg (25.0-35.0); MCHC 31.5 g/dL (31.0-37.0); Mean Platelet Volume 7.7; Monocytes # (A) 1.1 k/uL (0-1.0); Monocytes % (A) 6 %; Neutrophils # (A) 16.1 k/uL (1.3-7.7); Neutrophils % (A) 87 %; Platelet Count 252 k/uL (150-450); RBC 4.97 m/uL (3.80-5.40); RDW 14.1 % (11.5-15.5); WBC 18.4 k/uL (3.8-10.6)
[2018-08-08] MEDS ORDERED: MORPHINE SULFATE 4 MG/ML SYRINGE IV STA (14:27)
[2018-08-08 14:32] LABS: Albumin 4.2 g/dL (3.5-5.0); Calcium 10.9 mg/dL (8.4-10.2); Phosphorus 3.8 mg/dL (2.5-4.5); Potassium 5.6 mmol/L (3.5-5.1); Total Bilirubin 1.6 mg/dL (0.2-1.3); Total Protein 7.2 g/dL (6.3-8.2)
[2018-08-08 14:41] LABS: INR 0.9 (<1.2); Prothrombin Time 9.9 sec (9.0-12.0)
[2018-08-08 15:00] LABS: D-Dimer 0.96 mg/L FEU (<0.60); Partial Thromboplastin Time 20.8 sec (22.0-30.0)
--- NOTE | 2018-08-08 15:03 | XR ---
EXAMINATION TYPE: XR chest 2V DATE OF EXAM: 08/08/2018 COMPARISON: 03/09/2018 HISTORY: Weakness abdominal pain and constipation TECHNIQUE: Frontal and lateral views of the chest are obtained. FINDINGS: There is pulmonary hyperinflation and biapical lucency of underlying COPD. There is an exa ggerated thoracic kyphosis, mid thoracic compression deformities as seen on the prior, and diffuse os seous demineralization. Cardia mediastinal silhouette is enlarged. Left midlung platelike atelectasis is noted. Density over the right lateral lung is likely related to overlying soft tissues. IMPRESSION: Left midlung platelike atelectasis, cardiomegaly, and COPD.
--- NOTE | 2018-08-08 15:05 | XR ---
EXAMINATION TYPE: XR KUB DATE OF EXAM: 08/08/2018 CLINICAL HISTORY: Abdominal pain and constipation TECHNIQUE: Upright and supine abdominal radiographs were obtained COMPARISON: None. FINDINGS: There is gaseous distention of the large bowel and severe left hemicolonic and retained sto ol. Large fecal ball distends the rectum to approximately 9 cm. Surgical sutures are seen in the righ t midline abdomen. No gross evidence of pneumoperitoneum. Bilateral femoral arthroplasties are noted. Osseous demineralization is seen throughout. IMPRESSION: Large rectal fecal ball distending the rectum to approximately 9 cm with descending colon ic severe fecal burden. Fecal impaction should be considered.
--- NOTE | 2018-08-08 15:28 | CT ---
EXAMINATION TYPE: CT ChestAbdPelvis w con DATE OF EXAM: 08/08/2018 COMPARISON: NONE HISTORY: Constipation. CT DLP: 815.4 mGycm. Automated Exposure Control for Dose Reduction was Utilized. CONTRAST: CT scan of the thorax, abdomen and pelvis is performed with IV Contrast, patient injected with 80 mL of Isovue 300. FINDINGS: LUNGS: Bandlike atelectasis and/or scarring is seen at the right lung base medially. There is elongat ion of the lungs in the anterior posterior direction representing underlying COPD change with scatter ed blebs. Biapical pleural-parenchymal thickening is noted. Examination is limited for evaluation of pulmonary nodule given patient motion. Right lower lobe nodular density as seen on series 240 image 2 7 and not seen on the prior due to the presence of pleural effusions and atelectasis on the prior exa m. MEDIASTINUM: There are no greater than 1 cm hilar or mediastinal lymph nodes. No pericardial effusi on is seen. r there is enlargement of the main pulmonary artery suggesting underlying pulmonary jahaira rial hypertension measuring 3.2 cm. OTHER: Thyroid gland is diffusely enlarged and heterogenous containing dystrophic calcifications and multiple hypoattenuated nodules the largest on the right measuring 1.5 cm. There is extent to the [place] r[place] notch. LIVER/GB: There is intrahepatic biliary ductal dilatation throughout and distention of the gallbladde r with layering gravel-like calculi. Gallbladder is also hydropic measuring over 12.1 cm. PANCREAS: Very limited in evaluation given the abutting distended impressing upon the pancreatic pare nchyma. SPLEEN: No significant abnormality is seen. ADRENALS: Slight thickening bilaterally although the adrenal glands maintain their normal adreniform shape suggesting adrenal gland hyperplasia. KIDNEYS: The kidneys are displaced posteriorly secondary to colonic distention. There are multiple hy poattenuated lesions some of which fitting criteria for renal cysts measuring up to 1.6 cm on the lef t and others that are too small to accurately characterize and subcentimeter. Extrarenal pelvis is no woo on the right. Slight renal atrophy is seen bilaterally suggestive of medical renal disease. BOWEL: A very large rectal fecal ball measures up to 11.5 cm. There is marked amount of retained colo felicita stool within the left hemicolon and gaseous distention of the redundant remainder of the colon. R ectal prolapse is also noted. LYMPH NODES: Limited evaluation. No gross evidence of greater than 1cm abdominal or pelvic lymph node s are appreciated. OSSEOUS STRUCTURES: [place] artifact is generated from bilateral hip prostheses limiting evaluation of the pelvis. Old healed fracture deformity of the left inferior pubic ramus is noted. There is general ized osseous demineralization and moderate multilevel degenerative changes of the spine there is an e xaggerated thoracic kyphosis and chronic compression deformities of the midthoracic vertebral bodies. There is mild levoscoliotic curvature of the lumbar spine. OTHER: Extensive atheromatous changes seen of the abdominal aorta and its branches. IMPRESSION: 1. Mechanical colonic obstruction. As seen on the abdominal radiograph of the same date there is rect al fecal impaction with a large rectal fecal ball measuring 11.5 cm. Rectal wall thickening is also n oted suggesting an acute on chronic component given the surrounding inflammatory fat stranding. The l eft hemicolon has large burden retained colonic stool and there is redundancy of the large bowel. 2. Intrahepatic biliary ductal dilatation and hydropic size of the gallbladder with cholelithiasis. G allbladder dysfunction is suspected. 3. Chronic midthoracic compression deformities. 5. Essentially nonvisualization of the pancreas due to compression by the distended colon. Reevaluati on after disimpaction is recommended due to intrahepatic biliary ductal dilatation and the possibilit y of pancreatic mass. 6. Subcentimeter right lower lobe pulmonary nodule for which follow-up could be performed in 6 months .
[2018-08-08 16:38] LABS: Appearance,Urine Clear (Clear); Bilirubin,Urine Negative (Negative); Blood,Urine Negative (Negative); Color,Urine Dark Brown; Glucose,Urine (UA) Negative (Negative); Ketones,Urine Negative (Negative); Leukocyte Esterase,Urine Negative (Negative); Nitrite,Urine Negative (Negative); PH, Urine 7.5 (5.0-8.0); Protein,Urine Negative (Negative); Specific Gravity,Urine 1.012 (1.001-1.035)
[2018-08-08] MEDS ORDERED: ACETAMINOPHEN TAB 325 MG TAB PO STA (17:39)
[2018-08-08] MEDS ORDERED: NALOXONE 0.4 MG/ML 1 ML VIAL IV PRN (17:39)
[2018-08-08] MEDS ORDERED: IBUPROFEN 400 MG TAB PO PRN (17:39)
--- NOTE | 2018-08-08 21:27 | HP ---
HISTORY AND PHYSICAL DATE OF SERVICE: 08/08/2018 CHIEF COMPLAINTS: Constipation, change in mental status. HISTORY OF PRESENT ILLNESS: This 87-year-old woman with a past medical history of multiple medical problems including DJD, history of COPD, history of appendectomy, history of bipolar depression, history of constipation being followed by Dr. Humza Santiago in the outpatient setting, was having obstipation for the last several days. The patient took some medications previously which is not effective and patient has abdominal cramping. The impacted stool could not be removed, but some leaking around the stool was also noted. The patient is confused, unable to give a coherent history. Patient is being closely monitored at this time. The patient was admitted to [facility] a couple of months ago for encephalopathy, pneumonia, and other multiple other medical issues. Currently patient unable to provide a coherent history. Most of the history taken from my discussion with the staff and review of the chart at this time. PAST MEDICAL HISTORY: History of COPD, history of pneumonia, history of DJD, history of appendectomy, bipolar depression. MEDICATIONS: Prior to admission include: 1. Senokot-S 1 tablet b.i.d. p.r.n. 2. Requip 1 mg p.o. t.i.d. 3. PreserVision daily. 4. Gas-X 120 mg t.i.d. 5. K-Dur 10 mEq p.o. daily. 6. Multivitamins one daily. 7. [place] carbonate 300 mg daily. 8. Lactobacillus 1 p.o. daily. 9. DuoNeb q.4h p.r.n. 10.[place] 5 mg q.6h p.r.n. 11.Lasix 40 mg. 12.Lidex 1 application daily. 14.Sinemet 10/100 1 p.o. t.i.d. 15.Ecotrin 81 mg daily. ALLERGIES: None. Family history, social history and review of systems could not be taken. The patient has change in mental status. History of brain aneurysm in the family. PHYSICAL EXAM: Patient is stuporous. Pulse is 55, blood pressure 116/52, respirations 20, temperature 99.9, pulse ox 98% on 2 L. HEENT: Conjunctivae normal. NECK: No jugular venous distention. CARDIOVASCULAR: S1, S2 muffled. RESPIRATORY: Breath sounds diminished in the bases. A few scattered rhonchi and crackles. ABDOMEN: Soft. Diffuse distention present. No guarding. No rigidity. No mass palpable. Legs no edema. Nervous system: Diffusely weak. LABS: WBC 18.4 and sodium 138, potassium 5.6, creatinine is 1.2. Plasma lactic acid 1.2. ASSESSMENT: 1. Change in mental status, acute metabolic encephalopathy, multifactorial. 2. Acute sepsis possibly from proctitis. 3. Constipation and bowel obstruction. 4. Increased WBC. 5. Increased creatinine with possibly acute renal failure, mild. 6. History of chronic obstructive pulmonary disease. 7. History of degenerative joint disease. 8. History of Parkinson's. 9. History of joint replacement. 10.History of bipolar depression. 11.History of nicotine dependence. 12.FULL CODE. RECOMMENDATIONS AND DISCUSSION: In this 87-year-old woman who presented with multiple complex medical issues, we will monitor the patient closely, continue the current medications, continue symptomatic treatment. We will initiate broad-spectrum IV antibiotics, bronchodilators and cautious IV fluids. I would also recommend surgical evaluation. Guarded prognosis because of multiple complex medical issues. Chest x-ray and CT scan of the chest and abdomen was personally reviewed by me and I would like the surgery also to evaluate the CT scan of the abdomen pelvis to rule out the possibility of bowel obstruction as well. Once again, the prognosis guarded. See orders for details. Further recommendations to follow. Discussed with staff. ARVIN / ANN: [id number] / [id number]
[2018-08-08] MEDS: PIPERACILLIN-TAZOBACTAM 3.375 GM in SODIUM CHLORIDE 0.9% 100 ML IVPB SCH (22:29)
[2018-08-08] MEDS: CARBIDOPA-LEVODOPA 25-100 MG 1 EACH TAB PO SCH (22:29)
[2018-08-08] MEDS: PANTOPRAZOLE 40 MG/10 ML VIAL IVP SCH (22:29)
[2018-08-08] MEDS: SODIUM CHLORIDE 0.9% 1,000 ML IV SCH (22:30)
--- NOTE | 2018-08-08 23:44 | ED ---
Medical Decision Making - Lab Data Result diagrams: 08/08/18 13:54 08/08/18 13:54 Lab Results 08/08/18 08/08/18 08/08/18 Range/Units 13:54 13:54 13:54 WBC 18.4 H (3.8-10.6) k/uL RBC 4.97 (3.80-5.40) m/uL Hgb 14.6 (11.4-16.0) gm/dL Hct 46.3 H (34.0-46.0) % MCV 93.0 (80.0-100.0) fL MCH 29.3 (25.0-35.0) pg MCHC 31.5 (31.0-37.0) g/dL RDW 14.1 (11.5-15.5) % Plt Count 252 (150-450) k/uL Neutrophils % 87 % Lymphocytes % 4 % Monocytes % 6 % Eosinophils % 1 % Basophils % 0 % Neutrophils # 16.1 H (1.3-7.7) k/uL Lymphocytes # 0.8 L (1.0-4.8) k/uL Monocytes # 1.1 H (0-1.0) k/uL Eosinophils # 0.1 (0-0.7) k/uL Basophils # 0.0 (0-0.2) k/uL PT 9.9 (9.0-12.0) sec INR 0.9 (<1.2) APTT 20.8 L (22.0-30.0) sec D-Dimer 0.96 H (<0.60) mg/L FEU Sodium 138 (137-145) mmol/L Potassium 5.6 H (3.5-5.1) mmol/L Chloride 104 (98-107) mmol/L Carbon Dioxide 26 (22-30) mmol/L Anion Gap 8 mmol/L BUN 37 H (7-17) mg/dL Creatinine 1.22 H (0.52-1.04) mg/dL Est GFR (CKD-EPI)AfAm 47 (>60 ml/min/1.73 sqM) Est GFR (CKD-EPI)NonAf 41 (>60 ml/min/1.73 sqM) Glucose 130 H (74-99) mg/dL Lactic Ac Sepsis Rflx Plasma Lactic Acid Christopher (0.7-2.0) mmol/L Calcium 10.9 H (8.4-10.2) mg/dL Phosphorus 3.8 (2.5-4.5) mg/dL Magnesium 3.0 H (1.6-2.3) mg/dL Total Bilirubin 1.6 H (0.2-1.3) mg/dL AST 20 (14-36) U/L ALT 14 (9-52) U/L Alkaline Phosphatase 85 (38-126) U/L Creatine Kinase (30-135) U/L Troponin I (0.000-0.034) ng/mL NT-Pro-B Natriuret Pep pg/mL Total Protein 7.2 (6.3-8.2) g/dL Albumin 4.2 (3.5-5.0) g/dL Amylase 180 H (30-110) U/L Lipase 25 (23-300) U/L Urine Color Urine Appearance (Clear) Urine pH (5.0-8.0) Ur Specific [place] (1.001-1.035) Urine Protein (Negative) Urine Glucose (UA) (Negative) Urine Ketones (Negative) Urine Blood (Negative) Urine Nitrite (Negative) Urine Bilirubin (Negative) Urine Urobilinogen (<2.0) mg/dL Ur Leukocyte Esterase (Negative) 08/08/18 08/08/18 08/08/18 Range/Units 13:54 13:54 13:54 WBC (3.8-10.6) k/uL RBC (3.80-5.40) m/uL Hgb (11.4-16.0) gm/dL Hct (34.0-46.0) % MCV (80.0-100.0) fL MCH (25.0-35.0) pg MCHC (31.0-37.0) g/dL RDW (11.5-15.5) % Plt Count (150-450) k/uL Neutrophils % % Lymphocytes % % Monocytes % % Eosinophils % % Basophils % % Neutrophils # (1.3-7.7) k/uL Lymphocytes # (1.0-4.8) k/uL Monocytes # (0-1.0) k/uL Eosinophils # (0-0.7) k/uL Basophils # (0-0.2) k/uL PT (9.0-12.0) sec INR (<1.2) APTT (22.0-30.0) sec D-Dimer (<0.60) mg/L FEU Sodium (137-145) mmol/L Potassium (3.5-5.1) mmol/L Chloride (98-107) mmol/L Carbon Dioxide (22-30) mmol/L Anion Gap mmol/L BUN (7-17) mg/dL Creatinine (0.52-1.04) mg/dL Est GFR (CKD-EPI)AfAm (>60 ml/min/1.73 sqM) Est GFR (CKD-EPI)NonAf (>60 ml/min/1.73 sqM) Glucose (74-99) mg/dL Lactic Ac Sepsis Rflx Plasma Lactic Acid Christopher 2.1 H* (0.7-2.0) mmol/L Calcium (8.4-10.2) mg/dL Phosphorus (2.5-4.5) mg/dL Magnesium (1.6-2.3) mg/dL Total Bilirubin (0.2-1.3) mg/dL AST (14-36) U/L ALT (9-52) U/L Alkaline Phosphatase (38-126) U/L Creatine Kinase (30-135) U/L Troponin I <0.012 (0.000-0.034) ng/mL NT-Pro-B Natriuret Pep 511 pg/mL Total Protein (6.3-8.2) g/dL Albumin (3.5-5.0) g/dL Amylase (30-110) U/L Lipase (23-300) U/L Urine Color Urine Appearance (Clear) Urine pH (5.0-8.0) Ur Specific [place] (1.001-1.035) Urine Protein (Negative) Urine Glucose (UA) (Negative) Urine Ketones (Negative) Urine Blood (Negative) Urine Nitrite (Negative) Urine Bilirubin (Negative) Urine Urobilinogen (<2.0) mg/dL Ur Leukocyte Esterase (Negative) 08/08/18 08/08/18 08/08/18 Range/Units 13:54 14:45 15:50 WBC (3.8-10.6) k/uL RBC (3.80-5.40) m/uL Hgb (11.4-16.0) gm/dL Hct (34.0-46.0) % MCV (80.0-100.0) fL MCH (25.0-35.0) pg MCHC (31.0-37.0) g/dL RDW (11.5-15.5) % Plt Count (150-450) k/uL Neutrophils % % Lymphocytes % % Monocytes % % Eosinophils % % Basophils % % Neutrophils # (1.3-7.7) k/uL Lymphocytes # (1.0-4.8) k/uL Monocytes # (0-1.0) k/uL Eosinophils # (0-0.7) k/uL Basophils # (0-0.2) k/uL PT (9.0-12.0) sec INR (<1.2) APTT (22.0-30.0) sec D-Dimer (<0.60) mg/L FEU Sodium (137-145) mmol/L Potassium (3.5-5.1) mmol/L Chloride (98-107) mmol/L Carbon Dioxide (22-30) mmol/L Anion Gap mmol/L BUN (7-17) mg/dL Creatinine (0.52-1.04) mg/dL Est GFR (CKD-EPI)AfAm (>60 ml/min/1.73 sqM) Est GFR (CKD-EPI)NonAf (>60 ml/min/1.73 sqM) Glucose (74-99) mg/dL Lactic Ac Sepsis Rflx Y Plasma Lactic Acid Christopher (0.7-2.0) mmol/L Calcium (8.4-10.2) mg/dL Phosphorus (2.5-4.5) mg/dL Magnesium (1.6-2.3) mg/dL Total Bilirubin (0.2-1.3) mg/dL AST (14-36) U/L ALT (9-52) U/L Alkaline Phosphatase (38-126) U/L Creatine Kinase 78 (30-135) U/L Troponin I (0.000-0.034) ng/mL NT-Pro-B Natriuret Pep pg/mL Total Protein (6.3-8.2) g/dL Albumin (3.5-5.0) g/dL Amylase (30-110) U/L Lipase (23-300) U/L Urine Color Dark Brown Urine Appearance Clear (Clear) Urine pH 7.5 (5.0-8.0) Ur Specific [place] 1.012 (1.001-1.035) Urine Protein Negative (Negative) Urine Glucose (UA) Negative (Negative) Urine Ketones Negative (Negative) Urine Blood Negative (Negative) Urine Nitrite Negative (Negative) Urine Bilirubin Negative (Negative) Urine Urobilinogen 3.0 (<2.0) mg/dL Ur Leukocyte Esterase Negative (Negative) - EKG Data -: EKG Interpreted by Me (and dr rosario ) EKG Comments: 1) ventricular rate 54, QRS 94, limited secondary artifact, no concern for acute ischemia. 2) ventricular rate 54,. And for 1-2, QRS 96, QT/QTc 434/426, sinus bradycardia , left anterior fascicular block, nonspecific T-wave abnormality, abnormal EKG. Disposition Clinical Impression: Abdominal pain Disposition: ADMITTED IP TO THIS HOSP Is patient prescribed a controlled substance at d/c from ED?: No
[2018-08-09] MEDS: MORPHINE SULFATE 2 MG/ML SYRINGE IVP PRN ×3 (01:41→23:00)
[2018-08-09] MEDS ORDERED: ACETAMINOPHEN IV (For NPO) 1,000 MG in EMPTY BAG 1 BAG IVPB ONE (04:30)
[2018-08-09] MEDS: PIPERACILLIN-TAZOBACTAM 3.375 GM in SODIUM CHLORIDE 0.9% 100 ML IVPB SCH ×3 (08:01→23:09)
[2018-08-09] MEDS: CARBIDOPA-LEVODOPA 25-100 MG 1 EACH TAB PO SCH ×3 (08:03→23:03)
[2018-08-09] MEDS: PANTOPRAZOLE 40 MG/10 ML VIAL IVP SCH ×2 (08:03→23:03)
[2018-08-09 08:58] LABS: HCT 43.1 % (34.0-46.0); HGB 13.2 gm/dL (11.4-16.0); Hypochromasia Slight; MCH 29.2 pg (25.0-35.0); MCHC 30.5 g/dL (31.0-37.0); MCV 95.6 fL (80.0-100.0); Mean Platelet Volume 7.4; Platelet Count 212 k/uL (150-450); RBC 4.51 m/uL (3.80-5.40); RDW 14.5 % (11.5-15.5); WBC 7.2 k/uL (3.8-10.6)
[2018-08-09 09:06] LABS: Albumin 2.9 g/dL (3.5-5.0); Magnesium 3.1 mg/dL (1.6-2.3); Phosphorus 4.6 mg/dL (2.5-4.5); Potassium 5.2 mmol/L (3.5-5.1); Total Bilirubin 0.9 mg/dL (0.2-1.3); Total Protein 5.3 g/dL (6.3-8.2)
[2018-08-09] MEDS: IPRATROPIUM-ALBUTEROL 3 ML NEB INHALATION SCH ×4 (09:29→21:13)
[2018-08-09 09:53] LABS: Band Neutrophils % 12 %; Lymphocytes # (M) 0.79 k/uL (1.0-4.8); Monocytes # (M) 0.79 k/uL (0-1.0); Neutrophils % (M) 66 %; Nucleated Red Blood Cells 0 /100 WBC (0-0); Total Cells Counted 100; Toxic Granulation Present
--- NOTE | 2018-08-09 10:27 | P.GSCN ---
History of Present Illness Consult date: 08/09/18 Reason for Consult: Constipation fecal impaction History of present illness: 87-year-old frail thin female presented to the emergency room with change in mental status with constipation. Patient's a poor historian not able to adequately obtain any health history from patient. Health history has been obtained from reviewing prior medical records talking to nursing staff. Patient currently is incontinent leaking liquid brown watery stool from the rectum. There is a large firm area right abdominal wall noted CAT scan of the abdomen pelvis report reviewed rectal fecal impaction with a large rectal fecal ball measuring 11.5 cm Reviewing medical records indicate the patient had been seen in February 2018 for fecal impaction Review of Systems Not able to adequately obtain Past Medical History Past Medical History: COPD, Osteoarthritis (OA) Additional Past Medical History / Comment(s): lordosis kyphoisis parkensons enlarged heart, curvature of spine History of Any Multi-Drug Resistant Organisms: None Reported Past Surgical History: Appendectomy, Joint Replacement Additional Past Surgical History / Comment(s): bilateral hip sx, Past Anesthesia/Blood Transfusion Reactions: No Reported Reaction Past Psychological History: Bipolar, Depression Smoking Status: Current every day smoker Past Alcohol Use History: None Reported Past Drug Use History: None Reported - Past Family History Mother History Unknown: Yes Additional Family Medical History / Comment(s): brain aneurysm Father History Unknown: Yes Family Medical History: No Reported History Medications and Allergies Home Medications Medication Instructions Recorded Confirmed Type Aspirin EC [Ecotrin Low Dose] 81 mg PO DAILY 08/29/16 08/08/18 History Carbidopa-Levodopa 25-100 mg 1 tab PO TID 08/29/16 08/08/18 History [Sinemet 25-100 mg] Multivitamins, Thera [Multivitamin 1 tab PO DAILY 08/29/16 08/08/18 History (formulary)] Vit C/E/Zn/Coppr/Lutein/Zeaxan 1 cap PO DAILY 08/29/16 08/08/18 History [Preservision Areds 2 Softgel] rOPINIRole HCL [Requip] 1 mg PO TID tab 02/03/17 08/08/18 Rx Furosemide [Lasix] 40 mg PO BID 03/02/18 08/08/18 History Potassium Chloride ER [K-Dur 10] 10 meq PO DAILY 03/02/18 08/08/18 History Docusate Sodium [Dok] 100 mg PO BID 08/08/18 08/08/18 History Fluocinonide 0.05% [Lidex 0.05% 1 applic TOPICAL DAILY 08/08/18 08/08/18 History cream] HYDROcodone/APAP 5-325MG [[place] 1 tab PO Q6H PRN 08/08/18 08/08/18 History 5-325] Ipratropium-Albuterol Nebulize 3 ml INHALATION RT-Q4H PRN 08/08/18 08/08/18 History [Duoneb 0.5 mg-3 mg/3 ml Soln] Lactobacillus Acidophilus 1 tab PO DAILY 08/08/18 08/08/18 History [Acidophilus] [place] Carbonate [[place] 300 mg PO DAILY 08/08/18 08/08/18 History Carbonate ER] Sennosides-Docusate Sodium 1 tab PO BID PRN 08/08/18 08/08/18 History [Senokot-S] Simethicone [Gas-X] 125 mg PO TID 08/08/18 08/08/18 History Allergies Allergy/AdvReac Type Severity Reaction Status Date / Time No Known Allergies Allergy Verified 08/08/18 12:54 Surgical - Exam Vital Signs Temp Pulse Resp BP Pulse Ox 98.2 F 59 L 20 109/52 96 08/08/18 11:51 08/08/18 11:51 08/08/18 11:51 08/08/18 11:51 08/08/18 11:51 GENERAL APPEARANCE: 87-year-old female thin resting in bed oriented to self only. Does not consistently follow simple commands VITAL SIGNS: Reviewed HEENT: Head is normocephalic and atraumatic. Pupils are equal and reactive. The nares are patent. Oropharynx is clear without lesions. NECK: Supple without lymphadenopathy. Traches midline. HEART: S1, S2. Regular rate and rhythm. No murmur noted LUNGS: No crackles or wheezes are heard. Nasal cannula 4 L ABDOMEN: Mildly distended diffuse tenderness bulge noted bright anterior abdominal wall leaking rectally brown liquid stool incontinent urine EXTREMITIES: Normal skin color and turgor. No cyanosis, rash, ulceration, clubbing or edema. Radial pedal pulses are 2/4 bilaterally. Results - Labs 08/09/18 08:14 08/09/18 08:14 Abnormal Lab Results - Last 24 Hours (Table) 08/08/18 08/08/18 08/08/18 Range/Units 13:54 13:54 13:54 WBC 18.4 H (3.8-10.6) k/uL Hct 46.3 H (34.0-46.0) % MCHC (31.0-37.0) g/dL Neutrophils # 16.1 H (1.3-7.7) k/uL Lymphocytes # 0.8 L (1.0-4.8) k/uL Lymphocytes # (Manual) (1.0-4.8) k/uL Monocytes # 1.1 H (0-1.0) k/uL APTT 20.8 L (22.0-30.0) sec D-Dimer 0.96 H (<0.60) mg/L FEU Potassium 5.6 H (3.5-5.1) mmol/L Chloride (98-107) mmol/L Carbon Dioxide (22-30) mmol/L BUN 37 H (7-17) mg/dL Creatinine 1.22 H (0.52-1.04) mg/dL Glucose 130 H (74-99) mg/dL Plasma Lactic Acid Christopher (0.7-2.0) mmol/L Calcium 10.9 H (8.4-10.2) mg/dL Phosphorus (2.5-4.5) mg/dL Magnesium 3.0 H (1.6-2.3) mg/dL Total Bilirubin 1.6 H (0.2-1.3) mg/dL Total Protein (6.3-8.2) g/dL Albumin (3.5-5.0) g/dL Amylase 180 H (30-110) U/L 08/08/18 08/09/18 08/09/18 Range/Units 13:54 08:14 08:14 WBC (3.8-10.6) k/uL Hct (34.0-46.0) % MCHC 30.5 L (31.0-37.0) g/dL Neutrophils # (1.3-7.7) k/uL Lymphocytes # (1.0-4.8) k/uL Lymphocytes # (Manual) 0.79 L (1.0-4.8) k/uL Monocytes # (0-1.0) k/uL APTT (22.0-30.0) sec D-Dimer (<0.60) mg/L FEU Potassium 5.2 H (3.5-5.1) mmol/L Chloride 114 H (98-107) mmol/L Carbon Dioxide 20 L (22-30) mmol/L BUN 39 H (7-17) mg/dL Creatinine 1.37 H (0.52-1.04) mg/dL Glucose (74-99) mg/dL Plasma Lactic Acid Christopher 2.1 H* (0.7-2.0) mmol/L Calcium (8.4-10.2) mg/dL Phosphorus 4.6 H (2.5-4.5) mg/dL Magnesium 3.1 H (1.6-2.3) mg/dL Total Bilirubin (0.2-1.3) mg/dL Total Protein 5.3 L (6.3-8.2) g/dL Albumin 2.9 L (3.5-5.0) g/dL Amylase (30-110) U/L Diabetes panel 08/08/18 08/09/18 Range/Units 13:54 08:14 Sodium 138 142 (137-145) mmol/L Potassium 5.6 H 5.2 H (3.5-5.1) mmol/L Chloride 104 114 H (98-107) mmol/L Carbon Dioxide 26 20 L (22-30) mmol/L BUN 37 H 39 H (7-17) mg/dL Creatinine 1.22 H 1.37 H (0.52-1.04) mg/dL Glucose 130 H 90 (74-99) mg/dL Calcium 10.9 H 9.0 (8.4-10.2) mg/dL AST 20 20 (14-36) U/L ALT 14 22 (9-52) U/L Alkaline Phosphatase 85 68 (38-126) U/L Total Protein 7.2 5.3 L (6.3-8.2) g/dL Albumin 4.2 2.9 L (3.5-5.0) g/dL Calcium panel 08/08/18 08/09/18 Range/Units 13:54 08:14 Calcium 10.9 H 9.0 (8.4-10.2) mg/dL Phosphorus 3.8 4.6 H (2.5-4.5) mg/dL Albumin 4.2 2.9 L (3.5-5.0) g/dL Pituitary panel 08/08/18 08/09/18 Range/Units 13:54 08:14 Sodium 138 142 (137-145) mmol/L Potassium 5.6 H 5.2 H (3.5-5.1) mmol/L Chloride 104 114 H (98-107) mmol/L Carbon Dioxide 26 20 L (22-30) mmol/L BUN 37 H 39 H (7-17) mg/dL Creatinine 1.22 H 1.37 H (0.52-1.04) mg/dL Glucose 130 H 90 (74-99) mg/dL Calcium 10.9 H 9.0 (8.4-10.2) mg/dL Adrenal panel 08/08/18 08/09/18 Range/Units 13:54 08:14 Sodium 138 142 (137-145) mmol/L Potassium 5.6 H 5.2 H (3.5-5.1) mmol/L Chloride 104 114 H (98-107) mmol/L Carbon Dioxide 26 20 L (22-30) mmol/L BUN 37 H 39 H (7-17) mg/dL Creatinine 1.22 H 1.37 H (0.52-1.04) mg/dL Glucose 130 H 90 (74-99) mg/dL Calcium 10.9 H 9.0 (8.4-10.2) mg/dL Total Bilirubin 1.6 H 0.9 (0.2-1.3) mg/dL AST 20 20 (14-36) U/L ALT 14 22 (9-52) U/L Alkaline Phosphatase 85 68 (38-126) U/L Total Protein 7.2 5.3 L (6.3-8.2) g/dL Albumin 4.2 2.9 L (3.5-5.0) g/dL Assessment and Plan Assessment: Impression Present on admission fecal impaction constipation History of constipation Present on admission encephalopathy CAT scan abdomen and pelvis done on admission noted rectal fecal impaction with a large rectal fecal ball measuring 11.5 cm CAT scan abdomen and pelvis biliary duct dilatation and hydropic size of the gallbladder with cholelithiasis asymptomatic Chronic debility limited mobility suspect due to comorbidities Present on admission generalized weakness encephalopathy poor oral intake clinical dehydration suspect due to fecal impaction History of Parkinson's disease Depressive disorder nonspecified Plan Initiate a bowel regime IV fluid for hydration Further surgical recommendations pending Fecal Disimpaction recommended repeat labs in the morning IV Zosyn per attending Milk molasses enema now Surgical consultation dictated for Dr. juarez The above impression and plan of care have been discussed and directed by signing physician. Mirna Douglas nurse practitioner acting as scribe for signing physician.
--- NOTE | 2018-08-09 12:14 | P.CNPUL ---
History of Present Illness Consult date: 08/09/18 Requesting physician: Azra Garrido Reason for consult: COPD Chief complaint: Abdominal discomfort History of present illness: This is an 87-year-old female patient who follows with Dr. Santiago as her primary care physician, she has a history of Parkinson's dementia, bipolar disorder, kyphosis, osteoarthritis. She has a history of chronic tobacco dependence and chronic obstructive pulmonary disease on oxygen at 2 L in the outpatient setting. She is maintained on DuoNeb inhalations and Advair. She also has a history of constipation and had been admitted in the past for the same. She was brought in to the hospital yesterday by her daughter as she had complaints of abdominal cramping and fullness. Computed tomography scan of the abdomen confirmed mechanical colonic obstruction with fecal impaction and a large fecal ball measuring 11.5 cm. There was rectal wall thickening suggesting acute on chronic inflammatory process. Left hemicolon his large burden retained colonic stool in there is redundancy of the large bowel. Noted cholelithiasis. There is also a subcentimeter right lower lobe pulmonary nodule. Chest x-ray revealed a left midlung platelike atelectasis, cardiomegaly and COPD. White count 7.2. Hemoglobin 13.2. Creatinine 1.37. She has received 2 L of fluid resuscitation. 0.9 normal saline at 125 ML's per hour. She's been initiated on Zosyn. She has been leaking liquid brown stool. Review of Systems ROS unobtainable: due to mental status Past Medical History Past Medical History: COPD, Osteoarthritis (OA) Additional Past Medical History / Comment(s): lordosis kyphoisis parkensons enlarged heart, curvature of spine History of Any Multi-Drug Resistant Organisms: None Reported Past Surgical History: Appendectomy, Joint Replacement Additional Past Surgical History / Comment(s): bilateral hip sx, Past Anesthesia/Blood Transfusion Reactions: No Reported Reaction Past Psychological History: Bipolar, Depression Smoking Status: Current every day smoker Past Alcohol Use History: None Reported Past Drug Use History: None Reported - Past Family History Mother History Unknown: Yes Additional Family Medical History / Comment(s): brain aneurysm Father History Unknown: Yes Family Medical History: No Reported History Medications and Allergies Home Medications Medication Instructions Recorded Confirmed Type Aspirin EC [Ecotrin Low Dose] 81 mg PO DAILY 08/29/16 08/08/18 History Carbidopa-Levodopa 25-100 mg 1 tab PO TID 08/29/16 08/08/18 History [Sinemet 25-100 mg] Multivitamins, Thera [Multivitamin 1 tab PO DAILY 08/29/16 08/08/18 History (formulary)] Vit C/E/Zn/Coppr/Lutein/Zeaxan 1 cap PO DAILY 08/29/16 08/08/18 History [Preservision Areds 2 Softgel] rOPINIRole HCL [Requip] 1 mg PO TID tab 02/03/17 08/08/18 Rx Furosemide [Lasix] 40 mg PO BID 03/02/18 08/08/18 History Potassium Chloride ER [K-Dur 10] 10 meq PO DAILY 03/02/18 08/08/18 History Docusate Sodium [Dok] 100 mg PO BID 08/08/18 08/08/18 History Fluocinonide 0.05% [Lidex 0.05% 1 applic TOPICAL DAILY 08/08/18 08/08/18 History cream] HYDROcodone/APAP 5-325MG [[place] 1 tab PO Q6H PRN 08/08/18 08/08/18 History 5-325] Ipratropium-Albuterol Nebulize 3 ml INHALATION RT-Q4H PRN 08/08/18 08/08/18 History [Duoneb 0.5 mg-3 mg/3 ml Soln] Lactobacillus Acidophilus 1 tab PO DAILY 08/08/18 08/08/18 History [Acidophilus] [place] Carbonate [[place] 300 mg PO DAILY 08/08/18 08/08/18 History Carbonate ER] Sennosides-Docusate Sodium 1 tab PO BID PRN 08/08/18 08/08/18 History [Senokot-S] Simethicone [Gas-X] 125 mg PO TID 08/08/18 08/08/18 History Allergies Allergy/AdvReac Type Severity Reaction Status Date / Time No Known Allergies Allergy Verified 08/08/18 12:54 Physical Exam Vitals: Vital Signs Temp Pulse Pulse Resp BP BP Pulse Ox 08/09/18 09:42 72 08/09/18 09:29 76 08/09/18 08:09 16 08/09/18 06:25 99.7 F H 60 17 113/57 94 L 08/09/18 04:13 100.2 F H 62 18 120/55 92 L 08/09/18 02:45 99.3 F 60 17 107/56 92 L 08/08/18 23:00 99.9 F H 59 L 17 130/73 91 L 08/08/18 19:56 98.7 F 53 L 17 113/56 93 L 08/08/18 19:26 99.9 F H 55 L 20 116/56 98 08/08/18 18:00 63 22 95 08/08/18 17:33 62 22 106/82 95 08/08/18 17:00 100.3 F H 55 L 20 112/61 08/08/18 15:55 52 L 20 105/45 96 08/08/18 15:00 58 L 22 135/89 95 08/08/18 14:30 69 20 101/87 98 08/08/18 14:00 70 20 127/62 97 08/08/18 11:51 98.2 F 59 L 20 109/52 96 Intake and Output 08/08/18 08/09/18 08/09/18 22:59 06:59 14:59 Output Total 600 900 Balance -600 -900 Output: Urine 600 900 Straight 900 Other: # Voids 1 3 # Bowel Movements 4 Weight 45 kg GENERAL EXAM: Alert, restless appears uncomfortable. HEAD: Normocephalic. EYES: Normal reaction of pupils, equal size. NOSE: Clear with pink turbinates. THROAT: No erythema or exudates. NECK: No masses, no JVD. CHEST: No chest wall deformity. LUNGS: Equal air entry with no crackles, wheeze, rhonchi or dullness. CVS: S1 and S2 normal with no audible murmur, regular rhythm. ABDOMEN: Palpable mass in the right anterior abdomen. SPINE: No scoliosis or deformity SKIN: No rashes CENTRAL NERVOUS SYSTEM: No focal deficits, tone is normal in all 4 extremities. EXTREMITIES: There is no peripheral edema. No clubbing, no cyanosis. Peripheral pulses are intact. Results - Laboratory Findings CBC and BMP: 08/09/18 08:14 08/09/18 08:14 PT/INR, D-dimer PT 9.9 sec (9.0-12.0) 08/08/18 13:54 INR 0.9 (<1.2) 08/08/18 13:54 D-Dimer 0.96 mg/L FEU (<0.60) H 08/08/18 13:54 Abnormal lab findings: Abnormal Labs 08/08/18 08/08/18 08/08/18 13:54 13:54 13:54 WBC 18.4 H Hct 46.3 H MCHC Neutrophils # 16.1 H Lymphocytes # 0.8 L Lymphocytes # (Manual) Monocytes # 1.1 H APTT 20.8 L D-Dimer 0.96 H Potassium 5.6 H Chloride Carbon Dioxide BUN 37 H Creatinine 1.22 H Glucose 130 H Plasma Lactic Acid Christopher Calcium 10.9 H Phosphorus Magnesium 3.0 H Total Bilirubin 1.6 H Total Protein Albumin Amylase 180 H 08/08/18 08/09/18 08/09/18 13:54 08:14 08:14 WBC Hct MCHC 30.5 L Neutrophils # Lymphocytes # Lymphocytes # (Manual) 0.79 L Monocytes # APTT D-Dimer Potassium 5.2 H Chloride 114 H Carbon Dioxide 20 L BUN 39 H Creatinine 1.37 H Glucose Plasma Lactic Acid Christopher 2.1 H* Calcium Phosphorus 4.6 H Magnesium 3.1 H Total Bilirubin Total Protein 5.3 L Albumin 2.9 L Amylase - Diagnostic Findings Chest x-ray: image reviewed Assessment and Plan Assessment: Impression: #1 Abdominal pain with mechanical colonic obstruction secondary to large rectal fecal ball measuring 11.5 cm with rectal wall thickening suggestive of acute on chronic component with surrounding inflammation. Left hemicolon has large burden retained colonic stool and there is redundancy of the large bowel. Cholelithiasis. #2 Altered mental status and febrile illness suspect secondary to metabolic encephalopathy secondary to above. #3 Chronic mid thoracic compression deformities. #4 Subcentimeter right lower lobe pulmonary nodule. #5 Chronic obstructive pulmonary disease. #6 Chronic tobacco dependence. #7 History of constipation. #8 Parkinson's dementia. #9 Bipolar depression. #10 Degenerative joint disease. Plan: The patient was seen and evaluated by Dr. Noguera. Chest x-ray CAT scan and labs were reviewed. The plan is for surgical intervention and removal of the fecal impaction and possible ostomy per surgical services, scheduled for tomorrow morning. Her COPD is currently stable. Will continue DuoNeb inhalations. Add Pulmicort and Perforomist inhalations. Continue Zosyn. We' ll monitor her closely in the postoperative period. We will continue to follow and make further recommendations based on her clinical status. I, the cosigning physician, performed a history & physical examination of the patient. Lungs sounds are clear, diminished. Maintaining good O2 saturations in the 90s on 4 L/m per nasal cannula. I discussed the assessment and plan of care with my nurse practitioner, Elisa Rodriguez. I attest to the above note as dictated by her. Time with Patient: Greater than 30
--- NOTE | 2018-08-09 13:40 | ED ---
Medical Decision Making - Medical Decision Making ekg interpretation - Lab Data Result diagrams: 08/09/18 08:14 08/09/18 08:14 Lab Results 08/08/18 08/08/18 08/08/18 Range/Units 13:54 13:54 13:54 WBC 18.4 H (3.8-10.6) k/uL RBC 4.97 (3.80-5.40) m/uL Hgb 14.6 (11.4-16.0) gm/dL Hct 46.3 H (34.0-46.0) % MCV 93.0 (80.0-100.0) fL MCH 29.3 (25.0-35.0) pg MCHC 31.5 (31.0-37.0) g/dL RDW 14.1 (11.5-15.5) % Plt Count 252 (150-450) k/uL Neutrophils % 87 % Lymphocytes % 4 % Monocytes % 6 % Eosinophils % 1 % Basophils % 0 % Neutrophils # 16.1 H (1.3-7.7) k/uL Lymphocytes # 0.8 L (1.0-4.8) k/uL Monocytes # 1.1 H (0-1.0) k/uL Eosinophils # 0.1 (0-0.7) k/uL Basophils # 0.0 (0-0.2) k/uL PT 9.9 (9.0-12.0) sec INR 0.9 (<1.2) APTT 20.8 L (22.0-30.0) sec D-Dimer 0.96 H (<0.60) mg/L FEU Sodium 138 (137-145) mmol/L Potassium 5.6 H (3.5-5.1) mmol/L Chloride 104 (98-107) mmol/L Carbon Dioxide 26 (22-30) mmol/L Anion Gap 8 mmol/L BUN 37 H (7-17) mg/dL Creatinine 1.22 H (0.52-1.04) mg/dL Est GFR (CKD-EPI)AfAm 47 (>60 ml/min/1.73 sqM) Est GFR (CKD-EPI)NonAf 41 (>60 ml/min/1.73 sqM) Glucose 130 H (74-99) mg/dL Lactic Ac Sepsis Rflx Plasma Lactic Acid Christopher (0.7-2.0) mmol/L Calcium 10.9 H (8.4-10.2) mg/dL Phosphorus 3.8 (2.5-4.5) mg/dL Magnesium 3.0 H (1.6-2.3) mg/dL Total Bilirubin 1.6 H (0.2-1.3) mg/dL AST 20 (14-36) U/L ALT 14 (9-52) U/L Alkaline Phosphatase 85 (38-126) U/L Creatine Kinase (30-135) U/L Troponin I (0.000-0.034) ng/mL NT-Pro-B Natriuret Pep pg/mL Total Protein 7.2 (6.3-8.2) g/dL Albumin 4.2 (3.5-5.0) g/dL Amylase 180 H (30-110) U/L Lipase 25 (23-300) U/L Urine Color Urine Appearance (Clear) Urine pH (5.0-8.0) Ur Specific [place] (1.001-1.035) Urine Protein (Negative) Urine Glucose (UA) (Negative) Urine Ketones (Negative) Urine Blood (Negative) Urine Nitrite (Negative) Urine Bilirubin (Negative) Urine Urobilinogen (<2.0) mg/dL Ur Leukocyte Esterase (Negative) 08/08/18 08/08/18 08/08/18 Range/Units 13:54 13:54 13:54 WBC (3.8-10.6) k/uL RBC (3.80-5.40) m/uL Hgb (11.4-16.0) gm/dL Hct (34.0-46.0) % MCV (80.0-100.0) fL MCH (25.0-35.0) pg MCHC (31.0-37.0) g/dL RDW (11.5-15.5) % Plt Count (150-450) k/uL Neutrophils % % Lymphocytes % % Monocytes % % Eosinophils % % Basophils % % Neutrophils # (1.3-7.7) k/uL Lymphocytes # (1.0-4.8) k/uL Monocytes # (0-1.0) k/uL Eosinophils # (0-0.7) k/uL Basophils # (0-0.2) k/uL PT (9.0-12.0) sec INR (<1.2) APTT (22.0-30.0) sec D-Dimer (<0.60) mg/L FEU Sodium (137-145) mmol/L Potassium (3.5-5.1) mmol/L Chloride (98-107) mmol/L Carbon Dioxide (22-30) mmol/L Anion Gap mmol/L BUN (7-17) mg/dL Creatinine (0.52-1.04) mg/dL Est GFR (CKD-EPI)AfAm (>60 ml/min/1.73 sqM) Est GFR (CKD-EPI)NonAf (>60 ml/min/1.73 sqM) Glucose (74-99) mg/dL Lactic Ac Sepsis Rflx Plasma Lactic Acid Christopher 2.1 H* (0.7-2.0) mmol/L Calcium (8.4-10.2) mg/dL Phosphorus (2.5-4.5) mg/dL Magnesium (1.6-2.3) mg/dL Total Bilirubin (0.2-1.3) mg/dL AST (14-36) U/L ALT (9-52) U/L Alkaline Phosphatase (38-126) U/L Creatine Kinase (30-135) U/L Troponin I <0.012 (0.000-0.034) ng/mL NT-Pro-B Natriuret Pep 511 pg/mL Total Protein (6.3-8.2) g/dL Albumin (3.5-5.0) g/dL Amylase (30-110) U/L Lipase (23-300) U/L Urine Color Urine Appearance (Clear) Urine pH (5.0-8.0) Ur Specific [place] (1.001-1.035) Urine Protein (Negative) Urine Glucose (UA) (Negative) Urine Ketones (Negative) Urine Blood (Negative) Urine Nitrite (Negative) Urine Bilirubin (Negative) Urine Urobilinogen (<2.0) mg/dL Ur Leukocyte Esterase (Negative) 08/08/18 08/08/18 08/08/18 Range/Units 13:54 14:45 15:50 WBC (3.8-10.6) k/uL RBC (3.80-5.40) m/uL Hgb (11.4-16.0) gm/dL Hct (34.0-46.0) % MCV (80.0-100.0) fL MCH (25.0-35.0) pg MCHC (31.0-37.0) g/dL RDW (11.5-15.5) % Plt Count (150-450) k/uL Neutrophils % % Lymphocytes % % Monocytes % % Eosinophils % % Basophils % % Neutrophils # (1.3-7.7) k/uL Lymphocytes # (1.0-4.8) k/uL Monocytes # (0-1.0) k/uL Eosinophils # (0-0.7) k/uL Basophils # (0-0.2) k/uL PT (9.0-12.0) sec INR (<1.2) APTT (22.0-30.0) sec D-Dimer (<0.60) mg/L FEU Sodium (137-145) mmol/L Potassium (3.5-5.1) mmol/L Chloride (98-107) mmol/L Carbon Dioxide (22-30) mmol/L Anion Gap mmol/L BUN (7-17) mg/dL Creatinine (0.52-1.04) mg/dL Est GFR (CKD-EPI)AfAm (>60 ml/min/1.73 sqM) Est GFR (CKD-EPI)NonAf (>60 ml/min/1.73 sqM) Glucose (74-99) mg/dL Lactic Ac Sepsis Rflx Y Plasma Lactic Acid Christopher (0.7-2.0) mmol/L Calcium (8.4-10.2) mg/dL Phosphorus (2.5-4.5) mg/dL Magnesium (1.6-2.3) mg/dL Total Bilirubin (0.2-1.3) mg/dL AST (14-36) U/L ALT (9-52) U/L Alkaline Phosphatase (38-126) U/L Creatine Kinase 78 (30-135) U/L Troponin I (0.000-0.034) ng/mL NT-Pro-B Natriuret Pep pg/mL Total Protein (6.3-8.2) g/dL Albumin (3.5-5.0) g/dL Amylase (30-110) U/L Lipase (23-300) U/L Urine Color Dark Brown Urine Appearance Clear (Clear) Urine pH 7.5 (5.0-8.0) Ur Specific [place] 1.012 (1.001-1.035) Urine Protein Negative (Negative) Urine Glucose (UA) Negative (Negative) Urine Ketones Negative (Negative) Urine Blood Negative (Negative) Urine Nitrite Negative (Negative) Urine Bilirubin Negative (Negative) Urine Urobilinogen 3.0 (<2.0) mg/dL Ur Leukocyte Esterase Negative (Negative) - EKG Data -: EKG Interpreted by Me (and Dr. Ann ) EKG Comments: 1) Ventricular rate 54, QRS 94, QTC QTC 450 since 426, severely limited secondary to artifact. No ST elevation noted. No concerns for acute ischemia. 2) ventricular rate 58, LA interval 152, QRS 96, QT/QTc 434/426. Sinus bradycardia. Left anterior fascicular block. Nonspecific T-wave abnormality. Disposition Clinical Impression: Abdominal pain Disposition: ADMITTED IP TO THIS HOSP Is patient prescribed a controlled substance at d/c from ED?: No
[2018-08-09] MEDS: SODIUM CHLORIDE 0.9% 1,000 ML IV SCH (13:55)
--- NOTE | 2018-08-09 17:18 | PN ---
PROGRESS NOTE DATE OF SERVICE: 08/09/2018 This 87-year-old woman who was admitted with change in mental status also had acute sepsis and bowel obstruction. The patient was seen by Surgery today for possible surgery. CT scan of the abdomen was reviewed. The patient was also seen by Pulmonary. Patient is being closely monitored at this time. A mechanical obstruction with large rectal fecal ball was noted. Hard mass was felt on palpation of the anterior abdominal wall also. The patient is unable to give coherent history at this time. Past medical history reviewed. REVIEW OF SYSTEMS: Review of systems could not be taken because of the above-mentioned medical history. PHYSICAL EXAMINATION: Patient is stuporous. Pulse 60, blood pressure 113/57, respirations 17, temperature 99.7, T-max 100.2, pulse ox 94% on 4 L. HEENT: Conjunctivae normal. NECK: No jugular venous distention. CARDIOVASCULAR SYSTEM: S1, S2 muffled. RESPIRATORY SYSTEM: Breath sounds diminished at the bases. Bilateral scattered rhonchi and crackles. ABDOMEN: Diffuse distention. Diffuse peristalsis noted. Diffuses hard masses, possibly fecal impaction. LEGS: No edema. No swelling. NERVOUS SYSTEM: Diffusely weak. LABS: WBC 7.2, hemoglobin 13.2, sodium 142, potassium 4.2, creatinine 1.37. [place] is 1. ASSESSMENT: 1. Acute mechanical bowel obstruction with possible sepsis. 2. Change in mental status, possible acute metabolic encephalopathy secondary to sepsis. 3. Constipation and bowel obstruction. 4. Increased white count. 5. Increased creatinine with possible acute renal failure, mild. 6. Chronic obstructive pulmonary disease. 7. Degenerative joint disease. 8. History of Parkinson's. 9. History of joint replacement. 10.History of bipolar, depression. 11.History nicotine dependence. 12.FULL CODE. RECOMMENDATIONS AND DISCUSSION: At this time I recommend to continue current medication, continue symptomatic treatment, continue to optimize the antibiotics. Follow the cultures. IV fluids cautiously. Continue to monitor. Pulmonary consultation noted. Patient is cleared for surgery with some added risk because of the patient's advanced age and multiple medical issues. However, patient is being closely monitored at this time. Further recommendations to follow. MMODL / IJN: [id number] /
[2018-08-09] MEDS ORDERED: DEXAMETHASONE SOD PHOSPHATE 10 MG/ML 1 ML VIAL IV ONE (18:37)
[2018-08-09] MEDS ORDERED: ONDANSETRON 4 MG/2 ML VIAL IVP ONE (18:37)
[2018-08-09] MEDS ORDERED: HYDROmorphone 0.5 MG/0.5 ML SYRINGE IVP PRN (18:37)
[2018-08-09] MEDS ORDERED: LIDOCAINE 1% 20 ML VIAL (10MG/ML) FOR IV START INTRADERMA PRN (18:37)
[2018-08-09] MEDS ORDERED: fentaNYL (PF) 50 MCG/ML 2 ML AMP IV PRN (18:37)
[2018-08-09] MEDS ORDERED: MIDAZOLAM (PF) 2 MG/2 ML VIAL IV PRN (18:37)
[2018-08-09] MEDS ORDERED: LACTATED RINGERS 1,000 ML IV SCH (18:45)
[2018-08-09] MEDS: FORMOTEROL FUMARATE 20 MCG/2 ML NEBU INHALATION SCH (21:13)
[2018-08-09] MEDS: BUDESONIDE 1 MG/2 ML NEBU INHALATION SCH (21:14)
[2018-08-10] MEDS: SODIUM CHLORIDE 0.9% 1,000 ML IV SCH ×6 (00:16→18:23)
[2018-08-10] MEDS: BUDESONIDE 1 MG/2 ML NEBU INHALATION SCH ×2 (07:14→20:06)
[2018-08-10] MEDS: FORMOTEROL FUMARATE 20 MCG/2 ML NEBU INHALATION SCH ×2 (07:14→20:07)
[2018-08-10] MEDS: IPRATROPIUM-ALBUTEROL 3 ML NEB INHALATION SCH ×4 (07:14→20:06)
[2018-08-10] MEDS: MORPHINE SULFATE 2 MG/ML SYRINGE IVP PRN (08:03)
[2018-08-10] MEDS: PIPERACILLIN-TAZOBACTAM 3.375 GM in SODIUM CHLORIDE 0.9% 100 ML IVPB SCH ×2 (08:03→18:17)
[2018-08-10] MEDS: PANTOPRAZOLE 40 MG/10 ML VIAL IVP SCH (08:03)
--- NOTE | 2018-08-10 08:10 | P.PN ---
Progress Note - Text Progress Note Date: 08/10/18 I discussed the issue of the colon obstruction with the patient's daughter Ele. I discussed through the patiently going to the operating room today for her mechanical colonic obstruction due to fecal impaction. I discussed the risk of possible colostomy and bowel resection.
[2018-08-10] MEDS ORDERED: IV FLUID CONTINUATION 1,000 ML IV ONE (08:45)
[2018-08-10] MEDS ORDERED: HEPARIN SODIUM,PORCINE 5,000 UNIT/ML 1 ML VIAL SQ STA (08:58)
[2018-08-10 08:59] LABS: HCT 50.5 % (34.0-46.0); HGB 14.8 gm/dL (11.4-16.0); Hypochromasia Marked; MCH 28.8 pg (25.0-35.0); MCHC 29.3 g/dL (31.0-37.0); MCV 98.4 fL (80.0-100.0); Mean Platelet Volume 7.2; Platelet Count 238 k/uL (150-450); RBC 5.13 m/uL (3.80-5.40); RDW 14.5 % (11.5-15.5); WBC 8.5 k/uL (3.8-10.6)
[2018-08-10] MEDS ORDERED: ceFAZolin 1,000 MG in DEXTROSE/WATER 1 50ML.BAG IVPB STA (09:02)
[2018-08-10 09:03] LABS: Calcium 8.7 mg/dL (8.4-10.2); Potassium 5.3 mmol/L (3.5-5.1)
[2018-08-10] MEDS ORDERED: PHENYLEPHRINE-0.9% NACL SYG 1 MG/10 ML SYRINGE ONE (09:47)
[2018-08-10] MEDS ORDERED: fentaNYL (PF) 50 MCG/ML 2 ML AMP ONE (09:47)
[2018-08-10] MEDS ORDERED: PROPOFOL 10 MG/ML 20 ML VIAL IV ONE (09:47)
[2018-08-10] MEDS ORDERED: LIDOCAINE 1% INJ 10MG/ML (20 ML MDV) ONE (09:47)
[2018-08-10] MEDS ORDERED: ePHEDrine SULFATE/0.9% NACL/PF 50 MG/5 ML SYRINGE IV ONE (09:47)
[2018-08-10] MEDS ORDERED: HYDROmorphone (PF) 1 MG/ML ONE (09:47)
[2018-08-10] MEDS ORDERED: GLYCOPYRROLATE 0.2 MG/ML 2 ML VIAL ONE (09:47)
[2018-08-10] MEDS ORDERED: NEOSTIGMINE 1 MG/ML 10 ML VIAL ONE (09:47)
[2018-08-10] MEDS ORDERED: ROCURONIUM BROMIDE 10 MG/ML 10 ML VIAL IV ONE (09:47)
[2018-08-10] MEDS ORDERED: ONDANSETRON 4 MG/2 ML VIAL ONE (09:47)
[2018-08-10] MEDS: CARBIDOPA-LEVODOPA 25-100 MG 1 EACH TAB PO SCH ×3 (10:24→22:21)
[2018-08-10] MEDS ORDERED: LACTATED RINGERS 1,000 ML IV ONE ×2 (10:40→11:20)
[2018-08-10 10:49] LABS: Band Neutrophils % 13 %; Lymphocytes # (M) 0.85 k/uL (1.0-4.8); Metamyelocytes # (M) 0.26 k/uL (0); Metamyelocytes % 3 %; Monocytes # (M) 0.85 k/uL (0-1.0); Myelocytes # (M) 0.09 k/uL (0); Myelocytes % 1 %; Neutrophils % (M) 65 %; Nucleated Red Blood Cells 0 /100 WBC (0-0); Total Cells Counted 200; Toxic Granulation Present; Toxic Vacuolation Present
[2018-08-10 10:50] LABS: Polychromasia Present
[2018-08-10] MEDS ORDERED: BENZOCAINE/MENTHOL LOZENG 1 EACH LOZENGE MUCOUS MEM PRN (12:34)
[2018-08-10] MEDS ORDERED: ONDANSETRON 4 MG/2 ML VIAL IVP PRN (12:34)
[2018-08-10] MEDS ORDERED: HYDROmorphone 1 MG/ML 1 ML SYRINGE IVP PRN (12:34)
[2018-08-10] MEDS ORDERED: METOCLOPRAMIDE 5 MG/ML 2 ML VIAL IVP PRN (12:34)
[2018-08-10 12:46] LABS: Glucose,Whole Blood 124 mg/dL (75-99)
--- NOTE | 2018-08-10 12:57 | P.OP ---
Date of Procedure: 08/10/18 Preoperative Diagnosis: Colonic obstruction Postoperative Diagnosis: Colonic obstruction secondary to fecal impaction Pneumatosis of rectum Cholecystitis Procedure(s) Performed: Exploratory laparotomy Lysis of adhesions Left colectomy Takedown of splenic flexure Splenectomy Cholecystectomy Anesthesia: REBECCA Surgeon: Devin Klein Estimated Blood Loss (ml): 100 Pathology: other (Left colon, spleen, gallbladder) Condition: critical Disposition: ICU Description of Procedure: The patient's placed the operative table in the dorsal lithotomy position. She is received IV and then general anesthesia. The patient had a attempt at manual disimpaction prior to this prepping. There was a very large stool ball within the rectum which could not be withdrawn. At this point the patient was prepped and draped usual sterile fashion. The patient had an obvious colonic obstruction. This could be seen through the abdominal wall. The skin was incised in the midline. And then and then adhesions were lysed in the midline from previous midline scar. The left colon and rectum were massively dilated. The rectum measured approximately 20 cm in diameter. There was a large stool impaction causing the obstruction. At this point a suitable spot on the left colon was transected. The bowel was transected with a GI stapler. The stool impaction was milked back into the proximal colon. And then using the Enseal device the mesentery the bowel was divided. The rectum was then transected with the YOSVANY stapler. A green cartridge was used to thickening this of the rectum. 2 staple loads were required to transect the rectum. The specimens of pathology. The remaining left colon was very redundant and full of stool. It was decided to perform a left hemicolectomy due to the bowel obstruction. The splenic x-ray was taken down using the Enseal device. During mobilization slipped flexure there was a small splenic capsule tear. Several attempts were made to stop bleeding from this however this wasn't possible and then at this point a splenectomy was performed by mobilizing spleen is Vancil device and then ligating the hilum was spleen between 0 silk ties. The spleen was sent to pathology. The transverse colon was then divided using the linear stapler and then the specimen was sent to pathology. At this point the right colon was evaluated it appeared to be viable. The hepatic flexure was seen. And then a massive gallbladder was visualized. The gallbladder measured approximately 20 cm in length and was quite inflamed. At this point a cholestatic was performed. The gallbladder was removed from liver bed using left cautery. And then the cystic artery was ligated with 0 silk tie and the cystic duct was divided with 0 silk ties. Specimen was sent to pathology. The abdomen was irrigated there is no bleeding seen. A suitable spot for the colostomy was made on the left, wall and the colon was brought up into the colostomy site. The fascia was closed with looped #1 PDS suture. Skin was closed with dora. The colostomy was then matured with 3-0 Vicryl suture. Sterile dressing was then applied. Patient was sent to recovery in critical condition.
[2018-08-10] MEDS ORDERED: D5-0.45% NACL WITH KCL 20MEQ/L 1,000 ML IV SCH (13:00)
[2018-08-10 13:25] LABS: ABG Base Excess -10.9 mmol/L; ABG HCO3 18 mmol/L (21-25); ABG Oxygen Saturation 98.1 % (94-97); ABG PCO2 56 mmHg (35-45); ABG PH 7.13 (7.35-7.45); ABG PO2 400 mmHg (83-108); ABG TCO2 20 mmol/L (19-24)
[2018-08-10] MEDS ORDERED: SODIUM BICARB SYR (1 MEQ/ML) 10 ML SYRINGE IV ONE (13:37)
[2018-08-10] MEDS ORDERED: SODIUM BICARB 8.4% 50 ML VIAL (1 MEQ/ML) IV ONE ×2 (13:44→13:50)
[2018-08-10] MEDS ORDERED: LORazepam 2 MG/ML INJ IV ONE (13:45)
--- NOTE | 2018-08-10 14:07 | XR ---
EXAMINATION TYPE: XR chest 1V DATE OF EXAM: 08/10/2018 COMPARISON: Prior chest 08/08/2018 HISTORY: Intubated TECHNIQUE: Single frontal view of the chest is obtained. FINDINGS: Patient is rotated. Right jugular central venous catheter is present, distal tip in the ri ght atrium. Endotracheal tube is overlying the tracheal air column in appropriate position. There is no evident pneumothorax. There are overlying cardiac leads. Heart is enlarged. Interstitium somewhat increased. Patchy bibasilar density is noted. IMPRESSION: Rotated exam. No evident complication status post intubation and central venous catheter placement. Follow-up recommended. Probable basilar atelectasis, cardiomegaly.
[2018-08-10 14:47] LABS: Glucose,Whole Blood 121 mg/dL (75-99)
--- NOTE | 2018-08-10 14:56 | P.PCN ---
Date of Procedure: 08/10/18 Preoperative Diagnosis: Colonic obstruction secondary to fecal impaction Pneumatosis of rectum Postoperative Diagnosis: Same Procedure(s) Performed: Right internal jugular triple-lumen catheter placement Implants: None Anesthesia: local Surgeon: Brody Eden Estimated Blood Loss (ml): 5 IV fluids (ml): 100 Urine output (ml): 5 Pathology: none sent Condition: critical Disposition: ICU Indications for Procedure: Critically ill patient requiring fluid resuscitation and vasoactive infusions. Operative Findings: None Description of Procedure: Right IJ triple-lumen catheter placement. Cap, mask, sterile gown, and sterile gloves. Sterile prep and drape of the right neck. 20 Trendelenburg. Modified Seldinger technique without difficulty. Chest x-ray has been ordered.
[2018-08-10 15:01] LABS: ABG Base Excess -3.6 mmol/L; ABG HCO3 23 mmol/L (21-25); ABG PCO2 46 mmHg (35-45); ABG PO2 >400 mmHg (83-108); ABG TCO2 24 mmol/L (19-24)
[2018-08-10] MEDS ORDERED: PROPOFOL 1,000 MG in EMPTY BAG 1 BAG IV SCH (15:30)
--- NOTE | 2018-08-10 16:04 | P.PN ---
Subjective Progress Note Date: 08/10/18 Principal diagnosis: Chronic obstruction secondary to fecal impaction, status post exploratory laparotomy, lysis of adhesions, left colectomy, takedown of splenic flexure, splenectomy, cholecystectomy. Postoperative day #0. This is an 87-year-old female patient who follows with Dr. Santiago as her primary care physician, she has a history of Parkinson's dementia, bipolar disorder, kyphosis, osteoarthritis. She has a history of chronic tobacco dependence and chronic obstructive pulmonary disease on oxygen at 2 L in the outpatient setting. She is maintained on DuoNeb inhalations and Advair. She also has a history of constipation and had been admitted in the past for the same. She was brought in to the hospital yesterday by her daughter as she had complaints of abdominal cramping and fullness. Computed tomography scan of the abdomen confirmed mechanical colonic obstruction with fecal impaction and a large fecal ball measuring 11.5 cm. There was rectal wall thickening suggesting acute on chronic inflammatory process. Left hemicolon his large burden retained colonic stool in there is redundancy of the large bowel. Noted cholelithiasis. There is also a subcentimeter right lower lobe pulmonary nodule. Chest x-ray revealed a left midlung platelike atelectasis, cardiomegaly and COPD. White count 7.2. Hemoglobin 13.2. Creatinine 1.37. She has received 2 L of fluid resuscitation. 0.9 normal saline at 125 ML's per hour. She's been initiated on Zosyn. She has been leaking liquid brown stool. Patient was reevaluated today on 08/10/2018, patient came back to the ICU, she underwent surgery this morning. The surgery consisted of expiratory laparotomy , lysis of adhesions, left colectomy, splenectomy, and cholecystectomy. Patient was extubated postoperatively, however she was noted to hypoventilate, and she had to be reintubated and transferred to the ICU. I saw the patient in the ICU, she is now on mechanical ventilation. Her vent settings are tidal volume 350 assist-control rate of 16 FiO2 of 40%, and PEEP of 5. ABG showed a pO2 of more than 400 pCO2 of 46 pH of 7.30. Chest x-ray was reviewed and it showed the endotracheal tube to be distal almost in the raymno. And this was pulled out about to see him. Hemodynamics-morfin, the blood pressure is marginal , and the urine output is marginal as I recommended more fluid boluses and no need for naps norepinephrine at this point yet. Patient is already on antibiotics in the form of Zosyn she is not requiring any sedation will likely addressed extubation in the next 24 hours. I did recommend more fluids to be given and a liter of fluid boluses to be given today. Patient is sedated, on mechanical ventilation. Objective - Vital Signs Vital signs: Vital Signs Temp 97.7 F 08/10/18 14:25 Pulse 68 08/10/18 15:50 Resp 20 08/10/18 15:00 BP 100/50 08/10/18 13:56 Pulse Ox 100 08/10/18 15:00 Intake & Output 08/09/18 08/10/18 08/10/18 18:59 06:59 18:59 Intake Total 2625 Output Total 650 500 475 Balance -650 -500 2150 Intake: IV 2625 Lactated ringers 125 Output: Urine 650 500 375 Estimated Blood Loss 100 Other: Voiding Method Indwelling Catheter Indwelling Catheter # Voids 0 # Bowel Movements 4 2 ABP, PAP, CO, CI - Last Documented Arterial Blood Pressure 84/47 - Exam Physical Exam: Revealed an 87-year-old female in no distress, on mechanical ventilation. HEENT: PERRLA, EOMI, no icterus, endotracheal tube and orogastric tube are intact. Neck supple no neck masses no JVD. HEENT:[Neck is supple.] [No neck masses.] [No thyromegaly.] [No JVD.] Chest: [Clear throughout, no crackles, no rhonchi, no wheezes.] Cardiac Exam: [Normal S1 and S2, no S3 gallop, no murmur.] Abdomen: [Postsurgical, nontender, no rebound, no guarding, surgical site is covered, negative bowel sounds..] Extremities: [No clubbing, no edema, no cyanosis.] Neurological Exam: Cannot be assessed, patient is sedated, he just came back from the operating room to the ICU. - Labs CBC & Chem 7: 08/10/18 08:17 08/10/18 08:17 Labs: Abnormal Lab Results - Last 24 Hours (Table) 08/10/18 08/10/18 08/10/18 Range/Units 08:17 08:17 12:43 Hct 50.5 H (34.0-46.0) % MCHC 29.3 L (31.0-37.0) g/dL Lymphocytes # (Manual) 0.85 L (1.0-4.8) k/uL Metamyelocytes # (Man) 0.26 H (0) k/uL Myelocytes # (Manual) 0.09 H (0) k/uL ABG pH (7.35-7.45) ABG pCO2 (35-45) mmHg ABG pO2 (83-108) mmHg ABG HCO3 (21-25) mmol/L ABG O2 Saturation (94-97) % Potassium 5.3 H (3.5-5.1) mmol/L Chloride 120 H (98-107) mmol/L Carbon Dioxide 14 L (22-30) mmol/L BUN 44 H (7-17) mg/dL Creatinine 1.39 H (0.52-1.04) mg/dL Glucose 123 H (74-99) mg/dL POC Glucose (mg/dL) 124 H (75-99) mg/dL 08/10/18 08/10/18 08/10/18 Range/Units 13:17 14:34 14:57 Hct (34.0-46.0) % MCHC (31.0-37.0) g/dL Lymphocytes # (Manual) (1.0-4.8) k/uL Metamyelocytes # (Man) (0) k/uL Myelocytes # (Manual) (0) k/uL ABG pH 7.13 L* 7.30 L (7.35-7.45) ABG pCO2 56 H 46 H (35-45) mmHg ABG pO2 400 H >400 H (83-108) mmHg ABG HCO3 18 L (21-25) mmol/L ABG O2 Saturation 98.1 H 100.0 H (94-97) % Potassium (3.5-5.1) mmol/L Chloride (98-107) mmol/L Carbon Dioxide (22-30) mmol/L BUN (7-17) mg/dL Creatinine (0.52-1.04) mg/dL Glucose (74-99) mg/dL POC Glucose (mg/dL) 121 H (75-99) mg/dL Microbiology - Last 24 Hours (Table) 08/09/18 05:20 Urine Culture - Final Urine,Catheterized 08/08/18 13:54 Blood Culture - Preliminary Blood No Growth after 24 hours Assessment and Plan Assessment: Impression: 1 acute colonic obstruction secondary to fecal impaction 2 status post expiratory laparotomy, lysis of adhesions, left colectomy, splenectomy, and cholecystectomy. 3 postoperative hypoxic respiratory failure, expected requiring another day of mechanical ventilation. 4 acute metabolic encephalopathy on presentation, 5 chronic mid thoracic compression deformities 6 nonspecific pulmonary nodule needs to be monitored on outpatient basis 7 chronic tobacco dependence 8 chronic obstructive pulmonary disease presently inactive 9 Parkinson's dementia 10 bipolar depression 11 history of chronic constipation. Recommendation: Reviewed the chest x-ray, reviewed all the labs, reviewed the ABG, reviewed the ventilator settings, reviewed the medications given, my plan is to keep the patient on mechanical ventilation tonight, we'll give her volume in the form of 0.9 normal saline, monitor her urine output, give her GI and DVT prophylaxis, and will address weaning and possibly extubation tomorrow if possible. At this point in time, patient will need to have more volume, continue antibiotics, and will follow closely. Critical care time is 35 minutes. Time with Patient: Greater than 30
[2018-08-10] MEDS: FAMOTIDINE 20 MG/2 ML VIAL IV SCH (16:50)
[2018-08-10] MEDS ORDERED: SODIUM CHLORIDE 0.9% 1,500 ML IV ONE (17:20)
--- NOTE | 2018-08-10 17:22 | XR ---
EXAMINATION TYPE: XR chest 1V DATE OF EXAM: 08/10/2018 COMPARISON: 4 hours ago HISTORY: Check tube placement TECHNIQUE: Single frontal view of the chest is obtained. FINDINGS: There is endotracheal tube with the tip 6 cm from the raymon. There is nasogastric tube in good position. There is right jugular catheter with the tip over the right atrium. No pneumothorax. No heart failure. Mild patchy subsegmental atelectasis in both lungs. There are chest leads. IMPRESSION: Patchy atelectasis unchanged. Tubing in good position.
[2018-08-10] MEDS ORDERED: SODIUM CHLORIDE 0.9% 1,000 ML IV ONE (18:15)
[2018-08-10 18:57] LABS: Glucose,Whole Blood 116 mg/dL (75-99)
[2018-08-10] MEDS ORDERED: NOREPINEPHRINE 16 MG in SODIUM CHLORIDE 0.9% 250 ML IV SCH (19:30)
--- NOTE | 2018-08-10 20:49 | PN ---
PROGRESS NOTE DATE OF SERVICE: 08/10/2018 DATE OF SERVICE: This 87-year-old woman who was admitted with acute mechanical bowel obstruction and sepsis, underwent exploratory laparotomy as well as lysis of adhesions and left colectomy and takedown splenic flexure, splenectomy and cholecystectomy with Dr. Klein. Postoperatively, the patient is mechanically intubated and monitored in ICU at this time. The patient is rather drowsy at this time. Past medical history reviewed. REVIEW OF SYMPTOMS: Could not be taken because the patient mechanically intubated. CURRENT MEDICATIONS ARE: Reviewed and include: 1. Tylenol 650 q.6h. 2. DuoNeb q.i.d. and p.r.n. 3. Cepacol. 4. Pulmicort 1 mg b.i.d. 5. Sinemet 25/100 p.o. t.i.d. 6. Peridex. 7. Pepcid. 8. Perforomist 20 mg b.i.d. 9. Dilaudid. 10.Reglan. 11.Morphine sulfate. 12.Zofran. 13.Zosyn 3.375 IV q.8h. PHYSICAL EXAM: Patient is mechanically ventilated and sedated. Pulse 69, blood pressure 80/46, respiration 21, temperature is normal. Pulse ox 100 percent on 40% mechanical vent settings are noted. HEENT: Conjunctivae normal. Oral mucosa moist. NECK is no jugular venous distention. No carotid bruit. No lymph node enlargement. CARDIOVASCULAR SYSTEM: S1, S2 muffled. RESPIRATORY SYSTEM: Breath sounds diminished at the bases. A few scattered rhonchi and crackles. ABDOMEN: Soft, status post surgery. LEGS: No edema. No swelling. CENTRAL NERVOUS SYSTEM: The patient is mechanically sedated. LAB STUDIES: ABGs pH of 7.13. Other labs, WBC 8.4, hemoglobin is 14.8. Sodium 140, potassium 4.5, creatinine is 1.39. ASSESSMENT: 1. Colonic obstruction secondary to fecal impaction and pneumatosis of rectum and cholecystitis. 2. Mechanical obstruction, bowel obstruction with possible sepsis, status post exploratory laparotomy, lysis of adhesions, left colectomy, takedown splenic flexure and splenectomy and cholecystectomy. 3. Postoperative acute respiratory failure on mechanical ventilation. 4. Change in mental status, metabolic encephalopathy secondary to sepsis. 5. Increased WBC. 6. Increased creatinine with acute renal failure. 7. Chronic obstructive pulmonary disease. 8. Degenerative joint disease. 9. History of Parkinson's. 10.History of bipolar depression. 11.History of nicotine dependence. 12.FULL CODE. RECOMMENDATIONS AND DISCUSSION: Recommend to continue current management. Continue with symptomatic treatment. Continue mechanical ventilation. Intensive bronchodilators as mentioned earlier as detailed above. We will continue with IV resuscitations. Monitor creatinine closely. Otherwise monitor urine output. Continue with broad-spectrum IV antibiotics and cultures are negative so far. Follow closely with multiple consultants, including Pulmonary and General surgery. Further recommendations recommendations to follow. See orders for details. MMODL / IJN: [id number] / MTDD
[2018-08-10] MEDS ORDERED: FAMOTIDINE 20 MG/2 ML VIAL IV SCH (21:00)
[2018-08-10] MEDS: CHLORHEXIDINE GLUCONATE 15 ML CUP MUCOUS MEM SCH (21:30)
[2018-08-10] MEDS: IPRATROPIUM-ALBUTEROL 3 ML NEB INHALATION PRN (22:54)
[2018-08-11 00:07] LABS: Glucose,Whole Blood 81 mg/dL (75-99)
[2018-08-11] MEDS: PIPERACILLIN-TAZOBACTAM 3.375 GM in SODIUM CHLORIDE 0.9% 100 ML IVPB SCH ×3 (00:19→15:57)
[2018-08-11] MEDS: SODIUM CHLORIDE 0.9% 1,000 ML IV SCH ×2 (00:20→09:13)
[2018-08-11] MEDS: MORPHINE SULFATE 2 MG/ML SYRINGE IVP PRN (01:37)
[2018-08-11] MEDS: IPRATROPIUM-ALBUTEROL 3 ML NEB INHALATION PRN ×2 (03:07→23:33)
[2018-08-11 05:28] LABS: Glucose,Whole Blood 96 mg/dL (75-99)
[2018-08-11 06:01] LABS: HCT 41.4 % (34.0-46.0); HGB 12.4 gm/dL (11.4-16.0); Hypochromasia Marked; MCH 28.7 pg (25.0-35.0); MCHC 29.9 g/dL (31.0-37.0); MCV 95.9 fL (80.0-100.0); Mean Platelet Volume 8.1; Platelet Count 253 k/uL (150-450); RBC 4.31 m/uL (3.80-5.40); WBC 13.7 k/uL (3.8-10.6)
[2018-08-11 06:09] LABS: Calcium 7.2 mg/dL (8.4-10.2); Magnesium 2.6 mg/dL (1.6-2.3); Phosphorus 3.9 mg/dL (2.5-4.5); Potassium 4.2 mmol/L (3.5-5.1)
[2018-08-11 06:14] LABS: Lymphocytes # (M) 0.69 k/uL (1.0-4.8); Nucleated Red Blood Cells 0 /100 WBC (0-0)
[2018-08-11 06:15] LABS: Band Neutrophils % 35 %; Neutrophils % (M) 52 %; Total Cells Counted 200
--- NOTE | 2018-08-11 06:21 | XR ---
EXAMINATION TYPE: XR chest 1V portable DATE OF EXAM: 08/11/2018 HISTORY: Tube placement. REFERENCE: Previous study dated 08/10/2018. FINDINGS: The patient is ET tube, NG tube and right internal jugular catheter remain in place, unchan ged in appearance. Lung volumes are prominent. The heart is mildly enlarged. There is bibasilar airspace disease. There is mild vascular congestion without jeffery edema. There are small, bilateral effusions. IMPRESSION: SLIGHT WORSENING IN THE DEGREE OF VASCULAR CONGESTION IN COMPARISON WITH THE PREVIOUS STUDY.
[2018-08-11] MEDS: CHLORHEXIDINE GLUCONATE 15 ML CUP MUCOUS MEM SCH ×2 (09:03→20:51)
[2018-08-11] MEDS: FAMOTIDINE 20 MG/2 ML VIAL IV SCH (09:04)
[2018-08-11] MEDS ORDERED: FUROSEMIDE 10 MG/ML 4 ML VIAL IV STA (09:09)
[2018-08-11] MEDS: CARBIDOPA-LEVODOPA 25-100 MG 1 EACH TAB PO SCH ×2 (09:23→15:57)
[2018-08-11] MEDS: DEXTROSE 5%-0.45% NACL 1,000 ML IV SCH (09:24)
[2018-08-11 09:42] LABS: ABG Base Excess -8.8 mmol/L; ABG HCO3 17 mmol/L (21-25); ABG Oxygen Saturation 99.2 % (94-97); ABG PCO2 35 mmHg (35-45); ABG PH 7.31 (7.35-7.45); ABG PO2 116 mmHg (83-108); ABG TCO2 19 mmol/L (19-24)
[2018-08-11] MEDS: IPRATROPIUM-ALBUTEROL 3 ML NEB INHALATION SCH ×4 (09:52→20:28)
[2018-08-11] MEDS: FORMOTEROL FUMARATE 20 MCG/2 ML NEBU INHALATION SCH ×2 (09:52→20:28)
[2018-08-11] MEDS: BUDESONIDE 1 MG/2 ML NEBU INHALATION SCH ×2 (09:52→20:28)
[2018-08-11] MEDS ORDERED: SODIUM BICARB 8.4% 50 ML SYR (1 MEQ/ML) IV STA (09:58)
[2018-08-11 11:55] LABS: Glucose,Whole Blood 129 mg/dL (75-99)
--- NOTE | 2018-08-11 12:07 | P.PN ---
Subjective Progress Note Date: 08/11/18 Principal diagnosis: Chronic obstruction secondary to fecal impaction, status post exploratory laparotomy, lysis of adhesions, left colectomy, takedown of splenic flexure, splenectomy, cholecystectomy. Postoperative day #1 This is an 87-year-old female patient who follows with Dr. Santiago as her primary care physician, she has a history of Parkinson's dementia, bipolar disorder, kyphosis, osteoarthritis. She has a history of chronic tobacco dependence and chronic obstructive pulmonary disease on oxygen at 2 L in the outpatient setting. She is maintained on DuoNeb inhalations and Advair. She also has a history of constipation and had been admitted in the past for the same. She was brought in to the hospital yesterday by her daughter as she had complaints of abdominal cramping and fullness. Computed tomography scan of the abdomen confirmed mechanical colonic obstruction with fecal impaction and a large fecal ball measuring 11.5 cm. There was rectal wall thickening suggesting acute on chronic inflammatory process. Left hemicolon his large burden retained colonic stool in there is redundancy of the large bowel. Noted cholelithiasis. There is also a subcentimeter right lower lobe pulmonary nodule. Chest x-ray revealed a left midlung platelike atelectasis, cardiomegaly and COPD. White count 7.2. Hemoglobin 13.2. Creatinine 1.37. She has received 2 L of fluid resuscitation. 0.9 normal saline at 125 ML's per hour. She's been initiated on Zosyn. She has been leaking liquid brown stool. Patient was reevaluated today on 08/10/2018, patient came back to the ICU, she underwent surgery this morning. The surgery consisted of expiratory laparotomy , lysis of adhesions, left colectomy, splenectomy, and cholecystectomy. Patient was extubated postoperatively, however she was noted to hypoventilate, and she had to be reintubated and transferred to the ICU. I saw the patient in the ICU, she is now on mechanical ventilation. Her vent settings are tidal volume 350 assist-control rate of 16 FiO2 of 40%, and PEEP of 5. ABG showed a pO2 of more than 400 pCO2 of 46 pH of 7.30. Chest x-ray was reviewed and it showed the endotracheal tube to be distal almost in the raymon. And this was pulled out about to see him. Hemodynamics-morfin, the blood pressure is marginal , and the urine output is marginal as I recommended more fluid boluses and no need for naps norepinephrine at this point yet. Patient is already on antibiotics in the form of Zosyn she is not requiring any sedation will likely addressed extubation in the next 24 hours. I did recommend more fluids to be given and a liter of fluid boluses to be given today. Patient is sedated, on mechanical ventilation. Patient was reevaluated today on 08/11/2018, remains in the ICU on mechanical ventilation. Her ventilator settings are assist control rate of 16 tidal volume of 350 FiO2 of 40% and PEEP of 5. Her blood pressure remains marginal, patient received 8 L of fluids, she is now on levo fed at 30 mcg/m. Chest x- ray is beginning to show mild degree of vascular congestion, and suspect some interstitial edema. Hence will cut down on IV fluids, and we'll attempt to diurese the patient. Her urine output remains marginal in spite of all the fluid she received over the last 24 hours. ABG this morning showed a pO2 of 116 pCO2 of 35 pH of 7.31, hence one amp of bicarb was given. And her basic metabolic profile showed hyponatremia and low bicarb. BUN is elevated at 43 creatinine is also elevated at 1.53. Patient remains on antibiotics empirically , and she is not requiring any sedation at this point she is not requiring any propofol. She seems to be calm, she does not open her eyes upon pain, she does however grimace and withdraw from pain. Objective - Vital Signs Vital signs: Vital Signs Temp 98 F 08/11/18 08:00 Pulse 73 08/11/18 11:00 Resp 22 08/11/18 11:00 BP 101/54 08/11/18 11:00 Pulse Ox 99 08/11/18 11:00 Intake & Output 08/10/18 08/11/18 08/11/18 18:59 06:59 18:59 Intake Total 6746 1641.945 614.918 Output Total 505 475 280 Balance 6241 1166.945 334.918 Weight 45 kg 49.4 kg Intake: IV 6746 1635 271 Lactated ringers 125 Piperacillin-Tazobactam 3 100 75 .375 gm In Sodium Chloride 0.9% 100 ml @ 25 mls/hr IVPB Q8HR [facility] Rx# :[id number] Pressure bags 21 60 21 Sodium chloride at 125 1500 250 Sodium chloride bolus 4000 Intake, IV Titration 6.945 343.918 Amount Dextrose 5%-0.45% NaCl 1, 225 000 ml @ 75 mls/hr IV . [id number] [facility] Rx#:[id number] Norepinephrine 16 mg In 6.945 18.918 Sodium Chloride 0.9% 250 ml @ Titrate IV .Q0M [facility] Rx#:[id number] Piperacillin-Tazobactam 3 100 .375 gm In Sodium Chloride 0.9% 100 ml @ 25 mls/hr IVPB Q8HR [facility] Rx# :[id number] Output: Urine 405 175 280 Stool 300 Estimated Blood Loss 100 Other: Voiding Method Indwelling Catheter Indwelling Catheter Indwelling Catheter ABP, PAP, CO, CI - Last Documented Arterial Blood Pressure 96/76 - Exam Physical Exam: Revealed an 87-year-old female in no distress, on mechanical ventilation. HEENT: PERRLA, EOMI, no icterus, endotracheal tube and orogastric tube are intact. Neck supple no neck masses no JVD. HEENT:[Neck is supple.] [No neck masses.] [No thyromegaly.] [No JVD.] Chest: [Crackles and rhonchi noted at the bases. No wheezes. Symmetrical chest expansion noted..] Cardiac Exam: [Normal S1 and S2, no S3 gallop, no murmur.] Abdomen: [Postsurgical, nontender, no rebound, no guarding, surgical site is covered, negative bowel sounds..] Extremities: [No clubbing, trace of bipedal edema, no cyanosis.] Neurological Exam: Patient grimaces to deep painful stimuli, does not open eyes , does not follow instructions. Psychiatric: Could not be assessed at this point. Skin: No rashes. - Labs CBC & Chem 7: 08/11/18 05:18 08/11/18 05:18 Labs: Abnormal Lab Results - Last 24 Hours (Table) 08/10/18 08/10/18 08/10/18 Range/Units 12:43 13:17 14:34 WBC (3.8-10.6) k/uL MCHC (31.0-37.0) g/dL Neutrophils # (Manual) (1.3-7.7) k/uL Lymphocytes # (Manual) (1.0-4.8) k/uL Monocytes # (Manual) (0-1.0) k/uL ABG pH 7.13 L* (7.35-7.45) ABG pCO2 56 H (35-45) mmHg ABG pO2 400 H (83-108) mmHg ABG HCO3 18 L (21-25) mmol/L ABG O2 Saturation 98.1 H (94-97) % Sodium (137-145) mmol/L Chloride (98-107) mmol/L Carbon Dioxide (22-30) mmol/L BUN (7-17) mg/dL Creatinine (0.52-1.04) mg/dL POC Glucose (mg/dL) 124 H 121 H (75-99) mg/dL Calcium (8.4-10.2) mg/dL Magnesium (1.6-2.3) mg/dL 08/10/18 08/10/18 08/11/18 Range/Units 14:57 18:46 05:18 WBC 13.7 H (3.8-10.6) k/uL MCHC 29.9 L (31.0-37.0) g/dL Neutrophils # (Manual) 11.90 H (1.3-7.7) k/uL Lymphocytes # (Manual) 0.69 L (1.0-4.8) k/uL Monocytes # (Manual) 1.10 H (0-1.0) k/uL ABG pH 7.30 L (7.35-7.45) ABG pCO2 46 H (35-45) mmHg ABG pO2 >400 H (83-108) mmHg ABG HCO3 (21-25) mmol/L ABG O2 Saturation 100.0 H (94-97) % Sodium (137-145) mmol/L Chloride (98-107) mmol/L Carbon Dioxide (22-30) mmol/L BUN (7-17) mg/dL Creatinine (0.52-1.04) mg/dL POC Glucose (mg/dL) 116 H (75-99) mg/dL Calcium (8.4-10.2) mg/dL Magnesium (1.6-2.3) mg/dL 08/11/18 08/11/18 08/11/18 Range/Units 05:18 09:35 11:42 WBC (3.8-10.6) k/uL MCHC (31.0-37.0) g/dL Neutrophils # (Manual) (1.3-7.7) k/uL Lymphocytes # (Manual) (1.0-4.8) k/uL Monocytes # (Manual) (0-1.0) k/uL ABG pH 7.31 L (7.35-7.45) ABG pCO2 (35-45) mmHg ABG pO2 116 H (83-108) mmHg ABG HCO3 17 L (21-25) mmol/L ABG O2 Saturation 99.2 H (94-97) % Sodium 149 H (137-145) mmol/L Chloride 122 H (98-107) mmol/L Carbon Dioxide 18 L (22-30) mmol/L BUN 43 H (7-17) mg/dL Creatinine 1.53 H (0.52-1.04) mg/dL POC Glucose (mg/dL) 129 H (75-99) mg/dL Calcium 7.2 L (8.4-10.2) mg/dL Magnesium 2.6 H (1.6-2.3) mg/dL Microbiology - Last 24 Hours (Table) 08/08/18 13:54 Blood Culture - Preliminary Blood No Growth after 48 hours 08/09/18 05:20 Urine Culture - Final Urine,Catheterized Assessment and Plan Assessment: Impression: 1 acute colonic obstruction secondary to fecal impaction 2 status post expiratory laparotomy, lysis of adhesions, left colectomy, splenectomy, and cholecystectomy. 3 postoperative hypoxic respiratory failure, expected requiring another day of mechanical ventilation. However if the patient does not show any significant improvement, and does not get extubated today, her respirations failure will be unexpected post surgery. And this could be mostly related to metabolic encephalopathy. 4 acute metabolic encephalopathy on presentation, remains metabolically encephalopathic, may have to eventually consider neurological evaluation. I have no idea what her baseline neurological status is usually. 5 chronic mid thoracic compression deformities 6 nonspecific pulmonary nodule needs to be monitored on outpatient basis 7 chronic tobacco dependence 8 chronic obstructive pulmonary disease presently inactive 9 Parkinson's dementia 10 bipolar depression 11 history of chronic constipation. Recommendation: Continue ventilatory support, hemodynamic support, patient is requiring small tiny dose of norepinephrine, in spite multiple fluid boluses were given, patient could very well be septic, she is definitely not hypovolemic at this point. Continue antibiotics, continue GI and DVT prophylaxis , I'm a bit concerned about her metabolic encephalopathy, may have to consider neurological evaluation if she remains encephalopathic. At this point she is not ready to be weaned, she is off sedation, and she does not seem to be having any issues with the ventilator. Patient is critically ill, critical care time is 34 minutes Time with Patient: Greater than 30
[2018-08-11 14:15] LABS: Hemoglobin A1C 5.4 % (4.0-6.0)
--- NOTE | 2018-08-11 15:10 | CT ---
EXAMINATION TYPE: CT brain wo con DATE OF EXAM: 08/11/2018 COMPARISON: HISTORY: Altered mental status. CT DLP: 1678.7 mGycm Automated exposure control for dose reduction was used. FINDINGS: There is some gyriform increased attenuation in the left posterior temporal lobe that I think is rela woo to artifact from motion and beam hardening. I see no definite intracranial hemorrhage. There is c erebral cortical atrophy. There is no mass effect. There is no midline shift. The calvarium is intact . There is mucosal thickening in the right side sphenoid sinus. IMPRESSION: CEREBRAL ATROPHY. NO ACUTE INTRACRANIAL ABNORMALITY. MINIMAL RIGHT-SIDED SPHENOID SINUSITIS COMPARED TO OLD EXAM.
--- NOTE | 2018-08-11 15:51 | P.PN ---
Subjective Progress Note Date: 08/11/18 CHIEF COMPLAINT: Status post colostomy creation HISTORY OF PRESENT ILLNESS: The patient is a 87-year-old female status post colostomy creation from yesterday. She is in the intensive care unit. She has stool out of her colostomy bag. She has minimally been responsive. She has been sent for CT head for altered mental status changes. PHYSICAL EXAM: VITAL SIGNS: Currently stable. GENERAL: Well-developed in no acute distress. HEENT: No sclera icterus. Moist buccal mucosa. Head is atraumatic, normocephalic. Hears conversational speech. No nasal drainage. NECK: Supple without lymphadenopathy. CHEST: Non-labored respirations and equal bilateral excursions. CARDIOVASCULAR: Palpable 2+ radial pulses. ABDOMEN: Dressing intact. MUSCULOSKELETAL: No clubbing, cyanosis or edema. NEUROLOGIC: No focal or lateralizing signs. Cranial nerves II through XII grossly intact. PSYCH: Not alert or oriented to person place or time SKIN: Well perfused. Good skin turgor. ASSESSMENT: 1. History of colostomy creation PLAN: 1. Management per ICU regarding mental status changes 2. Continue supportive care 3. May start diet once extubated Objective - Vital Signs Vital signs: Vital Signs Temp 99 F 08/11/18 12:00 Pulse 77 08/11/18 13:00 Resp 25 H 08/11/18 13:00 BP 120/53 08/11/18 13:00 Pulse Ox 100 08/11/18 13:00 Intake & Output 08/10/18 08/11/18 08/11/18 18:59 06:59 18:59 Intake Total 6746 1641.945 770.918 Output Total 505 475 505 Balance 6241 1166.945 265.918 Weight 45 kg 49.4 kg Intake: IV 6746 1635 277 Lactated ringers 125 Piperacillin-Tazobactam 3 100 75 .375 gm In Sodium Chloride 0.9% 100 ml @ 25 mls/hr IVPB Q8HR [facility] Rx# :[id number] Pressure bags 21 60 27 Sodium chloride at 125 1500 250 Sodium chloride bolus 4000 Intake, IV Titration 6.945 493.918 Amount Dextrose 5%-0.45% NaCl 1, 375 000 ml @ 75 mls/hr IV . [id number] [facility] Rx#:[id number] Norepinephrine 16 mg In 6.945 18.918 Sodium Chloride 0.9% 250 ml @ Titrate IV .Q0M [facility] Rx#:[id number] Piperacillin-Tazobactam 3 100 .375 gm In Sodium Chloride 0.9% 100 ml @ 25 mls/hr IVPB Q8HR [facility] Rx# :[id number] Output: Urine 405 175 505 Stool 300 Estimated Blood Loss 100 Other: Voiding Method Indwelling Catheter Indwelling Catheter Indwelling Catheter ABP, PAP, CO, CI - Last Documented Arterial Blood Pressure 96/76 - Labs CBC & Chem 7: 08/11/18 05:18 08/11/18 05:18 Labs: Abnormal Lab Results - Last 24 Hours (Table) 08/10/18 08/11/18 08/11/18 Range/Units 18:46 05:18 05:18 WBC 13.7 H (3.8-10.6) k/uL MCHC 29.9 L (31.0-37.0) g/dL Neutrophils # (Manual) 11.90 H (1.3-7.7) k/uL Lymphocytes # (Manual) 0.69 L (1.0-4.8) k/uL Monocytes # (Manual) 1.10 H (0-1.0) k/uL ABG pH (7.35-7.45) ABG pO2 (83-108) mmHg ABG HCO3 (21-25) mmol/L ABG O2 Saturation (94-97) % Sodium 149 H (137-145) mmol/L Chloride 122 H (98-107) mmol/L Carbon Dioxide 18 L (22-30) mmol/L BUN 43 H (7-17) mg/dL Creatinine 1.53 H (0.52-1.04) mg/dL POC Glucose (mg/dL) 116 H (75-99) mg/dL Calcium 7.2 L (8.4-10.2) mg/dL Magnesium 2.6 H (1.6-2.3) mg/dL 08/11/18 08/11/18 Range/Units 09:35 11:42 WBC (3.8-10.6) k/uL MCHC (31.0-37.0) g/dL Neutrophils # (Manual) (1.3-7.7) k/uL Lymphocytes # (Manual) (1.0-4.8) k/uL Monocytes # (Manual) (0-1.0) k/uL ABG pH 7.31 L (7.35-7.45) ABG pO2 116 H (83-108) mmHg ABG HCO3 17 L (21-25) mmol/L ABG O2 Saturation 99.2 H (94-97) % Sodium (137-145) mmol/L Chloride (98-107) mmol/L Carbon Dioxide (22-30) mmol/L BUN (7-17) mg/dL Creatinine (0.52-1.04) mg/dL POC Glucose (mg/dL) 129 H (75-99) mg/dL Calcium (8.4-10.2) mg/dL Magnesium (1.6-2.3) mg/dL Microbiology - Last 24 Hours (Table) 08/08/18 13:54 Blood Culture - Preliminary Blood No Growth after 48 hours 08/09/18 05:20 Urine Culture - Final Urine,Catheterized Assessment and Plan (1) Status post colostomy Current Visit: Yes Status: Acute Code(s): Z93.3 - COLOSTOMY STATUS SNOMED Code(s): 779926471 (2) Abdominal pain Current Visit: Yes Status: Acute Code(s): R10.9 - UNSPECIFIED ABDOMINAL PAIN SNOMED Code(s): 75495289 (3) Abnormal CT of the abdomen Current Visit: No Status: Acute Code(s): R93.5 - ABN FINDINGS ON DX IMAGING OF ABD REGIONS, INC RETROPERITON SNOMED Code(s): 52235744884419782 (4) Change in mental status Current Visit: No Status: Acute Code(s): R41.82 - ALTERED MENTAL STATUS, UNSPECIFIED SNOMED Code(s): 461298656
[2018-08-11 18:38] LABS: Glucose,Whole Blood 141 mg/dL (75-99)
--- NOTE | 2018-08-11 19:59 | PN ---
PROGRESS NOTE DATE OF SERVICE: 08/11/2018 This 87-year-old woman who was admitted after colonic obstruction secondary to fecal impaction underwent surgery. The patient mechanically ventilated and sedated at this time. The patient also had possible acute respiratory failure. Patient being closely monitored in the ICU at this time. The multiple consultants including Dr. Noguera, is following the patient closely. The patient was also on pressor support as well. PAST MEDICAL HISTORY: Reviewed. REVIEW OF SYSTEMS: Could not be taken. CURRENT MEDICATIONS ARE: Reviewed and include: 1. Tylenol p.r.n. 2. DuoNeb q.i.d. and p.r.n. 3. Cepacol p.r.n. 4. Pulmicort 1 mg b.i.d. 5. Sinemet 25/100 1 p.o. t.i.d. 6. Peridex 15 mL b.i.d. 7. Pepcid 20 mg daily. 8. Perforomist 20 mg b.i.d. 9. Dilaudid 1 mg q.3 p.r.n. 11.Morphine sulfate. 12.Naloxone. 13.Zosyn IV. PHYSICAL EXAM: The patient is mechanically sedated. Pulse 77. The blood pressure is 120/53, respiration 25, temperature 99 degrees, pulse ox 100 percent on 7 L, 40% FiO2. Vent settings are noted. HEENT: Conjunctivae normal. Oral mucosa is moist. NECK: No jugular venous distention. No carotid bruit. No lymph node enlargement. CARDIOVASCULAR SYSTEM: S1, S2 muffled. RESPIRATORY: Breath sounds diminished in the bases. Bilateral scattered rhonchi and crackles. ABDOMEN: Soft, status post surgery. LEGS: No edema. No swelling. CENTRAL NERVOUS SYSTEM: Patient mechanically ventilated and sedated. LABS: WBC 13.7, pH is 7.4, sodium 149, and chloride is 122. ASSESSMENT: 1. Chronic obstruction secondary to fecal impaction and pneumatosis of the rectum and cholecystitis with mechanical bowel obstruction with possible sepsis, status post exploratory laparotomy, lysis of adhesions, left colectomy, takedown splenic flexure and splenectomy and cholecystectomy. Postoperative acute respiratory failure on mechanical ventilation. 2. Change in mental status, metabolic encephalopathy secondary to sepsis. 3. Increased WBC. 4. Increased creatinine with acute renal failure. 5. Chronic obstructive pulmonary disease. 6. Degenerative joint disease. 7. History of Parkinson's. 8. History of bipolar depression. 9. FULL CODE. RECOMMENDATIONS AND DISCUSSION: I recommend to continue current medications, management and continue monitoring and symptomatic treatment. Otherwise, at this time, I recommend continue with antibiotics. Continue with current medications. Continue with bronchodilators. Mechanical ventilation. I would also recommend a CT scan of the abdomen and pelvis also and I would also recommend monitor the IV fluids as well. Otherwise, prognosis guarded because of multiple consultations and further recommendations to follow. Patient is on D5 water at this time. We will continue to monitor. MMODL / IJN: [id number] / MTDD
[2018-08-11 23:41] LABS: Glucose,Whole Blood 150 mg/dL (75-99)
[2018-08-12] MEDS: DEXTROSE 5%-0.45% NACL 1,000 ML IV SCH (01:00)
[2018-08-12] MEDS: PIPERACILLIN-TAZOBACTAM 3.375 GM in SODIUM CHLORIDE 0.9% 100 ML IVPB SCH ×3 (01:14→17:04)
[2018-08-12] MEDS: IPRATROPIUM-ALBUTEROL 3 ML NEB INHALATION PRN (03:15)
[2018-08-12] MEDS: CARBIDOPA-LEVODOPA 25-100 MG 1 EACH TAB PO SCH ×4 (04:21→22:41)
[2018-08-12 05:55] LABS: Calcium 7.4 mg/dL (8.4-10.2); Magnesium 2.5 mg/dL (1.6-2.3); Phosphorus 2.4 mg/dL (2.5-4.5); Potassium 2.9 mmol/L (3.5-5.1)
[2018-08-12 06:11] LABS: Glucose,Whole Blood 166 mg/dL (75-99)
--- NOTE | 2018-08-12 06:26 | XR ---
EXAMINATION TYPE: XR chest 1V portable DATE OF EXAM: 08/12/2018 HISTORY: Tube placement. REFERENCE: Previous study dated 08/11/2018. FINDINGS: The patient is ET tube and NG tube remain in place, unchanged in appearance. There is been slight improvement in the degree of vascular congestion. The heart remains mildly enlar ged. There are small, bilateral effusions. IMPRESSION: SLIGHT IMPROVEMENT IN THE PATIENT'S VOLUME STATUS.
[2018-08-12] MEDS ORDERED: Potassium Replacement Protocol 1 EACH MISC MISCELLANE PRN (06:30)
[2018-08-12 06:49] LABS: Basophils # (A) 0.1 k/uL (0-0.2); Basophils % (A) 0 %; Eosinophils % (A) 0 %; Hypochromasia Marked; Lymphocytes # (A) 0.9 k/uL (1.0-4.8); Lymphocytes % (A) 5 %; MCH 28.9 pg (25.0-35.0); MCHC 30.1 g/dL (31.0-37.0); Monocytes # (A) 1.5 k/uL (0-1.0); Monocytes % (A) 8 %; Neutrophils # (A) 15.9 k/uL (1.3-7.7); Neutrophils % (A) 85 %; Platelet Count 176 k/uL (150-450); RBC 3.23 m/uL (3.80-5.40); RDW 15.2 % (11.5-15.5); WBC 18.7 k/uL (3.8-10.6)
[2018-08-12 06:53] LABS: HGB 9.4 gm/dL (11.4-16.0)
[2018-08-12] MEDS: POTASSIUM CHLORIDE 20 MEQ in WATER FOR INJECTION 1 100ML.BAG IVPB SCH ×3 (07:10→12:15)
[2018-08-12 07:23] LABS: ABG Base Excess -0.6 mmol/L; ABG HCO3 24 mmol/L (21-25); ABG PCO2 34 mmHg (35-45); ABG PH 7.44 (7.35-7.45); ABG PO2 106 mmHg (83-108); ABG TCO2 25 mmol/L (19-24)
[2018-08-12] MEDS: IPRATROPIUM-ALBUTEROL 3 ML NEB INHALATION SCH ×4 (07:30→19:19)
[2018-08-12] MEDS: FORMOTEROL FUMARATE 20 MCG/2 ML NEBU INHALATION SCH ×2 (07:30→19:19)
[2018-08-12] MEDS: BUDESONIDE 1 MG/2 ML NEBU INHALATION SCH ×2 (07:30→19:19)
[2018-08-12] MEDS: CHLORHEXIDINE GLUCONATE 15 ML CUP MUCOUS MEM SCH ×2 (08:11→22:28)
[2018-08-12] MEDS: FAMOTIDINE 20 MG/2 ML VIAL IV SCH (08:11)
[2018-08-12] MEDS: ACETAMINOPHEN TAB 325 MG TAB PO PRN ×2 (08:53→22:28)
[2018-08-12] MEDS ORDERED: FUROSEMIDE 10 MG/ML 2 ML VIAL IV ONE (10:06)
[2018-08-12] MEDS ORDERED: DEXTROSE 5% IN WATER 1,000 ML IV SCH (10:15)
[2018-08-12 12:11] LABS: Glucose,Whole Blood 173 mg/dL (75-99)
[2018-08-12] MEDS: INSULIN ASPART (NovoLOG) 100 UNIT/ML VIAL SQ SCH ×2 (12:18→18:11)
--- NOTE | 2018-08-12 12:38 | P.PN ---
Subjective Progress Note Date: 08/12/18 CHIEF COMPLAINT: Status post colostomy creation HISTORY OF PRESENT ILLNESS: The patient is a 87-year-old female status post colostomy creation from yesterday. She is in the intensive care unit. She is moving around more however not following commands. No reports of fevers or chills. No spontaneous eye movement noted PHYSICAL EXAM: VITAL SIGNS: Reviewed GENERAL: Well-developed in no acute distress. HEENT: No sclera icterus. Moist buccal mucosa. Head is atraumatic, normocephalic. Hears conversational speech. No nasal drainage. NECK: Supple without lymphadenopathy. CHEST: Non-labored respirations and equal bilateral excursions. CARDIOVASCULAR: Palpable 2+ radial pulses. ABDOMEN: Dressing intact. Ostomy patent MUSCULOSKELETAL: No clubbing, cyanosis or edema. NEUROLOGIC: No focal or lateralizing signs. PSYCH: Not alert or oriented to person place or time SKIN: Well perfused. Good skin turgor. ASSESSMENT: 1. History of colostomy creation PLAN: 1. Extubation per ICU protocol 2. She has multiple electrolyte abnormalities including sodium, potassium to be corrected 3. Agreeable with parenteral nutrition Critical care time 20 minutes Objective - Vital Signs Vital signs: Vital Signs Temp 99.0 F 08/12/18 12:00 Pulse 66 08/12/18 12:00 Resp 31 H 08/12/18 12:00 BP 117/52 08/12/18 12:00 Pulse Ox 97 08/12/18 12:00 Intake & Output 08/11/18 08/12/18 08/12/18 18:59 06:59 18:59 Intake Total 1235.918 856 650 Output Total 1005 920 725 Balance 230.918 -64 -75 Weight 52.4 kg Intake: IV 367 106 100 Piperacillin-Tazobactam 3 75 100 100 .375 gm In Sodium Chloride 0.9% 100 ml @ 25 mls/hr IVPB Q8HR [facility] Rx# :[id number] Pressure bags 42 6 Sodium chloride at 125 250 Intake, IV Titration 868.918 750 550 Amount Dextrose 5% in Water 1, 150 000 ml @ 75 mls/hr IV . [id number] [facility] Rx#:[id number] Dextrose 5%-0.45% NaCl 1, 750 750 150 000 ml @ 75 mls/hr IV . [id number] [facility] Rx#:[id number] Norepinephrine 16 mg In 18.918 Sodium Chloride 0.9% 250 ml @ Titrate IV .Q0M [facility] Rx#:[id number] Piperacillin-Tazobactam 3 100 .375 gm In Sodium Chloride 0.9% 100 ml @ 25 mls/hr IVPB Q8HR [facility] Rx# :[id number] Potassium Chloride 20 meq 250 In Water For Injection 1 100ml.bag @ 50 mls/hr IVPB Q2H [facility] Rx#: [id number] Output: Urine 1005 920 675 Stool 50 Other: Voiding Method Indwelling Catheter Indwelling Catheter Indwelling Catheter # Voids 0 ABP, PAP, CO, CI - Last Documented Arterial Blood Pressure 96/76 - Labs CBC & Chem 7: 08/12/18 05:20 08/12/18 05:20 Labs: Abnormal Lab Results - Last 24 Hours (Table) 08/11/18 08/11/18 08/12/18 Range/Units 18:27 23:29 05:20 WBC 18.7 H (3.8-10.6) k/uL RBC 3.23 L (3.80-5.40) m/uL Hgb 9.4 L D (11.4-16.0) gm/dL Hct 31.0 L (34.0-46.0) % MCHC 30.1 L (31.0-37.0) g/dL Neutrophils # 15.9 H (1.3-7.7) k/uL Lymphocytes # 0.9 L (1.0-4.8) k/uL Monocytes # 1.5 H (0-1.0) k/uL ABG pCO2 (35-45) mmHg ABG Total CO2 (19-24) mmol/L ABG O2 Saturation (94-97) % Sodium (137-145) mmol/L Potassium (3.5-5.1) mmol/L Chloride (98-107) mmol/L BUN (7-17) mg/dL Creatinine (0.52-1.04) mg/dL Glucose (74-99) mg/dL POC Glucose (mg/dL) 141 H 150 H (75-99) mg/dL Calcium (8.4-10.2) mg/dL Phosphorus (2.5-4.5) mg/dL Magnesium (1.6-2.3) mg/dL 08/12/18 08/12/18 08/12/18 Range/Units 05:20 05:59 07:21 WBC (3.8-10.6) k/uL RBC (3.80-5.40) m/uL Hgb (11.4-16.0) gm/dL Hct (34.0-46.0) % MCHC (31.0-37.0) g/dL Neutrophils # (1.3-7.7) k/uL Lymphocytes # (1.0-4.8) k/uL Monocytes # (0-1.0) k/uL ABG pCO2 34 L (35-45) mmHg ABG Total CO2 25 H (19-24) mmol/L ABG O2 Saturation 99.0 H (94-97) % Sodium 150 H (137-145) mmol/L Potassium 2.9 L (3.5-5.1) mmol/L Chloride 124 H (98-107) mmol/L BUN 42 H (7-17) mg/dL Creatinine 1.59 H (0.52-1.04) mg/dL Glucose 156 H (74-99) mg/dL POC Glucose (mg/dL) 166 H (75-99) mg/dL Calcium 7.4 L (8.4-10.2) mg/dL Phosphorus 2.4 L (2.5-4.5) mg/dL Magnesium 2.5 H (1.6-2.3) mg/dL 08/12/18 Range/Units 11:59 WBC (3.8-10.6) k/uL RBC (3.80-5.40) m/uL Hgb (11.4-16.0) gm/dL Hct (34.0-46.0) % MCHC (31.0-37.0) g/dL Neutrophils # (1.3-7.7) k/uL Lymphocytes # (1.0-4.8) k/uL Monocytes # (0-1.0) k/uL ABG pCO2 (35-45) mmHg ABG Total CO2 (19-24) mmol/L ABG O2 Saturation (94-97) % Sodium (137-145) mmol/L Potassium (3.5-5.1) mmol/L Chloride (98-107) mmol/L BUN (7-17) mg/dL Creatinine (0.52-1.04) mg/dL Glucose (74-99) mg/dL POC Glucose (mg/dL) 173 H (75-99) mg/dL Calcium (8.4-10.2) mg/dL Phosphorus (2.5-4.5) mg/dL Magnesium (1.6-2.3) mg/dL Microbiology - Last 24 Hours (Table) 08/08/18 13:54 Blood Culture - Preliminary Blood No Growth after 72 hours Assessment and Plan (1) Status post colostomy Current Visit: Yes Status: Acute Code(s): Z93.3 - COLOSTOMY STATUS SNOMED Code(s): 570649114 (2) Abdominal pain Current Visit: Yes Status: Acute Code(s): R10.9 - UNSPECIFIED ABDOMINAL PAIN SNOMED Code(s): 39929973 (3) Abnormal CT of the abdomen Current Visit: No Status: Acute Code(s): R93.5 - ABN FINDINGS ON DX IMAGING OF ABD REGIONS, INC RETROPERITON SNOMED Code(s): 92547447388745724 (4) Change in mental status Current Visit: No Status: Acute Code(s): R41.82 - ALTERED MENTAL STATUS, UNSPECIFIED SNOMED Code(s): 241461782
--- NOTE | 2018-08-12 12:45 | P.PN ---
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 Postoperative day #2 This is an 87-year-old female patient who follows with Dr. Santiago as her primary care physician, she has a history of Parkinson's dementia, bipolar disorder, kyphosis, osteoarthritis. She has a history of chronic tobacco dependence and chronic obstructive pulmonary disease on oxygen at 2 L in the outpatient setting. She is maintained on DuoNeb inhalations and Advair. She also has a history of constipation and had been admitted in the past for the same. She was brought in to the hospital yesterday by her daughter as she had complaints of abdominal cramping and fullness. Computed tomography scan of the abdomen confirmed mechanical colonic obstruction with fecal impaction and a large fecal ball measuring 11.5 cm. There was rectal wall thickening suggesting acute on chronic inflammatory process. Left hemicolon his large burden retained colonic stool in there is redundancy of the large bowel. Noted cholelithiasis. There is also a subcentimeter right lower lobe pulmonary nodule. Chest x-ray revealed a left midlung platelike atelectasis, cardiomegaly and COPD. White count 7.2. Hemoglobin 13.2. Creatinine 1.37. She has received 2 L of fluid resuscitation. 0.9 normal saline at 125 ML's per hour. She's been initiated on Zosyn. She has been leaking liquid brown stool. Patient was reevaluated today on 08/10/2018, patient came back to the ICU, she underwent surgery this morning. The surgery consisted of expiratory laparotomy , lysis of adhesions, left colectomy, splenectomy, and cholecystectomy. Patient was extubated postoperatively, however she was noted to hypoventilate, and she had to be reintubated and transferred to the ICU. I saw the patient in the ICU, she is now on mechanical ventilation. Her vent settings are tidal volume 350 assist-control rate of 16 FiO2 of 40%, and PEEP of 5. ABG showed a pO2 of more than 400 pCO2 of 46 pH of 7.30. Chest x-ray was reviewed and it showed the endotracheal tube to be distal almost in the raymon. And this was pulled out about to see him. Hemodynamics-morfin, the blood pressure is marginal , and the urine output is marginal as I recommended more fluid boluses and no need for naps norepinephrine at this point yet. Patient is already on antibiotics in the form of Zosyn she is not requiring any sedation will likely addressed extubation in the next 24 hours. I did recommend more fluids to be given and a liter of fluid boluses to be given today. Patient is sedated, on mechanical ventilation. Patient was reevaluated today on 08/11/2018, remains in the ICU on mechanical ventilation. Her ventilator settings are assist control rate of 16 tidal volume of 350 FiO2 of 40% and PEEP of 5. Her blood pressure remains marginal, patient received 8 L of fluids, she is now on levo fed at 30 mcg/m. Chest x- ray is beginning to show mild degree of vascular congestion, and suspect some interstitial edema. Hence will cut down on IV fluids, and we'll attempt to diurese the patient. Her urine output remains marginal in spite of all the fluid she received over the last 24 hours. ABG this morning showed a pO2 of 116 pCO2 of 35 pH of 7.31, hence one amp of bicarb was given. And her basic metabolic profile showed hyponatremia and low bicarb. BUN is elevated at 43 creatinine is also elevated at 1.53. Patient remains on antibiotics empirically , and she is not requiring any sedation at this point she is not requiring any propofol. She seems to be calm, she does not open her eyes upon pain, she does however grimace and withdraw from pain. Reevaluated today on 08/12/2018, remains in the ICU, on mechanical ventilation. Ventilator settings are the same as above assist-control rate 16 tidal volume of 350 FiO2 40% and PEEP of 5. ABG showed a pO2 of 106 pCO2 of 34 pH of 7.44. Electrolytes showed significant abnormality with elevated sodium of 150 potassium of 2.9, that would be corrected as per protocol, and her main IV fluid was changed to D5W. Chest x-ray is showing some interstitial edema, hence Lasix will be given at 40 mg IV push times one. Her CBC showed leukocytosis with WBC count of 11.7 hemoglobin of 9.4. Her mental status is showing slight improvement, the patient remains encephalopathic, she opens her eyes on painful stimuli or verbal stimuli, but barely wiggles her toes with instructions. Patient does not squeeze hands, does not follow any other instructions. She had a CT of the brain which came back nondiagnostic yesterday. Metabolically her sodium is elevated and potassium is low, will correct dose accordingly. Based on her mental status, clearly the patient is not quite ready for weaning. Renal functioning is a bit worse today compared to the last few days, but I believe it will correct nicely, patient presented with profound dehydration, and she had episodes of hypotension in the perioperative period, now she is off norepinephrine, and her blood pressure seems to be excellent. I assume that her renal functioning will gradually improve from here on. Objective - Vital Signs Vital signs: Vital Signs Temp 99.0 F 08/12/18 12:00 Pulse 66 08/12/18 12:00 Resp 31 H 08/12/18 12:00 BP 117/52 08/12/18 12:00 Pulse Ox 97 08/12/18 12:00 Intake & Output 08/11/18 08/12/18 08/12/18 18:59 06:59 18:59 Intake Total 1235.918 856 650 Output Total 1005 920 725 Balance 230.918 -64 -75 Weight 52.4 kg Intake: IV 367 106 100 Piperacillin-Tazobactam 3 75 100 100 .375 gm In Sodium Chloride 0.9% 100 ml @ 25 mls/hr IVPB Q8HR [facility] Rx# :[id number] Pressure bags 42 6 Sodium chloride at 125 250 Intake, IV Titration 868.918 750 550 Amount Dextrose 5% in Water 1, 150 000 ml @ 75 mls/hr IV . [id number] [facility]ARY [facility] Rx#:[id number] Dextrose 5%-0.45% NaCl 1, 750 750 150 000 ml @ 75 mls/hr IV . [id number] [facility] Rx#:[id number] Norepinephrine 16 mg In 18.918 Sodium Chloride 0.9% 250 ml @ Titrate IV .Q0M [facility]OU Rx#:[id number] Piperacillin-Tazobactam 3 100 .375 gm In Sodium Chloride 0.9% 100 ml @ 25 mls/hr IVPB Q8HR [facility] Rx# :[id number] Potassium Chloride 20 meq 250 In Water For Injection 1 100ml.bag @ 50 mls/hr IVPB Q2H [facility]ARY [facility] Rx#: [id number] Output: Urine 1005 920 675 Stool 50 Other: Voiding Method Indwelling Catheter Indwelling Catheter Indwelling Catheter # Voids 0 ABP, PAP, CO, CI - Last Documented Arterial Blood Pressure 96/76 - Exam Physical Exam: Revealed an 87-year-old female in no distress, on mechanical ventilation. Off sedatives. HEENT: PERRLA, EOMI, no icterus, endotracheal tube and orogastric tube are intact. Neck supple no neck masses no JVD. HEENT:[Neck is supple.] [No neck masses.] [No thyromegaly.] [No JVD.] Chest: [Crackles and rhonchi noted at the bases. No wheezes. Symmetrical chest expansion noted..] Cardiac Exam: [Normal S1 and S2, no S3 gallop, no murmur.] Abdomen: [Postsurgical, nontender, no rebound, no guarding, surgical site is covered, negative bowel sounds..] Extremities: [No clubbing, trace of bipedal edema, no cyanosis.] Neurological Exam: Patient grimaces to deep painful stimuli, opens eyes, wiggles toes. Psychiatric: Could not be assessed at this point. Skin: No rashes. - Labs CBC & Chem 7: 08/12/18 05:20 08/12/18 05:20 Labs: Abnormal Lab Results - Last 24 Hours (Table) 08/11/18 08/11/18 08/12/18 Range/Units 18:27 23:29 05:20 WBC 18.7 H (3.8-10.6) k/uL RBC 3.23 L (3.80-5.40) m/uL Hgb 9.4 L D (11.4-16.0) gm/dL Hct 31.0 L (34.0-46.0) % MCHC 30.1 L (31.0-37.0) g/dL Neutrophils # 15.9 H (1.3-7.7) k/uL Lymphocytes # 0.9 L (1.0-4.8) k/uL Monocytes # 1.5 H (0-1.0) k/uL ABG pCO2 (35-45) mmHg ABG Total CO2 (19-24) mmol/L ABG O2 Saturation (94-97) % Sodium (137-145) mmol/L Potassium (3.5-5.1) mmol/L Chloride (98-107) mmol/L BUN (7-17) mg/dL Creatinine (0.52-1.04) mg/dL Glucose (74-99) mg/dL POC Glucose (mg/dL) 141 H 150 H (75-99) mg/dL Calcium (8.4-10.2) mg/dL Phosphorus (2.5-4.5) mg/dL Magnesium (1.6-2.3) mg/dL 08/12/18 08/12/18 08/12/18 Range/Units 05:20 05:59 07:21 WBC (3.8-10.6) k/uL RBC (3.80-5.40) m/uL Hgb (11.4-16.0) gm/dL Hct (34.0-46.0) % MCHC (31.0-37.0) g/dL Neutrophils # (1.3-7.7) k/uL Lymphocytes # (1.0-4.8) k/uL Monocytes # (0-1.0) k/uL ABG pCO2 34 L (35-45) mmHg ABG Total CO2 25 H (19-24) mmol/L ABG O2 Saturation 99.0 H (94-97) % Sodium 150 H (137-145) mmol/L Potassium 2.9 L (3.5-5.1) mmol/L Chloride 124 H (98-107) mmol/L BUN 42 H (7-17) mg/dL Creatinine 1.59 H (0.52-1.04) mg/dL Glucose 156 H (74-99) mg/dL POC Glucose (mg/dL) 166 H (75-99) mg/dL Calcium 7.4 L (8.4-10.2) mg/dL Phosphorus 2.4 L (2.5-4.5) mg/dL Magnesium 2.5 H (1.6-2.3) mg/dL 08/12/18 Range/Units 11:59 WBC (3.8-10.6) k/uL RBC (3.80-5.40) m/uL Hgb (11.4-16.0) gm/dL Hct (34.0-46.0) % MCHC (31.0-37.0) g/dL Neutrophils # (1.3-7.7) k/uL Lymphocytes # (1.0-4.8) k/uL Monocytes # (0-1.0) k/uL ABG pCO2 (35-45) mmHg ABG Total CO2 (19-24) mmol/L ABG O2 Saturation (94-97) % Sodium (137-145) mmol/L Potassium (3.5-5.1) mmol/L Chloride (98-107) mmol/L BUN (7-17) mg/dL Creatinine (0.52-1.04) mg/dL Glucose (74-99) mg/dL POC Glucose (mg/dL) 173 H (75-99) mg/dL Calcium (8.4-10.2) mg/dL Phosphorus (2.5-4.5) mg/dL Magnesium (1.6-2.3) mg/dL Microbiology - Last 24 Hours (Table) 08/08/18 13:54 Blood Culture - Preliminary Blood No Growth after 72 hours Assessment and Plan Assessment: Impression: 1 acute colonic obstruction secondary to fecal impaction 2 status post expiratory laparotomy, lysis of adhesions, left colectomy, splenectomy, and cholecystectomy. Postoperative day #2 3 postoperative hypoxic respiratory failure, unexpected presently because it is longer than what is expected. And that's mostly because of her overall metabolic encephalopathy picture at this point.. 4 acute metabolic encephalopathy on presentation, remains metabolically encephalopathic, CT brain was negative. We'll correct electrolytes, and we'll correct renal abnormalities, hoping that her mental status will improve. 5 chronic mid thoracic compression deformities 6 nonspecific pulmonary nodule needs to be monitored on outpatient basis 7 chronic tobacco dependence 8 chronic obstructive pulmonary disease presently inactive 9 Parkinson's dementia 10 bipolar depression 11 history of chronic constipation. Recommendation: Continue ventilatory support, hemodynamic support, presently off norepinephrine. Sepsis is in the differential, septic shock is also in the differential, however it is yet to be confirmed.. Continue antibiotics, continue GI and DVT prophylaxis, patient is clearly not ready to be weaned, today I have recommended that we keep her on the same ventilator settings. We' ll consult the dietitian for TPN, will correct her sodium and her potassium accordingly. IV fluid was changed to D5W. Patient will be given a dose of Lasix since her urine output is becoming marginal, and her chest x-ray is showing evidence of interstitial edema. Patient did receive about 8 L of fluids in the perioperative period. Mental status will be addressed on a daily basis, and once the patient is showing improvement, she could be weaned easily. Hopefully that could be done in the next 24 hours. At this point the patient remains critically ill, she has multiple complex issues, prognosis is definitely guarded, will follow. Critical care time is 35 minutes. Time with Patient: Greater than 30
[2018-08-12 13:05] LABS: Ionized Calcium 5.2 mg/dL (4.5-5.3)
[2018-08-12 13:18] LABS: Albumin 1.9 g/dL (3.5-5.0)
[2018-08-12] MEDS ORDERED: POTASSIUM CHLORIDE 20 MEQ in WATER FOR INJECTION 1 100ML.BAG IVPB ONE ×2 (17:45→20:00)
[2018-08-12] MEDS: DEXTROSE 5% IN WATER 1,000 ML with POTASSIUM CHLORIDE 40 MEQ IV SCH (17:47)
[2018-08-12 18:10] LABS: Glucose,Whole Blood 103 mg/dL (75-99)
[2018-08-12] MEDS ORDERED: POTASSIUM PHOSPHATE 10 MMOL in SODIUM CHLORIDE 0.9% 100 ML IV ONE (18:15)
[2018-08-12] MEDS ORDERED: MVI, ADULT NO.4 WITH VIT K 10 ML, TRACE (CONC-1ML/DOSE) 1 ML, POTASSIUM PHOSPHATE 15 MM... IV ONE ×6 (18:15)
--- NOTE | 2018-08-12 18:20 | PN ---
PROGRESS NOTE DATE OF SERVICE: 08/12/2018 This 87-year-old woman who was admitted with colonic obstruction, fecal impaction, had surgery. The patient mechanically ventilated and sedated. The patient appears to be slightly waking up today, closely monitored in ICU at this time. Consult including surgery and Dr. Noguera is following the patient closely. The most recent chest x-ray which I reviewed personally showed improvement volume status. PAST MEDICAL HISTORY: Reviewed. REVIEW OF SYSTEMS: Could not be taken, the patient mechanically ventilated and sedated. CURRENT MEDICATIONS: Reviewed and include: 1. Tylenol 650 q.6h p.r.n. 2. DuoNeb q.i.d. and p.r.n. 3. Cepacol. 4. Pulmicort 1 mg b.i.d. 5. Sinemet 25/100 one p.o. t.i.d. 6. Peridex 15 mL b.i.d. 7. Dextrose. 8. Pepcid 20 mg daily. 9. Perforomist 20 mcg b.i.d. 10.Dilaudid 1 mg q.3 p.r.n. 11.Reglan. 12.Motrin p.r.n. 13.Zosyn 3.375 IV q.8h. 14.Propofol. PHYSICAL EXAM: Patient is mechanically ventilated and sedated. Pulse 65. Blood pressure 113/ 48, respirations 30, temperature 99 degrees. Pulse ox 100 percent on 40% FiO2. Vent settings are noted. HEENT: Conjunctivae normal. Oral mucosa moist. Neck is no jugular venous distention. No carotid bruit. No lymph node enlargement. CARDIOVASCULAR: S1, S2. RESPIRATORY: Breath sounds diminished in the bases. A few scattered rhonchi. Expiratory wheezing also present. ABDOMEN: Soft, status post surgery. Legs are no edema. No swelling. CENTRAL NERVOUS SYSTEM: No focal deficits. LAB STUDIES: WBC 18.7, hemoglobin 10.4, sodium 140, potassium 2.9. ASSESSMENT: 1. Colonic obstruction secondary to fecal impaction and in the rectum and with cholecystitis with mechanical obstruction with possible sepsis, status post exploratory laparotomy, lysis of adhesions, left colectomy and takedown splenic flexure, splenectomy and cholecystectomy. 2. Possible acute respiratory failure on mechanical ventilation. 3. Change in mental status, metabolic encephalopathy secondary to sepsis, acute. 4. Increased WBC. 5. Increased creatinine with acute renal failure. 6. Chronic obstructive pulmonary disease. 7. Degenerative joint disease. 8. History of Parkinson's. 9. History of depression bipolar. 10.Severe hypokalemia. 11.Hypernatremia. RECOMMENDATIONS AND DISCUSSION: Recommend to continue current medications, management and symptomatic treatment. Otherwise continue with D5 water with potassium. Otherwise potassium supplementation. Continue rest of the medications. Broad-spectrum IV antibiotics. Guarded prognosis because of multiple complex medical issues. Further recommendations to follow. MMODL / IJN: [id number] / MTDD
[2018-08-12 23:44] LABS: Glucose,Whole Blood 118 mg/dL (75-99)
[2018-08-13] MEDS: PIPERACILLIN-TAZOBACTAM 3.375 GM in SODIUM CHLORIDE 0.9% 100 ML IVPB SCH ×3 (00:59→17:18)
[2018-08-13] MEDS: INSULIN ASPART (NovoLOG) 100 UNIT/ML VIAL SQ SCH ×4 (01:00→17:42)
[2018-08-13] MEDS ORDERED: POTASSIUM BICARBONATE/CIT AC 20 MEQ TABLET.EFF NG-TUBE SCH ×3 (05:00→18:00)
[2018-08-13 05:54] LABS: ABG Base Excess -0.5 mmol/L; ABG HCO3 23 mmol/L (21-25); ABG PCO2 33 mmHg (35-45); ABG PH 7.46 (7.35-7.45); ABG PO2 99 mmHg (83-108); ABG TCO2 24 mmol/L (19-24)
[2018-08-13 06:03] LABS: Glucose,Whole Blood 153 mg/dL (75-99)
[2018-08-13] MEDS: BUDESONIDE 1 MG/2 ML NEBU INHALATION SCH ×2 (07:15→19:30)
[2018-08-13] MEDS: IPRATROPIUM-ALBUTEROL 3 ML NEB INHALATION SCH ×4 (07:15→19:30)
[2018-08-13] MEDS: FORMOTEROL FUMARATE 20 MCG/2 ML NEBU INHALATION SCH ×2 (07:15→19:30)
[2018-08-13 07:18] LABS: Basophils % (A) 0 %; Eosinophils % (A) 0 %; HCT 30.4 % (34.0-46.0); HGB 9.3 gm/dL (11.4-16.0); Hypochromasia Marked; Lymphocytes # (A) 1.2 k/uL (1.0-4.8); Lymphocytes % (A) 5 %; MCH 29.1 pg (25.0-35.0); MCHC 30.5 g/dL (31.0-37.0); MCV 95.3 fL (80.0-100.0); Mean Platelet Volume 7.5; Monocytes # (A) 1.7 k/uL (0-1.0); Monocytes % (A) 8 %; Neutrophils # (A) 18.3 k/uL (1.3-7.7); Neutrophils % (A) 85 %; Platelet Count 164 k/uL (150-450); RBC 3.19 m/uL (3.80-5.40); RDW 15.5 % (11.5-15.5); WBC 21.6 k/uL (3.8-10.6)
[2018-08-13 07:33] LABS: Potassium 3.9 mmol/L (3.5-5.1)
[2018-08-13 07:34] LABS: Calcium 8.4 mg/dL (8.4-10.2); Magnesium 2.2 mg/dL (1.6-2.3); Phosphorus 2.2 mg/dL (2.5-4.5)
[2018-08-13] MEDS: DEXTROSE 5% IN WATER 1,000 ML with POTASSIUM CHLORIDE 40 MEQ IV SCH (07:50)
[2018-08-13] MEDS: CHLORHEXIDINE GLUCONATE 15 ML CUP MUCOUS MEM SCH ×2 (07:59→20:46)
[2018-08-13] MEDS: FAMOTIDINE 20 MG/2 ML VIAL IV SCH (07:59)
--- NOTE | 2018-08-13 08:37 | XR ---
EXAMINATION TYPE: XR chest 1V portable DATE OF EXAM: 08/13/2018 CLINICAL HISTORY: Difficulty breathing progress study. TECHNIQUE: Single AP portable upright view of the chest is obtained. COMPARISON: Chest x-ray from one day earlier and older studies. FINDINGS: An endotracheal tube, orogastric tube, and right internal jugular central venous catheter are all stable in appearance. Cardiac silhouette size is stable and enlarged with atherosclerotic and ectatic thoracic aorta. There is chronic parenchymal change with bibasilar opacity felt to reflect s mall bilateral pleural effusions and associated bibasilar atelectasis and/or infiltrate. Osseous stru ctures are somewhat demineralized. IMPRESSION: Chronic parenchymal change and cardiomegaly with small to tiny bilateral pleural effusion s and associated bibasilar atelectasis and/or infiltrate all redemonstrated. No significant interval change.
[2018-08-13] MEDS ORDERED: Potassium Replacement Protocol 1 EACH MISC MISCELLANE PRN ×2 (08:38→17:12)
[2018-08-13] MEDS: CARBIDOPA-LEVODOPA 25-100 MG 1 EACH TAB PO SCH ×3 (09:13→22:12)
[2018-08-13] MEDS: DEXTROSE 5% IN WATER 1,000 ML IV SCH (10:16)
--- NOTE | 2018-08-13 10:25 | PN ---
PROGRESS NOTE This is a patient who was admitted on August 08 and went to the operating room on August 10. She had chronic obstruction secondary to fecal impaction. She had an exploratory laparotomy with lysis of adhesions, left colectomy, takedown of splenic flexure, splenectomy, cholecystectomy. She is currently postop day #3. The patient has been off of sedation since Monday and is poorly responsive. She remains on mechanical ventilator. Currently, still a FULL CODE. This needs to be addressed with the family. The patient is on the volume assist-control mode rate of 16, tidal volume 350, FiO2 of 40%, PEEP of 5. Blood gases show a PaO2 of 99, pCO2 of 33, and a pH 7.46. This is consistent with normoxemia and a mild respiratory alkalosis. The patient's set rate is increased from 16 to 30 because her spontaneous rate is 36. She is on a D5 of 0.45 IV with 20 potassium at 75 mL an hour and TPN at 30 mL an hour. Chest x-ray shows consolidation in the left lower lobe, bilateral effusions and some findings consistent with fluid overload. In addition to all this, the patient has a history of metabolic encephalopathy, thoracic compression deformities, nonspecific pulmonary nodules, chronic tobacco dependence, COPD which is inactive, Parkinson's dementia, bipolar disorder, and history of chronic constipation. Again, the patient is very poorly responsive. 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 Finally, she has been off sedation as mentioned above since Monday. She is not receiving any sedatives, hypnotics, narcotics or tranquilizers. This is quite concerning. She has not had any weaning from the mechanical ventilator. Current vital signs are reviewed. Temperature 99.8, heart rate 70, respiratory rate is 36 breaths per minute, blood pressure 130/56 with a mean of 80 and saturations are 98%. This is on 40% and 5 of PEEP. Appears in no acute distress. Currently in my opinion unresponsive or poorly responsive at best. She has got an orally placed endotracheal tube and NG tube. HEENT examination is grossly unremarkable otherwise. NECK: Supple. Cardiovascular examination reveals regular rhythm and rate. Heart sounds are distant. Lungs reveal some coarse rhonchi. No crackles noted. Breath sounds equal bilaterally but diminished throughout. Abdomen is soft. No bowel sounds are heard. A colostomy bag is noted. Extremities reveal mild edema. Skin without rash. There is some ecchymoses noted. Neurologic examination could not be evaluated fully. Microbiologic studies are thus far negative. White count is 21.6, hemoglobin 9.3, hematocrit 30.4, platelet count is 164, 000. Blood gases have been mentioned already pO2 of 99, pCO2 of 33, pH 7.46. Sodium 153, potassium 3.9, chloride 126, CO2 of 25, BUN and creatinine were 31, 1.25. Medications are reviewed. Currently, the patient is on Tylenol, TPN, Pulmicort 1 mg twice a day, Sinemet, chlorhexidine, IV Pepcid, formoterol, Lasix, Dilaudid, insulin, DuoNeb, Raglan, morphine, norepinephrine, Zofran, Zosyn, potassium replacement. Medications are reviewed and adjustments are made accordingly. ASSESSMENT: 1. Postoperative day #3 status post colonic obstruction secondary to fecal impaction with subsequent exploratory laparotomy, splenectomy, lysis of adhesions, cholecystectomy, postop day #3. 2. Routine postoperative ventilator management with failure to wean. 3. Encephalopathy, which may be metabolic in nature. 4. Chronic mid thoracic compression deformities. 5. Nonspecific pulmonary nodules. 6. Chronic tobacco dependence and suspected chronic obstructive pulmonary disease, although inactive. 7. Parkinson's dementia. 8. Bipolar disorder. 9. History of chronic constipation. 10.Profound hypernatremia. PLAN: Unnecessary medications were discontinued. The patient is not going to be able to be weaned at this point because of mental status. Will DC the 0.45. Will just give her dextrose at a slightly higher rate so that we can counteract the hypernatremia. We will continue with antibiotics. Medications, labs and x-rays were all reviewed. Prognosis is very guarded to poor. Code status should be addressed with the family. Additional recommendations and suggestions are forthcoming. Critical care time is 34 minutes. MMODL / IJN: [id number] / SAHRA
[2018-08-13 12:07] LABS: Glucose,Whole Blood 132 mg/dL (75-99)
[2018-08-13] MEDS: MVI, ADULT NO.4 WITH VIT K 10 ML, TRACE (CONC-1ML/DOSE) 1 ML, POTASSIUM PHOSPHATE 15 MM... IV SCH ×6 (13:45)
--- NOTE | 2018-08-13 15:11 | P.PN ---
Subjective Progress Note Date: 08/13/18 87-year-old female seen in the ICU on vent support being followed by the lead ruby on rails developer for ICU management running a low-grade temp of 99.[address] abdomen ostomy left lower quadrant scant amount of brown liquid stool in the ostomy bag surgical dressing dry heart rate in the 80s white count is up 21.6 was 18.7 hemoglobin 9.3 currently does not open eyes to verbal stimuli vitals were reviewed patient's postop August 10 exploratory laparotomy, lysis of adhesions, left colectomy, takedown of splenic flexure, spleen ostomy, cholecystectomy Objective - Vital Signs Vital signs: Vital Signs Temp 99.2 F 08/13/18 12:00 Pulse 72 08/13/18 14:00 Resp 30 H 08/13/18 14:00 BP 142/63 08/13/18 14:00 Pulse Ox 98 08/13/18 14:00 Intake & Output 08/12/18 08/13/18 08/13/18 18:59 06:59 18:59 Intake Total 1175 1490 740 Output Total 1550 1015 790 Balance -375 475 -50 Weight 52.6 kg 52.6 kg Intake: IV 125 50 635 D545 with 40 meq of K @ 225 75 Dextrose 5% in Water 1, 120 000 ml @ 40 mls/hr IV . Q24H [facility] Rx#:[id number] Mvi, Adult No.4 with Vit 180 K 10 ml Trace (Conc-1Ml/ Dose) 1 ml Potassium Phosphate 15 mmol Potassium Acetate 10 meq Calcium Gluconate 500 mg In Amino Acid 5%-D15w 1, 000 ml @ 30 mls/hr IV . Q24H ONE Rx#:[id number] Piperacillin-Tazobactam 3 125 50 100 .375 gm In Sodium Chloride 0.9% 100 ml @ 25 mls/hr IVPB Q8HR [facility] Rx# :[id number] Sodium Chloride 0.9 @ 10 10 Intake, IV Titration 1050 1440 105 Amount Dextrose 5% in Water 1, 525 000 ml @ 75 mls/hr IV . [id number] [facility] Rx#:[id number] Dextrose 5% in Water 1, 75 900 75 000 ml @ 75 mls/hr IV . [id number] [facility] with Potassium Chloride 40 meq Rx#:[id number] Dextrose 5%-0.45% NaCl 1, 150 000 ml @ 75 mls/hr IV . [id number] [facility] Rx#:[id number] Mvi, Adult No.4 with Vit 240 30 K 10 ml Trace (Conc-1Ml/ Dose) 1 ml Potassium Phosphate 15 mmol Potassium Acetate 10 meq Calcium Gluconate 500 mg In Amino Acid 5%-D15w 1, 000 ml @ 30 mls/hr IV . Q24H ONE Rx#:[id number] Piperacillin-Tazobactam 3 100 .375 gm In Sodium Chloride 0.9% 100 ml @ 25 mls/hr IVPB Q8HR [facility] Rx# :[id number] Potassium Chloride 20 meq 50 In Water For Injection 1 100ml.bag @ 50 mls/hr IVPB ONCE ONE Rx#: [id number] Potassium Chloride 20 meq 300 In Water For Injection 1 100ml.bag @ 50 mls/hr IVPB Q2H [facility] Rx#: [id number] Potassium Phosphate 10 150 mmol In Sodium Chloride 0 .9% 100 ml @ 50 mls/hr IV ONCE ONE Rx#:[id number] Output: Urine 1500 1015 790 Stool 50 Other: Voiding Method Indwelling Catheter Indwelling Catheter Indwelling Catheter # Voids 0 0 ABP, PAP, CO, CI - Last Documented Arterial Blood Pressure 96/76 - Exam physical exam 87-year-old female appears in no acute distress orally intubated on vent support does not open eyes to verbal stimuli Lungs anterior decreased the bases no wheezing noted Heart S1-S2 regular Abdomen ostomy scant amount of liquid brown stool in the bag few hypoactive bowel tones nasogastric tube to suction distended extremities Venodyne's on to the bilateral lower extremities - Labs CBC & Chem 7: 08/13/18 06:45 08/13/18 13:52 Labs: Abnormal Lab Results - Last 24 Hours (Table) 08/12/18 08/12/18 08/12/18 Range/Units 17:10 17:59 23:32 WBC (3.8-10.6) k/uL RBC (3.80-5.40) m/uL Hgb (11.4-16.0) gm/dL Hct (34.0-46.0) % MCHC (31.0-37.0) g/dL Neutrophils # (1.3-7.7) k/uL Monocytes # (0-1.0) k/uL ABG pH (7.35-7.45) ABG pCO2 (35-45) mmHg ABG O2 Saturation (94-97) % Sodium (137-145) mmol/L Potassium 3.2 L (3.5-5.1) mmol/L Chloride (98-107) mmol/L BUN (7-17) mg/dL Creatinine (0.52-1.04) mg/dL Glucose (74-99) mg/dL POC Glucose (mg/dL) 103 H 118 H (75-99) mg/dL Phosphorus (2.5-4.5) mg/dL 08/13/18 08/13/18 08/13/18 Range/Units 05:51 05:51 06:45 WBC 21.6 H (3.8-10.6) k/uL RBC 3.19 L (3.80-5.40) m/uL Hgb 9.3 L (11.4-16.0) gm/dL Hct 30.4 L (34.0-46.0) % MCHC 30.5 L (31.0-37.0) g/dL Neutrophils # 18.3 H (1.3-7.7) k/uL Monocytes # 1.7 H (0-1.0) k/uL ABG pH 7.46 H (7.35-7.45) ABG pCO2 33 L (35-45) mmHg ABG O2 Saturation 99.0 H (94-97) % Sodium (137-145) mmol/L Potassium (3.5-5.1) mmol/L Chloride (98-107) mmol/L BUN (7-17) mg/dL Creatinine (0.52-1.04) mg/dL Glucose (74-99) mg/dL POC Glucose (mg/dL) 153 H (75-99) mg/dL Phosphorus (2.5-4.5) mg/dL 08/13/18 08/13/18 Range/Units 06:45 11:55 WBC (3.8-10.6) k/uL RBC (3.80-5.40) m/uL Hgb (11.4-16.0) gm/dL Hct (34.0-46.0) % MCHC (31.0-37.0) g/dL Neutrophils # (1.3-7.7) k/uL Monocytes # (0-1.0) k/uL ABG pH (7.35-7.45) ABG pCO2 (35-45) mmHg ABG O2 Saturation (94-97) % Sodium 153 H (137-145) mmol/L Potassium (3.5-5.1) mmol/L Chloride 126 H (98-107) mmol/L BUN 31 H (7-17) mg/dL Creatinine 1.25 H (0.52-1.04) mg/dL Glucose 134 H (74-99) mg/dL POC Glucose (mg/dL) 132 H (75-99) mg/dL Phosphorus 2.2 L (2.5-4.5) mg/dL Microbiology - Last 24 Hours (Table) 08/08/18 13:54 Blood Culture - Preliminary Blood No Growth after 96 hours Assessment and Plan Assessment: Impression Present on admission fecal impaction constipation History of constipation Present on admission encephalopathy CAT scan abdomen and pelvis done on admission noted rectal fecal impaction with a large rectal fecal ball measuring 11.5 cm CAT scan abdomen and pelvis biliary duct dilatation and hydropic size of the gallbladder with cholelithiasis asymptomatic Chronic debility limited mobility suspect due to comorbidities Present on admission generalized weakness encephalopathy poor oral intake clinical dehydration suspect due to fecal impaction History of Parkinson's disease Depressive disorder nonspecified postoperative August 10 exploratory laparotomy, lysis of adhesions, left colectomy, takedown of splenic flexure, splenectomy cholecystectomy Postop leukocytosis unexpected Plan continue ICU management per the lead ruby on rails developer vent per lead ruby on rails developer DVT and GI prophylaxis PPN parenteralnutrition per dietitian's recommendations IV Zosyn as ordered Advanced directives indicating no CODE STATUS The above impression and plan of care have been discussed and directed by signing physician. Mirna Douglas nurse practitioner acting as scribe for signing physician.
[2018-08-13] MEDS: FAT EMULSION 20% 250 ML in EMPTY BAG 1 BAG IV SCH (17:18)
[2018-08-13 17:49] LABS: Glucose,Whole Blood 127 mg/dL (75-99)
[2018-08-13] MEDS ORDERED: MVI, ADULT NO.4 WITH VIT K 10 ML, TRACE (CONC-1ML/DOSE) 1 ML, POTASSIUM PHOSPHATE 15 MM... IV SCH ×6 (18:30)
[2018-08-14 00:01] LABS: Glucose,Whole Blood 161 mg/dL (75-99)
[2018-08-14] MEDS: INSULIN ASPART (NovoLOG) 100 UNIT/ML VIAL SQ SCH ×4 (00:10→19:14)
[2018-08-14] MEDS: PIPERACILLIN-TAZOBACTAM 3.375 GM in SODIUM CHLORIDE 0.9% 100 ML IVPB SCH ×3 (00:10→15:13)
[2018-08-14] MEDS: ACETAMINOPHEN TAB 325 MG TAB PO PRN ×2 (01:09→12:34)
[2018-08-14 04:15] LABS: Calcium 9.2 mg/dL (8.4-10.2); Magnesium 2.1 mg/dL (1.6-2.3); Phosphorus 2.2 mg/dL (2.5-4.5); Potassium 3.5 mmol/L (3.5-5.1)
[2018-08-14 04:34] LABS: HCT 31.3 % (34.0-46.0); HGB 9.5 gm/dL (11.4-16.0); Hypochromasia Moderate; MCHC 30.4 g/dL (31.0-37.0); MCV 95.2 fL (80.0-100.0); Mean Platelet Volume 7.5; Platelet Count 178 k/uL (150-450); RBC 3.29 m/uL (3.80-5.40); RDW 15.4 % (11.5-15.5)
[2018-08-14] MEDS: POTASSIUM CHLORIDE 20 MEQ in WATER FOR INJECTION 1 100ML.BAG IVPB SCH (05:06)
[2018-08-14 05:31] LABS: ABG Base Excess -1.6 mmol/L; ABG HCO3 21 mmol/L (21-25); ABG Oxygen Saturation 99.3 % (94-97); ABG PCO2 24 mmHg (35-45); ABG PH 7.55 (7.35-7.45); ABG PO2 142 mmHg (83-108); ABG TCO2 22 mmol/L (19-24)
[2018-08-14 06:07] LABS: Glucose,Whole Blood 127 mg/dL (75-99)
[2018-08-14 07:10] LABS: Band Neutrophils % 15 %; Metamyelocytes % 3 %; Myelocytes # (M) 0.22 k/uL (0); Myelocytes % 1 %; Neutrophils % (M) 66 %; Nucleated Red Blood Cells 2 /100 WBC (0-0); Total Cells Counted 200
[2018-08-14 07:11] LABS: Eosinophils # (M) 0.44 k/uL (0-0.7); Lymphocytes # (M) 1.32 k/uL (1.0-4.8); Metamyelocytes # (M) 0.66 k/uL (0); Target Cells Present
[2018-08-14] MEDS: BUDESONIDE 1 MG/2 ML NEBU INHALATION SCH ×2 (07:11→19:31)
[2018-08-14] MEDS: FORMOTEROL FUMARATE 20 MCG/2 ML NEBU INHALATION SCH ×2 (07:11→19:31)
[2018-08-14] MEDS: IPRATROPIUM-ALBUTEROL 3 ML NEB INHALATION SCH ×4 (07:11→19:31)
[2018-08-14 07:12] LABS: Anisocytosis (M) Present
[2018-08-14 07:14] LABS: Polychromasia Present
--- NOTE | 2018-08-14 08:10 | XR ---
EXAMINATION TYPE: XR chest 1V portable DATE OF EXAM: 08/14/2018 Comparison: 08/13/2018 Clinical History: 87-year-old female Tube placement Findings: Leftward patient rotation alters and normal cardiac and mediastinal contours. ET tube and NG tube are satisfactory. Right IJ CVC tip in the upper right atrium. Heart remains borderline enlarged. Mild di ffuse interstitial prominence similar to slightly improved with continued small effusions and patchy bibasilar opacities. Impression: 1. Similar to slightly improved interstitial changes, possible residual mild pulmonary vascular conge stion. 2. Continued small effusions with adjacent atelectasis and/or consolidation particularly in the retro cardiac region.
[2018-08-14] MEDS: CARBIDOPA-LEVODOPA 25-100 MG 1 EACH TAB PO SCH ×3 (08:39→21:42)
[2018-08-14] MEDS: CHLORHEXIDINE GLUCONATE 15 ML CUP MUCOUS MEM SCH ×2 (08:40→20:21)
[2018-08-14] MEDS: FAMOTIDINE 20 MG/2 ML VIAL IV SCH (08:40)
[2018-08-14] MEDS: DEXTROSE 5% IN WATER 1,000 ML IV SCH (08:40)
[2018-08-14] MEDS: MVI, ADULT NO.4 WITH VIT K 10 ML, TRACE (CONC-1ML/DOSE) 1 ML, POTASSIUM PHOSPHATE 15 MM... IV SCH ×6 (09:43)
--- NOTE | 2018-08-14 09:46 | CDI ---
Documentation Clarification Form Date: 08/14/18 From: Taina Vides RN Admit Date: 08/08/2018 6:14:00 PM Patient Name: Jazmín Tovar Visit Number: [id number] ATTENTION: The Clinical Documentation Specialists (CDI) and [facility] Coding Staff appreciate your assistance in clarifying documentation. Please respond to the clarification below the line at the bottom and electronically sign. The CDI & [facility] Coding staff will review the response and follow-up if needed. Please note: Queries are made part of the Legal Health Record. If you have any questions, please contact the author of this message via ITS. Dr. Froylan Morillo, Can you please render your opinion on the following documentation? Patient presented with constipation, possible blockage, altered mental status and abdominal pain. On 08/10 patient had an exploratory laparotomy, lysis of adhesions, left colectomy, takedown of splenic flexure, splenectomy, and cholecystectomy History/Risk Factors: COPD, bipolar, depression, constipation, pneumonia, Parkinson, smoker Clinical Indicators: PN 08/13: normoxemia and mild respiratory alkalosis patient very poorly responsive, patient has been off sedation since Monday, she is not receiving any sedatives, hypnotics, narcotics or tranquilizers, this is quite concerning, she has not had any weaning from the vent. 08/14: ABG: pH 7.55 pCO2: 24 pHCO3: 21 Vital Signs on admission: T 98.2, P 59, R 20, 109/52, 96% RA. 08/14: T 99.2, P 71, R 25, 115/76 Remains on vent. Treatment: Oxygen: 99% vented Medications: Duoneb, Pulmicort, Perforomist, Cefazolin Nutritional support, careful management of fluids In order to accurately reflect the severity of condition, please indicate if the above clinical findings and treatment signify a respiratory condition, such as: Acute Respiratory Distress ruled in Acute Respiratory Distress ruled out Other, please specify Unable to determine ___Unable to determine MTDD
[2018-08-14] MEDS ORDERED: POTASSIUM PHOSPHATE 15 MMOL in SODIUM CHLORIDE 0.9% 250 ML IV ONE (10:00)
--- NOTE | 2018-08-14 10:38 | PN ---
PROGRESS NOTE This is an 87-year-old patient who was admitted back on August 08 and went to the operating room on August 10. She had chronic fecal impaction and bowel obstruction. She underwent exploratory laparotomy with lysis of adhesions, left colectomy, takedown of splenic flexure, splenectomy and cholecystectomy. She is postop day #4. The patient has been off sedation since Monday. She has really not had any improvement in her mental status. The patient currently remains on the ventilator. She is on the volume assist-control mode rate of 30, tidal volume 350, FiO2 of 40%, PEEP of 5. Blood gases show a pO2 of 142, a PaCO2 of 24, and pH7.55. She is getting dextrose IV at 40 mL an hour, a saline IV at 10 mL an hour, TPN at 50 mL an hour and lipids which are currently off. I was able to have a long talk with the family. They have made her DNR. They are considering comfort measures. I expressed my concern about the fact that her mental status has not really improved. She apparently had prior authorization for a DO NOT RESUSCITATE order. Likely would not have wanted to be on the ventilator according to the family. In addition, she has a history of metabolic encephalopathy, thoracic compression deformities, nonspecific pulmonary nodules, chronic tobacco dependence, COPD, Parkinson's, dementia, bipolar disorder, and history of chronic constipation. Prior episodes of constipation did not result in the need for surgery. Current vital signs are reviewed. Temperature 99.2, heart rate 71, respiratory rate 20, blood pressure 137/58, mean 84, and saturations are 97% on the FiO2 of 45% and PEEP of 5. Currently, does not open her eyes. Does not seem to respond to verbal stimuli. Does trigger the ventilator. Does not respond to family members voices. Does move all 4 extremities. Appears restless. HEENT examination is grossly unremarkable. There is an orally placed endotracheal tube and NG tube. NECK: Supple. Full range of motion. Cardiovascular examination reveals mild tachycardia. Heart rate 100. Lungs reveal coarse rhonchi. Breath sounds are diminished. There is no wheeze. No crackles. Breath sounds are diminished throughout. Abdomen is soft. Bowel sounds are heard. Extremities are intact. No cyanosis or clubbing. There is some slight edema and diffuse anasarca. Skin reveals areas of ecchymoses. Neurologic examination is difficult to assess. Microbiologic studies are negative. Labs reveal a white count of 22,000, hemoglobin 9.5, hematocrit 31.3, platelet count 178,000. Sodium 148 down from 153, potassium 3.5, chloride 121, CO2 of 25. BUN and creatinine were 25 and 0.96. Medications are reviewed. The patient's medications were reviewed yesterday and everything appeared to be relatively appropriate. Brain CT from the shows cerebral atrophy, but no acute abnormality intracranially. ASSESSMENT: 1. Postoperative day #4, status post colonic obstruction secondary to fecal impaction with subsequent exploratory laparotomy, splenectomy, lysis of adhesions, cholecystectomy, and takedown of splenic flexure. 2. Routine postoperative ventilator management with failure to wean. 3. Metabolic encephalopathy with no improvement in her current mental status. 4. Chronic mid thoracic compression deformities. 5. Nonspecific pulmonary nodules. 6. Chronic tobacco dependence and suspected chronic obstructive pulmonary disease, although inactive. 7. Parkinson's dementia. 8. Bipolar disorder. 9. History of chronic constipation. 10.Hypernatremia, improved. PLAN: We removed the sodium from her TPN and also from any IVs. Her sodium levels have improved from 153 down to 148. She continues on nutrition via TPN. She remains on the ventilator. I think it would be too risky to try to extubate her at this time. I did have a long talk with the family. We did make her DNR. The patient apparently had prior wishes not to be resuscitated. The family is wrestling with whether not to make her comfort measures. Apparently, she would not want to be on life support according some of the family members. I will continue to follow. Additional recommendations and suggestions are forthcoming. Prognosis is very poor. Labs, x-rays and medications are all reviewed. CRITICAL CARE TIME: 33 minutes. MMODL / IJN: [id number] /
[2018-08-14 12:14] LABS: Glucose,Whole Blood 148 mg/dL (75-99)
[2018-08-14] MEDS: FAT EMULSION 20% 250 ML in EMPTY BAG 1 BAG IV SCH (15:25)
--- NOTE | 2018-08-14 16:47 | P.PN ---
Subjective Progress Note Date: 08/13/18 Progress note being dictated for Dr. Palm. Interval history: This 87-year-old female admitted with colonic obstruction, fecal impaction, status post surgery. Remains mechanical ventilator-dependent, FiO2 40%/+5 of PEEP. Continues on TPN, no pressors. Not following commands, not opening eyes to noxious stimuli. T-max 99.2. Review of systems; unable to obtain as patient on mechanical ventilation. Maintained on D5W with Sodium 153, renal function slowly improving.PPN. Remains off of sedation, not following commands-unable to do weaning parameters/ trials. Active Medications Acetaminophen (Tylenol Tab) 650 mg PO Q6HR PRN PRN Reason: Mild Pain or Fever > 100.5 Last Admin: 08/12/18 22:28 Dose: 650 mg Albuterol/Ipratropium (Duoneb 0.5 Mg-3 Mg/3 Ml Soln) 3 ml INHALATION RT-QID [facility] Last Admin: 08/13/18 15:14 Dose: 3 ml Albuterol/Ipratropium (Duoneb 0.5 Mg-3 Mg/3 Ml Soln) 3 ml INHALATION RT-QID PRN PRN Reason: Shortness Of Breath Or Wheezing Last Admin: 08/12/18 03:15 Dose: 3 ml Benzocaine/Menthol (Cepacol Lozenge) 1 each MUCOUS MEM Q1HR PRN PRN Reason: Sore Throat Budesonide (Pulmicort) 1 mg INHALATION RT-BID [facility] Last Admin: 08/13/18 07:15 Dose: 1 mg Carbidopa/Levodopa (Sinemet 25-100) 1 each PO TID [facility] Last Admin: 08/13/18 09:13 Dose: 1 each Chlorhexidine Gluconate (Peridex) 15 ml MUCOUS MEM BID [facility] Last Admin: 08/13/18 07:59 Dose: 15 ml Famotidine (Pepcid) 20 mg IV DAILY [facility] Last Admin: 08/13/18 07:59 Dose: 20 mg Formoterol Fumarate (Perforomist) 20 mcg INHALATION RT-BID [facility] Last Admin: 08/13/18 07:15 Dose: 20 mcg Piperacillin Sod/Tazobactam (Sod 3.375 gm/ Sodium Chloride) 100 mls @ 25 mls/ hr IVPB Q8HR [facility] Last Admin: 08/13/18 07:58 Dose: 25 mls/hr Parenteral Vitamin Supplement 10 ml/ Chromium/Copper/Manganese/Seleni/Zn 1 ml/ Potassium Phosphate 15 mmol/Potassium Acetate 10 meq/Calcium Gluconate 500 mg/ Amino Acids/Dextrose 1,026 mls @ 30 mls/hr IV .Q24H ONE Stop: 08/13/18 18:14 Last Admin: 08/12/18 22:24 Dose: 30 mls/hr Dextrose/Water (Dextrose 5%-Water Iv Soln) 1,000 mls @ 40 mls/hr IV .Q24H [facility] Last Admin: 08/13/18 10:16 Dose: 40 mls/hr Fat Emulsion Intravenous 250 (ml/ IV Solution) 250 mls @ 21 mls/hr IV Q24H [facility] Parenteral Vitamin Supplement 10 ml/ Chromium/Copper/Manganese/Seleni/Zn 1 ml/ Potassium Phosphate 15 mmol/Calcium Gluconate 1,000 mg/Magnesium Sulfate 0.5 gm/ Amino Acids/Dextrose 1,027 mls @ 50 mls/hr IV .[id number] [facility] Last Admin: 08/13/18 13:45 Dose: 50 mls/hr Insulin Aspart (Novolog) 0 unit SQ Q6HR [facility]; Protocol Last Admin: 08/13/18 13:40 Dose: 1 unit Lidocaine HCl (.Xylocaine 1% Inj (10mg/Ml) For Iv Start) 0.1 ml INTRADERMA PER PROTOCOL PRN PRN Reason: IV Start Metoclopramide HCl (Reglan) 10 mg IVP Q6HR PRN PRN Reason: Nausea and Vomiting Miscellaneous Information (Potassium Per Protocol) 1 each MISCELLANE DAILY PRN ; Protocol PRN Reason: Per Protocol Naloxone HCl (Narcan) 0.2 mg IV Q2M PRN PRN Reason: Opioid Reversal Ondansetron HCl (Zofran) 4 mg IVP Q8HR PRN PRN Reason: Nausea And Vomiting Objective - Vital Signs Vital signs: Vital Signs Temp 100 F H 08/13/18 16:00 Pulse 75 08/13/18 16:00 Resp 31 H 08/13/18 16:00 BP 120/63 08/13/18 16:00 Pulse Ox 96 08/13/18 16:00 Intake & Output 08/12/18 08/13/18 08/13/18 18:59 06:59 18:59 Intake Total 1175 1490 740 Output Total 1550 1015 790 Balance -375 475 -50 Weight 52.6 kg 52.6 kg Intake: IV 125 50 635 D545 with 40 meq of K @ 225 75 Dextrose 5% in Water 1, 120 000 ml @ 40 mls/hr IV . Q24H [facility] Rx#:[id number] Mvi, Adult No.4 with Vit 180 K 10 ml Trace (Conc-1Ml/ Dose) 1 ml Potassium Phosphate 15 mmol Potassium Acetate 10 meq Calcium Gluconate 500 mg In Amino Acid 5%-D15w 1, 000 ml @ 30 mls/hr IV . Q24H [facility] Rx#:[id number] Piperacillin-Tazobactam 3 125 50 100 .375 gm In Sodium Chloride 0.9% 100 ml @ 25 mls/hr IVPB Q8HR [facility] Rx# :[id number] Sodium Chloride 0.9 @ 10 10 Intake, IV Titration 1050 1440 105 Amount Dextrose 5% in Water 1, 525 000 ml @ 75 mls/hr IV . [id number] [facility] Rx#:[id number] Dextrose 5% in Water 1, 75 900 75 000 ml @ 75 mls/hr IV . [id number] [facility] with Potassium Chloride 40 meq Rx#:[id number] Dextrose 5%-0.45% NaCl 1, 150 000 ml @ 75 mls/hr IV . [id number] [facility] Rx#:[id number] Mvi, Adult No.4 with Vit 240 30 K 10 ml Trace (Conc-1Ml/ Dose) 1 ml Potassium Phosphate 15 mmol Potassium Acetate 10 meq Calcium Gluconate 500 mg In Amino Acid 5%-D15w 1, 000 ml @ 30 mls/hr IV . Q24H [facility] Rx#:[id number] Piperacillin-Tazobactam 3 100 .375 gm In Sodium Chloride 0.9% 100 ml @ 25 mls/hr IVPB Q8HR [facility] Rx# :[id number] Potassium Chloride 20 meq 50 In Water For Injection 1 100ml.bag @ 50 mls/hr IVPB ONCE [facility] Rx#: [id number] Potassium Chloride 20 meq 300 In Water For Injection 1 100ml.bag @ 50 mls/hr IVPB Q2H [facility] Rx#: [id number] Potassium Phosphate 10 150 mmol In Sodium Chloride 0 .9% 100 ml @ 50 mls/hr IV ONCE ONE Rx#:[id number] Output: Urine 1500 1015 790 Stool 50 Other: Voiding Method Indwelling Catheter Indwelling Catheter Indwelling Catheter # Voids 0 0 ABP, PAP, CO, CI - Last Documented Arterial Blood Pressure 96/76 - Exam PHYSICAL EXAM: VITAL SIGNS: [As above] GENERAL: Sitting up in bed, intubated, no acute distress HEENT: Conjunctivae normal. eyes normal. Oral mucosa dry. NG tube present NECK: No JVD. No thyroid enlargement. No LNs CARDIOVASCULAR: S1, S2 muffled. No murmur RESPIRATION: Breath sounds diminished in the bases. Scattered coarse rhonchi, no crackles, wheezing ABDOMEN: Soft, status post surgery, small liquidy brown stool in ostomy bag , hypoactive Bowel sounds. LEGS: No edema. no swelling PSYCHIATRY: Alert and oriented -3, mood and affect normal. NERVOUS SYSTEM: Unable to evaluate, intubated. - Labs CBC & Chem 7: 08/14/18 03:50 08/14/18 03:50 Labs: Abnormal Lab Results - Last 24 Hours (Table) 08/12/18 08/12/18 08/12/18 Range/Units 17:10 17:59 23:32 WBC (3.8-10.6) k/uL RBC (3.80-5.40) m/uL Hgb (11.4-16.0) gm/dL Hct (34.0-46.0) % MCHC (31.0-37.0) g/dL Neutrophils # (1.3-7.7) k/uL Monocytes # (0-1.0) k/uL ABG pH (7.35-7.45) ABG pCO2 (35-45) mmHg ABG O2 Saturation (94-97) % Sodium (137-145) mmol/L Potassium 3.2 L (3.5-5.1) mmol/L Chloride (98-107) mmol/L BUN (7-17) mg/dL Creatinine (0.52-1.04) mg/dL Glucose (74-99) mg/dL POC Glucose (mg/dL) 103 H 118 H (75-99) mg/dL Phosphorus (2.5-4.5) mg/dL 08/13/18 08/13/18 08/13/18 Range/Units 05:51 05:51 06:45 WBC 21.6 H (3.8-10.6) k/uL RBC 3.19 L (3.80-5.40) m/uL Hgb 9.3 L (11.4-16.0) gm/dL Hct 30.4 L (34.0-46.0) % MCHC 30.5 L (31.0-37.0) g/dL Neutrophils # 18.3 H (1.3-7.7) k/uL Monocytes # 1.7 H (0-1.0) k/uL ABG pH 7.46 H (7.35-7.45) ABG pCO2 33 L (35-45) mmHg ABG O2 Saturation 99.0 H (94-97) % Sodium (137-145) mmol/L Potassium (3.5-5.1) mmol/L Chloride (98-107) mmol/L BUN (7-17) mg/dL Creatinine (0.52-1.04) mg/dL Glucose (74-99) mg/dL POC Glucose (mg/dL) 153 H (75-99) mg/dL Phosphorus (2.5-4.5) mg/dL 08/13/18 08/13/18 Range/Units 06:45 11:55 WBC (3.8-10.6) k/uL RBC (3.80-5.40) m/uL Hgb (11.4-16.0) gm/dL Hct (34.0-46.0) % MCHC (31.0-37.0) g/dL Neutrophils # (1.3-7.7) k/uL Monocytes # (0-1.0) k/uL ABG pH (7.35-7.45) ABG pCO2 (35-45) mmHg ABG O2 Saturation (94-97) % Sodium 153 H (137-145) mmol/L Potassium (3.5-5.1) mmol/L Chloride 126 H (98-107) mmol/L BUN 31 H (7-17) mg/dL Creatinine 1.25 H (0.52-1.04) mg/dL Glucose 134 H (74-99) mg/dL POC Glucose (mg/dL) 132 H (75-99) mg/dL Phosphorus 2.2 L (2.5-4.5) mg/dL Microbiology - Last 24 Hours (Table) 08/08/18 13:54 Blood Culture - Preliminary Blood No Growth after 120 hours Assessment and Plan Assessment: -Colonic obstruction secondary to fecal impaction with large rectal fecal ball, cholecystitis with mechanical obstruction, possible sepsis, status post exploratory laparotomy, lysis of adhesions, left colectomy and takedown splenic flexure, splenectomy and cholecystectomy. -Acute respiratory failure, mechanical ventilator-dependent -Change in mental status, metabolic encephalopathy secondary to acute sepsis -Leukocytosis -Acute renal failure -COPD -Hypernatremia -Severe hypokalemia, improving Plan: Continue on current medication regime ,monitoring and symptomatic treatment. Close monitoring of renal function, lateralized with repeat labs ordered for a.m. Maintain IV antibiotics,PPN. Prognosis guarded given multiple complex medical issues. The impression and plan of care has been dictated as directed. : I performed a history and examination of this patient, discussed the same with the dictator. I agree with the dictator's note ,documented as a scribe. Any additional findings or plans will be noted.
--- NOTE | 2018-08-14 17:07 | P.PN ---
Subjective Progress Note Date: 08/14/18 Progress note being dictated for Dr. Palm. Interval history: This 87-year-old female admitted with colonic obstruction, fecal impaction, status post surgery. Remains mechanical ventilator-dependent, FiO2 40%/+5 of PEEP. Continues on TPN, no pressors. Not following commands, not opening eyes to noxious stimuli. T-max 99.2. Maintained on D5W with Sodium 153, renal function slowly improving.PPN. Remains off of sedation, not following commands-unable to do weaning parameters/trials. 08/14/18 maintained on mechanical ventilation, FiO2 35%/+5 Peep. Weaning trials , patient unable to follow commands. Maintained on Zosyn. T-max 100.5, WBC up to 22. Urine and blood cultures negative. Currently sinus status has been changed to DO NOT RESUSCITATE and family is considering comfort care as per office helper renal function improving, sodium improving down to 148. Review of systems; unable to obtain as patient on mechanical ventilation. Active Medications Generic Name Dose Route Start Last Admin Trade Name Freq PRN Reason Stop Dose Admin Acetaminophen 650 mg 08/08/18 17:39 08/14/18 12:34 Tylenol Tab PO 650 mg Q6HR PRN Administration Mild Pain or Fever > 100.5 Albuterol/Ipratropium 3 ml 08/09/18 08:00 08/14/18 15:33 Duoneb 0.5 Mg-3 Mg/3 Ml Soln INHALATION 3 ml RT-QID MARY LOU Administration Albuterol/Ipratropium 3 ml 08/08/18 20:49 08/12/18 03:15 Duoneb 0.5 Mg-3 Mg/3 Ml Soln INHALATION 3 ml RT-QID PRN Administration Shortness Of Breath Or Wheezing Benzocaine/Menthol 1 each 08/10/18 12:34 Cepacol Lozenge MUCOUS MEM Q1HR PRN Sore Throat Budesonide 1 mg 08/09/18 20:00 08/14/18 07:11 Pulmicort INHALATION 1 mg RT-BID MARY LOU Administration Carbidopa/Levodopa 1 each 08/08/18 22:00 08/14/18 15:14 Sinemet 25-100 PO 1 each TID MARY LOU Administration Chlorhexidine Gluconate 15 ml 08/10/18 21:00 08/14/18 08:40 Peridex MUCOUS MEM 15 ml BID MARY LOU Administration Famotidine 20 mg 08/10/18 14:15 08/14/18 08:40 Pepcid IV 20 mg DAILY MARY LOU Administration Formoterol Fumarate 20 mcg 08/09/18 20:00 08/14/18 07:11 Perforomist INHALATION 20 mcg RT-BID MARY LOU Administration Piperacillin Sod/Tazobactam 100 mls @ 25 mls/hr 08/08/18 20:48 08/14/18 15:13 Sod 3.375 gm/ Sodium Chloride IVPB 25 mls/hr Q8HR MRAY LOU Administration Dextrose/Water 1,000 mls @ 40 mls/hr 08/13/18 10:15 08/14/18 08:40 Dextrose 5%-Water Iv Soln IV 40 mls/hr .Q24H MARY LOU Administration Fat Emulsion Intravenous 250 250 mls @ 21 mls/hr 08/13/18 16:00 08/14/18 15: 25 ml/ IV Solution IV 21 mls/hr Q24H MARY LOU Administration Parenteral Vitamin Supplement 1,027 mls @ 50 mls/hr 08/13/18 12:00 08/14/18 09:43 10 ml/ Chromium/Copper/ IV 50 mls/hr Manganese/Seleni/Zn 1 ml/ .[id number] MRAY LOU Administration Potassium Phosphate 15 mmol/ Calcium Gluconate 1,000 mg/ Magnesium Sulfate 0.5 gm/ Amino Acids/Dextrose Insulin Aspart 0 unit 08/12/18 12:00 08/14/18 12:34 Novolog SQ 1 unit Q6HR MARY LOU Administration Protocol Lidocaine HCl 0.1 ml 08/09/18 18:37 .Xylocaine 1% Inj (10mg/Ml) For Iv Start INTRADERMA PER PROTOCOL PRN IV Start Metoclopramide HCl 10 mg 08/10/18 12:34 Reglan IVP Q6HR PRN Nausea and Vomiting Miscellaneous Information 1 each 08/12/18 06:30 Potassium Per Protocol MISCELLANE DAILY PRN Per Protocol Protocol Miscellaneous Information 1 each 08/13/18 17:12 Potassium Per Protocol MISCELLANE DAILY PRN Per Protocol Protocol Naloxone HCl 0.2 mg 08/08/18 17:39 Narcan IV Q2M PRN Opioid Reversal Ondansetron HCl 4 mg 08/10/18 12:34 Zofran IVP Q8HR PRN Nausea And Vomiting Objective - Vital Signs Vital signs: Vital Signs Temp 100.1 F H 08/14/18 16:00 Pulse 67 08/14/18 16:00 Resp 32 H 08/14/18 16:00 BP 105/53 08/14/18 16:00 Pulse Ox 99 08/14/18 16:00 Intake & Output 08/13/18 08/14/18 08/14/18 18:59 06:59 18:59 Intake Total 1611 2232 2649.333 Output Total 1265 1410 1245 Balance 876 377 3883.333 Weight 52.6 kg 55.1 kg Intake: IV 1106 1632 771 D545 with 40 meq of K @ 225 75 Dextrose 5% in Water 1, 320 480 400 000 ml @ 40 mls/hr IV . Q24H [facility] Rx#:[id number] Fat Emulsion 20% 250 ml 21 252 21 In Empty Bag 1 bag @ 21 mls/hr IV Q24H [facility] Rx#: [id number] Mvi, Adult No.4 with Vit 430 600 150 K 10 ml Trace (Conc-1Ml/ Dose) 1 ml Potassium Phosphate 15 mmol Potassium Acetate 10 meq Calcium Gluconate 500 mg In Amino Acid 5%-D15w 1, 000 ml @ 30 mls/hr IV . Q24H [facility] Rx#:[id number] Piperacillin-Tazobactam 3 100 200 200 .375 gm In Sodium Chloride 0.9% 100 ml @ 25 mls/hr IVPB Q8HR [facility] Rx# :[id number] Potassium Chloride 20 meq 100 In Water For Injection 1 100ml.bag @ 50 mls/hr IVPB Q2H [facility] Rx#: [id number] Sodium Chloride 0.9 @ 10 10 Intake, IV Titration 105 1248.333 Amount Dextrose 5% in Water 1, 75 000 ml @ 75 mls/hr IV . [id number] MARY LOU with Potassium Chloride 40 meq Rx#:[id number] Mvi, Adult No.4 with Vit 998.333 K 10 ml Trace (Conc-1Ml/ Dose) 1 ml Potassium Phosphate 15 mmol Calcium Gluconate 1,000 mg Magnesium Sulfate gm 0.5 gm In Amino Acid 4.25%- D10w 1,000 ml @ 50 mls/hr IV .[id number] [facility] Rx#: [id number] Mvi, Adult No.4 with Vit 30 K 10 ml Trace (Conc-1Ml/ Dose) 1 ml Potassium Phosphate 15 mmol Potassium Acetate 10 meq Calcium Gluconate 500 mg In Amino Acid 5%-D15w 1, 000 ml @ 30 mls/hr IV . Q24H [facility] Rx#:[id number] Potassium Phosphate 15 250 mmol In Sodium Chloride 0 .9% 250 ml @ 85 mls/hr IV ONCE [facility] Rx#:[id number] Oral 630 Other 400 600 Output: Urine 1265 1410 1245 Other: Voiding Method Indwelling Catheter Indwelling Catheter Indwelling Catheter # Voids 0 ABP, PAP, CO, CI - Last Documented Arterial Blood Pressure 96/76 - Exam PHYSICAL EXAM: VITAL SIGNS: [As above] GENERAL: Sitting up in bed, intubated, no acute distress HEENT: Conjunctivae normal. eyes normal. Oral mucosa dry. NG tube present NECK: No JVD. No thyroid enlargement. No LNs CARDIOVASCULAR: S1, S2 muffled. No murmur,mild, mild tachycardia RESPIRATION: Breath sounds diminished in the bases. Scattered coarse rhonchi, no crackles, wheezing ABDOMEN: Soft, status post surgery, small liquidy brown stool in ostomy bag , hypoactive Bowel sounds. LEGS: No edema. no swelling NERVOUS SYSTEM: Unable to evaluate, intubated. - Labs CBC & Chem 7: 08/14/18 03:50 08/14/18 03:50 Labs: Abnormal Lab Results - Last 24 Hours (Table) 08/13/18 08/13/18 08/14/18 Range/Units 17:38 23:48 03:50 WBC 22.0 H (3.8-10.6) k/uL RBC 3.29 L (3.80-5.40) m/uL Hgb 9.5 L (11.4-16.0) gm/dL Hct 31.3 L (34.0-46.0) % MCHC 30.4 L (31.0-37.0) g/dL Neutrophils # (Manual) 17.80 H (1.3-7.7) k/uL Monocytes # (Manual) 2.20 H (0-1.0) k/uL Metamyelocytes # (Man) 0.66 H (0) k/uL Myelocytes # (Manual) 0.22 H (0) k/uL Nucleated RBCs 2 H (0-0) /100 WBC ABG pH (7.35-7.45) ABG pCO2 (35-45) mmHg ABG pO2 (83-108) mmHg ABG O2 Saturation (94-97) % Sodium (137-145) mmol/L Chloride (98-107) mmol/L BUN (7-17) mg/dL Glucose (74-99) mg/dL POC Glucose (mg/dL) 127 H 161 H (75-99) mg/dL Phosphorus (2.5-4.5) mg/dL 08/14/18 08/14/18 08/14/18 Range/Units 03:50 05:29 05:56 WBC (3.8-10.6) k/uL RBC (3.80-5.40) m/uL Hgb (11.4-16.0) gm/dL Hct (34.0-46.0) % MCHC (31.0-37.0) g/dL Neutrophils # (Manual) (1.3-7.7) k/uL Monocytes # (Manual) (0-1.0) k/uL Metamyelocytes # (Man) (0) k/uL Myelocytes # (Manual) (0) k/uL Nucleated RBCs (0-0) /100 WBC ABG pH 7.55 H (7.35-7.45) ABG pCO2 24 L (35-45) mmHg ABG pO2 142 H (83-108) mmHg ABG O2 Saturation 99.3 H (94-97) % Sodium 148 H (137-145) mmol/L Chloride 121 H (98-107) mmol/L BUN 25 H (7-17) mg/dL Glucose 113 H (74-99) mg/dL POC Glucose (mg/dL) 127 H (75-99) mg/dL Phosphorus 2.2 L (2.5-4.5) mg/dL 08/14/18 Range/Units 12:02 WBC (3.8-10.6) k/uL RBC (3.80-5.40) m/uL Hgb (11.4-16.0) gm/dL Hct (34.0-46.0) % MCHC (31.0-37.0) g/dL Neutrophils # (Manual) (1.3-7.7) k/uL Monocytes # (Manual) (0-1.0) k/uL Metamyelocytes # (Man) (0) k/uL Myelocytes # (Manual) (0) k/uL Nucleated RBCs (0-0) /100 WBC ABG pH (7.35-7.45) ABG pCO2 (35-45) mmHg ABG pO2 (83-108) mmHg ABG O2 Saturation (94-97) % Sodium (137-145) mmol/L Chloride (98-107) mmol/L BUN (7-17) mg/dL Glucose (74-99) mg/dL POC Glucose (mg/dL) 148 H (75-99) mg/dL Phosphorus (2.5-4.5) mg/dL Microbiology - Last 24 Hours (Table) 08/08/18 13:54 Blood Culture - Final Blood No Growth after 144 hours Assessment and Plan Assessment: -Colonic obstruction secondary to fecal impaction with large rectal fecal ball, cholecystitis with mechanical obstruction, possible sepsis, status post exploratory laparotomy, lysis of adhesions, left colectomy and takedown splenic flexure, splenectomy and cholecystectomy. -Acute respiratory failure, mechanical ventilator-dependent -Change in mental status, metabolic encephalopathy secondary to acute sepsis -Leukocytosis -Acute renal failure, improving -COPD -Hypernatremia -Severe hypokalemia, improving -Fevers, workup in progress -No code, no CPR, no re- intubation. Plan: Continue on current medication regime ,monitoring and symptomatic treatment. Sodium and renal function improving .Close monitoring of renal function, electrolytes with repeat labs ordered for a.m. blood cultures ordered , worsening fevers. Maintain IV antibiotics. Family discussing potential comfort care with office helper.Prognosis guarded given multiple complex medical issues. The impression and plan of care has been dictated as directed. : I performed a history and examination of this patient, discussed the same with the dictator. I agree with the dictator's note ,documented as a scribe. Any additional findings or plans will be noted.
--- NOTE | 2018-08-14 17:59 | P.PN ---
Progress Note - Text Progress Note Date: 08/14/18 the patient remains intubated Per the nursing staff the family is unsure she' ll be made comfort care On exam her vital signs areble. Her abdomen is soft. There is some stool in ththe colostomy Status post repair of colonic obstructi secondary to fecal Impaction. Patient will continue to beceiving supportive care.
[2018-08-14 18:32] LABS: Glucose,Whole Blood 133 mg/dL (75-99)
[2018-08-15] MEDS: INSULIN ASPART (NovoLOG) 100 UNIT/ML VIAL SQ SCH ×4 (00:50→17:13)
[2018-08-15] MEDS: PIPERACILLIN-TAZOBACTAM 3.375 GM in SODIUM CHLORIDE 0.9% 100 ML IVPB SCH ×3 (00:50→15:09)
[2018-08-15 00:58] LABS: Glucose,Whole Blood 132 mg/dL (75-99)
[2018-08-15] MEDS: ACETAMINOPHEN TAB 325 MG TAB PO PRN (02:55)
[2018-08-15 04:09] LABS: Basophils % (A) 0 %; Eosinophils # (A) 0.3 k/uL (0-0.7); Eosinophils % (A) 1 %; HGB 9.4 gm/dL (11.4-16.0); Hypochromasia Moderate; Lymphocytes # (A) 1.1 k/uL (1.0-4.8); Lymphocytes % (A) 4 %; MCH 29.3 pg (25.0-35.0); MCHC 31.2 g/dL (31.0-37.0); MCV 93.9 fL (80.0-100.0); Mean Platelet Volume 8.1; Monocytes # (A) 1.4 k/uL (0-1.0); Monocytes % (A) 5 %; Neutrophils # (A) 25.1 k/uL (1.3-7.7); Neutrophils % (A) 88 %; Platelet Count 170 k/uL (150-450); RDW 15.3 % (11.5-15.5); WBC 28.5 k/uL (3.8-10.6)
[2018-08-15 04:16] LABS: Ionized Calcium 5.9 mg/dL (4.5-5.3)
[2018-08-15 04:35] LABS: Calcium 8.9 mg/dL (8.4-10.2); Magnesium 1.9 mg/dL (1.6-2.3); Phosphorus 2.8 mg/dL (2.5-4.5); Potassium 3.2 mmol/L (3.5-5.1)
[2018-08-15 04:46] LABS: ABG Base Excess -1.3 mmol/L; ABG HCO3 23 mmol/L (21-25); ABG Oxygen Saturation 99.6 % (94-97); ABG PCO2 31 mmHg (35-45); ABG PH 7.46 (7.35-7.45); ABG PO2 100 mmHg (83-108); ABG TCO2 23 mmol/L (19-24)
[2018-08-15] MEDS: POTASSIUM CHLORIDE 20 MEQ in WATER FOR INJECTION 1 100ML.BAG IVPB SCH ×2 (04:54→06:58)
[2018-08-15] MEDS: MVI, ADULT NO.4 WITH VIT K 10 ML, TRACE (CONC-1ML/DOSE) 1 ML, POTASSIUM PHOSPHATE 15 MM... IV SCH ×6 (05:53)
[2018-08-15 06:08] LABS: Glucose,Whole Blood 123 mg/dL (75-99)
[2018-08-15] MEDS: FORMOTEROL FUMARATE 20 MCG/2 ML NEBU INHALATION SCH ×2 (07:17→20:03)
[2018-08-15] MEDS: BUDESONIDE 1 MG/2 ML NEBU INHALATION SCH ×2 (07:17→20:03)
[2018-08-15] MEDS: IPRATROPIUM-ALBUTEROL 3 ML NEB INHALATION SCH ×4 (07:17→20:03)
--- NOTE | 2018-08-15 08:14 | XR ---
EXAMINATION TYPE: XR chest 1V portable DATE OF EXAM: 08/15/2018 COMPARISON: 08/14/2019 HISTORY: Ventilatory dependent respiratory failure TECHNIQUE: Single frontal view of the chest is obtained. FINDINGS: There is biapical lucency and pulmonary hyperinflation indicative of COPD. There is improv ement of the left basilar consolidation with strand-like opacities remaining. The endotracheal tube a nd right internal jugular central venous catheter are similar in position. However, the enteric tube has been retracted with its fenestrated portion now at the gastroesophageal junction. Cardiomediastin al silhouette appears stable. There is generalized osseous demineralization. IMPRESSION: 1. Interval retraction of the enteric tube with its fenestrated portion now at the gastroesophageal j unction, cephalad in placement. Advancement of approximately 3 cm is recommended for optimal placemen t. 2. Improved aeration of the left lung base with strand-like opacity remaining and could represent ate lectasis or pneumonia.
[2018-08-15] MEDS: CARBIDOPA-LEVODOPA 25-100 MG 1 EACH TAB PO SCH ×3 (09:48→21:07)
[2018-08-15] MEDS: CHLORHEXIDINE GLUCONATE 15 ML CUP MUCOUS MEM SCH ×2 (09:48→20:57)
[2018-08-15] MEDS: FAMOTIDINE 20 MG/2 ML VIAL IV SCH (09:49)
[2018-08-15] MEDS: DEXTROSE 5% IN WATER 1,000 ML IV SCH (09:58)
[2018-08-15] MEDS: MAGNESIUM SULFATE-D5W PMX 1 GM in DEXTROSE/WATER 1 100ML.BAG IVPB SCH ×2 (09:58→12:05)
[2018-08-15 11:54] LABS: Glucose,Whole Blood 144 mg/dL (75-99)
--- NOTE | 2018-08-15 11:57 | PN ---
PROGRESS NOTE DATE OF SERVICE: 08/15/2018 This is an 87-year-old patient admitted back on August 08 and who went to the operating room on August 10. She came in with what appeared to be acute abdominal pain and was found to have chronic fecal impaction and bowel obstruction. She had an exploratory laparotomy on 08/10 and had a number of things done including lysis of adhesions, left colectomy, takedown of splenic flexure, splenectomy and cholecystectomy. She is currently postop day #5. She has been off sedation since Monday. Her mental status has been extremely poor. I had a long discussion with the family yesterday. The patient is a DO NOT RESUSCITATE. I did talk to them about comfort measures and terminal extubation, but they are giving that some additional thought. Currently, she is on the volume assist-control mode rate of 30, tidal volume 350, FiO2 of 35%, PEEP of 5. Arterial blood gases show a PaO2 of 100, PaCO2 of 31 and a pH 7.46. She is getting a dextrose at 40 mL an hour. TPN at 50 mL an hour and lipids. Microbiologic studies are negative. Chest x-ray looks remarkably clear. Blood gases by the way are consistent with normoxemia and a respiratory alkalosis. The patient does have a history of metabolic encephalopathy, thoracic compression deformities, nonspecific pulmonary nodules, chronic tobacco dependence, and COPD, Parkinson's disease, dementia, bipolar disorder, and chronic constipation. Current vital signs are reviewed. Current temperature is 98.5, heart rate, respiratory rate is 20-30 breaths per minute, blood pressure 107/61, and saturations are 100% on 35% FiO2 and PEEP of 5. Current mental status is unchanged. She makes minimal effort when we call out to her. She does respond to pain. She does trigger the ventilator. HEENT examination is grossly unremarkable. It is not orally placed on the tracheal tube and NG tube. Neck is supple. Cardiovascular examination reveals regular rhythm and rate. Lungs S1, S2, S2 normal. Heart rate about 60. No murmur. Lungs reveal bilateral coarse rhonchi. Breath sounds are equal. No wheezes. Abdomen is soft. Bowel sounds are not noted. Extremities are intact. There is diffuse edema and anasarca. Skin reveals multiple areas of ecchymoses. Neurologic examination is difficult to assess because of her mental status. LAB STUDIES: Urine and blood sampling is negative. Labs are reviewed. White count 28.5, hemoglobin 9.4, hematocrit 30, platelet count 170,000 sodium 143, potassium 3.2, chloride 118, CO2 of 24, and anion gap is 1, BUN and creatinine were 23 and 0.81. Chest x-ray was reviewed and found to be reasonable. Medications are reviewed. All her medications appeared to be appropriate. She remains on Zosyn. Culture data has all been negative. ASSESSMENT: 1. Postoperative day #5, status post colonic obstruction secondary to fecal impaction with subsequent exploratory laparotomy, splenectomy, lysis of adhesions, cholecystectomy, and takedown of splenic flexure. 2. Routine postoperative ventilator management with failure to wean. 3. Significant mental status changes, thought to be related to metabolic encephalopathy. 4. Chronic mild thoracic compression deformities. 5. Nonspecific pulmonary nodules. 6. Chronic tobacco dependence and underlying chronic obstructive pulmonary disease. 7. Parkinson's dementia. 8. Bipolar disorder. 9. History of chronic constipation. 10.History of hypernatremia, much improved. PLAN: The patient's lab data is improved. Her sodium is down to 143. She remains on TPN. The patient's blood gases are reasonable. She has got a primary respiratory alkalosis. Gas exchange is good. Chest x-ray is stable. Mental status is poor. Will continue to follow. She is a DO NOT RESUSCITATE. I had a long conversation with family members yesterday including a son and a daughter and they wish to continue full life support at this time whether considering comfort measures in the near future. She is not showing improvement. I believe they are waiting for some family members to come from out of [place]. Critical care time is 34 minutes. MMODL / IJN: [id number] /
[2018-08-15] MEDS ORDERED: VANCOMYCIN IV PER PHARMACY 1 EACH MISC MISCELLANE PRN (13:23)
[2018-08-15] MEDS ORDERED: VANCOMYCIN 1,000 MG in SODIUM CHLORIDE 0.9% 250 ML IVPB STA (13:25)
[2018-08-15] MEDS ORDERED: Potassium Replacement Protocol 1 EACH MISC MISCELLANE PRN (13:28)
[2018-08-15] MEDS: POTASSIUM CHLORIDE 10 MEQ in WATER FOR INJECTION 1 100ML.BAG IVPB SCH ×2 (13:46→15:08)
[2018-08-15] MEDS: FAT EMULSION 20% 250 ML in EMPTY BAG 1 BAG IV SCH (15:09)
--- NOTE | 2018-08-15 16:41 | P.PN ---
Progress Note - Text Progress Note Date: 08/15/18 The patient remains encephalopathic. Per the patient's family she is moving some of her extremities. On exam her vital signs appear stable. Her abdomen soft. There is some stool in the stoma. Status post exposure laparotomy with colon resection and end colostomy for fecal impaction. Patient remains to be encephalopathic. The family is deciding on comfort care measures.
[2018-08-15 17:22] LABS: Glucose,Whole Blood 120 mg/dL (75-99)
[2018-08-15 23:37] LABS: Glucose,Whole Blood 145 mg/dL (75-99)
[2018-08-16] MEDS: PIPERACILLIN-TAZOBACTAM 3.375 GM in SODIUM CHLORIDE 0.9% 100 ML IVPB SCH ×3 (00:19→16:50)
[2018-08-16] MEDS: INSULIN ASPART (NovoLOG) 100 UNIT/ML VIAL SQ SCH ×4 (00:19→17:12)
[2018-08-16] MEDS: MVI, ADULT NO.4 WITH VIT K 10 ML, TRACE (CONC-1ML/DOSE) 1 ML, POTASSIUM PHOSPHATE 15 MM... IV SCH ×12 (02:00→22:46)
[2018-08-16 04:43] LABS: ABG Base Excess -3.6 mmol/L; ABG HCO3 21 mmol/L (21-25); ABG Oxygen Saturation 98.7 % (94-97); ABG PCO2 30 mmHg (35-45); ABG PH 7.44 (7.35-7.45); ABG PO2 98 mmHg (83-108); ABG TCO2 22 mmol/L (19-24)
[2018-08-16 05:13] LABS: Basophils # (A) 0.1 k/uL (0-0.2); Basophils % (A) 0 %; Eosinophils # (A) 0.3 k/uL (0-0.7); Eosinophils % (A) 1 %; HCT 29.9 % (34.0-46.0); HGB 9.3 gm/dL (11.4-16.0); Hypochromasia Moderate; Lymphocytes % (A) 2 %; MCH 29.5 pg (25.0-35.0); MCHC 31.1 g/dL (31.0-37.0); MCV 94.7 fL (80.0-100.0); Mean Platelet Volume 8.1; Monocytes # (A) 1.4 k/uL (0-1.0); Monocytes % (A) 3 %; Neutrophils # (A) 42.5 k/uL (1.3-7.7); Neutrophils % (A) 93 %; Platelet Count 207 k/uL (150-450); RBC 3.16 m/uL (3.80-5.40); RDW 15.4 % (11.5-15.5); WBC 45.9 k/uL (3.8-10.6)
[2018-08-16 05:34] LABS: Magnesium 2.3 mg/dL (1.6-2.3); Phosphorus 2.9 mg/dL (2.5-4.5); Potassium 3.6 mmol/L (3.5-5.1)
[2018-08-16 05:43] LABS: Glucose,Whole Blood 133 mg/dL (75-99)
[2018-08-16] MEDS: POTASSIUM CHLORIDE 10 MEQ in WATER FOR INJECTION 1 100ML.BAG IVPB SCH ×4 (07:06→19:13)
[2018-08-16] MEDS: IPRATROPIUM-ALBUTEROL 3 ML NEB INHALATION SCH ×4 (07:16→19:33)
[2018-08-16] MEDS: BUDESONIDE 1 MG/2 ML NEBU INHALATION SCH ×2 (07:16→19:33)
[2018-08-16] MEDS: FORMOTEROL FUMARATE 20 MCG/2 ML NEBU INHALATION SCH ×2 (07:16→19:33)
--- NOTE | 2018-08-16 07:41 | XR ---
EXAMINATION TYPE: XR chest 1V portable DATE OF EXAM: 08/16/2018 CLINICAL HISTORY: Shortness of breath progress study. TECHNIQUE: Single AP portable semiupright view of the chest is obtained. COMPARISON: Chest x-ray from one day earlier and older studies. FINDINGS: An endotracheal tube, orogastric tube, and right internal jugular central venous catheter are all stable in appearance. There is cardiomegaly with atherosclerotic and ectatic thoracic aorta r edemonstrated. There is chronic emphysematous change with bibasilar opacities identified more promine nt in the right lung on current study. Some generalized increased opacity is present bilaterally. No large pneumothorax is present. Osseous structures are intact. IMPRESSION: Chronic emphysematous change and cardiomegaly with felt worsening small bilateral pleural effusions and diffuse interstitial edema, there is persistent more focal bibasilar atelectasis and/o r infiltrate redemonstrated with progression of right basilar findings noted from prior.
[2018-08-16] MEDS: FAMOTIDINE 20 MG/2 ML VIAL IV SCH (08:56)
[2018-08-16] MEDS: VANCOMYCIN 1,000 MG in SODIUM CHLORIDE 0.9% 250 ML IVPB SCH (08:56)
[2018-08-16] MEDS: CHLORHEXIDINE GLUCONATE 15 ML CUP MUCOUS MEM SCH ×2 (08:56→20:55)
[2018-08-16] MEDS: CARBIDOPA-LEVODOPA 25-100 MG 1 EACH TAB PO SCH ×3 (08:56→21:02)
--- NOTE | 2018-08-16 09:51 | P.PN ---
Subjective Progress Note Date: 08/16/18 Principal diagnosis: Constipation secondary to fecal impaction, status post exploratory laparotomy, lysis of adhesions, left colectomy, takedown of splenic flexure, splenectomy, cholecystectomy. This is an 87-year-old female patient who follows with Dr. Santiago as her primary care physician, she has a history of Parkinson's dementia, bipolar disorder, kyphosis, osteoarthritis. She has a history of chronic tobacco dependence and chronic obstructive pulmonary disease on oxygen at 2 L in the outpatient setting. She is maintained on DuoNeb inhalations and Advair. She also has a history of constipation and had been admitted in the past for the same. She was brought in to the hospital yesterday by her daughter as she had complaints of abdominal cramping and fullness. Computed tomography scan of the abdomen confirmed mechanical colonic obstruction with fecal impaction and a large fecal ball measuring 11.5 cm. There was rectal wall thickening suggesting acute on chronic inflammatory process. Left hemicolon his large burden retained colonic stool in there is redundancy of the large bowel. Noted cholelithiasis. The patient is seen today 08/16/2018 in follow-up in the intensive care unit. She had undergone an exploratory laparotomy on 08/10/2018 which included lysis of adhesions, left colectomy, takedown splenic flexure, splenectomy and cholecystectomy. This is postoperative day #6. She remains encephalopathic. Mental status remains extremely poor. She remains intubated and on the mechanical ventilator at settings of assist control rate of 30, tidal volume 350 , FiO2 35% and a PEEP of 5. Morning blood gases reveal a P O2 of 98, pCO2 of 30 and a pH of 7.44. Chest x-ray reveals evidence of chronic emphysema and cardiomegaly with worsening small bilateral pleural effusions and diffuse interstitial edema. There is more persistent focal bibasilar atelectasis/ infiltrate as well. She is currently on TPN at 50 MLS per hour. Lipids at 21 ML 's per hour. D5W at 40 ML's per hour. Blood cultures reveal coagulase-negative staph. White count 45.9. Hemoglobin 9.3. Creatinine 0.8. She remains on vancomycin and Zosyn. Objective - Vital Signs Vital signs: Vital Signs Temp 99.2 F 08/16/18 08:00 Pulse 60 08/16/18 09:00 Resp 32 H 08/16/18 09:00 BP 103/51 12/20/18 09:00 Pulse Ox 98 08/16/18 09:00 Intake & Output 08/15/18 08/16/18 08/16/18 18:59 06:59 18:59 Intake Total 2723 2062 701 Output Total 1460 1570 200 Balance 1263 492 501 Weight 56.3 kg 57.1 kg Intake: IV 1963 1462 501 Dextrose 5% in Water 1, 400 480 80 000 ml @ 40 mls/hr IV . Q24H [facility] Rx#:[id number] Fat Emulsion 20% 250 ml 63 282 21 In Empty Bag 1 bag @ 21 mls/hr IV Q24H [facility] Rx#: [id number] Magnesium Sulfate-D5w Pmx 200 1 gm In Dextrose/Water 1 100ml.bag @ 100 mls/hr IVPB Q1H [facility] Rx#: [id number] Mvi, Adult No.4 with Vit 600 600 150 K 10 ml Trace (Conc-1Ml/ Dose) 1 ml Potassium Phosphate 15 mmol Calcium Gluconate 1,000 mg Magnesium Sulfate gm 0.5 gm In Amino Acid 4.25%- D10w 1,000 ml @ 50 mls/hr IV .[id number] [facility] Rx#: [id number] Piperacillin-Tazobactam 3 200 100 25 .375 gm In Sodium Chloride 0.9% 100 ml @ 25 mls/hr IVPB Q8HR [facility] Rx# :[id number] Potassium Chloride 10 meq 200 In Water For Injection 1 100ml.bag @ 100 mls/hr IVPB Q1H [facility] Rx#: [id number] Potassium Chloride 10 meq 100 In Water For Injection 1 100ml.bag @ 50 mls/hr IVPB Q2H [facility] Rx#: [id number] Potassium Chloride 20 meq 50 In Water For Injection 1 100ml.bag @ 50 mls/hr IVPB Q2H [facility] Rx#: [id number] Vancomycin 1,000 mg In 125 Sodium Chloride 0.9% 250 ml @ 125 mls/hr IVPB DAILY [facility] Rx#:[id number] Vancomycin 1,000 mg In 250 Sodium Chloride 0.9% 250 ml @ 125 mls/hr IVPB ONCE [facility] Rx#:[id number] Intake, IV Titration 100 Amount Potassium Chloride 20 meq 100 In Water For Injection 1 100ml.bag @ 50 mls/hr IVPB Q2H [facility] Rx#: [id number] Other 660 600 200 Output: Urine 1460 1165 200 Stool 405 Other: Voiding Method Indwelling Catheter Indwelling Catheter ABP, PAP, CO, CI - Last Documented Arterial Blood Pressure 96/76 - Exam GENERAL EXAM: Unresponsive, intubated on mechanical ventilator. HEAD: Normocephalic. EYES: Normal reaction of pupils, equal size. NOSE: Clear with pink turbinates. THROAT: Oral endotracheal tube and gastric tube secured in place. No erythema or exudates. NECK: No masses, no JVD. CHEST: No chest wall deformity. LUNGS: Equal air entry with scattered rhonchi, crackles in the posterior bases. CVS: S1 and S2 normal with no audible murmur, regular rhythm. ABDOMEN: Ostomy patent. Dressing dry and intact. SPINE: Kyphoscoliosis SKIN: No rashes CENTRAL NERVOUS SYSTEM: Not responding to verbal or tactile stimuli.. EXTREMITIES: There is no peripheral edema. No clubbing, no cyanosis. Peripheral pulses are intact. - Labs CBC & Chem 7: 08/16/18 05:00 08/16/18 05:00 Labs: Abnormal Lab Results - Last 24 Hours (Table) 08/15/18 08/15/18 08/15/18 Range/Units 11:42 17:10 23:25 WBC (3.8-10.6) k/uL RBC (3.80-5.40) m/uL Hgb (11.4-16.0) gm/dL Hct (34.0-46.0) % Neutrophils # (1.3-7.7) k/uL Monocytes # (0-1.0) k/uL ABG pCO2 (35-45) mmHg ABG O2 Saturation (94-97) % Chloride (98-107) mmol/L Carbon Dioxide (22-30) mmol/L BUN (7-17) mg/dL Glucose (74-99) mg/dL POC Glucose (mg/dL) 144 H 120 H 145 H (75-99) mg/dL 08/16/18 08/16/18 08/16/18 Range/Units 04:38 05:00 05:00 WBC 45.9 H (3.8-10.6) k/uL RBC 3.16 L (3.80-5.40) m/uL Hgb 9.3 L (11.4-16.0) gm/dL Hct 29.9 L (34.0-46.0) % Neutrophils # 42.5 H (1.3-7.7) k/uL Monocytes # 1.4 H (0-1.0) k/uL ABG pCO2 30 L (35-45) mmHg ABG O2 Saturation 98.7 H (94-97) % Chloride 114 H (98-107) mmol/L Carbon Dioxide 21 L (22-30) mmol/L BUN 22 H (7-17) mg/dL Glucose 124 H (74-99) mg/dL POC Glucose (mg/dL) (75-99) mg/dL 08/16/18 Range/Units 05:31 WBC (3.8-10.6) k/uL RBC (3.80-5.40) m/uL Hgb (11.4-16.0) gm/dL Hct (34.0-46.0) % Neutrophils # (1.3-7.7) k/uL Monocytes # (0-1.0) k/uL ABG pCO2 (35-45) mmHg ABG O2 Saturation (94-97) % Chloride (98-107) mmol/L Carbon Dioxide (22-30) mmol/L BUN (7-17) mg/dL Glucose (74-99) mg/dL POC Glucose (mg/dL) 133 H (75-99) mg/dL Microbiology - Last 24 Hours (Table) 08/14/18 17:56 Blood Culture Gram Stain - Preliminary Blood Blood Culture - Preliminary Coagulase Negative Staph 08/14/18 17:56 Blood Culture - Final Blood Assessment and Plan Assessment: Impression: #1 Abdominal pain with mechanical colonic obstruction secondary to large rectal fecal ball measuring 11.5 cm with rectal wall thickening suggestive of acute on chronic component with surrounding inflammation. Left hemicolon has large burden retained colonic stool and there is redundancy of the large bowel. Cholelithiasis. Status post exploratory laparotomy, lysis of adhesions, left colectomy, splenectomy and cholecystectomy. Postoperative day #6. #2 Metabolic encephalopathy secondary to above. #3 Acute hypoxic respiratory failure, and an unexpected outcome of surgery secondary to above requiring intubation and continued mechanical ventilatory support. #4 Subcentimeter right lower lobe pulmonary nodule. #5 Chronic obstructive pulmonary disease. #6 Chronic tobacco dependence. #7 History of constipation. #8 Parkinson's dementia. #9 Bipolar depression. #10 Degenerative joint disease. Plan: The patient was seen and evaluated by Dr. Morillo. His x-ray and labs were reviewed. She continues on vancomycin and Zosyn. Nourished with TPN and lipids. Her overall prognosis remains quite poor. She is a DO NOT RESUSCITATE CODE STATUS. The patient's family is considering comfort care. We will await to hear further direction from them. In the interim, we'll continue the current treatment plan. We will continue to follow and make further recommendations based on her clinical status. Critical care time 38 minutes. I, the cosigning physician, performed a history & physical examination of the patient. Lungs sounds with few scattered rhonchi, crackles in the posterior bases.. Maintaining good O2 saturations in the 90s on 35% FiO2 on the mechanical ventilator. I discussed the assessment and plan of care with my nurse practitioner, Elisa Rodriguez. I attest to the above note as dictated by her.
--- NOTE | 2018-08-16 10:04 | CDI ---
Documentation Clarification Form Date: 08/16/2018 9:50:57 AM From: Amelia Garcia RN, CCDS Admit Date: 08/08/2018 6:14:00 PM Patient Name: Jazmín Tovar Visit Number: [id number] ATTENTION: The Clinical Documentation Specialists (CDI) and [facility] Coding Staff appreciate your assistance in clarifying documentation. Please respond to the clarification below the line at the bottom and electronically sign. The CDI & [facility] Coding staff will review the response and follow-up if needed. Please note: Queries are made part of the Legal Health Record. If you have any questions, please contact the author of this message via ITS. Dr. Vallejo/ Beatriz Orosco CNP A declining Hgb and Hct have been noted and lacks specificity to accurately reflect your patients severity of condition and clarification is needed. History/Risk Factors: COPD, Pneumonia, DJD, Hx of Appy, depression Clinical indicators: 08/10 OP note: Exp Lap w KODAK, L colectomy, Takedown f splenic flexure, splenectomy, cholecystectomy Hemoglobin: 14.6/13.2/14.8/12.4/9.4/9.3 Hematocrit: 46.3/43.1/50.5/31/29.9 Treatment: Labs AM Daily In order to capture the severity of condition, please clarify the significance of the declining lab values and etiology if known: Acute blood loss anemia Iron deficiency anemia Drug induced anemia Nutritional anemia Anemia of chronic disease Unable to determine Other, please specify In order to accurately reflect this patients severity of illness, please clarify if the post-operative diagnosis is: An expected post-procedural or post-surgical condition Integral to the procedure Inherent to the procedure An unexpected post-procedural or post-surgical condition related to surgical care Other, please specify Unable to determine (Last Revision: May 2017) _acute blood loss anemia, unable to determine MATILDED
[2018-08-16] MEDS: DEXTROSE 5% IN WATER 1,000 ML IV SCH (11:25)
[2018-08-16 11:38] LABS: Glucose,Whole Blood 113 mg/dL (75-99)
--- NOTE | 2018-08-16 13:52 | P.PN ---
Progress Note - Text Progress Note Date: 08/16/18 The patient's encephalopathy is slightly worsened today. Per the nursing staff her signs are most likely going to make the patient comfort care. On exam her vital signs appear stable. She is on the ventilator. Abdomen soft. Worsening encephalopathy. Patient will continue receive supportive care until the family decides on her status.
[2018-08-16] MEDS: FAT EMULSION 20% 250 ML in EMPTY BAG 1 BAG IV SCH (16:50)
[2018-08-16 17:22] LABS: Glucose,Whole Blood 105 mg/dL (75-99)
--- NOTE | 2018-08-16 20:13 | P.PN ---
Subjective Progress Note Date: 08/15/18 Progress note being dictated for Dr. Palm. Interval history: This 87-year-old female admitted with colonic obstruction, fecal impaction, status post surgery. Remains mechanical ventilator-dependent, FiO2 40%/+5 of PEEP. Continues on TPN, no pressors. Not following commands, not opening eyes to noxious stimuli. T-max 99.2. Maintained on D5W with Sodium 153, renal function slowly improving.PPN. Remains off of sedation, not following commands-unable to do weaning parameters/trials. 08/14/18 maintained on mechanical ventilation, FiO2 35%/+5 Peep. Weaning trials , patient unable to follow commands. Maintained on Zosyn. T-max 100.5, WBC up to 22. Urine and blood cultures negative. Currently sinus status has been changed to DO NOT RESUSCITATE and family is considering comfort care as per environmental health and safety leader renal function improving, sodium improving down to 148. 08/15/maintained on mechanical ventilation, FiO2 35%/+5 of PEEP. No weaning trial secondary to neuro status. Does not follow commands .Continues on TPN. Chest x-ray worsening, small bilateral pleural effusions and diffuse interstitial edema, persistent or focal bibasilar atelectasis and/or infiltrate with progression of right basilar opacity. T-max 100.7. Maintained on Zosyn and vancomycin. pathology reporting diverticulosis with no diverticulitis, cystic dilation without evidence of neoplasm, subcapsular/superficial spenic hemorrhage, cholecystitis with cholelithiasis and congested and hemorrhagic omentum with focal fibrosis. Review of systems; unable to obtain as patient on mechanical ventilation. Active Medications Acetaminophen (Tylenol Tab) 650 mg PO Q6HR PRN PRN Reason: Mild Pain or Fever > 100.5 Last Admin: 08/15/18 02:55 Dose: 650 mg Albuterol/Ipratropium (Duoneb 0.5 Mg-3 Mg/3 Ml Soln) 3 ml INHALATION RT-QID [facility] Last Admin: 08/16/18 19:33 Dose: 3 ml Albuterol/Ipratropium (Duoneb 0.5 Mg-3 Mg/3 Ml Soln) 3 ml INHALATION RT-QID PRN PRN Reason: Shortness Of Breath Or Wheezing Last Admin: 08/12/18 03:15 Dose: 3 ml Benzocaine/Menthol (Cepacol Lozenge) 1 each MUCOUS MEM Q1HR PRN PRN Reason: Sore Throat Budesonide (Pulmicort) 1 mg INHALATION RT-BID [facility] Last Admin: 08/16/18 19:33 Dose: 1 mg Carbidopa/Levodopa (Sinemet 25-100) 1 each PO TID [facility] Last Admin: 08/16/18 16:50 Dose: 1 each Chlorhexidine Gluconate (Peridex) 15 ml MUCOUS MEM BID [facility] Last Admin: 08/16/18 08:56 Dose: 15 ml Famotidine (Pepcid) 20 mg IV DAILY [facility] Last Admin: 08/16/18 08:56 Dose: 20 mg Formoterol Fumarate (Perforomist) 20 mcg INHALATION RT-BID [facility] Last Admin: 08/16/18 19:33 Dose: 20 mcg Piperacillin Sod/Tazobactam (Sod 3.375 gm/ Sodium Chloride) 100 mls @ 25 mls/ hr IVPB Q8HR [facility] Last Admin: 08/16/18 16:50 Dose: 25 mls/hr Dextrose/Water (Dextrose 5%-Water Iv Soln) 1,000 mls @ 40 mls/hr IV .Q24H [facility] Last Admin: 08/16/18 11:25 Dose: 40 mls/hr Fat Emulsion Intravenous 250 (ml/ IV Solution) 250 mls @ 21 mls/hr IV Q24H [facility] Last Admin: 08/16/18 16:50 Dose: 21 mls/hr Parenteral Vitamin Supplement 10 ml/ Chromium/Copper/Manganese/Seleni/Zn 1 ml/ Potassium Phosphate 15 mmol/Calcium Gluconate 1,000 mg/Magnesium Sulfate 1 gm/ Amino Acids/Dextrose 1,028 mls @ 50 mls/hr IV .[id number] [facility] Last Admin: 08/16/18 02:00 Dose: 50 mls/hr Vancomycin HCl 1,000 mg/ (Sodium Chloride) 250 mls @ 125 mls/hr IVPB DAILY [facility] Last Admin: 08/16/18 08:56 Dose: 125 mls/hr Insulin Aspart (Novolog) 0 unit SQ Q6HR [facility]; Protocol Last Admin: 08/16/18 17:12 Dose: Not Given Lidocaine HCl (.Xylocaine 1% Inj (10mg/Ml) For Iv Start) 0.1 ml INTRADERMA PER PROTOCOL PRN PRN Reason: IV Start Metoclopramide HCl (Reglan) 10 mg IVP Q6HR PRN PRN Reason: Nausea and Vomiting Miscellaneous Information (Potassium Per Protocol) 1 each MISCELLANE DAILY PRN ; Protocol PRN Reason: Per Protocol Naloxone HCl (Narcan) 0.2 mg IV Q2M PRN PRN Reason: Opioid Reversal Ondansetron HCl (Zofran) 4 mg IVP Q8HR PRN PRN Reason: Nausea And Vomiting Objective - Vital Signs Vital signs: Vital Signs Temp 100.6 F H 08/15/18 20:00 Pulse 66 08/15/18 22:00 Resp 34 H 08/15/18 22:00 BP 104/53 08/15/18 22:00 Pulse Ox 97 08/15/18 22:00 Intake & Output 08/15/18 08/15/18 08/16/18 06:59 18:59 06:59 Intake Total 3048.333 2723 533 Output Total 1645 1460 425 Balance 4584.557 7426 108 Weight 56.3 kg 56.3 kg Intake: IV 1340 1963 333 Dextrose 5% in Water 1, 480 400 120 000 ml @ 40 mls/hr IV . Q24H [facility] Rx#:[id number] Fat Emulsion 20% 250 ml 210 63 63 In Empty Bag 1 bag @ 21 mls/hr IV Q24H [facility] Rx#: [id number] Magnesium Sulfate-D5w Pmx 200 1 gm In Dextrose/Water 1 100ml.bag @ 100 mls/hr IVPB Q1H [facility] Rx#: [id number] Mvi, Adult No.4 with Vit 600 150 K 10 ml Trace (Conc-1Ml/ Dose) 1 ml Potassium Phosphate 15 mmol Calcium Gluconate 1,000 mg Magnesium Sulfate gm 0.5 gm In Amino Acid 4.25%- D10w 1,000 ml @ 50 mls/hr IV .[id number] [facility] Rx#: [id number] Mvi, Adult No.4 with Vit 550 K 10 ml Trace (Conc-1Ml/ Dose) 1 ml Potassium Phosphate 15 mmol Potassium Acetate 10 meq Calcium Gluconate 500 mg In Amino Acid 5%-D15w 1, 000 ml @ 30 mls/hr IV . Q24H [facility] Rx#:[id number] Piperacillin-Tazobactam 3 100 200 .375 gm In Sodium Chloride 0.9% 100 ml @ 25 mls/hr IVPB Q8HR [facility] Rx# :[id number] Potassium Chloride 10 meq 200 In Water For Injection 1 100ml.bag @ 100 mls/hr IVPB Q1H [facility] Rx#: [id number] Potassium Chloride 20 meq 50 In Water For Injection 1 100ml.bag @ 50 mls/hr IVPB Q2H [facility] Rx#: [id number] Vancomycin 1,000 mg In 250 Sodium Chloride 0.9% 250 ml @ 125 mls/hr IVPB ONCE [facility] Rx#:[id number] Intake, IV Titration 1108.333 100 Amount Mvi, Adult No.4 with Vit 1008.333 K 10 ml Trace (Conc-1Ml/ Dose) 1 ml Potassium Phosphate 15 mmol Calcium Gluconate 1,000 mg Magnesium Sulfate gm 0.5 gm In Amino Acid 4.25%- D10w 1,000 ml @ 50 mls/hr IV .[id number] [facility] Rx#: [id number] Potassium Chloride 20 meq 100 100 In Water For Injection 1 100ml.bag @ 50 mls/hr IVPB Q2H [facility] Rx#: [id number] Oral 600 200 Other 660 Output: Urine 1465 1460 425 Stool 180 Other: Voiding Method Indwelling Catheter Indwelling Catheter Indwelling Catheter ABP, PAP, CO, CI - Last Documented Arterial Blood Pressure 96/76 - Exam PHYSICAL EXAM: VITAL SIGNS: [As above] GENERAL: Sitting up in bed, intubated, no acute distress HEENT: Conjunctivae normal. eyes normal. Oral mucosa dry. NG tube present NECK: No JVD. No thyroid enlargement. No LNs CARDIOVASCULAR: S1, S2 muffled. No murmur, RESPIRATION: Breath sounds diminished in the bases. Scattered coarse rhonchi, no wheezing ABDOMEN: Soft, status post surgery, small liquidy brown stool in ostomy bag , hypoactive Bowel sounds. Diffuse anasarca. LEGS: No edema. no swelling NERVOUS SYSTEM: Unable to evaluate, intubated. - Labs CBC & Chem 7: 08/16/18 05:00 08/16/18 14:00 Labs: Abnormal Lab Results - Last 24 Hours (Table) 08/15/18 08/15/18 08/15/18 Range/Units 00:46 03:55 03:55 WBC 28.5 H (3.8-10.6) k/uL RBC 3.20 L (3.80-5.40) m/uL Hgb 9.4 L (11.4-16.0) gm/dL Hct 30.0 L (34.0-46.0) % Neutrophils # 25.1 H (1.3-7.7) k/uL Monocytes # 1.4 H (0-1.0) k/uL ABG pH (7.35-7.45) ABG pCO2 (35-45) mmHg ABG O2 Saturation (94-97) % Potassium 3.2 L (3.5-5.1) mmol/L Chloride 118 H (98-107) mmol/L BUN 23 H (7-17) mg/dL Glucose 112 H (74-99) mg/dL POC Glucose (mg/dL) 132 H (75-99) mg/dL Ionized Calcium Vic 5.9 H (4.5-5.3) mg/dL 08/15/18 08/15/18 08/15/18 Range/Units 04:40 05:57 11:42 WBC (3.8-10.6) k/uL RBC (3.80-5.40) m/uL Hgb (11.4-16.0) gm/dL Hct (34.0-46.0) % Neutrophils # (1.3-7.7) k/uL Monocytes # (0-1.0) k/uL ABG pH 7.46 H (7.35-7.45) ABG pCO2 31 L (35-45) mmHg ABG O2 Saturation 99.6 H (94-97) % Potassium (3.5-5.1) mmol/L Chloride (98-107) mmol/L BUN (7-17) mg/dL Glucose (74-99) mg/dL POC Glucose (mg/dL) 123 H 144 H (75-99) mg/dL Ionized Calcium Vic (4.5-5.3) mg/dL 08/15/18 Range/Units 17:10 WBC (3.8-10.6) k/uL RBC (3.80-5.40) m/uL Hgb (11.4-16.0) gm/dL Hct (34.0-46.0) % Neutrophils # (1.3-7.7) k/uL Monocytes # (0-1.0) k/uL ABG pH (7.35-7.45) ABG pCO2 (35-45) mmHg ABG O2 Saturation (94-97) % Potassium (3.5-5.1) mmol/L Chloride (98-107) mmol/L BUN (7-17) mg/dL Glucose (74-99) mg/dL POC Glucose (mg/dL) 120 H (75-99) mg/dL Ionized Calcium Vic (4.5-5.3) mg/dL Microbiology - Last 24 Hours (Table) 08/14/18 17:56 Blood Culture Gram Stain - Preliminary Blood Blood Culture - Preliminary Coagulase Negative Staph 08/14/18 17:56 Blood Culture - Final Blood Assessment and Plan Assessment: -Colonic obstruction secondary to fecal impaction with large rectal fecal ball, cholecystitis with mechanical obstruction, possible sepsis, status post exploratory laparotomy, lysis of adhesions, left colectomy and takedown splenic flexure, splenectomy and cholecystectomy. -Acute respiratory failure, mechanical ventilator-dependent -Change in mental status, metabolic encephalopathy secondary to acute sepsis -Leukocytosis -Acute renal failure, improving -COPD -Hypernatremia -Severe hypokalemia, improving -Fevers, workup in progress -No code, no CPR, no re- intubation. Plan: Continue on current medication regime ,monitoring and symptomatic treatment. No vent weaning trials as per pulmonary given patient's mental status. Family discussing potential comfort care with environmental health and safety leader.maintain supportive care, TPN .Prognosis guarded given multiple complex medical issues. The impression and plan of care has been dictated as directed. : I performed a history and examination of this patient, discussed the same with the dictator. I agree with the dictator's note ,documented as a scribe. Any additional findings or plans will be noted.
--- NOTE | 2018-08-16 20:24 | P.PN ---
Subjective Progress Note Date: 08/16/18 Progress note being dictated for Dr. Valljeo. Interval history: This 87-year-old female admitted with colonic obstruction, fecal impaction, status post surgery. Remains mechanical ventilator-dependent, FiO2 40%/+5 of PEEP. Continues on TPN, no pressors. Not following commands, not opening eyes to noxious stimuli. T-max 99.2. Maintained on D5W with Sodium 153, renal function slowly improving.PPN. Remains off of sedation, not following commands-unable to do weaning parameters/trials. 08/14/18 maintained on mechanical ventilation, FiO2 35%/+5 Peep. Weaning trials , patient unable to follow commands. Maintained on Zosyn. T-max 100.5, WBC up to 22. Urine and blood cultures negative. Currently sinus status has been changed to DO NOT RESUSCITATE and family is considering comfort care as per inspector plating renal function improving, sodium improving down to 148. 08/15/maintained on mechanical ventilation, FiO2 35%/+5 of PEEP. No weaning trial secondary to neuro status. Does not follow commands .Continues on TPN. Chest x-ray worsening, small bilateral pleural effusions and diffuse interstitial edema, persistent or focal bibasilar atelectasis and/or infiltrate with progression of right basilar opacity. T-max 100.7. Maintained on Zosyn and vancomycin. pathology reporting diverticulosis with no diverticulitis, cystic dilation without evidence of neoplasm, subcapsular/superficial spenic hemorrhage, cholecystitis with cholelithiasis and congested and hemorrhagic omentum with focal fibrosis. 08/16/2018 mental status unchanged. Less spontaneous movements reported. Not responding to verbal/tactile stimuli. Maintained on mechanical ventilation, FiO2 35%/+5 PEEP. Continues on TPN, vancomycin, Zosyn. T-max 100.7. Blood cultures reporting coagulase-negative staph, WBC 45.9. Review of systems; unable to obtain as patient on mechanical ventilation. Active Medications Acetaminophen (Tylenol Tab) 650 mg PO Q6HR PRN PRN Reason: Mild Pain or Fever > 100.5 Last Admin: 08/15/18 02:55 Dose: 650 mg Albuterol/Ipratropium (Duoneb 0.5 Mg-3 Mg/3 Ml Soln) 3 ml INHALATION RT-QID [facility] Last Admin: 12/20/18 19:33 Dose: 3 ml Albuterol/Ipratropium (Duoneb 0.5 Mg-3 Mg/3 Ml Soln) 3 ml INHALATION RT-QID PRN PRN Reason: Shortness Of Breath Or Wheezing Last Admin: 08/12/18 03:15 Dose: 3 ml Benzocaine/Menthol (Cepacol Lozenge) 1 each MUCOUS MEM Q1HR PRN PRN Reason: Sore Throat Budesonide (Pulmicort) 1 mg INHALATION RT-BID [facility] Last Admin: 08/16/18 19:33 Dose: 1 mg Carbidopa/Levodopa (Sinemet 25-100) 1 each PO TID [facility] Last Admin: 08/16/18 16:50 Dose: 1 each Chlorhexidine Gluconate (Peridex) 15 ml MUCOUS MEM BID [facility] Last Admin: 08/16/18 08:56 Dose: 15 ml Famotidine (Pepcid) 20 mg IV DAILY [facility] Last Admin: 08/16/18 08:56 Dose: 20 mg Formoterol Fumarate (Perforomist) 20 mcg INHALATION RT-BID [facility] Last Admin: 08/16/18 19:33 Dose: 20 mcg Piperacillin Sod/Tazobactam (Sod 3.375 gm/ Sodium Chloride) 100 mls @ 25 mls/ hr IVPB Q8HR [facility] Last Admin: 08/16/18 16:50 Dose: 25 mls/hr Dextrose/Water (Dextrose 5%-Water Iv Soln) 1,000 mls @ 40 mls/hr IV .Q24H [facility] Last Admin: 08/16/18 11:25 Dose: 40 mls/hr Fat Emulsion Intravenous 250 (ml/ IV Solution) 250 mls @ 21 mls/hr IV Q24H [facility] Last Admin: 08/16/18 16:50 Dose: 21 mls/hr Parenteral Vitamin Supplement 10 ml/ Chromium/Copper/Manganese/Seleni/Zn 1 ml/ Potassium Phosphate 15 mmol/Calcium Gluconate 1,000 mg/Magnesium Sulfate 1 gm/ Amino Acids/Dextrose 1,028 mls @ 50 mls/hr IV .[id number] [facility] Last Admin: 08/16/18 02:00 Dose: 50 mls/hr Vancomycin HCl 1,000 mg/ (Sodium Chloride) 250 mls @ 125 mls/hr IVPB DAILY [facility] Last Admin: 08/16/18 08:56 Dose: 125 mls/hr Insulin Aspart (Novolog) 0 unit SQ Q6HR [facility]; Protocol Last Admin: 08/16/18 17:12 Dose: Not Given Lidocaine HCl (.Xylocaine 1% Inj (10mg/Ml) For Iv Start) 0.1 ml INTRADERMA PER PROTOCOL PRN PRN Reason: IV Start Metoclopramide HCl (Reglan) 10 mg IVP Q6HR PRN PRN Reason: Nausea and Vomiting Miscellaneous Information (Potassium Per Protocol) 1 each MISCELLANE DAILY PRN ; Protocol PRN Reason: Per Protocol Naloxone HCl (Narcan) 0.2 mg IV Q2M PRN PRN Reason: Opioid Reversal Ondansetron HCl (Zofran) 4 mg IVP Q8HR PRN PRN Reason: Nausea And Vomiting Objective - Vital Signs Vital signs: Vital Signs Temp 100.1 F H 08/16/18 16:00 Pulse 68 08/16/18 20:06 Resp 24 08/16/18 19:50 BP 110/55 08/16/18 19:00 Pulse Ox 99 08/16/18 19:00 Intake & Output 08/16/18 08/16/18 08/17/18 06:59 18:59 06:59 Intake Total 2062 2033 146 Output Total 1570 1450 150 Balance 492 583 -4 Weight 57.1 kg Intake: IV 1462 1433 146 Dextrose 5% in Water 1, 480 320 000 ml @ 40 mls/hr IV . Q24H [facility] Rx#:[id number] Fat Emulsion 20% 250 ml 282 63 21 In Empty Bag 1 bag @ 21 mls/hr IV Q24H [facility] Rx#: [id number] Mvi, Adult No.4 with Vit 600 150 K 10 ml Trace (Conc-1Ml/ Dose) 1 ml Potassium Phosphate 15 mmol Calcium Gluconate 1,000 mg Magnesium Sulfate gm 0.5 gm In Amino Acid 4.25%- D10w 1,000 ml @ 50 mls/hr IV .[id number] [facility] Rx#: [id number] Mvi, Adult No.4 with Vit 250 50 K 10 ml Trace (Conc-1Ml/ Dose) 1 ml Potassium Phosphate 15 mmol Calcium Gluconate 1,000 mg Magnesium Sulfate gm 1 gm In Amino Acid 4.25%-D10w 1,000 ml @ 50 mls/hr IV .[id number] [facility] Rx#: [id number] Piperacillin-Tazobactam 3 100 150 25 .375 gm In Sodium Chloride 0.9% 100 ml @ 25 mls/hr IVPB Q8HR [facility] Rx# :[id number] Potassium Chloride 10 meq 100 50 In Water For Injection 1 100ml.bag @ 100 mls/hr IVPB Q1H [facility] Rx#: [id number] Potassium Chloride 10 meq 150 In Water For Injection 1 100ml.bag @ 50 mls/hr IVPB Q2H [facility] Rx#: [id number] Vancomycin 1,000 mg In 250 Sodium Chloride 0.9% 250 ml @ 125 mls/hr IVPB DAILY [facility] Rx#:[id number] Tube Feeding 400 Other 600 200 Output: Urine 1165 1300 150 Stool 405 150 Other: Voiding Method Indwelling Catheter Indwelling Catheter ABP, PAP, CO, CI - Last Documented Arterial Blood Pressure 96/76 - Exam PHYSICAL EXAM: VITAL SIGNS: [As above] GENERAL: Sitting up in bed, intubated, on mechanical ventilation HEENT: Conjunctivae normal. eyes normal. Oral mucosa dry. OG tube present NECK: No JVD. No thyroid enlargement. No LNs CARDIOVASCULAR: S1, S2 muffled. No murmur, RESPIRATION: Breath sounds diminished with bibasilar crackles, Scattered coarse rhonchi. ABDOMEN: Soft, status post surgery, small liquidy brown stool in ostomy bag , hypoactive Bowel sounds. Diffuse anasarca. Ostomy present. Dressing clean dry and intact. LEGS: No edema. no swelling NERVOUS SYSTEM: Unable to evaluate, intubated. Microbiology 08/14/18 17:56 Blood Blood Culture Gram Stain - Preliminary 08/14/18 17:56 Blood Blood Culture - Preliminary Coagulase Negative Staph 08/14/18 17:56 Blood Blood Culture - Final 08/08/18 13:54 Blood Blood Culture - Final No Growth after 144 hours 08/09/18 05:20 Urine,Catheterized Urine Culture - Final - Labs CBC & Chem 7: 08/16/18 05:00 08/16/18 14:00 Labs: Abnormal Lab Results - Last 24 Hours (Table) 08/15/18 08/16/18 08/16/18 Range/Units 23:25 04:38 05:00 WBC 45.9 H (3.8-10.6) k/uL RBC 3.16 L (3.80-5.40) m/uL Hgb 9.3 L (11.4-16.0) gm/dL Hct 29.9 L (34.0-46.0) % Neutrophils # 42.5 H (1.3-7.7) k/uL Monocytes # 1.4 H (0-1.0) k/uL ABG pCO2 30 L (35-45) mmHg ABG O2 Saturation 98.7 H (94-97) % Chloride (98-107) mmol/L Carbon Dioxide (22-30) mmol/L BUN (7-17) mg/dL Glucose (74-99) mg/dL POC Glucose (mg/dL) 145 H (75-99) mg/dL 08/16/18 08/16/18 08/16/18 Range/Units 05:00 05:31 11:27 WBC (3.8-10.6) k/uL RBC (3.80-5.40) m/uL Hgb (11.4-16.0) gm/dL Hct (34.0-46.0) % Neutrophils # (1.3-7.7) k/uL Monocytes # (0-1.0) k/uL ABG pCO2 (35-45) mmHg ABG O2 Saturation (94-97) % Chloride 114 H (98-107) mmol/L Carbon Dioxide 21 L (22-30) mmol/L BUN 22 H (7-17) mg/dL Glucose 124 H (74-99) mg/dL POC Glucose (mg/dL) 133 H 113 H (75-99) mg/dL 08/16/18 Range/Units 17:10 WBC (3.8-10.6) k/uL RBC (3.80-5.40) m/uL Hgb (11.4-16.0) gm/dL Hct (34.0-46.0) % Neutrophils # (1.3-7.7) k/uL Monocytes # (0-1.0) k/uL ABG pCO2 (35-45) mmHg ABG O2 Saturation (94-97) % Chloride (98-107) mmol/L Carbon Dioxide (22-30) mmol/L BUN (7-17) mg/dL Glucose (74-99) mg/dL POC Glucose (mg/dL) 105 H (75-99) mg/dL Microbiology - Last 24 Hours (Table) 08/14/18 17:56 Blood Culture Gram Stain - Preliminary Blood Blood Culture - Preliminary Coagulase Negative Staph Assessment and Plan Assessment: -Colonic obstruction secondary to fecal impaction with large rectal fecal ball, cholecystitis with mechanical obstruction, possible sepsis, status post exploratory laparotomy, lysis of adhesions, left colectomy and takedown splenic flexure, splenectomy and cholecystectomy. -Acute respiratory failure, mechanical ventilator-dependent -Change in mental status, metabolic encephalopathy secondary to acute sepsis -Leukocytosis -Acute renal failure, improving -COPD -Hypernatremia -Severe hypokalemia, improving -Fevers, workup in progress -No code, no CPR, no re- intubation. Plan: Continue on current medication regime ,monitoring and symptomatic treatment. Maintain supportive care. Continue on IV antibiotics, repeat cultures pending. Family discussing potential comfort care with inspector plating. TPN .Prognosis guarded given multiple complex medical issues. The impression and plan of care has been dictated as directed. : I performed a history and examination of this patient, discussed the same with the dictator. I agree with the dictator's note ,documented as a scribe. Any additional findings or plans will be noted.
[2018-08-17] MEDS: PIPERACILLIN-TAZOBACTAM 3.375 GM in SODIUM CHLORIDE 0.9% 100 ML IVPB SCH ×3 (00:20→16:48)
[2018-08-17 00:22] LABS: Glucose,Whole Blood 131 mg/dL (75-99)
[2018-08-17] MEDS: INSULIN ASPART (NovoLOG) 100 UNIT/ML VIAL SQ SCH ×4 (00:25→18:10)
[2018-08-17 04:45] LABS: ABG Base Excess -5.5 mmol/L; ABG HCO3 19 mmol/L (21-25); ABG Oxygen Saturation 99.3 % (94-97); ABG PCO2 30 mmHg (35-45); ABG PH 7.41 (7.35-7.45); ABG PO2 101 mmHg (83-108); ABG TCO2 20 mmol/L (19-24)
[2018-08-17 05:56] LABS: HCT 28.6 % (34.0-46.0); HGB 8.9 gm/dL (11.4-16.0); Hypochromasia Slight; MCHC 30.9 g/dL (31.0-37.0); MCV 93.9 fL (80.0-100.0); Mean Platelet Volume 8.3; Platelet Count 256 k/uL (150-450); RBC 3.05 m/uL (3.80-5.40); RDW 15.5 % (11.5-15.5)
[2018-08-17 05:59] LABS: WBC 56.2 k/uL (3.8-10.6)
[2018-08-17 06:03] LABS: Calcium 8.8 mg/dL (8.4-10.2); Magnesium 2.3 mg/dL (1.6-2.3); Phosphorus 3.4 mg/dL (2.5-4.5)
[2018-08-17 06:59] LABS: Eosinophils # (M) 1.69 k/uL (0-0.7); Lymphocytes # (M) 1.12 k/uL (1.0-4.8); Neutrophils # (M) 53.39 k/uL (1.3-7.7); Neutrophils % (M) 95 %; Nucleated Red Blood Cells 0 /100 WBC (0-0); Total Cells Counted 100
[2018-08-17] MEDS: IPRATROPIUM-ALBUTEROL 3 ML NEB INHALATION SCH ×4 (07:21→20:09)
[2018-08-17] MEDS: FORMOTEROL FUMARATE 20 MCG/2 ML NEBU INHALATION SCH ×2 (07:21→20:09)
[2018-08-17] MEDS: BUDESONIDE 1 MG/2 ML NEBU INHALATION SCH ×2 (07:21→20:09)
--- NOTE | 2018-08-17 07:54 | XR ---
EXAMINATION TYPE: XR chest 1V portable DATE OF EXAM: 08/17/2018 COMPARISON: 08/16/2018 HISTORY: SOB, Follow Up FINDINGS: Indwelling tubes and catheters are unchanged. No change in bibasilar opacities. Stable appearance of the cardio-mediastinal structures at this time. Tiny Pleural effusion unchanged. IMPRESSION: 1. Stable portable chest. Clinical correlation and follow up until resolution is recommended.
[2018-08-17] MEDS: VANCOMYCIN 1,000 MG in SODIUM CHLORIDE 0.9% 250 ML IVPB SCH (08:12)
[2018-08-17] MEDS: CHLORHEXIDINE GLUCONATE 15 ML CUP MUCOUS MEM SCH ×2 (08:12→22:01)
[2018-08-17] MEDS: CARBIDOPA-LEVODOPA 25-100 MG 1 EACH TAB PO SCH ×3 (08:12→21:56)
[2018-08-17] MEDS: FAMOTIDINE 20 MG/2 ML VIAL IV SCH (08:13)
--- NOTE | 2018-08-17 10:36 | P.PN ---
Subjective Progress Note Date: 08/17/18 Principal diagnosis: Constipation secondary to fecal impaction, status post exploratory laparotomy, lysis of adhesions, left colectomy, takedown of splenic flexure, splenectomy, cholecystectomy. This is an 87-year-old female patient who follows with Dr. Santiago as her primary care physician, she has a history of Parkinson's dementia, bipolar disorder, kyphosis, osteoarthritis. She has a history of chronic tobacco dependence and chronic obstructive pulmonary disease on oxygen at 2 L in the outpatient setting. She is maintained on DuoNeb inhalations and Advair. She also has a history of constipation and had been admitted in the past for the same. She was brought in to the hospital yesterday by her daughter as she had complaints of abdominal cramping and fullness. Computed tomography scan of the abdomen confirmed mechanical colonic obstruction with fecal impaction and a large fecal ball measuring 11.5 cm. There was rectal wall thickening suggesting acute on chronic inflammatory process. Left hemicolon his large burden retained colonic stool in there is redundancy of the large bowel. Noted cholelithiasis. The patient is seen today 08/16/2018 in follow-up in the intensive care unit. She had undergone an exploratory laparotomy on 08/10/2018 which included lysis of adhesions, left colectomy, takedown splenic flexure, splenectomy and cholecystectomy. This is postoperative day #6. She remains encephalopathic. Mental status remains extremely poor. She remains intubated and on the mechanical ventilator at settings of assist control rate of 30, tidal volume 350 , FiO2 35% and a PEEP of 5. Morning blood gases reveal a P O2 of 98, pCO2 of 30 and a pH of 7.44. Chest x-ray reveals evidence of chronic emphysema and cardiomegaly with worsening small bilateral pleural effusions and diffuse interstitial edema. There is more persistent focal bibasilar atelectasis/ infiltrate as well. She is currently on TPN at 50 MLS per hour. Lipids at 21 ML 's per hour. D5W at 40 ML's per hour. Blood cultures reveal coagulase-negative staph. White count 45.9. Hemoglobin 9.3. Creatinine 0.8. She remains on vancomycin and Zosyn. Patient seen again today 08/17/2018 in follow-up in the intensive care unit. She remains intubated and on mechanical ventilator with current settings assist- control of 30, tidal volume 350, FiO2 35% and a PEEP of 5. Morning blood gases reveal a P O2 101, pCO2 30, pH 7.41. She remains unresponsive. She does open her eyes to verbal stimuli otherwise no purposeful movements or following any simple commands. Chest x-ray shows basilar atelectasis/infiltrates. Blood culture reveals coag-negative staph. She remains on Zosyn and vancomycin. She is on TPN at 50 MLS per hour. D5W at 30 MLS per hour. Lipids at 21 ML's per hour. White count 14.0. Hemoglobin 13.8. Creatinine 0.91. Her sons are at the bedside. Objective - Vital Signs Vital signs: Vital Signs Temp 99.2 F 08/17/18 08:00 Pulse 56 L 08/17/18 10:00 Resp 31 H 08/17/18 10:00 BP 95/44 08/17/18 10:00 Pulse Ox 98 08/17/18 10:00 Intake & Output 08/16/18 08/17/18 08/17/18 18:59 06:59 18:59 Intake Total 2033 2974 610 Output Total 1450 1525 550 Balance 583 1449 60 Weight 58.3 kg Intake: IV 1433 1346 610 Dextrose 5% in Water 1, 320 440 160 000 ml @ 40 mls/hr IV . Q24H [facility] Rx#:[id number] Fat Emulsion 20% 250 ml 63 231 In Empty Bag 1 bag @ 21 mls/hr IV Q24H [facility] Rx#: [id number] Mvi, Adult No.4 with Vit 150 K 10 ml Trace (Conc-1Ml/ Dose) 1 ml Potassium Phosphate 15 mmol Calcium Gluconate 1,000 mg Magnesium Sulfate gm 0.5 gm In Amino Acid 4.25%- D10w 1,000 ml @ 50 mls/hr IV .[id number] [facility] Rx#: [id number] Mvi, Adult No.4 with Vit 250 600 200 K 10 ml Trace (Conc-1Ml/ Dose) 1 ml Potassium Phosphate 15 mmol Calcium Gluconate 1,000 mg Magnesium Sulfate gm 1 gm In Amino Acid 4.25%-D10w 1,000 ml @ 50 mls/hr IV .[id number] [facility] Rx#: [id number] Piperacillin-Tazobactam 3 150 25 .375 gm In Sodium Chloride 0.9% 100 ml @ 25 mls/hr IVPB Q8HR [facility] Rx# :[id number] Potassium Chloride 10 meq 100 50 In Water For Injection 1 100ml.bag @ 100 mls/hr IVPB Q1H [facility] Rx#: [id number] Potassium Chloride 10 meq 150 In Water For Injection 1 100ml.bag @ 50 mls/hr IVPB Q2H [facility] Rx#: [id number] Vancomycin 1,000 mg In 250 250 Sodium Chloride 0.9% 250 ml @ 125 mls/hr IVPB DAILY [facility] Rx#:[id number] Intake, IV Titration 1028 Amount Mvi, Adult No.4 with Vit 1028 K 10 ml Trace (Conc-1Ml/ Dose) 1 ml Potassium Phosphate 15 mmol Calcium Gluconate 1,000 mg Magnesium Sulfate gm 1 gm In Amino Acid 4.25%-D10w 1,000 ml @ 50 mls/hr IV .[id number] [facility] Rx#: [id number] Tube Feeding 400 Other 200 600 Output: Urine 1300 1525 550 Stool 150 Other: Voiding Method Indwelling Catheter Indwelling Catheter ABP, PAP, CO, CI - Last Documented Arterial Blood Pressure 96/76 - Exam GENERAL EXAM: Unresponsive, intubated on mechanical ventilator. Opens eyes to verbal stimuli. Otherwise not following any simple commands. HEAD: Normocephalic. EYES: Normal reaction of pupils, equal size. NOSE: Clear with pink turbinates. THROAT: Oral endotracheal tube and gastric tube secured in place. No erythema or exudates. NECK: No masses, no JVD. CHEST: No chest wall deformity. LUNGS: Equal air entry with scattered rhonchi, crackles in the posterior bases. CVS: S1 and S2 normal with no audible murmur, regular rhythm. ABDOMEN: Ostomy patent. Dressing dry and intact. SPINE: Kyphoscoliosis SKIN: No rashes CENTRAL NERVOUS SYSTEM: Not responding to verbal or tactile stimuli.. EXTREMITIES: There is no peripheral edema. No clubbing, no cyanosis. Peripheral pulses are intact. - Labs CBC & Chem 7: 08/17/18 05:35 08/17/18 05:35 Labs: Abnormal Lab Results - Last 24 Hours (Table) 08/16/18 08/16/18 08/17/18 Range/Units 11:27 17:10 00:10 WBC (3.8-10.6) k/uL RBC (3.80-5.40) m/uL Hgb (11.4-16.0) gm/dL Hct (34.0-46.0) % MCHC (31.0-37.0) g/dL Neutrophils # (Manual) (1.3-7.7) k/uL Eosinophils # (Manual) (0-0.7) k/uL ABG pCO2 (35-45) mmHg ABG HCO3 (21-25) mmol/L ABG O2 Saturation (94-97) % Chloride (98-107) mmol/L Carbon Dioxide (22-30) mmol/L BUN (7-17) mg/dL Glucose (74-99) mg/dL POC Glucose (mg/dL) 113 H 105 H 131 H (75-99) mg/dL 18 18 08/17/18 Range/Units 04:43 05:35 05:35 WBC 56.2 H* (3.8-10.6) k/uL RBC 3.05 L (3.80-5.40) m/uL Hgb 8.9 L (11.4-16.0) gm/dL Hct 28.6 L (34.0-46.0) % MCHC 30.9 L (31.0-37.0) g/dL Neutrophils # (Manual) 53.39 H (1.3-7.7) k/uL Eosinophils # (Manual) 1.69 H (0-0.7) k/uL ABG pCO2 30 L (35-45) mmHg ABG HCO3 19 L (21-25) mmol/L ABG O2 Saturation 99.3 H (94-97) % Chloride 115 H (98-107) mmol/L Carbon Dioxide 19 L (22-30) mmol/L BUN 24 H (7-17) mg/dL Glucose 118 H (74-99) mg/dL POC Glucose (mg/dL) (75-99) mg/dL Assessment and Plan Assessment: Impression: #1 Abdominal pain with mechanical colonic obstruction secondary to large rectal fecal ball measuring 11.5 cm with rectal wall thickening suggestive of acute on chronic component with surrounding inflammation. Left hemicolon has large burden retained colonic stool and there is redundancy of the large bowel. Cholelithiasis. Status post exploratory laparotomy, lysis of adhesions, left colectomy, splenectomy and cholecystectomy. Postoperative day #7. #2 Metabolic encephalopathy secondary to above. #3 Acute hypoxic respiratory failure, and an unexpected outcome of surgery secondary to above requiring intubation and continued mechanical ventilatory support. #4 Subcentimeter right lower lobe pulmonary nodule. #5 Chronic obstructive pulmonary disease. #6 Chronic tobacco dependence. #7 History of constipation. #8 Parkinson's dementia. #9 Bipolar depression. #10 Degenerative joint disease. Plan: The patient was seen and evaluated by Dr. Morillo. Chest x-ray and labs were reviewed. Her overall prognosis remains quite poor. She is a DO NOT RESUSCITATE CODE STATUS. The patient's family is planning for terminal extubation on 08/19/2018. In the interim, we'll continue the current treatment plan. We will continue to follow and make further recommendations based on her clinical status. Critical care time 36 minutes. I, the cosigning physician, performed a history & physical examination of the patient. Lungs sounds with few scattered rhonchi, crackles in the posterior bases.. Maintaining good O2 saturations in the 90s on 35% FiO2 on the mechanical ventilator. I discussed the assessment and plan of care with my nurse practitioner, Elisa Rodriguez. I attest to the above note as dictated by her. Time with Patient: Greater than 30
--- NOTE | 2018-08-17 11:21 | P.PN ---
Subjective 87-year-old female admitted with colonic obstruction, fecal impaction, status post surgery. Remains mechanical ventilator-dependent, FiO2 40%/+5 of PEEP. Continues on TPN, no pressors. Not following commands, not opening eyes to noxious stimuli. T-max 99.2. Maintained on D5W with Sodium 153, renal function slowly improving.PPN. Remains off of sedation, not following commands- unable to do weaning parameters/trials. 08/14/18 maintained on mechanical ventilation, FiO2 35%/+5 Peep. Weaning trials , patient unable to follow commands. Maintained on Zosyn. T-max 100.5, WBC up to 22. Urine and blood cultures negative. Currently sinus status has been changed to DO NOT RESUSCITATE and family is considering comfort care as per straw hat brim raiser operator renal function improving, sodium improving down to 148. 08/15/maintained on mechanical ventilation, FiO2 35%/+5 of PEEP. No weaning trial secondary to neuro status. Does not follow commands .Continues on TPN. Chest x-ray worsening, small bilateral pleural effusions and diffuse interstitial edema, persistent or focal bibasilar atelectasis and/or infiltrate with progression of right basilar opacity. T-max 100.7. Maintained on Zosyn and vancomycin. pathology reporting diverticulosis with no diverticulitis, cystic dilation without evidence of neoplasm, subcapsular/superficial spenic hemorrhage, cholecystitis with cholelithiasis and congested and hemorrhagic omentum with focal fibrosis. 08/16/2018 mental status unchanged. Less spontaneous movements reported. Not responding to verbal/tactile stimuli. Maintained on mechanical ventilation, FiO2 35%/+5 PEEP. Continues on TPN, vancomycin, Zosyn. T-max 100.7. Blood cultures reporting coagulase-negative staph, WBC 45.9. 08/18/2018 Patient remains intubated and on ventilatory support off sedation patient is awake alert. No much output from the colostomy bag. Does have fairly good bowel sounds. Active Medications Acetaminophen (Tylenol Tab) 650 mg PO Q6HR PRN PRN Reason: Mild Pain or Fever > 100.5 Last Admin: 08/15/18 02:55 Dose: 650 mg Albuterol/Ipratropium (Duoneb 0.5 Mg-3 Mg/3 Ml Soln) 3 ml INHALATION RT-QID [facility] Last Admin: 08/17/18 11:04 Dose: 3 ml Albuterol/Ipratropium (Duoneb 0.5 Mg-3 Mg/3 Ml Soln) 3 ml INHALATION RT-QID PRN PRN Reason: Shortness Of Breath Or Wheezing Last Admin: 08/12/18 03:15 Dose: 3 ml Benzocaine/Menthol (Cepacol Lozenge) 1 each MUCOUS MEM Q1HR PRN PRN Reason: Sore Throat Budesonide (Pulmicort) 1 mg INHALATION RT-BID [facility] Last Admin: 08/17/18 07:21 Dose: 1 mg Carbidopa/Levodopa (Sinemet 25-100) 1 each PO TID [facility] Last Admin: 08/17/18 08:12 Dose: 1 each Chlorhexidine Gluconate (Peridex) 15 ml MUCOUS MEM BID [facility] Last Admin: 08/17/18 08:12 Dose: 15 ml Famotidine (Pepcid) 20 mg IV DAILY [facility] Last Admin: 08/17/18 08:13 Dose: 20 mg Formoterol Fumarate (Perforomist) 20 mcg INHALATION RT-BID [facility] Last Admin: 08/17/18 07:21 Dose: 20 mcg Piperacillin Sod/Tazobactam (Sod 3.375 gm/ Sodium Chloride) 100 mls @ 25 mls/ hr IVPB Q8HR [facility] Last Admin: 08/17/18 10:14 Dose: 25 mls/hr Dextrose/Water (Dextrose 5%-Water Iv Soln) 1,000 mls @ 40 mls/hr IV .Q24H [facility] Last Admin: 08/16/18 11:25 Dose: 40 mls/hr Fat Emulsion Intravenous 250 (ml/ IV Solution) 250 mls @ 21 mls/hr IV Q24H [facility] Last Admin: 08/16/18 16:50 Dose: 21 mls/hr Parenteral Vitamin Supplement 10 ml/ Chromium/Copper/Manganese/Seleni/Zn 1 ml/ Potassium Phosphate 15 mmol/Calcium Gluconate 1,000 mg/Magnesium Sulfate 1 gm/ Amino Acids/Dextrose 1,028 mls @ 50 mls/hr IV .[id number] [facility] Last Admin: 08/16/18 22:46 Dose: 50 mls/hr Vancomycin HCl 1,000 mg/ (Sodium Chloride) 250 mls @ 125 mls/hr IVPB DAILY [facility] Last Admin: 08/17/18 08:12 Dose: 125 mls/hr Insulin Aspart (Novolog) 0 unit SQ Q6HR [facility]ARY [facility]; Protocol Last Admin: 08/17/18 07:06 Dose: Not Given Lidocaine HCl (.Xylocaine 1% Inj (10mg/Ml) For Iv Start) 0.1 ml INTRADERMA PER PROTOCOL PRN PRN Reason: IV Start Metoclopramide HCl (Reglan) 10 mg IVP Q6HR PRN PRN Reason: Nausea and Vomiting Miscellaneous Information (Potassium Per Protocol) 1 each MISCELLANE DAILY PRN ; Protocol PRN Reason: Per Protocol Miscellaneous Information (Vancomycin Trough Due) 0 each MISCELLANE DIRECTED ONE Stop: 08/18/18 08:01 Naloxone HCl (Narcan) 0.2 mg IV Q2M PRN PRN Reason: Opioid Reversal Ondansetron HCl (Zofran) 4 mg IVP Q8HR PRN PRN Reason: Nausea And Vomiting Objective - Vital Signs Vital signs: Vital Signs Temp 99.2 F 08/17/18 08:00 Pulse 53 L 08/17/18 11:05 Resp 32 H 08/17/18 11:00 BP 89/42 08/17/18 11:00 Pulse Ox 98 08/17/18 11:00 Intake & Output 08/16/18 08/17/18 08/17/18 18:59 06:59 18:59 Intake Total 2033 2974 610 Output Total 1450 1525 550 Balance 583 1449 60 Weight 58.3 kg 58.3 kg Intake: IV 1433 1346 610 Dextrose 5% in Water 1, 320 440 160 000 ml @ 40 mls/hr IV . Q24H [facility] Rx#:[id number] Fat Emulsion 20% 250 ml 63 231 In Empty Bag 1 bag @ 21 mls/hr IV Q24H MARY LOU Rx#: [id number] Mvi, Adult No.4 with Vit 150 K 10 ml Trace (Conc-1Ml/ Dose) 1 ml Potassium Phosphate 15 mmol Calcium Gluconate 1,000 mg Magnesium Sulfate gm 0.5 gm In Amino Acid 4.25%- D10w 1,000 ml @ 50 mls/hr IV .[id number] [facility] Rx#: [id number] Mvi, Adult No.4 with Vit 250 600 200 K 10 ml Trace (Conc-1Ml/ Dose) 1 ml Potassium Phosphate 15 mmol Calcium Gluconate 1,000 mg Magnesium Sulfate gm 1 gm In Amino Acid 4.25%-D10w 1,000 ml @ 50 mls/hr IV .[id number] [facility] Rx#: [id number] Piperacillin-Tazobactam 3 150 25 .375 gm In Sodium Chloride 0.9% 100 ml @ 25 mls/hr IVPB Q8HR [facility] Rx# :[id number] Potassium Chloride 10 meq 100 50 In Water For Injection 1 100ml.bag @ 100 mls/hr IVPB Q1H [facility] Rx#: [id number] Potassium Chloride 10 meq 150 In Water For Injection 1 100ml.bag @ 50 mls/hr IVPB Q2H [facility] Rx#: [id number] Vancomycin 1,000 mg In 250 250 Sodium Chloride 0.9% 250 ml @ 125 mls/hr IVPB DAILY [facility] Rx#:[id number] Intake, IV Titration 1028 Amount Mvi, Adult No.4 with Vit 1028 K 10 ml Trace (Conc-1Ml/ Dose) 1 ml Potassium Phosphate 15 mmol Calcium Gluconate 1,000 mg Magnesium Sulfate gm 1 gm In Amino Acid 4.25%-D10w 1,000 ml @ 50 mls/hr IV .[id number] [facility] Rx#: [id number] Tube Feeding 400 Other 200 600 Output: Urine 1300 1525 550 Stool 150 Other: Voiding Method Indwelling Catheter Indwelling Catheter Indwelling Catheter ABP, PAP, CO, CI - Last Documented Arterial Blood Pressure 96/76 - Exam PHYSICAL EXAMINATION: GENERAL: Patient is intubated but alert RASS his score +1, mentally to support please refer to efficiency miner dictation for vent settings thin built elderly female HEENT: Pupils are round and equally reacting to light. EOMI. No scleral icterus. No conjunctival pallor. Normocephalic, atraumatic. No pharyngeal erythema. No thyromegaly. CARDIOVASCULAR: S1 and S2 present. No murmurs, rubs, or gallops. PULMONARY: Chest is clear to auscultation, no wheezing or crackles. ABDOMEN: Soft, nontender, ostomy bag in place sluggish bowel sounds. Minimal output via colostomy MUSCULOSKELETAL: No joint swelling or deformity. EXTREMITIES: No cyanosis, clubbing, or pedal edema. NEUROLOGICAL: Patient is awake responding to commands SKIN: No rashes. - Labs CBC & Chem 7: 08/17/18 05:35 08/17/18 05:35 Labs: Abnormal Lab Results - Last 24 Hours (Table) 08/16/18 08/16/18 08/17/18 Range/Units 11:27 17:10 00:10 WBC (3.8-10.6) k/uL RBC (3.80-5.40) m/uL Hgb (11.4-16.0) gm/dL Hct (34.0-46.0) % MCHC (31.0-37.0) g/dL Neutrophils # (Manual) (1.3-7.7) k/uL Eosinophils # (Manual) (0-0.7) k/uL ABG pCO2 (35-45) mmHg ABG HCO3 (21-25) mmol/L ABG O2 Saturation (94-97) % Chloride (98-107) mmol/L Carbon Dioxide (22-30) mmol/L BUN (7-17) mg/dL Glucose (74-99) mg/dL POC Glucose (mg/dL) 113 H 105 H 131 H (75-99) mg/dL 08/17/18 08/17/18 08/17/18 Range/Units 04:43 05:35 05:35 WBC 56.2 H* (3.8-10.6) k/uL RBC 3.05 L (3.80-5.40) m/uL Hgb 8.9 L (11.4-16.0) gm/dL Hct 28.6 L (34.0-46.0) % MCHC 30.9 L (31.0-37.0) g/dL Neutrophils # (Manual) 53.39 H (1.3-7.7) k/uL Eosinophils # (Manual) 1.69 H (0-0.7) k/uL ABG pCO2 30 L (35-45) mmHg ABG HCO3 19 L (21-25) mmol/L ABG O2 Saturation 99.3 H (94-97) % Chloride 115 H (98-107) mmol/L Carbon Dioxide 19 L (22-30) mmol/L BUN 24 H (7-17) mg/dL Glucose 118 H (74-99) mg/dL POC Glucose (mg/dL) (75-99) mg/dL Assessment and Plan Plan: Assessment and Plan Assessment: -Acute hypoxic respiratory failure post colectomy for prolonged intubation, weaning trials. -Colonic obstruction secondary to fecal impaction with large rectal fecal ball, cholecystitis with mechanical obstruction, possible sepsis, status post exploratory laparotomy, lysis of adhesions, left colectomy and takedown splenic flexure, splenectomy and cholecystectomy. -Change in mental status, metabolic encephalopathy secondary to acute sepsis secondary to intra-abdominal process and patient is on vancomycin and Zosyn which will be continued for now, no diarrhea at this time -Leukocytosis, neutrophilic no diarrhea will continue to monitor with such a high neutrophil count, need to watch for C. diff colitis -Acute renal failure, improving -COPD without any significant exacerbation at this time -Hypernatremia -Severe hypokalemia, improving -No code, no CPR, no re- intubation.
[2018-08-17 12:43] LABS: Glucose,Whole Blood 128 mg/dL (75-99)
--- NOTE | 2018-08-17 13:47 | P.PN ---
Progress Note - Text Progress Note Date: 08/17/18 The patient appears to be less encephalopathic today. Apparently per nursing staff she's been following some commands. On exam her vital signs are stable. Her abdomen soft. Colostomy is functioning. Patient will undergo extubation on Monday. It is unclear she'll urinate comfort care.
[2018-08-17] MEDS: FAT EMULSION 20% 250 ML in EMPTY BAG 1 BAG IV SCH (16:45)
[2018-08-17] MEDS: DEXTROSE 5% IN WATER 1,000 ML IV SCH (17:04)
[2018-08-17 18:18] LABS: Glucose,Whole Blood 93 mg/dL (75-99)
[2018-08-17] MEDS: MVI, ADULT NO.4 WITH VIT K 10 ML, TRACE (CONC-1ML/DOSE) 1 ML, POTASSIUM PHOSPHATE 15 MM... IV SCH ×6 (21:38)
[2018-08-18 00:11] LABS: Glucose,Whole Blood 140 mg/dL (75-99)
[2018-08-18] MEDS: PIPERACILLIN-TAZOBACTAM 3.375 GM in SODIUM CHLORIDE 0.9% 100 ML IVPB SCH ×3 (01:30→16:37)
[2018-08-18] MEDS: INSULIN ASPART (NovoLOG) 100 UNIT/ML VIAL SQ SCH ×4 (01:35→18:56)
[2018-08-18 01:44] LABS: Glucose,Whole Blood 140 mg/dL (75-99)
[2018-08-18 06:56] LABS: Glucose,Whole Blood 120 mg/dL (75-99)
[2018-08-18 07:33] LABS: Calcium 9.1 mg/dL (8.4-10.2); Potassium 3.6 mmol/L (3.5-5.1)
[2018-08-18] MEDS: BUDESONIDE 1 MG/2 ML NEBU INHALATION SCH ×2 (07:39→19:31)
[2018-08-18] MEDS: FORMOTEROL FUMARATE 20 MCG/2 ML NEBU INHALATION SCH ×2 (07:39→19:31)
[2018-08-18] MEDS: IPRATROPIUM-ALBUTEROL 3 ML NEB INHALATION SCH ×4 (07:39→19:31)
[2018-08-18] MEDS ORDERED: VANCOMYCIN TROUGH DUE 1 EACH MISC MISCELLANE ONE (08:00)
[2018-08-18 08:43] LABS: Magnesium 2.3 mg/dL (1.6-2.3); Phosphorus 3.3 mg/dL (2.5-4.5)
[2018-08-18] MEDS: VANCOMYCIN 1,250 MG in SODIUM CHLORIDE 0.9% 250 ML IVPB SCH (09:10)
[2018-08-18] MEDS: CHLORHEXIDINE GLUCONATE 15 ML CUP MUCOUS MEM SCH ×2 (09:52→20:54)
--- NOTE | 2018-08-18 09:53 | P.PN ---
Subjective Progress Note Date: 08/18/18 Principal diagnosis: Fernandez's procedure Patient remains on the ventilator. She is arousable. 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 She is still having bowel function through the stoma however. Objective - Vital Signs Vital signs: Vital Signs Temp 98.1 F 08/18/18 04:00 Pulse 68 08/18/18 08:09 Resp 34 H 08/18/18 06:00 BP 99/43 08/18/18 06:00 Pulse Ox 99 08/18/18 06:00 Intake & Output 08/17/18 08/18/18 08/18/18 18:59 06:59 18:59 Intake Total 1472 2839 90 Output Total 1345 1575 75 Balance 127 1264 15 Weight 58.3 kg 56.2 kg Intake: IV 1472 1411 90 Dextrose 5% in Water 1, 480 480 40 000 ml @ 40 mls/hr IV . Q24H [facility] Rx#:[id number] Fat Emulsion 20% 250 ml 42 231 In Empty Bag 1 bag @ 21 mls/hr IV Q24H [facility] Rx#: [id number] Mvi, Adult No.4 with Vit 600 600 50 K 10 ml Trace (Conc-1Ml/ Dose) 1 ml Potassium Phosphate 15 mmol Calcium Gluconate 1,000 mg Magnesium Sulfate gm 1 gm In Amino Acid 4.25%-D10w 1,000 ml @ 50 mls/hr IV .[id number] [facility] Rx#: [id number] Piperacillin-Tazobactam 3 100 100 .375 gm In Sodium Chloride 0.9% 100 ml @ 25 mls/hr IVPB Q8HR [facility] Rx# :[id number] Vancomycin 1,000 mg In 250 Sodium Chloride 0.9% 250 ml @ 125 mls/hr IVPB DAILY [facility] Rx#:[id number] Intake, IV Titration 1028 Amount Mvi, Adult No.4 with Vit 1028 K 10 ml Trace (Conc-1Ml/ Dose) 1 ml Potassium Phosphate 15 mmol Calcium Gluconate 1,000 mg Magnesium Sulfate gm 1 gm In Amino Acid 4.25%-D10w 1,000 ml @ 50 mls/hr IV .[id number] [facility] Rx#: [id number] Other 400 Output: Urine 1345 1575 75 Other: Voiding Method Indwelling Catheter Indwelling Catheter ABP, PAP, CO, CI - Last Documented Arterial Blood Pressure 96/76 - Exam Abdomen: Soft, nondistended, 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, mucosa viable, able to reduce partially but quickly re-prolapsed - Labs CBC & Chem 7: 08/17/18 05:35 08/18/18 07:00 Labs: Abnormal Lab Results - Last 24 Hours (Table) 08/17/18 08/17/18 08/18/18 Range/Units 12:31 23:59 01:33 Chloride (98-107) mmol/L Carbon Dioxide (22-30) mmol/L BUN (7-17) mg/dL Glucose (74-99) mg/dL POC Glucose (mg/dL) 128 H 140 H 140 H (75-99) mg/dL 08/18/18 08/18/18 Range/Units 06:45 07:00 Chloride 118 H (98-107) mmol/L Carbon Dioxide 20 L (22-30) mmol/L BUN 23 H (7-17) mg/dL Glucose 114 H (74-99) mg/dL POC Glucose (mg/dL) 120 H (75-99) mg/dL Microbiology - Last 24 Hours (Table) 08/14/18 17:56 Blood Culture Gram Stain - Preliminary Blood Blood Culture - Preliminary Staphylococcus epidermidis Assessment and Plan (1) Bowel obstruction Narrative/Plan: Spoke with button maker regarding this patient's care. Apparently the family is pursuing comfort measures. Patient is not a good candidate for additional surgical procedures at this point. 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 Current Visit: No Status: Acute Code(s): K56.60 - UNSPECIFIED INTESTINAL OBSTRUCTION * DO NOT USE * SNOMED Code(s): 28123630
[2018-08-18] MEDS: DEXTROSE 5% IN WATER 1,000 ML IV SCH (09:54)
[2018-08-18] MEDS: FAMOTIDINE 20 MG/2 ML VIAL IV SCH (09:54)
[2018-08-18] MEDS: CARBIDOPA-LEVODOPA 25-100 MG 1 EACH TAB PO SCH ×3 (09:56→22:37)
--- NOTE | 2018-08-18 10:27 | P.PN ---
Subjective Progress Note Date: 08/18/18 Principal diagnosis: Constipation secondary to fecal impaction, status post exploratory laparotomy, lysis of adhesions, left colectomy, takedown of splenic flexure, splenectomy, cholecystectomy. This is an 87-year-old female patient who follows with Dr. Santiago as her primary care physician, she has a history of Parkinson's dementia, bipolar disorder, kyphosis, osteoarthritis. She has a history of chronic tobacco dependence and chronic obstructive pulmonary disease on oxygen at 2 L in the outpatient setting. She is maintained on DuoNeb inhalations and Advair. She also has a history of constipation and had been admitted in the past for the same. She was brought in to the hospital yesterday by her daughter as she had complaints of abdominal cramping and fullness. Computed tomography scan of the abdomen confirmed mechanical colonic obstruction with fecal impaction and a large fecal ball measuring 11.5 cm. There was rectal wall thickening suggesting acute on chronic inflammatory process. Left hemicolon his large burden retained colonic stool in there is redundancy of the large bowel. Noted cholelithiasis. The patient is seen today 08/16/2018 in follow-up in the intensive care unit. She had undergone an exploratory laparotomy on 08/10/2018 which included lysis of adhesions, left colectomy, takedown splenic flexure, splenectomy and cholecystectomy. This is postoperative day #6. She remains encephalopathic. Mental status remains extremely poor. She remains intubated and on the mechanical ventilator at settings of assist control rate of 30, tidal volume 350 , FiO2 35% and a PEEP of 5. Morning blood gases reveal a P O2 of 98, pCO2 of 30 and a pH of 7.44. Chest x-ray reveals evidence of chronic emphysema and cardiomegaly with worsening small bilateral pleural effusions and diffuse interstitial edema. There is more persistent focal bibasilar atelectasis/ infiltrate as well. She is currently on TPN at 50 MLS per hour. Lipids at 21 ML 's per hour. D5W at 40 ML's per hour. Blood cultures reveal coagulase-negative staph. White count 45.9. Hemoglobin 9.3. Creatinine 0.8. She remains on vancomycin and Zosyn. Patient seen again today 08/17/2018 in follow-up in the intensive care unit. She remains intubated and on mechanical ventilator with current settings assist- control of 30, tidal volume 350, FiO2 35% and a PEEP of 5. Morning blood gases reveal a P O2 101, pCO2 30, pH 7.41. She remains unresponsive. She does open her eyes to verbal stimuli otherwise no purposeful movements or following any simple commands. Chest x-ray shows basilar atelectasis/infiltrates. Blood culture reveals coag-negative staph. She remains on Zosyn and vancomycin. She is on TPN at 50 MLS per hour. D5W at 30 MLS per hour. Lipids at 21 ML's per hour. White count 14.0. Hemoglobin 13.8. Creatinine 0.91. Her sons are at the bedside. The patient is seen again today 08/18/2018 in follow-up in the intensive care unit. She remains intubated on mechanical ventilator at assist control 30, tidal volume 350, FiO2 35% and a PEEP of 5. No chest x-ray or arterial blood gases today. She is nourished with TPN at 50 MLS per hour. D5W at 40 ML's per hour. Blood culture positive for Staphylococcus epidermidis. Creatinine 0.79. She remains on vancomycin. Objective - Vital Signs Vital signs: Vital Signs Temp 98.1 F 08/18/18 04:00 Pulse 68 08/18/18 08:09 Resp 34 H 08/18/18 06:00 BP 99/43 08/18/18 06:00 Pulse Ox 99 08/18/18 06:00 Intake & Output 08/17/18 08/18/18 08/18/18 18:59 06:59 18:59 Intake Total 1472 2839 90 Output Total 1345 1575 75 Balance 127 1264 15 Weight 58.3 kg 56.2 kg Intake: IV 1472 1411 90 Dextrose 5% in Water 1, 480 480 40 000 ml @ 40 mls/hr IV . Q24H [facility] Rx#:[id number] Fat Emulsion 20% 250 ml 42 231 In Empty Bag 1 bag @ 21 mls/hr IV Q24H [facility] Rx#: [id number] Mvi, Adult No.4 with Vit 600 600 50 K 10 ml Trace (Conc-1Ml/ Dose) 1 ml Potassium Phosphate 15 mmol Calcium Gluconate 1,000 mg Magnesium Sulfate gm 1 gm In Amino Acid 4.25%-D10w 1,000 ml @ 50 mls/hr IV .[id number] [facility] Rx#: [id number] Piperacillin-Tazobactam 3 100 100 .375 gm In Sodium Chloride 0.9% 100 ml @ 25 mls/hr IVPB Q8HR [facility] Rx# :[id number] Vancomycin 1,000 mg In 250 Sodium Chloride 0.9% 250 ml @ 125 mls/hr IVPB DAILY [facility] Rx#:[id number] Intake, IV Titration 1028 Amount Mvi, Adult No.4 with Vit 1028 K 10 ml Trace (Conc-1Ml/ Dose) 1 ml Potassium Phosphate 15 mmol Calcium Gluconate 1,000 mg Magnesium Sulfate gm 1 gm In Amino Acid 4.25%-D10w 1,000 ml @ 50 mls/hr IV .[id number] [facility] Rx#: [id number] Other 400 Output: Urine 1345 1575 75 Other: Voiding Method Indwelling Catheter Indwelling Catheter ABP, PAP, CO, CI - Last Documented Arterial Blood Pressure 96/76 - Exam GENERAL EXAM: Unresponsive, intubated on mechanical ventilator. Opens eyes to verbal stimuli. Otherwise not following any simple commands. HEAD: Normocephalic. EYES: Normal reaction of pupils, equal size. NOSE: Clear with pink turbinates. THROAT: Oral endotracheal tube and gastric tube secured in place. No erythema or exudates. NECK: No masses, no JVD. CHEST: No chest wall deformity. LUNGS: Equal air entry with scattered rhonchi, crackles in the posterior bases. CVS: S1 and S2 normal with no audible murmur, regular rhythm. ABDOMEN: Ostomy patent. Dressing dry and intact. SPINE: Kyphoscoliosis SKIN: No rashes CENTRAL NERVOUS SYSTEM: Not responding to verbal or tactile stimuli.. EXTREMITIES: There is no peripheral edema. No clubbing, no cyanosis. Peripheral pulses are intact. - Labs CBC & Chem 7: 08/17/18 05:35 08/18/18 07:00 Labs: Abnormal Lab Results - Last 24 Hours (Table) 08/17/18 08/17/18 08/18/18 Range/Units 12:31 23:59 01:33 Chloride (98-107) mmol/L Carbon Dioxide (22-30) mmol/L BUN (7-17) mg/dL Glucose (74-99) mg/dL POC Glucose (mg/dL) 128 H 140 H 140 H (75-99) mg/dL 08/18/18 08/18/18 Range/Units 06:45 07:00 Chloride 118 H (98-107) mmol/L Carbon Dioxide 20 L (22-30) mmol/L BUN 23 H (7-17) mg/dL Glucose 114 H (74-99) mg/dL POC Glucose (mg/dL) 120 H (75-99) mg/dL Microbiology - Last 24 Hours (Table) 08/14/18 17:56 Blood Culture Gram Stain - Preliminary Blood Blood Culture - Preliminary Staphylococcus epidermidis Assessment and Plan Assessment: Impression: #1 Abdominal pain with mechanical colonic obstruction secondary to large rectal fecal ball measuring 11.5 cm with rectal wall thickening suggestive of acute on chronic component with surrounding inflammation. Left hemicolon has large burden retained colonic stool and there is redundancy of the large bowel. Cholelithiasis. Status post exploratory laparotomy, lysis of adhesions, left colectomy, splenectomy and cholecystectomy. Postoperative day #8. #2 Metabolic encephalopathy secondary to above. #3 Acute hypoxic respiratory failure, and an unexpected outcome of surgery secondary to above requiring intubation and continued mechanical ventilatory support. #4 Subcentimeter right lower lobe pulmonary nodule. #5 Chronic obstructive pulmonary disease. #6 Chronic tobacco dependence. #7 History of constipation. #8 Parkinson's dementia. #9 Bipolar depression. #10 Degenerative joint disease. Plan: The patient was seen and evaluated by Dr. Morillo. The patient's family is planning for terminal extubation and comfort care on 08/19/2018. She does remain a DO NOT RESUSCITATE CODE STATUS for now. We'll continue the current treatment plan. We will continue to follow and make further recommendations based on her clinical status. Critical care time 38 minutes. I, the cosigning physician, performed a history & physical examination of the patient. Lungs sounds with few scattered rhonchi, crackles in the posterior bases.. Maintaining good O2 saturations in the 90s on 35% FiO2 on the mechanical ventilator. I discussed the assessment and plan of care with my nurse practitioner, Elisa Rodriguez. I attest to the above note as dictated by her.
[2018-08-18 12:10] LABS: Glucose,Whole Blood 120 mg/dL (75-99)
--- NOTE | 2018-08-18 12:51 | P.PN ---
Subjective 87-year-old female admitted with colonic obstruction, fecal impaction, status post surgery. Remains mechanical ventilator-dependent, FiO2 40%/+5 of PEEP. Continues on TPN, no pressors. Not following commands, not opening eyes to noxious stimuli. T-max 99.2. Maintained on D5W with Sodium 153, renal function slowly improving.PPN. Remains off of sedation, not following commands- unable to do weaning parameters/trials. 08/14/18 maintained on mechanical ventilation, FiO2 35%/+5 Peep. Weaning trials , patient unable to follow commands. Maintained on Zosyn. T-max 100.5, WBC up to 22. Urine and blood cultures negative. Currently sinus status has been changed to DO NOT RESUSCITATE and family is considering comfort care as per research physicist renal function improving, sodium improving down to 148. 08/15/maintained on mechanical ventilation, FiO2 35%/+5 of PEEP. No weaning trial secondary to neuro status. Does not follow commands .Continues on TPN. Chest x-ray worsening, small bilateral pleural effusions and diffuse interstitial edema, persistent or focal bibasilar atelectasis and/or infiltrate with progression of right basilar opacity. T-max 100.7. Maintained on Zosyn and vancomycin. pathology reporting diverticulosis with no diverticulitis, cystic dilation without evidence of neoplasm, subcapsular/superficial spenic hemorrhage, cholecystitis with cholelithiasis and congested and hemorrhagic omentum with focal fibrosis. 08/16/2018 mental status unchanged. Less spontaneous movements reported. Not responding to verbal/tactile stimuli. Maintained on mechanical ventilation, FiO2 35%/+5 PEEP. Continues on TPN, vancomycin, Zosyn. T-max 100.7. Blood cultures reporting coagulase-negative staph, WBC 45.9. 08/17/2018 Patient remains intubated and on ventilatory support off sedation patient is awake alert. No much output from the colostomy bag. Does have fairly good bowel sounds. 08/18/2018 Patient remains intubated patient is uncertain up respiratory rate of 30 and patient is breathing over the ventilator patient is also sedation not doing well no further testing is being obtained patient did have a small bowel movement per rectally and a small bowel movement into the colostomy patient does have some prolapse into the colostomy bag. Active Medications Acetaminophen (Tylenol Tab) 650 mg PO Q6HR PRN PRN Reason: Mild Pain or Fever > 100.5 Last Admin: 08/15/18 02:55 Dose: 650 mg Albuterol/Ipratropium (Duoneb 0.5 Mg-3 Mg/3 Ml Soln) 3 ml INHALATION RT-QID [facility] Last Admin: 08/18/18 10:49 Dose: 3 ml Albuterol/Ipratropium (Duoneb 0.5 Mg-3 Mg/3 Ml Soln) 3 ml INHALATION RT-QID PRN PRN Reason: Shortness Of Breath Or Wheezing Last Admin: 08/12/18 03:15 Dose: 3 ml Benzocaine/Menthol (Cepacol Lozenge) 1 each MUCOUS MEM Q1HR PRN PRN Reason: Sore Throat Budesonide (Pulmicort) 1 mg INHALATION RT-BID [facility] Last Admin: 08/18/18 07:39 Dose: 1 mg Carbidopa/Levodopa (Sinemet 25-100) 1 each PO TID [facility] Last Admin: 08/18/18 09:56 Dose: 1 each Chlorhexidine Gluconate (Peridex) 15 ml MUCOUS MEM BID [facility] Last Admin: 08/18/18 09:52 Dose: 15 ml Famotidine (Pepcid) 20 mg IV DAILY [facility] Last Admin: 08/18/18 09:54 Dose: 20 mg Formoterol Fumarate (Perforomist) 20 mcg INHALATION RT-BID [facility] Last Admin: 08/18/18 07:39 Dose: 20 mcg Hydromorphone HCl (Dilaudid) 0.5 mg IVP Q3HR PRN PRN Reason: Pain Piperacillin Sod/Tazobactam (Sod 3.375 gm/ Sodium Chloride) 100 mls @ 25 mls/ hr IVPB Q8HR [facility] Last Admin: 08/18/18 09:10 Dose: 25 mls/hr Dextrose/Water (Dextrose 5%-Water Iv Soln) 1,000 mls @ 40 mls/hr IV .Q24H [facility] Last Admin: 08/18/18 09:54 Dose: 40 mls/hr Fat Emulsion Intravenous 250 (ml/ IV Solution) 250 mls @ 21 mls/hr IV Q24H [facility] Last Admin: 08/17/18 16:45 Dose: 21 mls/hr Parenteral Vitamin Supplement 10 ml/ Chromium/Copper/Manganese/Seleni/Zn 1 ml/ Potassium Phosphate 15 mmol/Calcium Gluconate 1,000 mg/Magnesium Sulfate 1 gm/ Amino Acids/Dextrose 1,028 mls @ 50 mls/hr IV .[id number] [facility] Last Admin: 08/17/18 21:38 Dose: 50 mls/hr Vancomycin HCl 1,250 mg/ (Sodium Chloride) 250 mls @ 125 mls/hr IVPB Q24HR [facility] Last Admin: 08/18/18 09:10 Dose: 125 mls/hr Insulin Aspart (Novolog) 0 unit SQ Q6HR [facility]; Protocol Last Admin: 08/18/18 06:46 Dose: Not Given Lidocaine HCl (.Xylocaine 1% Inj (10mg/Ml) For Iv Start) 0.1 ml INTRADERMA PER PROTOCOL PRN PRN Reason: IV Start Metoclopramide HCl (Reglan) 10 mg IVP Q6HR PRN PRN Reason: Nausea and Vomiting Miscellaneous Information (Potassium Per Protocol) 1 each MISCELLANE DAILY PRN ; Protocol PRN Reason: Per Protocol Naloxone HCl (Narcan) 0.2 mg IV Q2M PRN PRN Reason: Opioid Reversal Ondansetron HCl (Zofran) 4 mg IVP Q8HR PRN PRN Reason: Nausea And Vomiting Objective - Vital Signs Vital signs: Vital Signs Temp 98.8 F 08/18/18 12:00 Pulse 54 L 08/18/18 12:00 Resp 32 H 08/18/18 12:00 BP 89/44 08/18/18 12:00 Pulse Ox 99 08/18/18 12:00 Intake & Output 08/17/18 08/18/18 08/18/18 18:59 06:59 18:59 Intake Total 1472 2839 800 Output Total 1345 1575 625 Balance 127 1264 175 Weight 58.3 kg 56.2 kg 56.2 kg Intake: IV 1472 1411 800 Dextrose 5% in Water 1, 480 480 200 000 ml @ 40 mls/hr IV . Q24H [facility] Rx#:[id number] Fat Emulsion 20% 250 ml 42 231 In Empty Bag 1 bag @ 21 mls/hr IV Q24H [facility] Rx#: [id number] Mvi, Adult No.4 with Vit 600 600 250 K 10 ml Trace (Conc-1Ml/ Dose) 1 ml Potassium Phosphate 15 mmol Calcium Gluconate 1,000 mg Magnesium Sulfate gm 1 gm In Amino Acid 4.25%-D10w 1,000 ml @ 50 mls/hr IV .[id number] [facility] Rx#: [id number] Piperacillin-Tazobactam 3 100 100 100 .375 gm In Sodium Chloride 0.9% 100 ml @ 25 mls/hr IVPB Q8HR [facility] Rx# :[id number] Vancomycin 1,000 mg In 250 250 Sodium Chloride 0.9% 250 ml @ 125 mls/hr IVPB DAILY [facility] Rx#:[id number] Intake, IV Titration 1028 Amount Mvi, Adult No.4 with Vit 1028 K 10 ml Trace (Conc-1Ml/ Dose) 1 ml Potassium Phosphate 15 mmol Calcium Gluconate 1,000 mg Magnesium Sulfate gm 1 gm In Amino Acid 4.25%-D10w 1,000 ml @ 50 mls/hr IV .[id number] [facility] Rx#: [id number] Other 400 Output: Urine 1345 1575 625 Other: Voiding Method Indwelling Catheter Indwelling Catheter Indwelling Catheter ABP, PAP, CO, CI - Last Documented Arterial Blood Pressure 96/76 - Exam PHYSICAL EXAMINATION: GENERAL: Patient is intubated but alert RASS his score +1, mentally to support please refer to liquefaction supervisor dictation for vent settings thin built elderly female HEENT: Pupils are round and equally reacting to light. EOMI. No scleral icterus. No conjunctival pallor. Normocephalic, atraumatic. No pharyngeal erythema. No thyromegaly. CARDIOVASCULAR: S1 and S2 present. No murmurs, rubs, or gallops. PULMONARY: Chest is clear to auscultation, no wheezing or crackles. ABDOMEN: Soft, nontender, ostomy bag in place sluggish bowel sounds. Minimal output via colostomy MUSCULOSKELETAL: No joint swelling or deformity. EXTREMITIES: No cyanosis, clubbing, or pedal edema. NEUROLOGICAL: Patient is awake responding to commands SKIN: No rashes. - Labs CBC & Chem 7: 08/17/18 05:35 08/18/18 07:00 Labs: Abnormal Lab Results - Last 24 Hours (Table) 08/17/18 08/18/18 08/18/18 Range/Units 23:59 01:33 06:45 Chloride (98-107) mmol/L Carbon Dioxide (22-30) mmol/L BUN (7-17) mg/dL Glucose (74-99) mg/dL POC Glucose (mg/dL) 140 H 140 H 120 H (75-99) mg/dL 08/18/18 08/18/18 Range/Units 07:00 11:58 Chloride 118 H (98-107) mmol/L Carbon Dioxide 20 L (22-30) mmol/L BUN 23 H (7-17) mg/dL Glucose 114 H (74-99) mg/dL POC Glucose (mg/dL) 120 H (75-99) mg/dL Microbiology - Last 24 Hours (Table) 08/14/18 17:56 Blood Culture Gram Stain - Preliminary Blood Blood Culture - Preliminary Staphylococcus epidermidis Assessment and Plan Plan: Assessment and Plan Assessment: -Acute hypoxic respiratory failure post colectomy for prolonged intubation, she looks bit worse but to Prerenal or the ventilator in spite of set up respiratory rate of 30 -Colonic obstruction secondary to fecal impaction with large rectal fecal ball, cholecystitis with mechanical obstruction, possible sepsis, status post exploratory laparotomy, lysis of adhesions, left colectomy and takedown splenic flexure, splenectomy and cholecystectomy. -Change in mental status, metabolic encephalopathy secondary to acute sepsis secondary to intra-abdominal process and patient is on vancomycin and Zosyn which will be continued for now, no diarrhea at this time -Leukocytosis, neutrophilic no diarrhea will continue to monitor with such a high neutrophil count, need to watch for C. diff colitis -Acute renal failure, improving -COPD without any significant exacerbation at this time -Hypernatremia -Severe hypokalemia, improving -No code, no CPR, no re- intubation. possibility of terminal wean and hospice tomorrow
[2018-08-18] MEDS: FAT EMULSION 20% 250 ML in EMPTY BAG 1 BAG IV SCH (16:35)
[2018-08-18] MEDS: MVI, ADULT NO.4 WITH VIT K 10 ML, TRACE (CONC-1ML/DOSE) 1 ML, POTASSIUM PHOSPHATE 15 MM... IV SCH ×6 (16:37)
[2018-08-18 18:27] LABS: Glucose,Whole Blood 114 mg/dL (75-99)
[2018-08-18 23:47] LABS: Glucose,Whole Blood 128 mg/dL (75-99)
[2018-08-19] MEDS: PIPERACILLIN-TAZOBACTAM 3.375 GM in SODIUM CHLORIDE 0.9% 100 ML IVPB SCH ×3 (00:25→17:36)
[2018-08-19] MEDS: INSULIN ASPART (NovoLOG) 100 UNIT/ML VIAL SQ SCH ×4 (00:26→18:44)
[2018-08-19 06:41] LABS: Glucose,Whole Blood 139 mg/dL (75-99)
[2018-08-19] MEDS: FORMOTEROL FUMARATE 20 MCG/2 ML NEBU INHALATION SCH ×2 (07:16→19:46)
[2018-08-19] MEDS: BUDESONIDE 1 MG/2 ML NEBU INHALATION SCH ×2 (07:16→19:46)
[2018-08-19] MEDS: IPRATROPIUM-ALBUTEROL 3 ML NEB INHALATION SCH ×4 (07:16→19:46)
[2018-08-19] MEDS: CHLORHEXIDINE GLUCONATE 15 ML CUP MUCOUS MEM SCH ×2 (08:02→22:15)
[2018-08-19] MEDS: FAMOTIDINE 20 MG/2 ML VIAL IV SCH (08:02)
[2018-08-19] MEDS: CARBIDOPA-LEVODOPA 25-100 MG 1 EACH TAB PO SCH ×2 (08:02→17:25)
[2018-08-19] MEDS: VANCOMYCIN 1,250 MG in SODIUM CHLORIDE 0.9% 250 ML IVPB SCH (08:02)
--- NOTE | 2018-08-19 08:34 | P.PN ---
Subjective Progress Note Date: 08/19/18 Principal diagnosis: Fecal impaction, status post expiratory laparotomy, lysis of adhesions, left colectomy, takedown of splenic flexure, splenectomy, cholecystectomy This is a 87-year-old female patient of Dr. Santiago with past medical history of Parkinson's dementia, bipolar disorder, osteoarthritis, kyphosis, past history of tobacco dependence, COPD on home oxygen. Patient was admitted for colonic obstruction, equal impaction, abdominal pain. Ration underwent his posterior laparotomy, lysis of adhesions, left colectomy, takedown of splenic flexure, splenectomy and cholecystectomy. Her surgery was on 08/10/2018. Patient has been encephalopathic in the postoperative period, she remains intubated and on mechanical ventilator, with current settings of assist control mode with a rate of 30, tidal volume 350, FiO2 35% and PEEP of 5. No blood gases were done today , chest x-ray was on 08/17/2018 and showed bibasilar opacities, likely related to atelectasis versus infiltrates. IV fluids include D5 in water at a rate of 40 ML per hour, and TPN at 50 ML per hour, patient has been off sedation since her surgery, and today's exam, patient opens her eyes to voice, she is squeezing hands on command, unable to move her feet, she is extremely generally weak. When asked if she is in discomfort she points to her lower abdomen. Patient has a left abdominal prolapsed colostomy, is producing liquid green stool, patient is also passing stools per rectum. Lung sounds are positive for a few basilar crackles. We have been obtaining patient's status with the family on a daily basis, decision was made to make the patient DO NOT RESUSCITATE CODE STATUS, however the family would like to proceed with placement of tracheostomy and a PEG tube placement. No new labs today, [place] is in place, patient is nonoliguric. Antibiotic coverage including Zosyn and vancomycin, and is on nebulized bronchodilators, Pulmicort and Perforomist. Objective - Vital Signs Vital signs: Vital Signs Temp 98.7 F 08/19/18 04:00 Pulse 60 08/19/18 07:41 Resp 31 H 08/19/18 05:00 BP 114/60 08/19/18 05:00 Pulse Ox 98 08/19/18 05:00 Intake & Output 08/18/18 08/19/18 08/19/18 18:59 06:59 18:59 Intake Total 2619.667 1401.5 Output Total 1895 1575 Balance 724.667 -173.5 Weight 56.2 kg 57.7 kg Intake: IV 1620.5 1201.5 Dextrose 5% in Water 1, 520 400 000 ml @ 40 mls/hr IV . Q24H [facility] Rx#:[id number] Fat Emulsion 20% 250 ml 63 189 In Empty Bag 1 bag @ 21 mls/hr IV Q24H [facility] Rx#: [id number] Mvi, Adult No.4 with Vit 650 500 K 10 ml Trace (Conc-1Ml/ Dose) 1 ml Potassium Phosphate 15 mmol Calcium Gluconate 1,000 mg Magnesium Sulfate gm 1 gm In Amino Acid 4.25%-D10w 1,000 ml @ 50 mls/hr IV .[id number] [facility] Rx#: [id number] Piperacillin-Tazobactam 3 137.5 112.5 .375 gm In Sodium Chloride 0.9% 100 ml @ 25 mls/hr IVPB Q8HR [facility] Rx# :[id number] Vancomycin 1,000 mg In 250 Sodium Chloride 0.9% 250 ml @ 125 mls/hr IVPB DAILY [facility] Rx#:[id number] Intake, IV Titration 949.167 Amount Mvi, Adult No.4 with Vit 949.167 K 10 ml Trace (Conc-1Ml/ Dose) 1 ml Potassium Phosphate 15 mmol Calcium Gluconate 1,000 mg Magnesium Sulfate gm 1 gm In Amino Acid 4.25%-D10w 1,000 ml @ 50 mls/hr IV .[id number] [facility] Rx#: [id number] Oral 50 Other 200 Output: Gastric Drainage 250 Urine 1895 1325 Other: Voiding Method Indwelling Catheter Indwelling Catheter ABP, PAP, CO, CI - Last Documented Arterial Blood Pressure 96/76 - Exam GENERAL EXAM: Somnolent, but responsive to voice 87-year-old frail, elderly lady intubated, mechanical ventilator, comfortable in no apparent distress. HEAD: Normocephalic/atraumatic. EYES: Normal reaction of pupils, equal size. Conjunctiva pink, sclera white. NOSE: Clear with pink turbinates. THROAT: No erythema or exudates. NECK: No masses, no JVD, no thyroid enlargement, no adenopathy. CHEST: No chest wall deformity. Symmetrical expansion. LUNGS: Equal air entry with a few bibasilar crackles CVS: Regular rate and rhythm, normal S1 and S2, no gallops, no murmurs, no rubs ABDOMEN: Soft, nontender. No hepatosplenomegaly, normal bowel sounds, no guarding or rigidity. Left abdominal colostomy in place, with stomal prolapse, viable, producing liquid green stool EXTREMITIES: No clubbing, no edema, no cyanosis, 2+ pulses and upper and lower extremities. MUSCULOSKELETAL: Muscle strength and tone normal. SPINE: No scoliosis or deformity SKIN: No rashes CENTRAL NERVOUS SYSTEM: Alert and oriented 1. No focal deficits, tone is normal in all 4 extremities. - Labs CBC & Chem 7: 08/17/18 05:35 08/18/18 07:00 Labs: Abnormal Lab Results - Last 24 Hours (Table) 08/18/18 08/18/18 08/18/18 Range/Units 11:58 18:15 23:34 POC Glucose (mg/dL) 120 H 114 H 128 H (75-99) mg/dL 08/19/18 Range/Units 06:30 POC Glucose (mg/dL) 139 H (75-99) mg/dL Microbiology - Last 24 Hours (Table) 08/14/18 17:56 Blood Culture Gram Stain - Final Blood Blood Culture - Final Staphylococcus epidermidis Staphylococcus simulans Assessment and Plan Plan: Assessment: #1. Acute abdominal pain with mechanical colonic obstruction secondary to large rectal fecal impaction, and rectal wall thickening suggestive of acute on chronic component with surrounding inflammation. Status post exploratory laparotomy, lysis of adhesions, left colectomy, splenectomy and cholecystectomy , postoperative day #9 #2. 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 Acute hypoxic respiratory failure, and unexpected outcome of surgery secondary to the above, requiring mechanical ventilatory support #4. Subcentimeter right lower lobe pulmonary nodule #5. Advanced COPD, oxygen dependent #6. History of chronic tobacco dependence, currently in remission #7. History of constipation #8. Concerns dementia #9. Bipolar depression #10. Degenerative joint disease Plan: Patient is more responsive on today's exam, she is following command. Remains intubated on mechanical ventilator. No new chest x-rays or labs today, chest x- ray showed bibasilar atelectasis versus infiltrate, patient is afebrile, hemodynamically stable. Nonoliguric. Transient support in the form of TPN, continue with current antibiotic coverage. Patient's family is supposed to have a family meeting today regarding further plan of care. They are supposed to decide whether to proceed with comfort care or tracheostomy and PEG tube placement. In the case family decides to proceed with tracheostomy and PEG tube placement, will consult Dr. Klein. I performed a history & physical examination of the patient and discussed their management with my nurse practitioner, Alta Pendleton. I reviewed the nurse practitioner's note and agree with the documented findings and plan of care. Lung sounds are basilar crackles. The findings and the impression was discussed with the patient. I attest to the documentation by the nurse practitioner. Time with Patient: Greater than 30
[2018-08-19] MEDS: DEXTROSE 5% IN WATER 1,000 ML IV SCH (10:30)
[2018-08-19] MEDS: HYDROmorphone 0.5 MG/0.5 ML SYRINGE IVP PRN ×2 (10:30→15:45)
[2018-08-19 13:13] LABS: Glucose,Whole Blood 125 mg/dL (75-99)
--- NOTE | 2018-08-19 13:36 | P.PN ---
Subjective Progress Note Date: 08/19/18 Principal diagnosis: Fernandez's procedure Patient was extubated this morning. Appears relatively comfortable. Still having bowel function through the ostomy. Objective - Vital Signs Vital signs: Vital Signs Temp 98.1 F 08/19/18 12:00 Pulse 62 08/19/18 13:00 Resp 25 H 08/19/18 13:00 BP 91/49 08/19/18 13:00 Pulse Ox 97 08/19/18 13:00 Intake & Output 08/18/18 08/19/18 08/19/18 18:59 06:59 18:59 Intake Total 2619.667 1491.5 1130 Output Total 1895 1575 510 Balance 724.667 -83.5 620 Weight 56.2 kg 57.7 kg Intake: IV 1620.5 1291.5 880 Dextrose 5% in Water 1, 520 440 280 000 ml @ 40 mls/hr IV . Q24H [facility] Rx#:[id number] Fat Emulsion 20% 250 ml 63 189 In Empty Bag 1 bag @ 21 mls/hr IV Q24H [facility] Rx#: [id number] Mvi, Adult No.4 with Vit 650 550 350 K 10 ml Trace (Conc-1Ml/ Dose) 1 ml Potassium Phosphate 15 mmol Calcium Gluconate 1,000 mg Magnesium Sulfate gm 1 gm In Amino Acid 4.25%-D10w 1,000 ml @ 50 mls/hr IV .[id number] [facility] Rx#: [id number] Piperacillin-Tazobactam 3 137.5 112.5 .375 gm In Sodium Chloride 0.9% 100 ml @ 25 mls/hr IVPB Q8HR [facility] Rx# :[id number] Vancomycin 1,000 mg In 250 250 Sodium Chloride 0.9% 250 ml @ 125 mls/hr IVPB DAILY [facility] Rx#:[id number] Intake, IV Titration 949.167 250 Amount Mvi, Adult No.4 with Vit 949.167 K 10 ml Trace (Conc-1Ml/ Dose) 1 ml Potassium Phosphate 15 mmol Calcium Gluconate 1,000 mg Magnesium Sulfate gm 1 gm In Amino Acid 4.25%-D10w 1,000 ml @ 50 mls/hr IV .[id number] [facility] Rx#: [id number] Vancomycin 1,250 mg In 250 Sodium Chloride 0.9% 250 ml @ 125 mls/hr IVPB Q24HR [facility] Rx#:[id number] Oral 50 Other 200 Output: Gastric Drainage 250 Urine 1895 1325 510 Other: Voiding Method Indwelling Catheter Indwelling Catheter Indwelling Catheter ABP, PAP, CO, CI - Last Documented Arterial Blood Pressure 96/76 - Exam Abdomen: Soft, mild distention, mild tenderness, ostomy with significant prolapse however stoma viable - Labs CBC & Chem 7: 08/17/18 05:35 08/18/18 07:00 Labs: Abnormal Lab Results - Last 24 Hours (Table) 08/18/18 08/18/18 08/19/18 Range/Units 18:15 23:34 06:30 POC Glucose (mg/dL) 114 H 128 H 139 H (75-99) mg/dL 08/19/18 Range/Units 13:00 POC Glucose (mg/dL) 125 H (75-99) mg/dL Microbiology - Last 24 Hours (Table) 08/14/18 17:56 Blood Culture Gram Stain - Final Blood Blood Culture - Final Staphylococcus epidermidis Staphylococcus simulans Assessment and Plan (1) Bowel obstruction Narrative/Plan: Clinical scenario discussed with the patient's family. At this time we'll continue observation of the patient's large stomal prolapse. Continue pulmonary toilet. Will follow. Current Visit: No Status: Acute Code(s): K56.60 - UNSPECIFIED INTESTINAL OBSTRUCTION * DO NOT USE * SNOMED Code(s): 76978778
--- NOTE | 2018-08-19 13:45 | P.PN ---
Subjective 87-year-old female admitted with colonic obstruction, fecal impaction, status post surgery. Remains mechanical ventilator-dependent, FiO2 40%/+5 of PEEP. Continues on TPN, no pressors. Not following commands, not opening eyes to noxious stimuli. T-max 99.2. Maintained on D5W with Sodium 153, renal function slowly improving.PPN. Remains off of sedation, not following commands- unable to do weaning parameters/trials. 08/14/18 maintained on mechanical ventilation, FiO2 35%/+5 Peep. Weaning trials , patient unable to follow commands. Maintained on Zosyn. T-max 100.5, WBC up to 22. Urine and blood cultures negative. Currently sinus status has been changed to DO NOT RESUSCITATE and family is considering comfort care as per bridge rigger renal function improving, sodium improving down to 148. 08/15/maintained on mechanical ventilation, FiO2 35%/+5 of PEEP. No weaning trial secondary to neuro status. Does not follow commands .Continues on TPN. Chest x-ray worsening, small bilateral pleural effusions and diffuse interstitial edema, persistent or focal bibasilar atelectasis and/or infiltrate with progression of right basilar opacity. T-max 100.7. Maintained on Zosyn and vancomycin. pathology reporting diverticulosis with no diverticulitis, cystic dilation without evidence of neoplasm, subcapsular/superficial spenic hemorrhage, cholecystitis with cholelithiasis and congested and hemorrhagic omentum with focal fibrosis. 08/16/2018 mental status unchanged. Less spontaneous movements reported. Not responding to verbal/tactile stimuli. Maintained on mechanical ventilation, FiO2 35%/+5 PEEP. Continues on TPN, vancomycin, Zosyn. T-max 100.7. Blood cultures reporting coagulase-negative staph, WBC 45.9. 08/17/2018 Patient remains intubated and on ventilatory support off sedation patient is awake alert. No much output from the colostomy bag. Does have fairly good bowel sounds. 08/18/2018 Patient remains intubated patient is uncertain up respiratory rate of 30 and patient is breathing over the ventilator patient is also sedation not doing well no further testing is being obtained patient did have a small bowel movement per rectally and a small bowel movement into the colostomy patient does have some prolapse into the colostomy bag. 08/19/2018 Patient is extubated today doing better than expected and is on 4 L of oxygen alert oriented 1. Family at the bedside. Patient still continues to have prolapse into the colostomy Active Medications Acetaminophen (Tylenol Tab) 650 mg PO Q6HR PRN PRN Reason: Mild Pain or Fever > 100.5 Last Admin: 08/15/18 02:55 Dose: 650 mg Albuterol/Ipratropium (Duoneb 0.5 Mg-3 Mg/3 Ml Soln) 3 ml INHALATION RT-QID [facility] Last Admin: 08/19/18 11:11 Dose: 3 ml Albuterol/Ipratropium (Duoneb 0.5 Mg-3 Mg/3 Ml Soln) 3 ml INHALATION RT-QID PRN PRN Reason: Shortness Of Breath Or Wheezing Last Admin: 08/12/18 03:15 Dose: 3 ml Benzocaine/Menthol (Cepacol Lozenge) 1 each MUCOUS MEM Q1HR PRN PRN Reason: Sore Throat Budesonide (Pulmicort) 1 mg INHALATION RT-BID [facility] Last Admin: 08/19/18 07:16 Dose: 1 mg Carbidopa/Levodopa (Sinemet 25-100) 1 each PO TID [facility] Last Admin: 08/19/18 08:02 Dose: 1 each Chlorhexidine Gluconate (Peridex) 15 ml MUCOUS MEM BID [facility] Last Admin: 08/19/18 08:02 Dose: 15 ml Famotidine (Pepcid) 20 mg IV DAILY [facility] Last Admin: 08/19/18 08:02 Dose: 20 mg Formoterol Fumarate (Perforomist) 20 mcg INHALATION RT-BID [facility] Last Admin: 08/19/18 07:16 Dose: 20 mcg Hydromorphone HCl (Dilaudid) 0.5 mg IVP Q3HR PRN PRN Reason: Pain Last Admin: 08/19/18 10:30 Dose: 0.5 mg Piperacillin Sod/Tazobactam (Sod 3.375 gm/ Sodium Chloride) 100 mls @ 25 mls/ hr IVPB Q8HR [facility] Last Admin: 08/19/18 07:48 Dose: 25 mls/hr Dextrose/Water (Dextrose 5%-Water Iv Soln) 1,000 mls @ 40 mls/hr IV .Q24H [facility] Last Admin: 08/19/18 10:30 Dose: 40 mls/hr Fat Emulsion Intravenous 250 (ml/ IV Solution) 250 mls @ 21 mls/hr IV Q24H [facility] Last Admin: 08/18/18 16:35 Dose: 21 mls/hr Parenteral Vitamin Supplement 10 ml/ Chromium/Copper/Manganese/Seleni/Zn 1 ml/ Potassium Phosphate 15 mmol/Calcium Gluconate 1,000 mg/Magnesium Sulfate 1 gm/ Amino Acids/Dextrose 1,028 mls @ 50 mls/hr IV .[id number] [facility] Last Admin: 08/18/18 16:37 Dose: 50 mls/hr Vancomycin HCl 1,250 mg/ (Sodium Chloride) 250 mls @ 125 mls/hr IVPB Q24HR [facility] Last Admin: 08/19/18 08:02 Dose: 125 mls/hr Insulin Aspart (Novolog) 0 unit SQ Q6HR [facility]; Protocol Last Admin: 08/19/18 12:45 Dose: Not Given Lidocaine HCl (.Xylocaine 1% Inj (10mg/Ml) For Iv Start) 0.1 ml INTRADERMA PER PROTOCOL PRN PRN Reason: IV Start Metoclopramide HCl (Reglan) 10 mg IVP Q6HR PRN PRN Reason: Nausea and Vomiting Miscellaneous Information (Potassium Per Protocol) 1 each MISCELLANE DAILY PRN ; Protocol PRN Reason: Per Protocol Naloxone HCl (Narcan) 0.2 mg IV Q2M PRN PRN Reason: Opioid Reversal Ondansetron HCl (Zofran) 4 mg IVP Q8HR PRN PRN Reason: Nausea And Vomiting Objective - Vital Signs Vital signs: Vital Signs Temp 98.1 F 08/19/18 12:00 Pulse 62 08/19/18 13:00 Resp 25 H 08/19/18 13:00 BP 91/49 08/19/18 13:00 Pulse Ox 97 08/19/18 13:00 Intake & Output 08/18/18 08/19/18 08/19/18 18:59 06:59 18:59 Intake Total 2619.667 1491.5 1130 Output Total 1895 1575 510 Balance 724.667 -83.5 620 Weight 56.2 kg 57.7 kg Intake: IV 1620.5 1291.5 880 Dextrose 5% in Water 1, 520 440 280 000 ml @ 40 mls/hr IV . Q24H [facility] Rx#:[id number] Fat Emulsion 20% 250 ml 63 189 In Empty Bag 1 bag @ 21 mls/hr IV Q24H [facility]ARY L[facility] Rx#: [id number] Mvi, Adult No.4 with Vit 650 550 350 K 10 ml Trace (Conc-1Ml/ Dose) 1 ml Potassium Phosphate 15 mmol Calcium Gluconate 1,000 mg Magnesium Sulfate gm 1 gm In Amino Acid 4.25%-D10w 1,000 ml @ 50 mls/hr IV .[id number] [facility] Rx#: [id number] Piperacillin-Tazobactam 3 137.5 112.5 .375 gm In Sodium Chloride 0.9% 100 ml @ 25 mls/hr IVPB Q8HR [facility] Rx# :[id number] Vancomycin 1,000 mg In 250 250 Sodium Chloride 0.9% 250 ml @ 125 mls/hr IVPB DAILY [facility] Rx#:[id number] Intake, IV Titration 949.167 250 Amount Mvi, Adult No.4 with Vit 949.167 K 10 ml Trace (Conc-1Ml/ Dose) 1 ml Potassium Phosphate 15 mmol Calcium Gluconate 1,000 mg Magnesium Sulfate gm 1 gm In Amino Acid 4.25%-D10w 1,000 ml @ 50 mls/hr IV .[id number] [facility] Rx#: [id number] Vancomycin 1,250 mg In 250 Sodium Chloride 0.9% 250 ml @ 125 mls/hr IVPB Q24HR [facility] Rx#:[id number] Oral 50 Other 200 Output: Gastric Drainage 250 Urine 1895 1325 510 Other: Voiding Method Indwelling Catheter Indwelling Catheter Indwelling Catheter ABP, PAP, CO, CI - Last Documented Arterial Blood Pressure 96/76 - Exam PHYSICAL EXAMINATION: GENERAL: Patient is extubated alert oriented 1 thin built female HEENT: Pupils are round and equally reacting to light. EOMI. No scleral icterus. No conjunctival pallor. Normocephalic, atraumatic. No pharyngeal erythema. No thyromegaly. CARDIOVASCULAR: S1 and S2 present. No murmurs, rubs, or gallops. PULMONARY: Chest is clear to auscultation, no wheezing or crackles. ABDOMEN: Soft, nontender, ostomy bag in place sluggish bowel sounds. Minimal output via colostomy prolapse of the get into the colostomy bag. MUSCULOSKELETAL: No joint swelling or deformity. EXTREMITIES: No cyanosis, clubbing, or pedal edema. NEUROLOGICAL: Patient is awake responding to commands SKIN: No rashes. - Labs CBC & Chem 7: 08/17/18 05:35 08/18/18 07:00 Labs: Abnormal Lab Results - Last 24 Hours (Table) 08/18/18 08/18/18 08/19/18 Range/Units 18:15 23:34 06:30 POC Glucose (mg/dL) 114 H 128 H 139 H (75-99) mg/dL 08/19/18 Range/Units 13:00 POC Glucose (mg/dL) 125 H (75-99) mg/dL Microbiology - Last 24 Hours (Table) 08/14/18 17:56 Blood Culture Gram Stain - Final Blood Blood Culture - Final Staphylococcus epidermidis Staphylococcus simulans Assessment and Plan Plan: Assessment and Plan Assessment: -Acute hypoxic respiratory failure post colectomy for prolonged intubation, is presently extubated clinically doing much better today. -Colonic obstruction secondary to fecal impaction with large rectal fecal ball, cholecystitis with mechanical obstruction, possible sepsis, status post exploratory laparotomy, lysis of adhesions, left colectomy and takedown splenic flexure, splenectomy and cholecystectomy. -Change in mental status, metabolic encephalopathy secondary to acute sepsis secondary to intra-abdominal process and patient is on vancomycin and Zosyn which will be continued for now, no diarrhea at this time -Leukocytosis, neutrophilic no diarrhea will continue to monitor with such a high neutrophil count, need to watch for C. diff colitis, patient has blood cultures that are positive which is a contamination -Acute renal failure, improving -COPD without any significant exacerbation at this time -Hypernatremia -Severe hypokalemia, improving -No code, no CPR, no re- intubation. possibility of terminal wean and hospice tomorrow
[2018-08-19] MEDS: MVI, ADULT NO.4 WITH VIT K 10 ML, TRACE (CONC-1ML/DOSE) 1 ML, POTASSIUM PHOSPHATE 15 MM... IV SCH ×6 (15:24)
--- NOTE | 2018-08-19 16:35 | XR ---
EXAMINATION TYPE: XR hand complete LT DATE OF EXAM: 08/19/2018 COMPARISON: NONE HISTORY: Pain and swelling TECHNIQUE: 3 views FINDINGS: There is narrowing and spurring at the first carpometacarpal joint. This calcification of t he triangular cartilage. I see no definite fracture nor dislocation. There is osteopenia. IMPRESSION: No acute abnormality of the left hand.
--- NOTE | 2018-08-19 16:38 | US ---
EXAMINATION TYPE: US venous doppler duplex UE LT DATE OF EXAM: 08/19/2018 COMPARISON: NONE CLINICAL HISTORY: hand pain. ICU patient. Difficult and limited exam due to patient not moving her hardy nd away from her body. SIDE PERFORMED: Left Arm: Negative for DVT as visualized IMPRESSION: Grayscale, color doppler, spectral doppler imaging performed of the deep veins of the upper extremiti es. There is normal flow, compressability and vascular waveforms. No evidence of deep venous thrombosis in the left arm.
[2018-08-19] MEDS: FAT EMULSION 20% 250 ML in EMPTY BAG 1 BAG IV SCH (17:36)
[2018-08-19 18:55] LABS: Glucose,Whole Blood 118 mg/dL (75-99)
[2018-08-20 00:04] LABS: Glucose,Whole Blood 111 mg/dL (75-99)
[2018-08-20] MEDS: CARBIDOPA-LEVODOPA 25-100 MG 1 EACH TAB PO SCH ×4 (00:07→21:26)
[2018-08-20] MEDS: INSULIN ASPART (NovoLOG) 100 UNIT/ML VIAL SQ SCH ×4 (00:21→18:24)
[2018-08-20] MEDS: PIPERACILLIN-TAZOBACTAM 3.375 GM in SODIUM CHLORIDE 0.9% 100 ML IVPB SCH ×3 (01:00→16:22)
[2018-08-20 05:16] LABS: HCT 27.9 % (34.0-46.0); HGB 8.3 gm/dL (11.4-16.0); Hypochromasia Moderate; MCH 28.5 pg (25.0-35.0); MCHC 29.9 g/dL (31.0-37.0); MCV 95.4 fL (80.0-100.0); Mean Platelet Volume 7.8; Platelet Count 487 k/uL (150-450); RBC 2.93 m/uL (3.80-5.40); RDW 15.5 % (11.5-15.5); WBC 29.7 k/uL (3.8-10.6)
[2018-08-20 05:26] LABS: Anion Gap 4 mmol/L; Blood Urea Nitrogen 21 mg/dL (7-17); Calcium 9.8 mg/dL (8.4-10.2); Carbon Dioxide 19 mmol/L (22-30); Chloride 121 mmol/L (98-107); Glucose 119 mg/dL (74-99); Potassium 3.7 mmol/L (3.5-5.1); Sodium 144 mmol/L (137-145)
[2018-08-20] MEDS ORDERED: Potassium Replacement Protocol 1 EACH MISC MISCELLANE PRN ×2 (05:35→05:41)
[2018-08-20 05:45] LABS: Glucose,Whole Blood 143 mg/dL (75-99)
[2018-08-20] MEDS ORDERED: POTASSIUM CHLORIDE 20 MEQ in WATER FOR INJECTION 1 100ML.BAG IVPB SCH (05:45)
[2018-08-20] MEDS ORDERED: POTASSIUM CHLORIDE 20 MEQ in WATER FOR INJECTION 1 100ML.BAG IVPB STA (05:46)
[2018-08-20] MEDS: IPRATROPIUM-ALBUTEROL 3 ML NEB INHALATION SCH ×4 (08:20→19:00)
[2018-08-20] MEDS: BUDESONIDE 1 MG/2 ML NEBU INHALATION SCH (08:20)
[2018-08-20] MEDS: FORMOTEROL FUMARATE 20 MCG/2 ML NEBU INHALATION SCH (08:20)
[2018-08-20] MEDS: VANCOMYCIN 1,250 MG in SODIUM CHLORIDE 0.9% 250 ML IVPB SCH (09:21)
[2018-08-20] MEDS: FAMOTIDINE 20 MG/2 ML VIAL IV SCH (09:22)
[2018-08-20] MEDS: CHLORHEXIDINE GLUCONATE 15 ML CUP MUCOUS MEM SCH ×2 (09:22→20:23)
[2018-08-20] MEDS: DEXTROSE 5% IN WATER 1,000 ML IV SCH (09:40)
--- NOTE | 2018-08-20 09:53 | P.PN ---
Subjective Progress Note Date: 08/20/18 Principal diagnosis: Fernandez's procedure Patient somewhat confused. Does not appear to be any discomfort. White blood cell count remains elevated. Hemoglobin 8.3. She is afebrile. Objective - Vital Signs Vital signs: Vital Signs Temp 98.5 F 08/20/18 04:00 Pulse 62 08/20/18 08:44 Resp 27 H 08/20/18 07:00 BP 99/45 08/20/18 07:00 Pulse Ox 97 08/20/18 08:22 Intake & Output 08/19/18 08/20/18 08/20/18 18:59 06:59 18:59 Intake Total 2698 990 90 Output Total 1310 1675 Balance 1388 -685 90 Weight 55.3 kg Intake: IV 1420 990 90 Dextrose 5% in Water 1, 520 440 40 000 ml @ 40 mls/hr IV . Q24H [facility] Rx#:[id number] Mvi, Adult No.4 with Vit 650 550 50 K 10 ml Trace (Conc-1Ml/ Dose) 1 ml Potassium Phosphate 15 mmol Calcium Gluconate 1,000 mg Magnesium Sulfate gm 1 gm In Amino Acid 4.25%-D10w 1,000 ml @ 50 mls/hr IV .[id number] [facility] Rx#: [id number] Vancomycin 1,000 mg In 250 Sodium Chloride 0.9% 250 ml @ 125 mls/hr IVPB DAILY [facility] Rx#:[id number] Intake, IV Titration 1278 Amount Mvi, Adult No.4 with Vit 1028 K 10 ml Trace (Conc-1Ml/ Dose) 1 ml Potassium Phosphate 15 mmol Calcium Gluconate 1,000 mg Magnesium Sulfate gm 1 gm In Amino Acid 4.25%-D10w 1,000 ml @ 50 mls/hr IV .[id number] [facility] Rx#: [id number] Vancomycin 1,250 mg In 250 Sodium Chloride 0.9% 250 ml @ 125 mls/hr IVPB Q24HR [facility] Rx#:[id number] Output: Urine 1310 1675 Other: Voiding Method Indwelling Catheter Indwelling Catheter # Voids 0 ABP, PAP, CO, CI - Last Documented Arterial Blood Pressure 96/76 - Exam Abdomen: Soft, mild distention, ostomy with significant prolapse, bowel viable - Labs CBC & Chem 7: 08/20/18 05:03 08/20/18 05:03 Labs: Abnormal Lab Results - Last 24 Hours (Table) 08/19/18 08/19/18 08/19/18 Range/Units 13:00 18:44 23:53 WBC (3.8-10.6) k/uL RBC (3.80-5.40) m/uL Hgb (11.4-16.0) gm/dL Hct (34.0-46.0) % MCHC (31.0-37.0) g/dL Plt Count (150-450) k/uL Chloride (98-107) mmol/L Carbon Dioxide (22-30) mmol/L BUN (7-17) mg/dL Glucose (74-99) mg/dL POC Glucose (mg/dL) 125 H 118 H 111 H (75-99) mg/dL 08/20/18 08/20/18 08/20/18 Range/Units 05:03 05:03 05:33 WBC 29.7 H (3.8-10.6) k/uL RBC 2.93 L (3.80-5.40) m/uL Hgb 8.3 L (11.4-16.0) gm/dL Hct 27.9 L (34.0-46.0) % MCHC 29.9 L (31.0-37.0) g/dL Plt Count 487 H (150-450) k/uL Chloride 121 H (98-107) mmol/L Carbon Dioxide 19 L (22-30) mmol/L BUN 21 H (7-17) mg/dL Glucose 119 H (74-99) mg/dL POC Glucose (mg/dL) 143 H (75-99) mg/dL Assessment and Plan (1) Bowel obstruction Narrative/Plan: Patient still having frequent liquid stools rectally. Unclear whether this is just residual constipation. Continue advancing diet. Will monitor. Current Visit: No Status: Acute Code(s): K56.60 - UNSPECIFIED INTESTINAL OBSTRUCTION * DO NOT USE * SNOMED Code(s): 92869308
--- NOTE | 2018-08-20 10:10 | P.PN ---
Subjective Progress Note Date: 08/20/18 Principal diagnosis: Fecal impaction, status post expiratory laparotomy, lysis of adhesions, left colectomy, takedown of splenic flexure, splenectomy, cholecystectomy This is a 87-year-old female patient of Dr. Santiago with past medical history of Parkinson's dementia, bipolar disorder, osteoarthritis, kyphosis, past history of tobacco dependence, COPD on home oxygen. Patient was admitted for colonic obstruction, equal impaction, abdominal pain. Ration underwent his posterior laparotomy, lysis of adhesions, left colectomy, takedown of splenic flexure, splenectomy and cholecystectomy. Her surgery was on 08/10/2018. Patient has been encephalopathic in the postoperative period, she remains intubated and on mechanical ventilator, with current settings of assist control mode with a rate of 30, tidal volume 350, FiO2 35% and PEEP of 5. No blood gases were done today , chest x-ray was on 08/17/2018 and showed bibasilar opacities, likely related to atelectasis versus infiltrates. IV fluids include D5 in water at a rate of 40 ML per hour, and TPN at 50 ML per hour, patient has been off sedation since her surgery, and today's exam, patient opens her eyes to voice, she is squeezing hands on command, unable to move her feet, she is extremely generally weak. When asked if she is in discomfort she points to her lower abdomen. Patient has a left abdominal prolapsed colostomy, is producing liquid green stool, patient is also passing stools per rectum. Lung sounds are positive for a few basilar crackles. We have been obtaining patient's status with the family on a daily basis, decision was made to make the patient DO NOT RESUSCITATE CODE STATUS, however the family would like to proceed with placement of tracheostomy and a PEG tube placement. No new labs today, [place] is in place, patient is nonoliguric. Antibiotic coverage including Zosyn and vancomycin, and is on nebulized bronchodilators, Pulmicort and Perforomist. On 08/20/2018 patient seen in follow-up in the intensive care unit, yesterday we spoke to the patient's family again, and patient's family decided to proceed with extubation with the idea of no reintubation. On today's exam patient is on 4 L per nasal cannula and patient O2 sat is 97%, afebrile, hemodynamically stable. Patient is somewhat somnolent, but arousable, confused. Today's labs have been reviewed, WBCs 29.7, hemoglobin is 8.3, sodium is 144, potassium 3.7, chloride is 121, CO2 is 19, BUN is 21, creatinine 0.64. IV D5W at a rate of 40 ML per hour, TPN at 50 ML per hour, and lipids alternating for 12 hours on a 12 hours off. Lung sounds are diminished, with some scattered rhonchi, patient denies any difficulty breathing. Abdomen is soft, patient has a left abdominal stoma, with extensive prolapse. She liquid green stool, and patient also passing some stools rectally. Hemodynamically stable, no acute events overnight , she is producing good urine output 200 ML per hour. Objective - Vital Signs Vital signs: Vital Signs Temp 98.5 F 08/20/18 04:00 Pulse 62 08/20/18 08:44 Resp 27 H 08/20/18 07:00 BP 99/45 08/20/18 07:00 Pulse Ox 97 08/20/18 08:22 Intake & Output 08/19/18 08/20/18 08/20/18 18:59 06:59 18:59 Intake Total 2698 990 90 Output Total 1310 1675 Balance 1388 -685 90 Weight 55.3 kg Intake: IV 1420 990 90 Dextrose 5% in Water 1, 520 440 40 000 ml @ 40 mls/hr IV . Q24H [facility] Rx#:[id number] Mvi, Adult No.4 with Vit 650 550 50 K 10 ml Trace (Conc-1Ml/ Dose) 1 ml Potassium Phosphate 15 mmol Calcium Gluconate 1,000 mg Magnesium Sulfate gm 1 gm In Amino Acid 4.25%-D10w 1,000 ml @ 50 mls/hr IV .[id number] [facility] Rx#: [id number] Vancomycin 1,000 mg In 250 Sodium Chloride 0.9% 250 ml @ 125 mls/hr IVPB DAILY [facility] Rx#:[id number] Intake, IV Titration 1278 Amount Mvi, Adult No.4 with Vit 1028 K 10 ml Trace (Conc-1Ml/ Dose) 1 ml Potassium Phosphate 15 mmol Calcium Gluconate 1,000 mg Magnesium Sulfate gm 1 gm In Amino Acid 4.25%-D10w 1,000 ml @ 50 mls/hr IV .[id number] [facility] Rx#: [id number] Vancomycin 1,250 mg In 250 Sodium Chloride 0.9% 250 ml @ 125 mls/hr IVPB Q24HR [facility] Rx#:[id number] Output: Urine 1310 1675 Other: Voiding Method Indwelling Catheter Indwelling Catheter # Voids 0 ABP, PAP, CO, CI - Last Documented Arterial Blood Pressure 96/76 - Exam GENERAL EXAM: Somnolent, but responsive to voice 87-year-old frail, elderly lady comfortable in no apparent distress. HEAD: Normocephalic/atraumatic. EYES: Normal reaction of pupils, equal size. Conjunctiva pink, sclera white. NOSE: Clear with pink turbinates. THROAT: No erythema or exudates. NECK: No masses, no JVD, no thyroid enlargement, no adenopathy. CHEST: No chest wall deformity. Symmetrical expansion. LUNGS: Equal air entry with a few bibasilar crackles CVS: Regular rate and rhythm, normal S1 and S2, no gallops, no murmurs, no rubs ABDOMEN: Soft, nontender. No hepatosplenomegaly, normal bowel sounds, no guarding or rigidity. Left abdominal colostomy in place, with stomal prolapse, viable, producing liquid green stool EXTREMITIES: No clubbing, no edema, no cyanosis, 2+ pulses and upper and lower extremities. MUSCULOSKELETAL: Muscle strength and tone normal. SPINE: No scoliosis or deformity SKIN: No rashes CENTRAL NERVOUS SYSTEM: Alert and oriented 1. No focal deficits, tone is normal in all 4 extremities. - Labs CBC & Chem 7: 08/20/18 05:03 08/20/18 05:03 Labs: Abnormal Lab Results - Last 24 Hours (Table) 08/19/18 08/19/18 08/19/18 Range/Units 13:00 18:44 23:53 WBC (3.8-10.6) k/uL RBC (3.80-5.40) m/uL Hgb (11.4-16.0) gm/dL Hct (34.0-46.0) % MCHC (31.0-37.0) g/dL Plt Count (150-450) k/uL Chloride (98-107) mmol/L Carbon Dioxide (22-30) mmol/L BUN (7-17) mg/dL Glucose (74-99) mg/dL POC Glucose (mg/dL) 125 H 118 H 111 H (75-99) mg/dL 08/20/18 08/20/18 08/20/18 Range/Units 05:03 05:03 05:33 WBC 29.7 H (3.8-10.6) k/uL RBC 2.93 L (3.80-5.40) m/uL Hgb 8.3 L (11.4-16.0) gm/dL Hct 27.9 L (34.0-46.0) % MCHC 29.9 L (31.0-37.0) g/dL Plt Count 487 H (150-450) k/uL Chloride 121 H (98-107) mmol/L Carbon Dioxide 19 L (22-30) mmol/L BUN 21 H (7-17) mg/dL Glucose 119 H (74-99) mg/dL POC Glucose (mg/dL) 143 H (75-99) mg/dL Assessment and Plan Plan: Assessment: #1. Acute abdominal pain with mechanical colonic obstruction secondary to large rectal fecal impaction, and rectal wall thickening suggestive of acute on chronic component with surrounding inflammation. Status post exploratory laparotomy, lysis of adhesions, left colectomy, splenectomy and cholecystectomy , postoperative day #10 #2. 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 Acute hypoxic respiratory failure, and unexpected outcome of surgery secondary to the above, requiring mechanical ventilatory support. Patient was extubated on 08/19/2018, CODE STATUS has been changed to DO NOT RESUSCITATE, and patient is not to be reintubated. #4. Subcentimeter right lower lobe pulmonary nodule #5. Advanced COPD, oxygen dependent #6. History of chronic tobacco dependence, currently in remission #7. History of constipation #8. Concerns dementia #9. Bipolar depression #10. Degenerative joint disease Plan: Patient has been extubated, she is on 4 L per nasal cannula, no acute distress, she is somnolent, but arousable, confused, no acute distress. Hemodynamically stable, no acute events overnight, afebrile, CODE STATUS is DO NOT RESUSCITATE, patient is not to be reintubated per patient family wishes. From pulmonary perspective patient can be transferred out of the intensive care unit today to medical surgical floor. We'll follow on as-needed basis. Thank you for this consultation. I performed a history & physical examination of the patient and discussed their management with my nurse practitioner, Alta Pendleton. I reviewed the nurse practitioner's note and agree with the documented findings and plan of care. Lung sounds are basilar crackles. The findings and the impression was discussed with the patient. I attest to the documentation by the nurse practitioner. Time with Patient: Greater than 30
[2018-08-20] MEDS: MVI, ADULT NO.4 WITH VIT K 10 ML, TRACE (CONC-1ML/DOSE) 1 ML, POTASSIUM PHOSPHATE 15 MM... IV SCH ×6 (11:59)
[2018-08-20 12:16] LABS: Glucose,Whole Blood 97 mg/dL (75-99)
[2018-08-20 13:07] LABS: Magnesium 2.3 mg/dL (1.6-2.3)
--- NOTE | 2018-08-20 13:08 | P.PN ---
Subjective 87-year-old female admitted with colonic obstruction, fecal impaction, status post surgery. Remains mechanical ventilator-dependent, FiO2 40%/+5 of PEEP. Continues on TPN, no pressors. Not following commands, not opening eyes to noxious stimuli. T-max 99.2. Maintained on D5W with Sodium 153, renal function slowly improving.PPN. Remains off of sedation, not following commands- unable to do weaning parameters/trials. 08/14/18 maintained on mechanical ventilation, FiO2 35%/+5 Peep. Weaning trials , patient unable to follow commands. Maintained on Zosyn. T-max 100.5, WBC up to 22. Urine and blood cultures negative. Currently sinus status has been changed to DO NOT RESUSCITATE and family is considering comfort care as per fountain operator renal function improving, sodium improving down to 148. 08/15/maintained on mechanical ventilation, FiO2 35%/+5 of PEEP. No weaning trial secondary to neuro status. Does not follow commands .Continues on TPN. Chest x-ray worsening, small bilateral pleural effusions and diffuse interstitial edema, persistent or focal bibasilar atelectasis and/or infiltrate with progression of right basilar opacity. T-max 100.7. Maintained on Zosyn and vancomycin. pathology reporting diverticulosis with no diverticulitis, cystic dilation without evidence of neoplasm, subcapsular/superficial spenic hemorrhage, cholecystitis with cholelithiasis and congested and hemorrhagic omentum with focal fibrosis. 08/16/2018 mental status unchanged. Less spontaneous movements reported. Not responding to verbal/tactile stimuli. Maintained on mechanical ventilation, FiO2 35%/+5 PEEP. Continues on TPN, vancomycin, Zosyn. T-max 100.7. Blood cultures reporting coagulase-negative staph, WBC 45.9. 08/17/2018 Patient remains intubated and on ventilatory support off sedation patient is awake alert. No much output from the colostomy bag. Does have fairly good bowel sounds. 08/18/2018 Patient remains intubated patient is uncertain up respiratory rate of 30 and patient is breathing over the ventilator patient is also sedation not doing well no further testing is being obtained patient did have a small bowel movement per rectally and a small bowel movement into the colostomy patient does have some prolapse into the colostomy bag. 08/19/2018 Patient is extubated today doing better than expected and is on 4 L of oxygen alert oriented 1. Family at the bedside. Patient still continues to have prolapse into the colostomy 08/20/2018 No cigarette in overnight events patient is presently on 3 L of oxygen, rhonchorous breath sounds and some bibasilar crackles on exam Active Medications Acetaminophen (Tylenol Tab) 650 mg PO Q6HR PRN PRN Reason: Mild Pain or Fever > 100.5 Last Admin: 08/15/18 02:55 Dose: 650 mg Albuterol/Ipratropium (Duoneb 0.5 Mg-3 Mg/3 Ml Soln) 3 ml INHALATION RT-QID [facility] Last Admin: 08/20/18 12:16 Dose: 3 ml Albuterol/Ipratropium (Duoneb 0.5 Mg-3 Mg/3 Ml Soln) 3 ml INHALATION RT-QID PRN PRN Reason: Shortness Of Breath Or Wheezing Last Admin: 08/12/18 03:15 Dose: 3 ml Benzocaine/Menthol (Cepacol Lozenge) 1 each MUCOUS MEM Q1HR PRN PRN Reason: Sore Throat Carbidopa/Levodopa (Sinemet 25-100) 1 each PO TID [facility] Last Admin: 08/20/18 09:22 Dose: Not Given Chlorhexidine Gluconate (Peridex) 15 ml MUCOUS MEM BID [facility] Last Admin: 08/20/18 09:22 Dose: Not Given Famotidine (Pepcid) 20 mg IV DAILY [facility] Last Admin: 08/20/18 09:22 Dose: 20 mg Hydromorphone HCl (Dilaudid) 0.5 mg IVP Q3HR PRN PRN Reason: Pain Last Admin: 08/19/18 15:45 Dose: 0.5 mg Piperacillin Sod/Tazobactam (Sod 3.375 gm/ Sodium Chloride) 100 mls @ 25 mls/ hr IVPB Q8HR [facility] Last Admin: 08/20/18 09:21 Dose: 25 mls/hr Dextrose/Water (Dextrose 5%-Water Iv Soln) 1,000 mls @ 40 mls/hr IV .Q24H [facility] Last Admin: 08/20/18 09:40 Dose: 40 mls/hr Fat Emulsion Intravenous 250 (ml/ IV Solution) 250 mls @ 21 mls/hr IV Q24H [facility] Last Admin: 08/19/18 17:36 Dose: 21 mls/hr Parenteral Vitamin Supplement 10 ml/ Chromium/Copper/Manganese/Seleni/Zn 1 ml/ Potassium Phosphate 15 mmol/Calcium Gluconate 1,000 mg/Magnesium Sulfate 1 gm/ Amino Acids/Dextrose 1,028 mls @ 50 mls/hr IV .[id number] [facility] Last Admin: 08/19/18 15:24 Dose: 50 mls/hr Vancomycin HCl 1,250 mg/ (Sodium Chloride) 250 mls @ 125 mls/hr IVPB Q24HR [facility] Last Admin: 08/20/18 09:21 Dose: 125 mls/hr Insulin Aspart (Novolog) 0 unit SQ Q6HR [facility]; Protocol Last Admin: 08/20/18 06:39 Dose: 1 unit Lidocaine HCl (.Xylocaine 1% Inj (10mg/Ml) For Iv Start) 0.1 ml INTRADERMA PER PROTOCOL PRN PRN Reason: IV Start Metoclopramide HCl (Reglan) 10 mg IVP Q6HR PRN PRN Reason: Nausea and Vomiting Miscellaneous Information (Potassium Per Protocol) 1 each MISCELLANE DAILY PRN ; Protocol PRN Reason: Per Protocol Miscellaneous Information (Potassium Per Protocol) 1 each MISCELLANE DAILY PRN ; Protocol PRN Reason: Per Protocol Miscellaneous Information (Potassium Per Protocol) 1 each MISCELLANE DAILY PRN ; Protocol PRN Reason: Per Protocol Miscellaneous Information (Vancomycin Trough Due) 1 each MISCELLANE ONCE ONE Stop: 08/22/18 08:01 Naloxone HCl (Narcan) 0.2 mg IV Q2M PRN PRN Reason: Opioid Reversal Ondansetron HCl (Zofran) 4 mg IVP Q8HR PRN PRN Reason: Nausea And Vomiting Objective - Vital Signs Vital signs: Vital Signs Temp 98.4 F 08/20/18 12:00 Pulse 64 08/20/18 12:29 Resp 24 08/20/18 12:00 BP 105/48 08/20/18 12:00 Pulse Ox 98 08/20/18 12:00 Intake & Output 08/19/18 08/20/18 08/20/18 18:59 06:59 18:59 Intake Total 2698 990 360 Output Total 1312 7477 974 Balance 4048 -685 -279 Weight 55.3 kg Intake: IV 1420 990 360 Dextrose 5% in Water 1, 520 440 160 000 ml @ 40 mls/hr IV . Q24H [facility] Rx#:[id number] Mvi, Adult No.4 with Vit 650 550 200 K 10 ml Trace (Conc-1Ml/ Dose) 1 ml Potassium Phosphate 15 mmol Calcium Gluconate 1,000 mg Magnesium Sulfate gm 1 gm In Amino Acid 4.25%-D10w 1,000 ml @ 50 mls/hr IV .[id number] [facility] Rx#: [id number] Vancomycin 1,000 mg In 250 Sodium Chloride 0.9% 250 ml @ 125 mls/hr IVPB DAILY [facility] Rx#:[id number] Intake, IV Titration 1278 Amount Mvi, Adult No.4 with Vit 1028 K 10 ml Trace (Conc-1Ml/ Dose) 1 ml Potassium Phosphate 15 mmol Calcium Gluconate 1,000 mg Magnesium Sulfate gm 1 gm In Amino Acid 4.25%-D10w 1,000 ml @ 50 mls/hr IV .[id number] [facility] Rx#: [id number] Vancomycin 1,250 mg In 250 Sodium Chloride 0.9% 250 ml @ 125 mls/hr IVPB Q24HR [facility] Rx#:[id number] Output: Urine 1310 1675 550 Stool 75 Other: Voiding Method Indwelling Catheter Indwelling Catheter Indwelling Catheter # Voids 0 ABP, PAP, CO, CI - Last Documented Arterial Blood Pressure 96/76 - Exam PHYSICAL EXAMINATION: GENERAL: Patient is extubated alert oriented 1 thin built female HEENT: Pupils are round and equally reacting to light. EOMI. No scleral icterus. No conjunctival pallor. Normocephalic, atraumatic. No pharyngeal erythema. No thyromegaly. CARDIOVASCULAR: S1 and S2 present. No murmurs, rubs, or gallops. PULMONARY: Chest is clear to auscultation, no wheezing or crackles. ABDOMEN: Soft, nontender, ostomy bag in place sluggish bowel sounds. Minimal output via colostomy prolapse of the get into the colostomy bag. MUSCULOSKELETAL: No joint swelling or deformity. EXTREMITIES: No cyanosis, clubbing, or pedal edema. NEUROLOGICAL: Patient is awake responding to commands SKIN: No rashes. - Labs CBC & Chem 7: 08/20/18 05:03 08/20/18 05:03 Labs: Abnormal Lab Results - Last 24 Hours (Table) 08/19/18 08/19/18 08/19/18 Range/Units 13:00 18:44 23:53 WBC (3.8-10.6) k/uL RBC (3.80-5.40) m/uL Hgb (11.4-16.0) gm/dL Hct (34.0-46.0) % MCHC (31.0-37.0) g/dL Plt Count (150-450) k/uL Chloride (98-107) mmol/L Carbon Dioxide (22-30) mmol/L BUN (7-17) mg/dL Glucose (74-99) mg/dL POC Glucose (mg/dL) 125 H 118 H 111 H (75-99) mg/dL 08/20/18 08/20/18 08/20/18 Range/Units 05:03 05:03 05:33 WBC 29.7 H (3.8-10.6) k/uL RBC 2.93 L (3.80-5.40) m/uL Hgb 8.3 L (11.4-16.0) gm/dL Hct 27.9 L (34.0-46.0) % MCHC 29.9 L (31.0-37.0) g/dL Plt Count 487 H (150-450) k/uL Chloride 121 H (98-107) mmol/L Carbon Dioxide 19 L (22-30) mmol/L BUN 21 H (7-17) mg/dL Glucose 119 H (74-99) mg/dL POC Glucose (mg/dL) 143 H (75-99) mg/dL Assessment and Plan Plan: Assessment and Plan Assessment: -Acute hypoxic respiratory failure post colectomy for prolonged intubation, is presently extubated clinically doing much better today. -Colonic obstruction secondary to fecal impaction with large rectal fecal ball, cholecystitis with mechanical obstruction, possible sepsis, status post exploratory laparotomy, lysis of adhesions, left colectomy and takedown splenic flexure, splenectomy and cholecystectomy. -Change in mental status, metabolic encephalopathy secondary to acute sepsis secondary to intra-abdominal process and patient is on vancomycin and Zosyn which will be continued for now, no diarrhea at this time -Leukocytosis, neutrophilic no diarrhea will continue to monitor with such a high neutrophil count, need to watch for C. diff colitis, patient has blood cultures that are positive which is a contamination -Acute renal failure, improving -COPD without any significant exacerbation at this time -Hypernatremia -Severe hypokalemia, improving -No code, no CPR, no re- intubation. possibility of terminal wean and hospice tomorrow
[2018-08-20] MEDS: FAT EMULSION 20% 250 ML in EMPTY BAG 1 BAG IV SCH (16:22)
[2018-08-20 18:13] LABS: Glucose,Whole Blood 127 mg/dL (75-99)
[2018-08-20 20:50] LABS: Glucose,Whole Blood 95 mg/dL (75-99)
[2018-08-21] MEDS: PIPERACILLIN-TAZOBACTAM 3.375 GM in SODIUM CHLORIDE 0.9% 100 ML IVPB SCH ×4 (00:02→23:54)
[2018-08-21] MEDS: INSULIN ASPART (NovoLOG) 100 UNIT/ML VIAL SQ SCH ×4 (00:13→17:21)
[2018-08-21 00:14] LABS: Glucose,Whole Blood 123 mg/dL (75-99)
[2018-08-21] MEDS: MVI, ADULT NO.4 WITH VIT K 10 ML, TRACE (CONC-1ML/DOSE) 1 ML, POTASSIUM PHOSPHATE 15 MM... IV SCH ×6 (04:53)
[2018-08-21 06:09] LABS: Glucose,Whole Blood 124 mg/dL (75-99)
[2018-08-21] MEDS: IPRATROPIUM-ALBUTEROL 3 ML NEB INHALATION SCH ×5 (07:10→21:38)
[2018-08-21] MEDS: VANCOMYCIN 1,250 MG in SODIUM CHLORIDE 0.9% 250 ML IVPB SCH (09:10)
[2018-08-21] MEDS: CARBIDOPA-LEVODOPA 25-100 MG 1 EACH TAB PO SCH ×4 (09:11→23:56)
[2018-08-21] MEDS: FAMOTIDINE 20 MG/2 ML VIAL IV SCH (09:11)
[2018-08-21] MEDS: CHLORHEXIDINE GLUCONATE 15 ML CUP MUCOUS MEM SCH (09:11)
[2018-08-21] MEDS: POTASSIUM CHLORIDE 20 MEQ in WATER FOR INJECTION 1 100ML.BAG IVPB SCH (09:22)
[2018-08-21 11:09] LABS: Anion Gap 5 mmol/L; Blood Urea Nitrogen 21 mg/dL (7-17); Carbon Dioxide 17 mmol/L (22-30); Chloride 124 mmol/L (98-107); Glucose 127 mg/dL (74-99); Magnesium 2.3 mg/dL (1.6-2.3); Phosphorus 3.2 mg/dL (2.5-4.5); Potassium 3.8 mmol/L (3.5-5.1); Sodium 146 mmol/L (137-145); Triglycerides 169 mg/dL (<150)
[2018-08-21 12:05] LABS: Glucose,Whole Blood 123 mg/dL (75-99)
--- NOTE | 2018-08-21 14:08 | P.PN ---
Subjective 87-year-old female admitted with colonic obstruction, fecal impaction, status post surgery. Remains mechanical ventilator-dependent, FiO2 40%/+5 of PEEP. Continues on TPN, no pressors. Not following commands, not opening eyes to noxious stimuli. T-max 99.2. Maintained on D5W with Sodium 153, renal function slowly improving.PPN. Remains off of sedation, not following commands- unable to do weaning parameters/trials. 08/14/18 maintained on mechanical ventilation, FiO2 35%/+5 Peep. Weaning trials , patient unable to follow commands. Maintained on Zosyn. T-max 100.5, WBC up to 22. Urine and blood cultures negative. Currently sinus status has been changed to DO NOT RESUSCITATE and family is considering comfort care as per training development manager renal function improving, sodium improving down to 148. 08/15/maintained on mechanical ventilation, FiO2 35%/+5 of PEEP. No weaning trial secondary to neuro status. Does not follow commands .Continues on TPN. Chest x-ray worsening, small bilateral pleural effusions and diffuse interstitial edema, persistent or focal bibasilar atelectasis and/or infiltrate with progression of right basilar opacity. T-max 100.7. Maintained on Zosyn and vancomycin. pathology reporting diverticulosis with no diverticulitis, cystic dilation without evidence of neoplasm, subcapsular/superficial spenic hemorrhage, cholecystitis with cholelithiasis and congested and hemorrhagic omentum with focal fibrosis. 08/16/2018 mental status unchanged. Less spontaneous movements reported. Not responding to verbal/tactile stimuli. Maintained on mechanical ventilation, FiO2 35%/+5 PEEP. Continues on TPN, vancomycin, Zosyn. T-max 100.7. Blood cultures reporting coagulase-negative staph, WBC 45.9. 08/17/2018 Patient remains intubated and on ventilatory support off sedation patient is awake alert. No much output from the colostomy bag. Does have fairly good bowel sounds. 08/18/2018 Patient remains intubated patient is uncertain up respiratory rate of 30 and patient is breathing over the ventilator patient is also sedation not doing well no further testing is being obtained patient did have a small bowel movement per rectally and a small bowel movement into the colostomy patient does have some prolapse into the colostomy bag. 08/19/2018 Patient is extubated today doing better than expected and is on 4 L of oxygen alert oriented 1. Family at the bedside. Patient still continues to have prolapse into the colostomy 08/20/2018 No cigarette in overnight events patient is presently on 3 L of oxygen, rhonchorous breath sounds and some bibasilar crackles on exam 08/21/2018 Patient is barely arousable had thick big bowel movements per rectum Active Medications Acetaminophen (Tylenol Tab) 650 mg PO Q6HR PRN PRN Reason: Mild Pain or Fever > 100.5 Last Admin: 08/15/18 02:55 Dose: 650 mg Albuterol/Ipratropium (Duoneb 0.5 Mg-3 Mg/3 Ml Soln) 3 ml INHALATION RT-QID [facility] Last Admin: 08/21/18 11:04 Dose: 3 ml Albuterol/Ipratropium (Duoneb 0.5 Mg-3 Mg/3 Ml Soln) 3 ml INHALATION RT-QID PRN PRN Reason: Shortness Of Breath Or Wheezing Last Admin: 08/12/18 03:15 Dose: 3 ml Benzocaine/Menthol (Cepacol Lozenge) 1 each MUCOUS MEM Q1HR PRN PRN Reason: Sore Throat Carbidopa/Levodopa (Sinemet 25-100) 1 each PO TID [facility] Last Admin: 08/21/18 09:21 Dose: Not Given Chlorhexidine Gluconate (Peridex) 15 ml MUCOUS MEM BID [facility] Last Admin: 08/21/18 09:11 Dose: 15 ml Famotidine (Pepcid) 20 mg IV DAILY [facility] Last Admin: 08/21/18 09:11 Dose: 20 mg Hydromorphone HCl (Dilaudid) 0.5 mg IVP Q3HR PRN PRN Reason: Pain Last Admin: 08/19/18 15:45 Dose: 0.5 mg Piperacillin Sod/Tazobactam (Sod 3.375 gm/ Sodium Chloride) 100 mls @ 25 mls/ hr IVPB Q8HR [facility] Last Admin: 08/21/18 10:29 Dose: 25 mls/hr Dextrose/Water (Dextrose 5%-Water Iv Soln) 1,000 mls @ 40 mls/hr IV .Q24H [facility] Last Admin: 08/20/18 09:40 Dose: 40 mls/hr Fat Emulsion Intravenous 250 (ml/ IV Solution) 250 mls @ 21 mls/hr IV Q24H [facility] Last Admin: 08/20/18 16:22 Dose: 21 mls/hr Vancomycin HCl 1,250 mg/ (Sodium Chloride) 250 mls @ 125 mls/hr IVPB Q24HR [facility] Last Admin: 08/21/18 09:10 Dose: 125 mls/hr Parenteral Vitamin Supplement 10 ml/ Chromium/Copper/Manganese/Seleni/Zn 1 ml/ Potassium Phosphate 21 mmol/Magnesium Sulfate 1 gm/ Amino Acids/Dextrose 1,020 mls @ 50 mls/hr IV .[id number] [facility] Insulin Aspart (Novolog) 0 unit SQ Q6HR [facility]; Protocol Last Admin: 08/21/18 06:32 Dose: Not Given Lidocaine HCl (.Xylocaine 1% Inj (10mg/Ml) For Iv Start) 0.1 ml INTRADERMA PER PROTOCOL PRN PRN Reason: IV Start Metoclopramide HCl (Reglan) 10 mg IVP Q6HR PRN PRN Reason: Nausea and Vomiting Miscellaneous Information (Potassium Per Protocol) 1 each MISCELLANE DAILY PRN ; Protocol PRN Reason: Per Protocol Miscellaneous Information (Potassium Per Protocol) 1 each MISCELLANE DAILY PRN ; Protocol PRN Reason: Per Protocol Miscellaneous Information (Potassium Per Protocol) 1 each MISCELLANE DAILY PRN ; Protocol PRN Reason: Per Protocol Miscellaneous Information (Vancomycin Trough Due) 1 each MISCELLANE ONCE ONE Stop: 08/22/18 08:01 Naloxone HCl (Narcan) 0.2 mg IV Q2M PRN PRN Reason: Opioid Reversal Ondansetron HCl (Zofran) 4 mg IVP Q8HR PRN PRN Reason: Nausea And Vomiting Objective - Vital Signs Vital signs: Vital Signs Temp 97.6 F 08/21/18 07:00 Pulse 56 L 08/21/18 11:14 Resp 20 08/21/18 07:00 BP 120/68 08/21/18 07:00 Pulse Ox 95 08/21/18 07:00 Intake & Output 08/20/18 08/21/18 08/21/18 18:59 06:59 18:59 Intake Total 1388 1815 Output Total 625 1600 Balance 763 215 Intake: IV 360 720 Dextrose 5% in Water 1, 160 320 000 ml @ 40 mls/hr IV . Q24H [facility] Rx#:[id number] Mvi, Adult No.4 with Vit 200 400 K 10 ml Trace (Conc-1Ml/ Dose) 1 ml Potassium Phosphate 15 mmol Calcium Gluconate 1,000 mg Magnesium Sulfate gm 1 gm In Amino Acid 4.25%-D10w 1,000 ml @ 50 mls/hr IV .[id number] [facility] Rx#: [id number] Intake, IV Titration 1028 1095 Amount Mvi, Adult No.4 with Vit 1028 845 K 10 ml Trace (Conc-1Ml/ Dose) 1 ml Potassium Phosphate 15 mmol Calcium Gluconate 1,000 mg Magnesium Sulfate gm 1 gm In Amino Acid 4.25%-D10w 1,000 ml @ 50 mls/hr IV .[id number] [facility] Rx#: [id number] Vancomycin 1,250 mg In 250 Sodium Chloride 0.9% 250 ml @ 125 mls/hr IVPB Q24HR [facility] Rx#:[id number] Output: Urine 550 1500 Stool 75 100 Other: Voiding Method Indwelling Catheter Indwelling Catheter Indwelling Catheter # Bowel Movements 3 ABP, PAP, CO, CI - Last Documented Arterial Blood Pressure 96/76 - Exam PHYSICAL EXAMINATION: GENERAL: Patient is drowsy but lethargic and sleepy HEENT: Pupils are round and equally reacting to light. EOMI. No scleral icterus. No conjunctival pallor. Normocephalic, atraumatic. No pharyngeal erythema. No thyromegaly. CARDIOVASCULAR: S1 and S2 present. No murmurs, rubs, or gallops. PULMONARY: Chest is clear to auscultation, no wheezing or crackles. ABDOMEN: Soft, nontender, ostomy bag in place sluggish bowel sounds. Minimal output via colostomy prolapse of the get into the colostomy bag. MUSCULOSKELETAL: No joint swelling or deformity. EXTREMITIES: No cyanosis, clubbing, or pedal edema. NEUROLOGICAL: Patient is awake responding to commands SKIN: No rashes. - Labs CBC & Chem 7: 08/20/18 05:03 08/21/18 09:56 Labs: Abnormal Lab Results - Last 24 Hours (Table) 08/20/18 08/21/18 08/21/18 Range/Units 18:11 00:09 06:07 Sodium (137-145) mmol/L Chloride (98-107) mmol/L Carbon Dioxide (22-30) mmol/L BUN (7-17) mg/dL Glucose (74-99) mg/dL POC Glucose (mg/dL) 127 H 123 H 124 H (75-99) mg/dL Ionized Calcium Vic (4.5-5.3) mg/dL Triglycerides (<150) mg/dL 08/21/18 08/21/18 Range/Units 09:56 11:58 Sodium 146 H (137-145) mmol/L Chloride 124 H (98-107) mmol/L Carbon Dioxide 17 L (22-30) mmol/L BUN 21 H (7-17) mg/dL Glucose 127 H (74-99) mg/dL POC Glucose (mg/dL) 123 H (75-99) mg/dL Ionized Calcium Vic 6.7 H* (4.5-5.3) mg/dL Triglycerides 169 H (<150) mg/dL Assessment and Plan Plan: Assessment and Plan Assessment: -Acute hypoxic respiratory failure post colectomy for prolonged intubation, patient was more lethargic and sleepy continue with antibiotic therapy labs tomorrow -Mild hypercalcemia will start workup with vitamin D and intact PTH -Colonic obstruction secondary to fecal impaction with large rectal fecal ball, cholecystitis with mechanical obstruction, possible sepsis, status post exploratory laparotomy, lysis of adhesions, left colectomy and takedown splenic flexure, splenectomy and cholecystectomy. -Change in mental status, metabolic encephalopathy secondary to acute sepsis secondary to intra-abdominal process and patient is on vancomycin and Zosyn which will be continued for now, no diarrhea at this time -Leukocytosis, neutrophilic no diarrhea will continue to monitor with such a high neutrophil count, need to watch for C. diff colitis, patient has blood cultures that are positive which is a contamination -Acute renal failure, improving -COPD without any significant exacerbation at this time -Hypernatremia -Severe hypokalemia, improving -No code, no CPR, no re- intubation. Patient did well but her overall prognosis is not very good
--- NOTE | 2018-08-21 14:31 | P.PN ---
Subjective Progress Note Date: 08/21/18 Principal diagnosis: Fernandez's procedure Patient less alert than yesterday. Remains tachypneic. Still having loose foul -smelling rectals drainage. She is afebrile. Objective - Vital Signs Vital signs: Vital Signs Temp 97.6 F 08/21/18 07:00 Pulse 56 L 08/21/18 11:14 Resp 20 08/21/18 07:00 BP 120/68 08/21/18 07:00 Pulse Ox 95 08/21/18 07:00 Intake & Output 08/20/18 08/21/18 08/21/18 18:59 06:59 18:59 Intake Total 1388 1815 Output Total 625 1600 Balance 763 215 Intake: IV 360 720 Dextrose 5% in Water 1, 160 320 000 ml @ 40 mls/hr IV . Q24H [facility] Rx#:[id number] Mvi, Adult No.4 with Vit 200 400 K 10 ml Trace (Conc-1Ml/ Dose) 1 ml Potassium Phosphate 15 mmol Calcium Gluconate 1,000 mg Magnesium Sulfate gm 1 gm In Amino Acid 4.25%-D10w 1,000 ml @ 50 mls/hr IV .[id number] [facility] Rx#: [id number] Intake, IV Titration 1028 1095 Amount Mvi, Adult No.4 with Vit 1028 845 K 10 ml Trace (Conc-1Ml/ Dose) 1 ml Potassium Phosphate 15 mmol Calcium Gluconate 1,000 mg Magnesium Sulfate gm 1 gm In Amino Acid 4.25%-D10w 1,000 ml @ 50 mls/hr IV .[id number] [facility] Rx#: [id number] Vancomycin 1,250 mg In 250 Sodium Chloride 0.9% 250 ml @ 125 mls/hr IVPB Q24HR [facility] Rx#:[id number] Output: Urine 550 1500 Stool 75 100 Other: Voiding Method Indwelling Catheter Indwelling Catheter Indwelling Catheter # Bowel Movements 3 ABP, PAP, CO, CI - Last Documented Arterial Blood Pressure 96/76 - Exam Abdomen: Soft, nondistended, ostomy still prolapsed but viable - Labs CBC & Chem 7: 08/20/18 05:03 08/21/18 09:56 Labs: Abnormal Lab Results - Last 24 Hours (Table) 12/24/18 12/25/18 12/25/18 Range/Units 18:11 00:09 06:07 Sodium (137-145) mmol/L Chloride (98-107) mmol/L Carbon Dioxide (22-30) mmol/L BUN (7-17) mg/dL Glucose (74-99) mg/dL POC Glucose (mg/dL) 127 H 123 H 124 H (75-99) mg/dL Ionized Calcium Vic (4.5-5.3) mg/dL Triglycerides (<150) mg/dL 08/21/18 08/21/18 Range/Units 09:56 11:58 Sodium 146 H (137-145) mmol/L Chloride 124 H (98-107) mmol/L Carbon Dioxide 17 L (22-30) mmol/L BUN 21 H (7-17) mg/dL Glucose 127 H (74-99) mg/dL POC Glucose (mg/dL) 123 H (75-99) mg/dL Ionized Calcium Vic 6.7 H* (4.5-5.3) mg/dL Triglycerides 169 H (<150) mg/dL Assessment and Plan (1) Bowel obstruction Narrative/Plan: Continue supportive care. Patient's family considering hospice measures at this time. No surgical intervention advised at this time. Current Visit: No Status: Acute Code(s): K56.60 - UNSPECIFIED INTESTINAL OBSTRUCTION * DO NOT USE * SNOMED Code(s): 67345768
[2018-08-21 15:02] VITALS: BMI 24.6
[2018-08-21] MEDS ORDERED: MENTHOL-ZINC OXIDE OINT 113 GM TUBE TOPICAL PRN (15:34)
[2018-08-21] MEDS: [UNRECOGNIZED DRUG - REMARK] IV SCH ×5 (15:46)
[2018-08-21] MEDS: DEXTROSE 5% IN WATER 1,000 ML IV SCH (15:49)
[2018-08-21] MEDS: FAT EMULSION 20% 250 ML in EMPTY BAG 1 BAG IV SCH (17:21)
[2018-08-21 17:25] LABS: Glucose,Whole Blood 107 mg/dL (75-99)
[2018-08-22] MEDS: INSULIN ASPART (NovoLOG) 100 UNIT/ML VIAL SQ SCH ×4 (01:16→17:25)
[2018-08-22 01:17] LABS: Glucose,Whole Blood 121 mg/dL (75-99)
[2018-08-22 06:10] LABS: Glucose,Whole Blood 120 mg/dL (75-99)
[2018-08-22] MEDS ORDERED: VANCOMYCIN TROUGH DUE 1 EACH MISC MISCELLANE ONE (08:00)
[2018-08-22] MEDS: IPRATROPIUM-ALBUTEROL 3 ML NEB INHALATION SCH ×4 (08:37→19:39)
[2018-08-22] MEDS: PIPERACILLIN-TAZOBACTAM 3.375 GM in SODIUM CHLORIDE 0.9% 100 ML IVPB SCH (09:26)
[2018-08-22] MEDS: CARBIDOPA-LEVODOPA 25-100 MG 1 EACH TAB PO SCH ×3 (09:26→23:04)
[2018-08-22] MEDS: FAMOTIDINE 20 MG/2 ML VIAL IV SCH (09:27)
[2018-08-22] MEDS: HYDROmorphone 0.5 MG/0.5 ML SYRINGE IVP PRN ×2 (09:31→16:37)
[2018-08-22 10:49] LABS: HCT 28.1 % (34.0-46.0); HGB 8.2 gm/dL (11.4-16.0); Hypochromasia Marked; MCH 28.8 pg (25.0-35.0); MCHC 29.2 g/dL (31.0-37.0); MCV 98.6 fL (80.0-100.0); Macrocytosis Slight; Mean Platelet Volume 7.8; Platelet Count 594 k/uL (150-450); RBC 2.85 m/uL (3.80-5.40); RDW 15.7 % (11.5-15.5); WBC 21.2 k/uL (3.8-10.6)
[2018-08-22] MEDS: [UNRECOGNIZED DRUG - REMARK] IV SCH ×5 (10:55)
[2018-08-22] MEDS: DEXTROSE 5% IN WATER 1,000 ML IV SCH (10:55)
[2018-08-22 11:04] LABS: Anion Gap 2 mmol/L; Blood Urea Nitrogen 22 mg/dL (7-17); Carbon Dioxide 18 mmol/L (22-30); Chloride 127 mmol/L (98-107); Glucose 117 mg/dL (74-99); Magnesium 2.4 mg/dL (1.6-2.3); Phosphorus 4.1 mg/dL (2.5-4.5); Potassium 4.1 mmol/L (3.5-5.1); Sodium 147 mmol/L (137-145)
[2018-08-22 12:09] LABS: Glucose,Whole Blood 115 mg/dL (75-99)
[2018-08-22 12:34] LABS: Ionized Calcium 6.7 mg/dL (4.5-5.3)
--- NOTE | 2018-08-22 16:10 | P.PN ---
Subjective 87-year-old female admitted with colonic obstruction, fecal impaction, status post surgery. Remains mechanical ventilator-dependent, FiO2 40%/+5 of PEEP. Continues on TPN, no pressors. Not following commands, not opening eyes to noxious stimuli. T-max 99.2. Maintained on D5W with Sodium 153, renal function slowly improving.PPN. Remains off of sedation, not following commands- unable to do weaning parameters/trials. 08/14/18 maintained on mechanical ventilation, FiO2 35%/+5 Peep. Weaning trials , patient unable to follow commands. Maintained on Zosyn. T-max 100.5, WBC up to 22. Urine and blood cultures negative. Currently sinus status has been changed to DO NOT RESUSCITATE and family is considering comfort care as per quotation clerk renal function improving, sodium improving down to 148. 08/15/maintained on mechanical ventilation, FiO2 35%/+5 of PEEP. No weaning trial secondary to neuro status. Does not follow commands .Continues on TPN. Chest x-ray worsening, small bilateral pleural effusions and diffuse interstitial edema, persistent or focal bibasilar atelectasis and/or infiltrate with progression of right basilar opacity. T-max 100.7. Maintained on Zosyn and vancomycin. pathology reporting diverticulosis with no diverticulitis, cystic dilation without evidence of neoplasm, subcapsular/superficial spenic hemorrhage, cholecystitis with cholelithiasis and congested and hemorrhagic omentum with focal fibrosis. 08/16/2018 mental status unchanged. Less spontaneous movements reported. Not responding to verbal/tactile stimuli. Maintained on mechanical ventilation, FiO2 35%/+5 PEEP. Continues on TPN, vancomycin, Zosyn. T-max 100.7. Blood cultures reporting coagulase-negative staph, WBC 45.9. 08/17/2018 Patient remains intubated and on ventilatory support off sedation patient is awake alert. No much output from the colostomy bag. Does have fairly good bowel sounds. 08/18/2018 Patient remains intubated patient is uncertain up respiratory rate of 30 and patient is breathing over the ventilator patient is also sedation not doing well no further testing is being obtained patient did have a small bowel movement per rectally and a small bowel movement into the colostomy patient does have some prolapse into the colostomy bag. 08/19/2018 Patient is extubated today doing better than expected and is on 4 L of oxygen alert oriented 1. Family at the bedside. Patient still continues to have prolapse into the colostomy 08/20/2018 No cigarette in overnight events patient is presently on 3 L of oxygen, rhonchorous breath sounds and some bibasilar crackles on exam 08/21/2018 Patient is barely arousable had thick big bowel movements per rectum 08/22/2018 Patient remains lethargic no significant improvement in spite of aggressive treatment. I do not expect reasonable recovery considering her age, we began prolapse into the colostomy, patient will ever be able to tolerate by mouth diet. At this age and comorbidities PEG tube is not a good option. Even if she recovers completely the possibility of which is extremely low patient will have very low quality of life not be able to get rid of TPN which is not a viable option long-term, discussed regarding the options and discussed regarding hospice with the family members were agreeable for hospice and they will discuss with palliative care services. Active Medications Acetaminophen (Tylenol Tab) 650 mg PO Q6HR PRN PRN Reason: Mild Pain or Fever > 100.5 Last Admin: 08/15/18 02:55 Dose: 650 mg Albuterol/Ipratropium (Duoneb 0.5 Mg-3 Mg/3 Ml Soln) 3 ml INHALATION RT-QID MARY LOU Last Admin: 08/22/18 15:25 Dose: 3 ml Albuterol/Ipratropium (Duoneb 0.5 Mg-3 Mg/3 Ml Soln) 3 ml INHALATION RT-QID PRN PRN Reason: Shortness Of Breath Or Wheezing Last Admin: 08/12/18 03:15 Dose: 3 ml Benzocaine/Menthol (Cepacol Lozenge) 1 each MUCOUS MEM Q1HR PRN PRN Reason: Sore Throat Calamine/Phenol (Calmoseptine Oint) 1 applic TOPICAL QID PRN PRN Reason: Skin Irritation Carbidopa/Levodopa (Sinemet 25-100) 1 each PO TID MARY LOU Last Admin: 08/22/18 09:26 Dose: Not Given Famotidine (Pepcid) 20 mg IV DAILY [facility] Last Admin: 08/22/18 09:27 Dose: 20 mg Hydromorphone HCl (Dilaudid) 0.5 mg IVP Q3HR PRN PRN Reason: Pain Last Admin: 08/22/18 09:31 Dose: 0.5 mg Dextrose/Water (Dextrose 5%-Water Iv Soln) 1,000 mls @ 40 mls/hr IV .Q24H [facility] Last Admin: 08/22/18 10:55 Dose: 40 mls/hr Fat Emulsion Intravenous 250 (ml/ IV Solution) 250 mls @ 21 mls/hr IV Q24H [facility] Last Admin: 08/21/18 17:21 Dose: 21 mls/hr Parenteral Vitamin Supplement 10 ml/ Chromium/Copper/Manganese/Seleni/Zn 1 ml/ Potassium Phosphate 21 mmol/Amino Acids/Dextrose 1,018 mls @ 50 mls/hr IV .[id number] [facility] Insulin Aspart (Novolog) 0 unit SQ Q6HR [facility]; Protocol Last Admin: 08/22/18 12:11 Dose: Not Given Metoclopramide HCl (Reglan) 10 mg IVP Q6HR PRN PRN Reason: Nausea and Vomiting Naloxone HCl (Narcan) 0.2 mg IV Q2M PRN PRN Reason: Opioid Reversal Ondansetron HCl (Zofran) 4 mg IVP Q8HR PRN PRN Reason: Nausea And Vomiting Objective - Vital Signs Vital signs: Vital Signs Temp 96.7 F L 08/22/18 14:36 Pulse 60 08/22/18 15:30 Resp 20 08/22/18 14:36 BP 110/52 08/22/18 14:36 Pulse Ox 96 08/22/18 14:36 Intake & Output 08/21/18 08/22/18 08/22/18 18:59 06:59 18:59 Intake Total 0 957.5 Output Total 371 820 4844 Balance -900 -800 -442.5 Weight 55.3 kg Intake: Intake, IV Titration 957.5 Amount Mvi, Adult No.4 with Vit 957.5 K 10 ml Trace (Conc-1Ml/ Dose) 1 ml Potassium Phosphate 21 mmol Magnesium Sulfate gm 1 gm In Amino Acid 4.25%-D10w 1,000 ml @ 50 mls/hr IV .[id number] [facility] Rx#: [id number] Oral 0 Output: Urine 531 494 9561 Other: Voiding Method Indwelling Catheter Indwelling Catheter Indwelling Catheter # Voids 0 # Bowel Movements 3 0 1 ABP, PAP, CO, CI - Last Documented Arterial Blood Pressure 96/76 - Exam PHYSICAL EXAMINATION: GENERAL: Patient is drowsy but lethargic and sleepy HEENT: Pupils are round and equally reacting to light. EOMI. No scleral icterus. No conjunctival pallor. Normocephalic, atraumatic. No pharyngeal erythema. No thyromegaly. CARDIOVASCULAR: S1 and S2 present. No murmurs, rubs, or gallops. PULMONARY: Chest is clear to auscultation, no wheezing or crackles. ABDOMEN: Soft, nontender, ostomy bag in place sluggish bowel sounds. Minimal output via colostomy prolapse of the get into the colostomy bag. MUSCULOSKELETAL: No joint swelling or deformity. EXTREMITIES: No cyanosis, clubbing, or pedal edema. NEUROLOGICAL: Patient is awake responding to commands SKIN: No rashes. - Labs CBC & Chem 7: 08/22/18 10:03 08/22/18 10:03 Labs: Abnormal Lab Results - Last 24 Hours (Table) 08/21/18 08/21/18 08/22/18 Range/Units 09:56 17:21 01:15 WBC (3.8-10.6) k/uL RBC (3.80-5.40) m/uL Hgb (11.4-16.0) gm/dL Hct (34.0-46.0) % MCHC (31.0-37.0) g/dL RDW (11.5-15.5) % Plt Count (150-450) k/uL Sodium (137-145) mmol/L Chloride (98-107) mmol/L Carbon Dioxide (22-30) mmol/L BUN (7-17) mg/dL Glucose (74-99) mg/dL POC Glucose (mg/dL) 107 H 121 H (75-99) mg/dL Ionized Calcium Vic 6.7 H* (4.5-5.3) mg/dL Magnesium (1.6-2.3) mg/dL 08/22/18 08/22/18 08/22/18 Range/Units 06:08 10:03 10:03 WBC 21.2 H (3.8-10.6) k/uL RBC 2.85 L (3.80-5.40) m/uL Hgb 8.2 L (11.4-16.0) gm/dL Hct 28.1 L (34.0-46.0) % MCHC 29.2 L (31.0-37.0) g/dL RDW 15.7 H (11.5-15.5) % Plt Count 594 H (150-450) k/uL Sodium 147 H (137-145) mmol/L Chloride 127 H (98-107) mmol/L Carbon Dioxide 18 L (22-30) mmol/L BUN 22 H (7-17) mg/dL Glucose 117 H (74-99) mg/dL POC Glucose (mg/dL) 120 H (75-99) mg/dL Ionized Calcium Vci (4.5-5.3) mg/dL Magnesium 2.4 H (1.6-2.3) mg/dL 08/22/18 Range/Units 11:57 WBC (3.8-10.6) k/uL RBC (3.80-5.40) m/uL Hgb (11.4-16.0) gm/dL Hct (34.0-46.0) % MCHC (31.0-37.0) g/dL RDW (11.5-15.5) % Plt Count (150-450) k/uL Sodium (137-145) mmol/L Chloride (98-107) mmol/L Carbon Dioxide (22-30) mmol/L BUN (7-17) mg/dL Glucose (74-99) mg/dL POC Glucose (mg/dL) 115 H (75-99) mg/dL Ionized Calcium Vic (4.5-5.3) mg/dL Magnesium (1.6-2.3) mg/dL Assessment and Plan Plan: Assessment and Plan Assessment: -Acute hypoxic respiratory failure post colectomy for prolonged intubation, patient was more lethargic and sleepy . Discussed regarding hospice with the family week since there is no significant improvement in her clinical status -Mild hypercalcemia -Colonic obstruction secondary to fecal impaction with large rectal fecal ball, cholecystitis with mechanical obstruction, possible sepsis, status post exploratory laparotomy, lysis of adhesions, left colectomy and takedown splenic flexure, splenectomy and cholecystectomy. -Change in mental status, metabolic encephalopathy secondary to acute sepsis secondary to intra-abdominal process -Leukocytosis, neutrophilic improving now him up patient had contaminated. Samples not really bacteremic -Acute renal failure, improving -COPD without any significant exacerbation at this time -Hypernatremia -No code, no CPR, no re- intubation. Discussed regarding hospice options hospice was consulted.
[2018-08-22] MEDS: FAT EMULSION 20% 250 ML in EMPTY BAG 1 BAG IV SCH (16:39)
[2018-08-22 17:06] LABS: Glucose,Whole Blood 116 mg/dL (75-99)
--- NOTE | 2018-08-22 20:15 | P.PN ---
Subjective Progress Note Date: 08/22/18 Principal diagnosis: Fernandez's procedure Patient remains lethargic. White blood cell count 21.2. Still with some rectal drainage. Stomal prolapse unchanged. Objective - Vital Signs Vital signs: Vital Signs Temp 96.7 F L 08/22/18 14:36 Pulse 66 08/22/18 19:47 Resp 20 08/22/18 16:00 BP 110/52 08/22/18 14:36 Pulse Ox 96 08/22/18 14:36 Intake & Output 08/22/18 08/22/18 08/23/18 06:59 18:59 06:59 Intake Total 0 957.5 Output Total 800 1400 Balance -800 -442.5 Intake: Intake, IV Titration 957.5 Amount Mvi, Adult No.4 with Vit 957.5 K 10 ml Trace (Conc-1Ml/ Dose) 1 ml Potassium Phosphate 21 mmol Magnesium Sulfate gm 1 gm In Amino Acid 4.25%-D10w 1,000 ml @ 50 mls/hr IV .[id number] [facility] Rx#: [id number] Oral 0 Output: Urine 800 1400 Other: Voiding Method Indwelling Catheter Indwelling Catheter # Voids 0 0 # Bowel Movements 0 0 ABP, PAP, CO, CI - Last Documented Arterial Blood Pressure 96/76 - Exam Abdomen: Soft, mild distention, stomal prolapse viable - Labs CBC & Chem 7: 08/22/18 10:03 08/22/18 10:03 Labs: Abnormal Lab Results - Last 24 Hours (Table) 08/21/18 08/22/18 08/22/18 Range/Units 09:56 01:15 06:08 WBC (3.8-10.6) k/uL RBC (3.80-5.40) m/uL Hgb (11.4-16.0) gm/dL Hct (34.0-46.0) % MCHC (31.0-37.0) g/dL RDW (11.5-15.5) % Plt Count (150-450) k/uL Sodium (137-145) mmol/L Chloride (98-107) mmol/L Carbon Dioxide (22-30) mmol/L BUN (7-17) mg/dL Glucose (74-99) mg/dL POC Glucose (mg/dL) 121 H 120 H (75-99) mg/dL Ionized Calcium Vic 6.7 H* (4.5-5.3) mg/dL Magnesium (1.6-2.3) mg/dL 08/22/18 08/22/18 08/22/18 Range/Units 10:03 10:03 11:57 WBC 21.2 H (3.8-10.6) k/uL RBC 2.85 L (3.80-5.40) m/uL Hgb 8.2 L (11.4-16.0) gm/dL Hct 28.1 L (34.0-46.0) % MCHC 29.2 L (31.0-37.0) g/dL RDW 15.7 H (11.5-15.5) % Plt Count 594 H (150-450) k/uL Sodium 147 H (137-145) mmol/L Chloride 127 H (98-107) mmol/L Carbon Dioxide 18 L (22-30) mmol/L BUN 22 H (7-17) mg/dL Glucose 117 H (74-99) mg/dL POC Glucose (mg/dL) 115 H (75-99) mg/dL Ionized Calcium Vic (4.5-5.3) mg/dL Magnesium 2.4 H (1.6-2.3) mg/dL 08/22/18 Range/Units 17:04 WBC (3.8-10.6) k/uL RBC (3.80-5.40) m/uL Hgb (11.4-16.0) gm/dL Hct (34.0-46.0) % MCHC (31.0-37.0) g/dL RDW (11.5-15.5) % Plt Count (150-450) k/uL Sodium (137-145) mmol/L Chloride (98-107) mmol/L Carbon Dioxide (22-30) mmol/L BUN (7-17) mg/dL Glucose (74-99) mg/dL POC Glucose (mg/dL) 116 H (75-99) mg/dL Ionized Calcium Vic (4.5-5.3) mg/dL Magnesium (1.6-2.3) mg/dL Assessment and Plan (1) Bowel obstruction Narrative/Plan: Patient has not shown improvement despite supportive care. Apparently family leaning now towards hospice measures tomorrow. There is a family meeting tomorrow. No surgical intervention planned at this time. Comfort care measures quite appropriate. Current Visit: No Status: Acute Code(s): K56.60 - UNSPECIFIED INTESTINAL OBSTRUCTION * DO NOT USE * SNOMED Code(s): 68325446
[2018-08-23 00:31] LABS: Glucose,Whole Blood 88 mg/dL (75-99)
[2018-08-23] MEDS: INSULIN ASPART (NovoLOG) 100 UNIT/ML VIAL SQ SCH ×4 (00:33→17:17)
[2018-08-23] MEDS: HYDROmorphone 0.5 MG/0.5 ML SYRINGE IVP PRN ×4 (02:13→13:11)
[2018-08-23 06:05] LABS: Glucose,Whole Blood 124 mg/dL (75-99)
[2018-08-23] MEDS ORDERED: [UNRECOGNIZED DRUG - REMARK] IV SCH ×4 (07:00)
[2018-08-23] MEDS: CARBIDOPA-LEVODOPA 25-100 MG 1 EACH TAB PO SCH ×2 (08:41→16:15)
[2018-08-23] MEDS: FAMOTIDINE 20 MG/2 ML VIAL IV SCH (08:56)
[2018-08-23] MEDS: IPRATROPIUM-ALBUTEROL 3 ML NEB INHALATION SCH ×3 (09:04→16:27)
[2018-08-23 10:25] VITALS: RESP 20
[2018-08-23] MEDS: DEXTROSE 5% IN WATER 1,000 ML IV SCH (11:26)
[2018-08-23] MEDS ORDERED: MORPHINE ORAL SOLN 10 MG/5 ML CUP PO PRN (13:17)
[2018-08-23 15:39] VITALS: BP 104/55; TEMP 98.1
[2018-08-23] MEDS: FAT EMULSION 20% 250 ML in EMPTY BAG 1 BAG IV SCH (16:27)
[2018-08-23 16:28] VITALS: PULSE 72
--- NOTE | 2018-08-23 17:24 | P.DS ---
Providers Date of admission: 08/08/18 18:14 Attending physician: Azra Garrido Consults: 08/08/18 20:48 Consult Physician Routine Consulting Provider: Devin Klein Consult Reason/Comments: fecal impactation Do you want consulting provider notified?: Yes 08/08/18 20:49 Consult Physician Routine Consulting Provider: Argelia Noguera Reason/Comments: copd Do you want consulting provider notified?: Yes Primary care physician: Humza Santiago MD Hospital Course: 87-year-old female admitted with colonic obstruction, fecal impaction, status post surgery. Remains mechanical ventilator-dependent, FiO2 40%/+5 of PEEP. Continues on TPN, no pressors. Not following commands, not opening eyes to noxious stimuli. T-max 99.2. Maintained on D5W with Sodium 153, renal function slowly improving.PPN. Remains off of sedation, not following commands- unable to do weaning parameters/trials. 08/14/18 maintained on mechanical ventilation, FiO2 35%/+5 Peep. Weaning trials , patient unable to follow commands. Maintained on Zosyn. T-max 100.5, WBC up to 22. Urine and blood cultures negative. Currently sinus status has been changed to DO NOT RESUSCITATE and family is considering comfort care as per motor room controller renal function improving, sodium improving down to 148. 08/15/maintained on mechanical ventilation, FiO2 35%/+5 of PEEP. No weaning trial secondary to neuro status. Does not follow commands .Continues on TPN. Chest x-ray worsening, small bilateral pleural effusions and diffuse interstitial edema, persistent or focal bibasilar atelectasis and/or infiltrate with progression of right basilar opacity. T-max 100.7. Maintained on Zosyn and vancomycin. pathology reporting diverticulosis with no diverticulitis, cystic dilation without evidence of neoplasm, subcapsular/superficial spenic hemorrhage, cholecystitis with cholelithiasis and congested and hemorrhagic omentum with focal fibrosis. 08/16/2018 mental status unchanged. Less spontaneous movements reported. Not responding to verbal/tactile stimuli. Maintained on mechanical ventilation, FiO2 35%/+5 PEEP. Continues on TPN, vancomycin, Zosyn. T-max 100.7. Blood cultures reporting coagulase-negative staph, WBC 45.9. 08/17/2018 Patient remains intubated and on ventilatory support off sedation patient is awake alert. No much output from the colostomy bag. Does have fairly good bowel sounds. 08/18/2018 Patient remains intubated patient is uncertain up respiratory rate of 30 and patient is breathing over the ventilator patient is also sedation not doing well no further testing is being obtained patient did have a small bowel movement per rectally and a small bowel movement into the colostomy patient does have some prolapse into the colostomy bag. 08/19/2018 Patient is extubated today doing better than expected and is on 4 L of oxygen alert oriented 1. Family at the bedside. Patient still continues to have prolapse into the colostomy 08/20/2018 No cigarette in overnight events patient is presently on 3 L of oxygen, rhonchorous breath sounds and some bibasilar crackles on exam 08/21/2018 Patient is barely arousable had thick big bowel movements per rectum 08/22/2018 Patient remains lethargic no significant improvement in spite of aggressive treatment. I do not expect reasonable recovery considering her age, we began prolapse into the colostomy, patient will ever be able to tolerate by mouth diet. At this age and comorbidities PEG tube is not a good option. Even if she recovers completely the possibility of which is extremely low patient will have very low quality of life not be able to get rid of TPN which is not a viable option long-term, discussed regarding the options and discussed regarding hospice with the family members were agreeable for hospice and they will discuss with palliative care services. 08/23/2018 Patient is being discharged to [facility] PHYSICAL EXAMINATION: GENERAL: Patient is drowsy but lethargic and sleepy HEENT: Pupils are round and equally reacting to light. EOMI. No scleral icterus. No conjunctival pallor. Normocephalic, atraumatic. No pharyngeal erythema. No thyromegaly. CARDIOVASCULAR: S1 and S2 present. No murmurs, rubs, or gallops. PULMONARY: Chest is clear to auscultation, no wheezing or crackles. ABDOMEN: Soft, nontender, ostomy bag in place sluggish bowel sounds. Minimal output via colostomy prolapse of the get into the colostomy bag. MUSCULOSKELETAL: No joint swelling or deformity. EXTREMITIES: No cyanosis, clubbing, or pedal edema. NEUROLOGICAL: Patient is awake responding to commands SKIN: No rashes. Assessment and Plan Assessment: -Acute hypoxic respiratory failure post colectomy for prolonged intubation, patient was more lethargic and sleepy . -Mild hypercalcemia -Colonic obstruction secondary to fecal impaction with large rectal fecal ball, cholecystitis with mechanical obstruction, possible sepsis, status post exploratory laparotomy, lysis of adhesions, left colectomy and takedown splenic flexure, splenectomy and cholecystectomy. -Change in mental status, metabolic encephalopathy secondary to acute sepsis secondary to intra-abdominal process -Acute renal failure, improving -COPD without any significant exacerbation -Hypernatremia -No code. Being discharged to facility with hospice Plan - Discharge Summary New Discharge Prescriptions: No Action Vit C/E/Zn/Coppr/Lutein/Zeaxan [Preservision Areds 2 Softgel] 1 cap PO DAILY Aspirin EC [Ecotrin Low Dose] 81 mg PO DAILY Multivitamins, Thera [Multivitamin (formulary)] 1 tab PO DAILY Carbidopa-Levodopa 25-100 mg [Sinemet 25-100 mg] 1 tab PO TID rOPINIRole HCL [Requip] 1 mg PO TID tab Furosemide [Lasix] 40 mg PO BID Potassium Chloride ER [K-Dur 10] 10 meq PO DAILY Lactobacillus Acidophilus [Acidophilus] 1 tab PO DAILY HYDROcodone/APAP 5-325MG [[place] 5-325] 1 tab PO Q6H PRN PRN Reason: Pain [place] Carbonate [[place] Carbonate ER] 300 mg PO DAILY Fluocinonide 0.05% [Lidex 0.05% cream] 1 applic TOPICAL DAILY Docusate Sodium [Dok] 100 mg PO BID Simethicone [Gas-X] 125 mg PO TID Ipratropium-Albuterol Nebulize [Duoneb 0.5 mg-3 mg/3 ml Soln] 3 ml INHALATION RT-Q4H PRN PRN Reason: Shortness Of Breath Sennosides-Docusate Sodium [Senokot-S] 1 tab PO BID PRN PRN Reason: Constipation Discharge Medication List Aspirin EC [Ecotrin Low Dose] 81 mg PO DAILY 08/29/16 [History] Carbidopa-Levodopa 25-100 mg [Sinemet 25-100 mg] 1 tab PO TID 08/29/16 [History] Multivitamins, Thera [Multivitamin (formulary)] 1 tab PO DAILY 08/29/16 [History ] Vit C/E/Zn/Coppr/Lutein/Zeaxan [Preservision Areds 2 Softgel] 1 cap PO DAILY 10/14 [History] rOPINIRole HCL [Requip] 1 mg PO TID tab 02/03/17 [Rx] Furosemide [Lasix] 40 mg PO BID 03/02/18 [History] Potassium Chloride ER [K-Dur 10] 10 meq PO DAILY 03/02/18 [History] Docusate Sodium [Dok] 100 mg PO BID 08/08/18 [History] Fluocinonide 0.05% [Lidex 0.05% cream] 1 applic TOPICAL DAILY 08/08/18 [History] HYDROcodone/APAP 5-325MG [[place] 5-325] 1 tab PO Q6H PRN 08/08/18 [History] Ipratropium-Albuterol Nebulize [Duoneb 0.5 mg-3 mg/3 ml Soln] 3 ml INHALATION RT -Q4H PRN 08/08/18 [History] Lactobacillus Acidophilus [Acidophilus] 1 tab PO DAILY 08/08/18 [History] [place] Carbonate [[place] Carbonate ER] 300 mg PO DAILY 08/08/18 [History] Sennosides-Docusate Sodium [Senokot-S] 1 tab PO BID PRN 08/08/18 [History] Simethicone [Gas-X] 125 mg PO TID 08/08/18 [History] Follow up Appointment(s)/Referral(s): Humza Santiago MD [Primary Care Provider] - 1-2 days Patient Instructions/Handouts: Colostomy Care (GEN) Activity/Diet/Wound Care/Special Instructions: [facility] [phone] Ostomy Care Recommendations: Change the pouching System every 3-5 days Mrs Tovar will have the following supplies for transition after hospital Convatec one piece cut to fit #[id number] (three for discharge) No sting prep pads (10) Ostomy powder (1)
[2018-08-29 09:08] LABS: Glucose,Whole Blood 144 mg/dL (75-99)
[2018-08-29 09:08] LABS: Glucose,Whole Blood 120 mg/dL (75-99)
== END 2018-08-23 19:08 | disposition hospice, home (50) | DRG 853 ==
LOC: EC 11:45 → 4MS4W 18:14 → 2SICU 08-10 14:47 → 4MS4W 08-20 17:33
PROVIDERS: ADMIT Internal Medicine; ATTEND Internal Medicine
PROC: 07TP0ZZ Resection of Spleen, Open Approach (ICD-10-PCS; 2018-08-10)
PROC: 0FT40ZZ Resection of Gallbladder, Open Approach (ICD-10-PCS; 2018-08-10)
PROC: 5A1955Z Respiratory Ventilation, Greater than 96 Consecutive Hours (ICD-10-PCS; 2018-08-10)
PROC: 0BH17EZ Insertion of Endotracheal Airway into Trachea, Via Natural or Artificial Opening (ICD-10-PCS; 2018-08-10)
PROC: 02HV33Z Insertion of Infusion Device into Superior Vena Cava, Percutaneous Approach (ICD-10-PCS; principal; 2018-08-10 09:30)
PROC: 0DTG0ZZ Resection of Left Large Intestine, Open Approach (ICD-10-PCS; 2018-08-10 09:30)
PROC: 0D1M0Z4 Bypass Descending Colon to Cutaneous, Open Approach (ICD-10-PCS; 2018-08-10 09:30)
DX: A41.9 Sepsis, unspecified organism (principal); G93.41 Metabolic encephalopathy; J95.821 Acute postprocedural respiratory failure; E87.0 Hyperosmolality and hypernatremia; E87.1 Hypo-osmolality and hyponatremia; E87.3 Alkalosis; F31.30 Bipolar disorder, current episode depressed, mild or moderate severity, unspecified; J98.11 Atelectasis; K80.10 Calculus of gallbladder with chronic cholecystitis without obstruction; K94.09 Other complications of colostomy; N17.9 Acute kidney failure, unspecified; Z99.11 Dependence on respirator [ventilator] status; D78.11 Accidental puncture and laceration of the spleen during a procedure on the spleen; E83.52 Hypercalcemia; E86.0 Dehydration; E87.6 Hypokalemia; E87.70 Fluid overload, unspecified; G20 Parkinson's disease; F02.80 Dementia in other diseases classified elsewhere, unspecified severity, without behavioral disturbance, psychotic disturbance, mood disturbance, and anxiety; F17.210 Nicotine dependence, cigarettes, uncomplicated; Z51.5 Encounter for palliative care; Z66 Do not resuscitate; J43.9 Emphysema, unspecified; K56.41 Fecal impaction; K57.90 Diverticulosis of intestine, part unspecified, without perforation or abscess without bleeding; M19.90 Unspecified osteoarthritis, unspecified site; M41.34 Thoracogenic scoliosis, thoracic region; R32 Unspecified urinary incontinence; R65.20 Severe sepsis without septic shock; Z87.01 Personal history of pneumonia (recurrent); Z96.643 Presence of artificial hip joint, bilateral; Z99.81 Dependence on supplemental oxygen; Y65.8 Other specified misadventures during surgical and medical care; R15.9 Full incontinence of feces; Z79.82 Long term (current) use of aspirin; Z79.899 Other long term (current) drug therapy; K62.89 Other specified diseases of anus and rectum; R91.8 Other nonspecific abnormal finding of lung field
CPT/HCPCS: 36415; 36600; 70450; 71045; 71046; 71260; 74018; 74177; 80048; 80053; 80178; 80202; 81003; 82040; 82150; 82330; 82550; 82805; 83036; 83605; 83690; 83735; 83880; 84100; 84132; 84478; 84484; 85025; 85027; 85379; 85610; 85730; 86850; 86900; 86901; 87040; 87077; 87086; 87150; 87186; 88304; 88305; 88307; 93005; 94002; 94003; 94640; 94760; 96361; 96365; 96375; 99285